=== PATIENT | female | born 1960 | race Caucasian/White ===

== ENCOUNTER 2017-10-11 13:55 | Emergency (ER) | payer MEDICAID ==
--- NOTE | 2017-10-11 15:45 | ER ---
Nurse's Notes [facility] Name: Deena Hdz Age: 57 yrs Sex: Female : 1960 Arrival Date: 10/11/2017 Time: 13:56 Bed 15 Private MD: Diagnosis: Acute sinusitis Presentation: 10/11 14:11 Presenting complaint: Patient states: "i have a sinus infection, i am coughing up green tw2 stuff and green stuff coming out of my nose for over a week now', PCP: Dr. Patino. Transition of care: patient was not received from another setting of care. Onset of symptoms was October 11, 2017. Initial Sepsis Screen: Does the patient meet any 2 criteria? No. Patient's initial sepsis screen is negative. Does the patient have a suspected source of infection? Yes: No. Patient's initial sepsis screen is negative. Care prior to arrival: None. 14:11 Method Of Arrival: Ambulatory tw2 14:11 Acuity: JAIRON 4 tw2 Triage Assessment: 14:15 General: Appears in no apparent distress. Behavior is calm, cooperative, appropriate tw2 for age. Pain: Complains of pain in sinuses. Historical: - Allergies: 14:15 PENICILLINS; tw2 - Home Meds: 14:15 Jen 180 mg Oral tab 1 tab once daily [Active]; alprazolam 0.5 mg Oral tab 1 tab tw2 twice a day [Active]; amikacin 500 mg/2 mL injection soln every 12 hours [Active]; aspirin 81 mg Oral chew 1 tab once daily [Active]; Cymbalta 60 mg Oral cpDR 1 cap once daily [Active]; Flonase 50 mcg/actuation Nasal spsn 2 sprays once daily [Active]; folic acid 1 mg Oral tab 1 tab once daily [Active]; gemfibrozil 600 mg Oral tab 1 tab 2 times per day [Active]; hydroxyzine HCl 25 mg Oral tab 1 tab 3 times per day [Active]; isosorbide mononitrate 30 mg Oral Tb24 1 tab once daily [Active]; Lipitor 20 mg Oral tab 1 tab once daily [Active]; lisinopril 20 mg Oral tab 1 tab once daily [Active]; magnesium oxide 500 mg Oral cap [Active]; metoprolol succinate-hydrochlorothiazide 50 mg Oral 1 tab once daily [Active]; oxybutynin chloride 5 mg Oral tr24 1 tab once daily [Active]; Prilosec 20 mg Oral cpDR 1 cap [Active]; Senna [Active]; Tylenol-Codeine #3 300-30 mg Oral tab 1 tab every 8 hours [Active]; Vitamin C Oral [Active]; - PMHx: 14:15 Anxiety; Depression; Diabetes - NIDDM; GERD; Hypertension; insomnia; Ventral Hernia tw2 w/Gangrene; - PSHx: 14:15 bladder sling; pelvic lift; reconstructive Sx to abdomen; Hysterectomy; big toe Sx; tw2 - Immunization history:: Adult Immunizations up to date. - Social history:: Smoking status: Patient/guardian denies using tobacco. Screenin:16 Abuse screen: Denies threats or abuse. Nutritional screening: No deficits noted. tw2 Tuberculosis screening: No symptoms or risk factors identified. Fall Risk None identified. Assessment: 15:00 General: Appears in no apparent distress. Behavior is calm, cooperative, appropriate jl7 for age. Pain: Complains of pain in sore throat. Neuro: Level of Consciousness is awake, alert, obeys commands, Oriented to person, place, time, situation. Cardiovascular: Heart tones S1 S2 present Patient's skin is warm and dry. Respiratory: Reports cough that is non-productive, Airway is patent Respiratory effort is even, unlabored, Respiratory pattern is regular, symmetrical, Breath sounds are clear bilaterally. GI: No signs and/or symptoms were reported involving the gastrointestinal system. : No signs and/or symptoms were reported regarding the genitourinary system. EENT: Throat is clear is reddened. Derm: Skin is pink, warm \\T\\ dry. Vital Signs: 14:12 BP 193 / 95; Pulse 68; Resp 17; Temp 97.5(TE); Pulse Ox 96% on R/A; Weight 116.57 kg tw2 (R); Height 5 ft. 5 in. (165.10 cm); Pain 6/10; 15:00 BP 160 / 85; Pulse 61; Resp 16; Pulse Ox 99% on R/A; jl7 15:41 BP 176 / 99; Pulse 68; Resp 18 S; Pulse Ox 99% on R/A; jl7 16:08 BP 170 / 89; Pulse 64; Resp 16; Pulse Ox 97% on R/A; jl7 14:12 Body Mass Index 42.77 (116.57 kg, 165.10 cm) tw2 ED Course: 13:56 Patient arrived in ED. tw3 14:12 Triage completed. tw2 14:12 Arm band placed on. tw2 14:21 Rodger Yip NP is PHCP. pm1 14:21 Jesse Toscano MD is Attending Physician. pm1 14:56 Jessica Chawla, LOVELY is Primary Nurse. jl7 15:00 Patient has correct armband on for positive identification. Bed in low position. Call jl7 light in reach. Side rails up X 1. Pulse ox on. NIBP on. 16:11 No provider procedures requiring assistance completed. Patient did not have IV access jl7 during this emergency room visit. Administered Medications: No medications were administered Outcome: 15:45 Discharge ordered by . pm1 16:11 Discharged to home ambulatory. jl7 16:11 Condition: stable 16:11 Discharge instructions given to patient, Instructed on discharge instructions, follow up and referral plans. medication usage, Demonstrated understanding of instructions, follow-up care, medications. 16:12 Patient left the ED. jl7 Signatures: Rodger Yip NP PLUMBER'S HELPER pm1 Deanna Perez RN RN tw2 Jessica Chawla, LOVELY RN jl7 Brea Iraheta tw3
--- NOTE | 2017-10-11 15:46 | EDPHYS ---
Physician Documentation [facility] Name: Deena Hdz Age: 57 yrs Sex: Female : 1960 Arrival Date: 10/11/2017 Time: 13:56 Bed 15 Private MD: ED Physician Jesse Toscano HPI: 10/11 15:40 This 57 yrs old Female presents to ER via Ambulatory with complaints of Sinus pm1 Congestion. 15:40 The patient or guardian reports Sinus congestion and pain. Onset: The symptoms/episode pm1 began/occurred 3 week(s) ago. Severity of symptoms: in the emergency department the symptoms are actually worse. Modifying factors: The symptoms are alleviated by nothing. Associated signs and symptoms: Pertinent positives: earache, fever, Pertinent negatives: chest pain, nausea, sore throat, vomiting. The patient has been recently seen by a physician: the patient's primary care provider, with similar presenting complaints, given prescriptions for Flonase and decongestants but patient unable to afford.. Historical: - Allergies: 14:15 PENICILLINS; tw2 - Home Meds: 14:15 Jen 180 mg Oral tab 1 tab once daily [Active]; alprazolam 0.5 mg Oral tab 1 tab tw2 twice a day [Active]; amikacin 500 mg/2 mL injection soln every 12 hours [Active]; aspirin 81 mg Oral chew 1 tab once daily [Active]; Cymbalta 60 mg Oral cpDR 1 cap once daily [Active]; Flonase 50 mcg/actuation Nasal spsn 2 sprays once daily [Active]; folic acid 1 mg Oral tab 1 tab once daily [Active]; gemfibrozil 600 mg Oral tab 1 tab 2 times per day [Active]; hydroxyzine HCl 25 mg Oral tab 1 tab 3 times per day [Active]; isosorbide mononitrate 30 mg Oral Tb24 1 tab once daily [Active]; Lipitor 20 mg Oral tab 1 tab once daily [Active]; lisinopril 20 mg Oral tab 1 tab once daily [Active]; magnesium oxide 500 mg Oral cap [Active]; metoprolol succinate-hydrochlorothiazide 50 mg Oral 1 tab once daily [Active]; oxybutynin chloride 5 mg Oral tr24 1 tab once daily [Active]; Prilosec 20 mg Oral cpDR 1 cap [Active]; Senna [Active]; Tylenol-Codeine #3 300-30 mg Oral tab 1 tab every 8 hours [Active]; Vitamin C Oral [Active]; - PMHx: 14:15 Anxiety; Depression; Diabetes - NIDDM; GERD; Hypertension; insomnia; Ventral Hernia tw2 w/Gangrene; - PSHx: 14:15 bladder sling; pelvic lift; reconstructive Sx to abdomen; Hysterectomy; big toe Sx; tw2 - Immunization history:: Adult Immunizations up to date. - Social history:: Smoking status: Patient/guardian denies using tobacco. ROS: 15:40 Eyes: Negative for injury, pain, redness, and discharge. pm1 15:40 Neck: Negative for injury, pain, and swelling, Cardiovascular: Negative for chest pain, palpitations, and edema, Respiratory: Negative for shortness of breath, cough, wheezing, and pleuritic chest pain, Abdomen/GI: Negative for abdominal pain, nausea, vomiting, diarrhea, and constipation, Back: Negative for injury and pain, : Negative for injury, bleeding, discharge, and swelling, MS/Extremity: Negative for injury and deformity, Skin: Negative for injury, rash, and discoloration, Neuro: Negative for headache, weakness, numbness, tingling, and seizure. 15:40 Constitutional: Positive for fever, Negative for body aches, poor PO intake. 15:40 ENT: Positive for sinus congestion, sinus pain, Negative for rhinorrhea, sore throat, difficulty swallowing, difficulty handling secretions, hoarseness. Exam: 15:40 Constitutional: This is a well developed, well nourished patient who is awake, alert, pm1 and in no acute distress. 15:40 Eyes: Pupils equal round and reactive to light, extra-ocular motions intact. Lids and lashes normal. Conjunctiva and sclera are non-icteric and not injected. Cornea within normal limits. Periorbital areas with no swelling, redness, or edema. ENT: Nares patent. No nasal discharge, no septal abnormalities noted. Tympanic membranes are normal and external auditory canals are clear. Oropharynx with no redness, swelling, or masses, exudates, or evidence of obstruction, uvula midline. Mucous membranes moist. Neck: Trachea midline, no thyromegaly or masses palpated, and no cervical lymphadenopathy. Supple, full range of motion without nuchal rigidity, or vertebral point tenderness. No Meningismus. Chest/axilla: Normal chest wall appearance and motion. Nontender with no deformity. No lesions are appreciated. Cardiovascular: Regular rate and rhythm with a normal S1 and S2. No gallops, murmurs, or rubs. No pulse deficits. Respiratory: Lungs have equal breath sounds bilaterally, clear to auscultation and percussion. No rales, rhonchi or wheezes noted. No increased work of breathing, no retractions or nasal flaring. Abdomen/GI: Soft, non-tender, with normal bowel sounds. No distension or tympany. No guarding or rebound. No evidence of tenderness throughout. Back: No spinal tenderness. No costovertebral tenderness. Full range of motion. Skin: Warm, dry with normal turgor. Normal color with no rashes, no lesions, and no evidence of cellulitis. MS/ Extremity: Pulses equal, no cyanosis. Neurovascular intact. Full, normal range of motion. 15:40 Head/face: Sinus tenderness, that is moderate, is located over the right frontal sinus, left frontal sinus, right maxillary sinus and left maxillary sinus. 15:40 Neuro: Orientation: is normal, Motor: moves all fours, Gait: is steady, at a normal pace, without difficulty. Vital Signs: 14:12 BP 193 / 95; Pulse 68; Resp 17; Temp 97.5(TE); Pulse Ox 96% on R/A; Weight 116.57 kg tw2 (R); Height 5 ft. 5 in. (165.10 cm); Pain 6/10; 15:00 BP 160 / 85; Pulse 61; Resp 16; Pulse Ox 99% on R/A; jl7 15:41 BP 176 / 99; Pulse 68; Resp 18 S; Pulse Ox 99% on R/A; jl7 16:08 BP 170 / 89; Pulse 64; Resp 16; Pulse Ox 97% on R/A; jl7 14:12 Body Mass Index 42.77 (116.57 kg, 165.10 cm) tw2 MDM: 14:21 Patient medically screened. pm1 15:45 Data reviewed: vital signs. Data interpreted: Pulse oximetry: on room air is 99 %. pm1 Interpretation: normal. Counseling: I had a detailed discussion with the patient and/or guardian regarding: the historical points, exam findings, and any diagnostic results supporting the discharge/admit diagnosis, the need for outpatient follow up, to return to the emergency department if symptoms worsen or persist or if there are any questions or concerns that arise at home. Administered Medications: No medications were administered Disposition: 17:15 Co-signature as Attending Physician, Jesse Toscano MD. rn Disposition: 10/11/17 15:45 Discharged to Home. Impression: Acute sinusitis. - Condition is Stable. - Discharge Instructions: Sinusitis, Adult. - Prescriptions for Zyrtec- D 5-120 mg Oral Tablet Sustained Release 12 hr - take 1 tablet by ORAL route every 12 hours As needed; 20 tablet. Zithromax 500 mg Oral Tablet - take 1 tablet by ORAL route once daily for 3 days; 3 tablet. - Medication Reconciliation Form, Thank You Letter, Antibiotic Education, Work release form, Family Work Release form. - Follow up: Emergency Department; When: As needed; Reason: Worsening of condition. Follow up: Private Physician; When: 2 - 3 days; Reason: Recheck today's complaints, Continuance of care, Re-evaluation by your physician. - Problem is new. - Symptoms have improved. Signatures: Jesse Toscano MD MD rn Marinas, Patrick, NP COMMERCIAL KITCHEN SERVICE TECHNICIAN pm1 Deanna Perez RN RN tw2 Jessica Chawla RN RN jl7
[2017-10-11 16:20] VITALS: TEMP 97.5
[2017-10-11 16:23] VITALS: BP 170/89; O2SAT 97
== END 2017-10-11 16:12 | disposition home or self-care (01) ==
LOC: ER 13:55
DX: J01.90 Acute sinusitis, unspecified (principal); I10 Essential (primary) hypertension; E11.9 Type 2 diabetes mellitus without complications; F41.9 Anxiety disorder, unspecified; F32.9 Major depressive disorder, single episode, unspecified; Z79.82 Long term (current) use of aspirin; Z88.0 Allergy status to penicillin
CPT/HCPCS: 99283

== ENCOUNTER 2018-04-07 11:51 | Emergency (ER) | payer MEDICAID ==
--- NOTE | 2018-04-07 12:25 | ER ---
Nurse's Notes [facility] Name: Deena Hdz Age: 57 yrs Sex: Female : 1960 Arrival Date: 04/07/2018 Time: 11:53 Bed 14 Private MD: Diagnosis: Cellulitis of anterior lower abdomen Presentation: 04/07 12:15 Presenting complaint: Patient states: has had multiple abd mesh surgeries by Dr. Cid, iw last surgery was in 2008, pt states her wound opened up last week and she has been trying to take care of it at home, states it has opened up in the past and usually she can treat it at home but now the pain has gotten worse. Transition of care: patient was not received from another setting of care. Onset of symptoms was March 31, 2018. Risk Assessment: Do you want to hurt yourself or someone else? Patient reports no desire to harm self or others. Initial Sepsis Screen: Does the patient meet any 2 criteria? No. Patient's initial sepsis screen is negative. Does the patient have a suspected source of infection? No. Patient's initial sepsis screen is negative. Care prior to arrival: None. 12:15 Method Of Arrival: Ambulatory iw 12:15 Acuity: JAIRON 3 iw Historical: - Allergies: 12:18 PENICILLINS; iw - Home Meds: 12:18 Jen 180 mg Oral tab 1 tab once daily [Active]; alprazolam 0.5 mg Oral tab 1 tab iw twice a day [Active]; amikacin 500 mg/2 mL injection soln every 12 hours [Active]; aspirin 81 mg Oral chew 1 tab once daily [Active]; Cymbalta 60 mg Oral cpDR 1 cap once daily [Active]; Flonase 50 mcg/actuation Nasal spsn 2 sprays once daily [Active]; folic acid 1 mg Oral tab 1 tab once daily [Active]; gemfibrozil 600 mg Oral tab 1 tab 2 times per day [Active]; hydroxyzine HCl 25 mg Oral tab 1 tab 3 times per day [Active]; isosorbide mononitrate 30 mg Oral Tb24 1 tab once daily [Active]; Lipitor 20 mg Oral tab 1 tab once daily [Active]; lisinopril 20 mg Oral tab 1 tab once daily [Active]; magnesium oxide 500 mg Oral cap [Active]; metoprolol succinate-hydrochlorothiazide 50 mg Oral 1 tab once daily [Active]; oxybutynin chloride 5 mg Oral tr24 1 tab once daily [Active]; Prilosec 20 mg Oral cpDR 1 cap [Active]; Tylenol-Codeine #3 300-30 mg Oral tab 1 tab every 8 hours [Active]; Vitamin C Oral [Active]; - PMHx: 12:18 Anxiety; Depression; Diabetes - NIDDM; GERD; Hypertension; insomnia; Ventral Hernia iw w/Gangrene; - PSHx: 12:18 bladder sling; pelvic lift; reconstructive Sx to abdomen; Hysterectomy; big toe Sx; iw - Ebola Screening: : Patient negative for fever greater than or equal to 101.5 degrees Fahrenheit, and additional compatible Ebola Virus Disease symptoms Patient denies exposure to infectious person Patient denies travel to an Ebola-affected area in the 21 days before illness onset No symptoms or risks identified at this time. Screenin:18 Abuse screen: Denies threats or abuse. Nutritional screening: No deficits noted. aa5 Tuberculosis screening: No symptoms or risk factors identified. Fall Risk None identified. Assessment: 12:18 General: Appears comfortable, Behavior is calm, cooperative. Pain: Complains of pain in aa5 abdomen Pain does not radiate. Pain currently is 9 out of 10 on a pain scale. Quality of pain is described as sharp, Pain began is chronic Is intermittent. Neuro: Level of Consciousness is awake, alert, obeys commands, Oriented to person, place, time, situation. Cardiovascular: Heart tones S1 S2 present Rhythm is regular. Respiratory: Airway is patent Respiratory effort is even, unlabored, Respiratory pattern is regular, symmetrical. GI: Abdomen is obese, appears as large hernia Abdomen appears as large hernia with incision site noted, redness noted to incision site noted, no drainage at this time noted, pt reports oozing. Pt states "I get this infection every once in a while and they have to give me antibiotics for it" Bowel sounds present X 4 quads. Abdomen is tender to palpation in right lower quadrant and left lower quadrant. : No signs and/or symptoms were reported regarding the genitourinary system. EENT: No signs and/or symptoms were reported regarding the EENT system. Derm: Skin is pink, warm \\T\\ dry. Musculoskeletal: Range of motion: intact in all extremities. 13:18 Reassessment: Patient and/or family updated on plan of care and expected duration. Pain aa5 level reassessed. Patient is alert, oriented x 3, equal unlabored respirations, skin warm/dry/pink. Pt states "can I please get some Tylenol for the pain?". BLANKET CUTTING MACHINE OPERATOR was notified of pt's request. . Pain: Pain currently is 10 out of 10 on a pain scale. 13:35 Reassessment: Wound care completed to abdomen, cleaned with Hibiclens, dressed with aa5 gauze, abd pads, and paper tape. Pt tolerated poorly, pt c/o pain. . 14:10 Reassessment: Patient is alert, oriented x 3, equal unlabored respirations, skin aa5 warm/dry/pink. Patient states feeling better. Vital Signs: 12:16 BP 177 / 89; Pulse 73; Resp 16; Pulse Ox 94% on R/A; iw 12:23 Temp 98.3(O); aa5 13:35 BP 190 / 86; Pulse 80; Resp 18 S; Pulse Ox 98% on R/A; Pain 10/10; aa5 14:00 BP 170 / 88; Pulse 74; Resp 18 S; Temp 98.4(O); Pulse Ox 97% on R/A; Pain 3/10; aa5 ED Course: 11:53 Patient arrived in ED. tw3 12:07 Irma Pace FNP-C is PSYCHIATRICP. snw 12:07 Jorge Lovelace MD is Attending Physician. snw 12:16 Triage completed. iw 12:18 Patient has correct armband on for positive identification. Bed in low position. Call aa5 light in reach. Side rails up X2. 12:18 Arm band placed on. aa5 12:20 Jayde Smith, RN is Primary Nurse. aa5 12:22 Edi Cid MD is Referral Physician. snw 13:24 No provider procedures requiring assistance completed. aa5 14:10 Patient did not have IV access during this emergency room visit. aa5 Administered Medications: 13:18 Drug: Cipro 500 mg Route: PO; aa5 14:10 Follow up: Response: No adverse reaction aa5 13:18 Drug: Doxycycline 100 mg Route: PO; aa5 14:10 Follow up: Response: No adverse reaction aa5 13:18 Drug: Hibiclens 4 % 1 application Route: Topical; Site: wound; aa5 13:19 Drug: Tylenol 500 mg Route: PO; aa5 14:10 Follow up: Response: No adverse reaction aa5 Outcome: 12:24 Discharge ordered by . nida 14:10 Discharged to home ambulatory, with family. aa5 14:10 Condition: stable 14:10 Discharge instructions given to patient, Instructed on discharge instructions, follow up and referral plans. medication usage, Demonstrated understanding of instructions, follow-up care, medications, Prescriptions given X 2. 14:17 Patient left the ED. aa5 Signatures: Irma Pace, FOREST LAW AND POLICY PROFESSOR-C FOREST LAW AND POLICY PROFESSOR-Csnw Kenyatta Banuelos RN RN iw Jayde Smith RN RN aa5 Brea Iraheta tw3 Corrections: (The following items were deleted from the chart) 14:36 14:00 BP 170 / 88; Pulse 74bpm; Resp 18bpm; Spontaneous; Pulse Ox 97% RA; Pain 08/27; [id number]
--- NOTE | 2018-04-07 12:25 | EDPHYS ---
Physician Documentation [facility] Name: Deena Hdz Age: 57 yrs Sex: Female : 1960 Arrival Date: 04/07/2018 Time: 11:53 Bed 14 Private MD: ED Physician Jorge Lovelace HPI: 04/07 12:21 This 57 yrs old Female presents to ER via Ambulatory with complaints of Wound snw Infection. 12:21 The patient represents for recheck after previously being evaluated for recurrent snw surgical wound/panus infection. Previous care: antibiotics, Cipro, doxy. Present symptoms: the infected skin generally heals with tx and then recurs. The patient has experienced similar episodes in the past. It is unknown whether or not the patient has recently seen a physician. Historical: - Allergies: 12:18 PENICILLINS; iw - Home Meds: 12:18 Jen 180 mg Oral tab 1 tab once daily [Active]; alprazolam 0.5 mg Oral tab 1 tab iw twice a day [Active]; amikacin 500 mg/2 mL injection soln every 12 hours [Active]; aspirin 81 mg Oral chew 1 tab once daily [Active]; Cymbalta 60 mg Oral cpDR 1 cap once daily [Active]; Flonase 50 mcg/actuation Nasal spsn 2 sprays once daily [Active]; folic acid 1 mg Oral tab 1 tab once daily [Active]; gemfibrozil 600 mg Oral tab 1 tab 2 times per day [Active]; hydroxyzine HCl 25 mg Oral tab 1 tab 3 times per day [Active]; isosorbide mononitrate 30 mg Oral Tb24 1 tab once daily [Active]; Lipitor 20 mg Oral tab 1 tab once daily [Active]; lisinopril 20 mg Oral tab 1 tab once daily [Active]; magnesium oxide 500 mg Oral cap [Active]; metoprolol succinate-hydrochlorothiazide 50 mg Oral 1 tab once daily [Active]; oxybutynin chloride 5 mg Oral tr24 1 tab once daily [Active]; Prilosec 20 mg Oral cpDR 1 cap [Active]; Tylenol-Codeine #3 300-30 mg Oral tab 1 tab every 8 hours [Active]; Vitamin C Oral [Active]; - PMHx: 12:18 Anxiety; Depression; Diabetes - NIDDM; GERD; Hypertension; insomnia; Ventral Hernia iw w/Gangrene; - PSHx: 12:18 bladder sling; pelvic lift; reconstructive Sx to abdomen; Hysterectomy; big toe Sx; iw - Ebola Screening: : Patient negative for fever greater than or equal to 101.5 degrees Fahrenheit, and additional compatible Ebola Virus Disease symptoms Patient denies exposure to infectious person Patient denies travel to an Ebola-affected area in the 21 days before illness onset No symptoms or risks identified at this time. ROS: 12:16 Constitutional: Negative for fever, chills, and weight loss, Eyes: Negative for injury, snw pain, redness, and discharge, ENT: Negative for injury, pain, and discharge, Neck: Negative for injury, pain, and swelling, Cardiovascular: Negative for chest pain, palpitations, and edema, Respiratory: Negative for shortness of breath, cough, wheezing, and pleuritic chest pain, Back: Negative for injury and pain, : Negative for injury, bleeding, discharge, and swelling, MS/Extremity: Negative for injury and deformity, Skin: Negative for injury, rash, and discoloration, Neuro: Negative for headache, weakness, numbness, tingling, and seizure. 12:16 Abdomen/GI: Positive for infected skin at lower abdomen. Pt states this happens regularly. States she usually gets Rx for doxycycline and cipro and the problem resolves. Sees Dr. Patino and Dr. Cid. Exam: 12:16 Constitutional: This is a well developed, well nourished patient who is awake, alert, snw and in no acute distress. Head/Face: Normocephalic, atraumatic. Eyes: Pupils equal round and reactive to light, extra-ocular motions intact. Lids and lashes normal. Conjunctiva and sclera are non-icteric and not injected. Cornea within normal limits. Periorbital areas with no swelling, redness, or edema. ENT: Nares patent. No nasal discharge, no septal abnormalities noted. Tympanic membranes are normal and external auditory canals are clear. Oropharynx with no redness, swelling, or masses, exudates, or evidence of obstruction, uvula midline. Mucous membranes moist. Neck: Trachea midline, no thyromegaly or masses palpated, and no cervical lymphadenopathy. Supple, full range of motion without nuchal rigidity, or vertebral point tenderness. No Meningismus. Chest/axilla: Normal chest wall appearance and motion. Nontender with no deformity. No lesions are appreciated. Cardiovascular: Regular rate and rhythm with a normal S1 and S2. No gallops, murmurs, or rubs. Normal PMI, no JVD. No pulse deficits. Respiratory: Lungs have equal breath sounds bilaterally, clear to auscultation and percussion. No rales, rhonchi or wheezes noted. No increased work of breathing, no retractions or nasal flaring. Back: No spinal tenderness. No costovertebral tenderness. Full range of motion. MS/ Extremity: Pulses equal, no cyanosis. Neurovascular intact. Full, normal range of motion. Neuro: Awake and alert, GCS 15, oriented to person, place, time, and situation. Cranial nerves II-XII grossly intact. Motor strength 5/5 in all extremities. Sensory grossly intact. Cerebellar exam normal. Normal gait. Psych: Awake, alert, with orientation to person, place and time. Behavior, mood, and affect are within normal limits. 12:16 Skin: Warm, dry with normal turgor. Normal color with no rashes, no lesions, and no evidence of cellulitis. except at areas discussed on abdomen 12:16 Abdomen/GI: Inspection: distension, that is mild, obese scar(s), are noted in the right lower quadrant and left lower quadrant, pt with surgical scars to panus area of bilateral lower abdomen, in creases of overhanging skin there is erythema, scabbing, and mild oozing. pt states the mesh over hernia is dissolving and it causes her some discomfort chronically, Bowel sounds: normal, in all quadrants, Palpation: soft, mild abdominal tenderness, in the right lower quadrant. Vital Signs: 12:16 BP 177 / 89; Pulse 73; Resp 16; Pulse Ox 94% on R/A; iw 12:23 Temp 98.3(O); aa5 13:35 BP 190 / 86; Pulse 80; Resp 18 S; Pulse Ox 98% on R/A; Pain 10/10; aa5 14:00 BP 170 / 88; Pulse 74; Resp 18 S; Temp 98.4(O); Pulse Ox 97% on R/A; Pain 3/10; aa5 MDM: 12:12 Patient medically screened. sn 12:25 Data reviewed: vital signs, nurses notes. Data interpreted: Pulse oximetry: on room air snw is 94 %. Interpretation: acceptable. Counseling: I had a detailed discussion with the patient and/or guardian regarding: the historical points, exam findings, and any diagnostic results supporting the discharge/admit diagnosis, the need for outpatient follow up, to return to the emergency department if symptoms worsen or persist or if there are any questions or concerns that arise at home. Special discussion: Based on the history and exam findings, there is no indication for further emergent testing or inpatient evaluation. I discussed with the patient/guardian the need to see the general surgeon for further evaluation of the symptoms. I discussed with the patient/guardian the need to see the primary care provider for further evaluation of the symptoms. 04/07 12:16 Order name: Wound Care; Complete Time: 13:33 snw 04/07 12:16 Order name: Wound dressing; Complete Time: 13:33 snw Administered Medications: 13:18 Drug: Cipro 500 mg Route: PO; aa5 14:10 Follow up: Response: No adverse reaction aa5 13:18 Drug: Doxycycline 100 mg Route: PO; aa5 14:10 Follow up: Response: No adverse reaction aa5 13:18 Drug: Hibiclens 4 % 1 application Route: Topical; Site: wound; aa5 13:19 Drug: Tylenol 500 mg Route: PO; aa5 14:10 Follow up: Response: No adverse reaction aa5 Disposition: 15:11 Co-signature as Attending Physician, Jorge Lovelace MD I agree with the assessment and kdr plan of care. Disposition: 04/07/18 12:24 Discharged to Home. Impression: Cellulitis of anterior lower abdomen. - Condition is Stable. - Discharge Instructions: Wound Infection, Wound Care. - Prescriptions for Doxycycline Hyclate 100 mg Oral Tablet - take 1 tablet by ORAL route every 12 hours; 20 tablet. Cipro 500 mg Oral Tablet - take 1 tablet by ORAL route every 12 hours for 10 days; 20 tablet. - Medication Reconciliation Form, Thank You Letter, Antibiotic Education, Prescription Opioid Use, Family Work Release form. - Follow up: Private Physician; When: 2 - 3 days; Reason: Recheck today's complaints, Continuance of care, Re-evaluation by your physician. Follow up: Emergency Department; When: As needed; Reason: Worsening of condition. Follow up: Edi Cid MD; When: 1 week; Reason: Recheck today's complaints, Continuance of care, Re-evaluation by your physician. - Problem is an acute exacerbation. - Symptoms have worsened. Signatures: Jorge Lovelace MD MD [facility] Irma Pace, [employer] Kenyatta Banuelos, RN RN iw Jayde Smith RN RN aa5 Corrections: (The following items were deleted from the chart) 14:17 12:24 04/07/2018 12:24 Discharged to Home. Impression: Cellulitis of anterior lower aa5 abdomen. Condition is Stable. Forms are Medication Reconciliation Form, Thank You Letter, Antibiotic Education, Prescription Opioid Use. Follow up: Private Physician; When: 2 - 3 days; Reason: Recheck today's complaints, Continuance of care, Re-evaluation by your physician. Follow up: Emergency Department; When: As needed; Reason: Worsening of condition. Follow up: Dr. Edi Cid; When: 1 week; Reason: Recheck today's complaints, Continuance of care, Re-evaluation by your physician. Problem is an acute exacerbation. Symptoms have worsened. snw
[2018-04-07] MEDS ORDERED: DOXYCYCLINE 100 MG CAP PO ONE (13:17)
[2018-04-07] MEDS ORDERED: CIPROFLOXACIN HCL 500 MG TAB ONE (13:17)
[2018-04-07] MEDS ORDERED: ACETAMINOPHEN 500 MG TAB ONE (13:23)
[2018-04-07 14:21] VITALS: BP 177/89; O2SAT 94
[2018-04-07 14:22] VITALS: TEMP 98.3
== END 2018-04-07 14:17 | disposition home or self-care (01) ==
LOC: ER 11:51
DX: L03.311 Cellulitis of abdominal wall (principal); Z88.0 Allergy status to penicillin; E11.9 Type 2 diabetes mellitus without complications; F41.8 Other specified anxiety disorders; I10 Essential (primary) hypertension; K21.9 Gastro-esophageal reflux disease without esophagitis
CPT/HCPCS: 99283

== ENCOUNTER 2019-12-04 09:51 | Emergency (ER) | payer MEDICAID ==
[2019-12-04 11:59] LABS: Urine Blood NEGATIVE (NEG); Urine Glucose NEGATIVE (NEG); Urine Protein NEGATIVE (NEG); Urine Specific Gravity 1.015 (1.005-1.030); Urine pH 5.5 (5.0-7.0)
--- OUTSIDE RECORDS SUMMARY | 2019-12-04 12:00 | XMS REPORT | Continuity of Care Document ---
:1960 Author Organization [facility] t Address [address] [place] [address] Care Team Providers Name Role Phone Doctor Unassigned, Taylor Attending Clinician Unavailable Khurram ALLISON Attending Clinician Problems This patient has no known problems. Allergies, Adverse Reactions, Alerts This patient has no known allergies or adverse reactions. Medications This patient has no known medications. Procedures This patient has no known procedures. Encounters Start End Encounter Admission Attending Care Care Encounter Source Date/Time Date/Time Type Type Clinicians Facility Department ID 2019-09-21 2019-09-21 Orders Doctor RETANA [id number] 00:00:00 00:00:00 Only UnassignedALBINA [id number] Taylor [facility] [id number] 2019-09-03 2019-09-03 Orders Doctor RETANA [id number] 00:00:00 00:00:00 Only UnassignedALBINA [id number] Taylor [facility] [id number] 2019-08-29 2019-08-29 Office NOHEMY Paulson [id number] 08:53:23 16:50:00 Visit Rochelle Wakefield [id number] [place] [id number] esscyndie [id number] nal 059 Building Results This patient has no known results.
--- NOTE | 2019-12-04 12:33 | RAD REPORT ---
EXAM DESCRIPTION: CT - Stone Protocol - 12/04/2019 12:03 pm CLINICAL HISTORY: right flank pain COMPARISON: Abdomen Pelvis W Contrast dated 12/14/2017 TECHNIQUE: Axial 5 mm thick images were obtained without oral or IV contrast. The npuvh-vs-city span s the entirety of the system including uppermost abdomen and lung bases. All CT scans are performed using dose optimization technique as appropriate and may include automated exposure control or mA/KV adjustment according to patient size. FINDINGS: No acute hydronephrosis is identified. Patient has moderate severity dilatation of the orville ices an extrarenal pelvis on the right. This is similar to comparison. No obstructing UPJ calculus. P atient may have a congenital UPJ obstruction or stricture. The ureter is not dilated. No ureteral orville culi seen. The patient has a 3 millimeter nonobstructing calculus mid left kidney. No suspicious mert l masses. Isodense masses and pyelonephritis are not excluded on a stone protocol CT scan. No signifi cant adrenal finding. Urinary bladder is only partially filled. No bladder calculi. Uterus is absent. Ovaries are absent or atrophic. Imaged portions of the liver, spleen and pancreas show no suspicious findings on non-contrast imaging . No gallbladder or biliary tree abnormality identified. No gastric dilatation or wall thickening. No dilated large or small bowel loops. Patient has a very large ventral hernia. The hernia is approximately 30 cm in transverse diameter wit h widely diastased rectus abdominis musculature. The neck of the hernia is approximately 20 cm in anne meter. The hernia contains the antrum of the stomach and most of the colon. Most of the small bowel l oops extend through the hernia defect. No acute bowel wall thickening or edema. No congestion or lyudmila a of the herniated fat. The hernia is not new but has enlarged since 2018. No free air, free fluid or inflammatory stranding. No significant bony abnormality. IMPRESSION: No new hydronephrosis. No obstructing calculus or other abnormality to explain right fla nk pain or hematuria. Patient has moderate severity dilatation of the right pelvis and calices unchanged from 2018. Patient has a very large 30 centimeter diameter ventral hernia that contains the antrum of the stomac h as well is most of the small bowel and colon. No acute bowel process seen. The hernia is not new but has enlarged since 2018. Isodense masses and pyelonephritis are not excluded on stone protocol technique.
[2019-12-04 12:48] LABS: Absolute Lymphocytes (CBC) 2.2 K/uL (0.7-4.9); Basophils % 0.5 % (0-1.3); Hematocrit 39.7 % (36.0-45.0); Lymphocytes % 20.8 % (15.3-44.8); RBC Red Blood Cell Count 4.44 M/uL (3.86-4.86)
[2019-12-04 13:06] LABS: ALT/SGPT 17 U/L (12-78); AST/SGOT 10 U/L (15-37); Albumin 3.3 g/dL (3.4-5.0); Alkaline Phosphatase 97 U/L (45-117); BUN Blood Urea Nitrogen 9 mg/dL (7-18); Bicarbonate 30 mmol/L (21-32); Bilirubin Direct < 0.1 mg/dL (0-0.2); Bilirubin Total 0.3 mg/dL (0.2-1.0); Glucose Level 110 mg/dL (74-106); Lipase 128 U/L (73-393); Potassium 3.6 mmol/L (3.5-5.1); Protein, Total 6.9 g/dL (6.4-8.2); Sodium Level 140 mmol/L (136-145)
--- NOTE | 2019-12-04 13:30 | EDPHYS ---
Physician Documentation [facility] Name: Deena Hdz Age: 59 yrs Sex: Female : 1960 Arrival Date: 12/04/2019 Time: 09:54 Bed 18 Private MD: Zev Feliz ED Physician Alvarez Alves HPI: 12/03 10:22 This 59 yrs old Female presents to ER via Ambulatory with complaints of Flank jmm Pain. 10:22 The patient complains of pain in the right flank. Onset: The symptoms/episode jmm began/occurred acutely. Modifying factors: The symptoms are alleviated by nothing. the symptoms are aggravated by nothing. This is a 59 year old female with a history of DM, that presents to the ED with complaints of right flank pain beginning approx 3 days ago after passing a kidney stone. Denies vomiting. Complains of chills and dysuria since. . Historical: - Allergies: 10:19 PENICILLINS; hb - PMHx: 10:19 Diabetes - NIDDM; Hypertension; Ventral Hernia w/Gangrene; GERD; Depression; Anxiety; hb insomnia; - PSHx: 10:19 bladder sling; pelvic lift; reconstructive Sx to abdomen; Hysterectomy; big toe Sx; hb - Immunization history:: Adult Immunizations up to date. - Social history:: Smoking status: Patient denies any tobacco usage or history of. ROS: 10:22 Constitutional: Negative for fever, chills, and weight loss, Cardiovascular: Negative jmm for chest pain, palpitations, and edema, Respiratory: Negative for shortness of breath, cough, wheezing, and pleuritic chest pain. 10:22 Abdomen/GI: Positive for abdominal pain. 10:22 : Positive for urinary symptoms. 10:22 All other systems are negative. Exam: 10:22 Constitutional: This is a well developed, well nourished patient who is awake, alert, jmm and in no acute distress. Head/Face: atraumatic. Eyes: EOMI, no conjunctival erythema appreciated ENT: Moist Mucus Membranes Neck: Trachea midline, Supple Chest/axilla: Normal chest wall appearance and motion. Cardiovascular: Regular rate and rhythm. No edema appreciated Respiratory: Normal respirations, no respiratory distress appreciated 10:22 Skin: General appearance color normal MS/ Extremity: Moves all extremities, no obvious deformities appreciated, no edema noted to the lower extremities Neuro: Awake and alert, normal gait Psych: Behavior is normal, Mood is normal, Patient is cooperative and pleasant 10:22 Abdomen/GI: Inspection: obese Bowel sounds: normal, Palpation: soft, mild abdominal tenderness, in the right upper quadrant and right lower quadrant. 10:22 Back: CVA tenderness, that is mild, is noted on the right. Vital Signs: 10:15 BP 170 / 102; Pulse 88; Resp 16; Temp 98.2; Pulse Ox 100% on R/A; Weight 122.02 kg; hb Height 5 ft. 5 in. (165.10 cm); Pain 9/10; 13:11 BP 112 / 57; Pulse 56; Resp 18; Pulse Ox 100% ; ah 13:30 BP 116 / 58; Pulse 56; Resp 16; Pulse Ox 100% ; ah 10:15 Body Mass Index 44.76 (122.02 kg, 165.10 cm) hb MDM: 10:22 Patient medically screened. [facility] 13:28 Data reviewed: vital signs, nurses notes. Counseling: I had a detailed discussion with ritika the patient and/or guardian regarding: the historical points, exam findings, and any diagnostic results supporting the discharge/admit diagnosis, lab results, radiology results, the need for outpatient follow up, to return to the emergency department if symptoms worsen or persist or if there are any questions or concerns that arise at home. ED course: Patient is alert and non toxic in appearance in the ED. Patient is advised to follow up with pcp and otherwise given strict return precautions. Patient understood and agrees with the plan of care. . 12/03 10:36 Order name: Basic Metabolic Panel; Complete Time: 13: [facility] 12/03 10:36 Order name: CBC with Diff; Complete Time: 13: [facility] 12/03 10:36 Order name: Hepatic Function; Complete Time: 13: [facility] 12/03 10:36 Order name: Lipase; Complete Time: 13: [facility] 12/03 10:36 Order name: Urine Culture [facility] 12/03 11:48 Order name: Urine Dipstick--Ancillary (enter results); Complete Time: 12:22 12/03 10:36 Order name: IV Saline Lock; Complete Time: 13: [facility] 12/03 10:36 Order name: Labs collected and sent; Complete Time: : [facility] 12/03 10:36 Order name: CT Stone Protocol; Complete Time: 12:37 [facility] 12/03 10:36 Order name: Urine Dipstick-Ancillary (obtain specimen); Complete Time: 13:16 [facility] Administered Medications: No medications were administered Disposition: 15:45 Co-signature as Attending Physician, Alvarez Alves MD I agree with the assessment and [facility] plan of care. Disposition: 12/04/19 13:29 Discharged to Home. Impression: Flank Pain. - Condition is Stable. - Discharge Instructions: Flank Pain, Adult. - Medication Reconciliation Form, Thank You Letter, Antibiotic Education, Prescription Opioid Use form. - Follow up: Zev Feliz DO; When: 2 - 3 days; Reason: Recheck today's complaints, Continuance of care, Re-evaluation by your physician. Signatures: Dispatcher [employer] [facility] Alvarez Alves MD MD cha Mickail, Joel, PA PA [facility] Romana Adam RN RN hb Harris, Amy, RN RN Corrections: (The following items were deleted from the chart) 11:24 11:14 Stone Protocol ordered. [facility] 13:59 13:29 12/04/2019 13:29 Discharged to Home. Impression: Flank Pain. Condition is Stable. ah Forms are Medication Reconciliation Form, Thank You Letter, Antibiotic Education, Prescription Opioid Use. Follow up: Zev Feliz; When: 2 - 3 days; Reason: Recheck today's complaints, Continuance of care, Re-evaluation by your physician. [facility]
--- NOTE | 2019-12-04 13:30 | ER ---
Nurse's Notes [facility] Name: Deena Hdz Age: 59 yrs Sex: Female : 1960 Arrival Date: 12/04/2019 Time: 09:54 Bed 18 Private MD: Zev Feliz Diagnosis: Flank Pain Presentation: 12/03 10:15 Chief complaint: Right flank pain that radiates to right groin x 3 weeks, blood in hb urine after passing a stone 4 days ago. Denies fever/N/V. Coronavirus screen: Surgical mask placed on patient. Patient moved to private room, placed in contact and droplet isolation with eye protection until further assessment. Ebola Screen: No symptoms or risks identified at this time. Initial Sepsis Screen: Does the patient meet any 2 criteria? No. Patient's initial sepsis screen is negative. Does the patient have a suspected source of infection? No. Patient's initial sepsis screen is negative. Risk Assessment: Do you want to hurt yourself or someone else? Patient reports no desire to harm self or others. Onset of symptoms was December 04, 2019. 10:15 Method Of Arrival: Ambulatory hb 10:15 Acuity: JAIRON 3 hb Historical: - Allergies: 10:19 PENICILLINS; hb - PMHx: 10:19 Diabetes - NIDDM; Hypertension; Ventral Hernia w/Gangrene; GERD; Depression; Anxiety; hb insomnia; - PSHx: 10:19 bladder sling; pelvic lift; reconstructive Sx to abdomen; Hysterectomy; big toe Sx; hb - Immunization history:: Adult Immunizations up to date. - Social history:: Smoking status: Patient denies any tobacco usage or history of. Screenin:56 Abuse screen: Denies threats or abuse. Nutritional screening: No deficits noted. Tuberculosis screening: No symptoms or risk factors identified. Fall Risk None identified. Assessment: 12:05 Reassessment: Pt to CT scan via . 13:00 General: Appears uncomfortable, Behavior is calm, cooperative. Pain: Complains of pain ah in posterior aspect of right lateral abdomen, right upper quadrant and right lower quadrant Pain radiates to right inner thigh. Neuro: Level of Consciousness is awake, alert, Oriented to person, place, time, situation. Cardiovascular: Capillary refill < 3 seconds Patient's skin is warm and dry. Respiratory: Airway is patent Respiratory effort is even, unlabored, Breath sounds are clear bilaterally. GI: Bowel sounds present X 4 quads. : Urine is cloudy, Reports blood after passing stone a few days ago but none today or yesterday. Derm: Skin is intact, is healthy with good turgor, Skin is dry. 13:55 Reassessment: Discharge instructions given to Pt. Advised to follow up with PCP if no ah improvement or return to ER. Pt voiced understanding. No prescriptions given. Vital Signs: 10:15 BP 170 / 102; Pulse 88; Resp 16; Temp 98.2; Pulse Ox 100% on R/A; Weight 122.02 kg; hb Height 5 ft. 5 in. (165.10 cm); Pain 9/10; 13:11 BP 112 / 57; Pulse 56; Resp 18; Pulse Ox 100% ; ah 13:30 BP 116 / 58; Pulse 56; Resp 16; Pulse Ox 100% ; ah 10:15 Body Mass Index 44.76 (122.02 kg, 165.10 cm) hb ED Course: 09:54 Patient arrived in ED. as 09:54 Zev Feliz DO is Private Physician. as 10:18 Triage completed. hb 10:19 Arm band placed on. hb 10:21 Fahad Marroquin PA is PHCP. [facility] 10:21 Alvarez Alves MD is Attending Physician. jmm 11:52 Lindsey Navarro, RN is Primary Nurse. ah 12:00 Patient has correct armband on for positive identification. Bed in low position. Call light in reach. Side rails up X2. Pulse ox on. NIBP on. 12:04 CT Stone Protocol In Process Unspecified. EDMS 12:15 Inserted saline lock: 20 gauge in right antecubital area, using aseptic technique. 13:29 Zev Feliz DO is Referral Physician. [facility] 13:45 IV discontinued, intact, bleeding controlled, No redness/swelling at site. Pressure dressing applied. 13:45 No provider procedures requiring assistance completed. Administered Medications: No medications were administered Outcome: 13:29 Discharge ordered by . [facility] 13:45 Discharged to home ambulatory. 13:45 Condition: good 13:45 Discharge instructions given to patient, Instructed on discharge instructions, follow up and referral plans. Demonstrated understanding of instructions, follow-up care. 13:59 Patient left the ED. Signatures: Dispatcher [employer] EDFahad Griffith PA PA jmm Martinez, Amelia as Baxter, Heather RN RN Lindsey Cortes RN RN
[2019-12-04 14:11] VITALS: TEMP 98.2; O2SAT 100
[2019-12-04 14:14] VITALS: BP 116/58
== END 2019-12-04 13:59 | disposition home or self-care (01) ==
LOC: ER 09:51
DX: R10.9 Unspecified abdominal pain (principal); I10 Essential (primary) hypertension; E11.9 Type 2 diabetes mellitus without complications; Z88.0 Allergy status to penicillin
CPT/HCPCS: 36415; 74176; 76377; 80048; 80076; 81003; 83690; 85025; 87086; 87088; 99283

== ENCOUNTER 2020-05-28 09:02 | Day surgery (SDC) | payer MEDICAID ==
[2020-05-27 15:08] LABS: Absolute Lymphocytes (CBC) 2.5 K/uL (0.7-4.9); Basophils % 0.5 % (0-1.3); Hematocrit 41.6 % (36.0-45.0); Lymphocytes % 30.2 % (15.3-44.8); MPV 9.6 fL (7.6-11.3); RBC Red Blood Cell Count 4.58 M/uL (3.86-4.86)
[2020-05-27 15:18] LABS: Potassium 3.9 mmol/L (3.5-5.1)
--- NOTE | 2020-05-27 15:37 | RAD REPORT ---
EXAM DESCRIPTION: RAD - Chest Pa And Lat (2 Views) - 05/27/2020 3:27 pm CLINICAL HISTORY: PRE-OP, pending soft tissue abscess incision and drainage COMPARISON: Portable October 2009 TECHNIQUE: Frontal and lateral views of the chest were obtained. FINDINGS: The lungs are clear of a peripheral mass or consolidation. A few calcified granulomas are seen. No hilar mass or lymphadenopathy identified. Chronic interstitial pattern present similar to c omparison. Heart size is normal and central vasculature is within normal limits. No pleural effusion or pneumothorax seen. No acute bony finding noted. No aortic abnormality. IMPRESSION: No acute cardiopulmonary process. No worrisome change from comparison.
[2020-05-28] MEDS ORDERED: Ringers Lactate 1,000 ML IV ONE (10:13)
[2020-05-28] MEDS: CIPROFLOXACIN 400mg IV 400 MG/200 ML BAG IV ONE ×2 (11:32→13:00)
[2020-05-28] MEDS ORDERED: FENTANYL CITR 100 MCG/2 ML ONE (12:12)
[2020-05-28] MEDS ORDERED: propofoL 200 MG/20 ML VIAL IV ONE (12:12)
[2020-05-28] MEDS ORDERED: MIDAZOLAM HCL 2 MG/2 ML INJ ONE (12:12)
[2020-05-28] MEDS ORDERED: LIDOCAINE 2% MPF 5 ML VIAL ONE (12:13)
[2020-05-28] MEDS ORDERED: EPHEDRINE SULF 50 MG/ML VIAL ONE (13:20)
[2020-05-28] MEDS ORDERED: KETOROLAC 30 MG/ML INJ ONE (13:34)
[2020-05-28] MEDS ORDERED: HYDROCODONE/APAP 7.5/325 MG TAB ONE (14:47)
--- OUTSIDE RECORDS SUMMARY | 2020-05-28 14:48 | XMS REPORT | Continuity of Care Document ---
:1960 Author Organization [facility] t Address [address] [place] [address] Dr. Brock [address] [place] [address] Care Team Providers Name Role Phone Khurram ALLISON Attending Clinician Trevon ALLISON, K.H. Attending Clinician Problems This patient has no known problems. Allergies, Adverse Reactions, Alerts This patient has no known allergies or adverse reactions. Medications This patient has no known medications. Procedures This patient has no known procedures. Encounters Start End Encounter Admission Attending Care Care Encounter Source Date/Time Date/Time Type Type Clinicians Facility Department ID 2020-05-07 2020-05-07 Refill Khurram NDOSMANI [id number] 00:00:00 00:00:00 Rochelle Lopez [id number] [place] [id number] Professio [phone] [address] 2020-05-06 2020-05-06 [facility] [id number] [facility] 00:00:00 00:00:00 [facility] 2019-12-06 2019-12-06 Telephone NOHEMY Lester [id number] 00:00:00 00:00:00 Christiano Lopez [id number] [place] [id number] [phone] Results This patient has no known results.
[2020-05-28 15:25] VITALS: BP 100/45; TEMP 98.2; O2SAT 99
--- NOTE | 2020-05-28 23:16 | OP ---
Date of Procedure: 05/28/2020 Surgeon: Edi Cid MD Psychiatric Technician Assistant: None. Preoperative Diagnosis: Left lower quadrant abdominal wall abscess. Postoperative Diagnosis: Left lower quadrant abdominal wall abscess. Procedure: Incision drainage and debridement of left lower quadrant abdominal abscess. Estimated Blood Loss: Minimal. Specimens: Pus. Findings: As above. Anesthesia: General. Complications: None. Condition/disposition: The patient tolerated the procedure in stable condition, taken to Recovery in good general condition. Procedure In Detail: The patient was brought to the OR and placed in supine position. General anest hesia begun. The patient was prepped and draped in the usual sterile fashion. Marcaine 0.5% was inf iltrated locally. A 15 blade was used to make a 4 cm incision over this 4 x 6 cm area of erythema, w armth, edema, and fluctuance. Pus under pressure evacuated. Loculation broken up. Necrotic tissue debrided. Wound irrigated. Bleeding controlled with cautery. Then, wet-to-dry normal saline dressi ng change applied. The patient tolerated the procedure in stable condition and taken to Recovery in good general condition. Discharge Note: The patient will go to Day Surgery and home when stable. Disposition: Home. Condition: Stable. Discharge Instructions: Resume home medications and diet. Activity as tolerated. No heavy lifting. Follow up in wound healing center in 2 weeks. Call for appointment. wet-to-dry normal s murali dressing changes daily. Tylenol No. 3 one tablet p.o. q.4 p.r.n. pain. /MODL Voice ID: [id number] Report ID: [id number]
== END 2020-05-28 15:50 | disposition home or self-care (01) ==
LOC: OR 09:02
PROVIDERS: ATTEND Surgery
PROC: 0JB80ZZ Excision of Abdomen Subcutaneous Tissue and Fascia, Open Approach (ICD-10-PCS; principal; 2020-05-28 11:45)
DX: L02.211 Cutaneous abscess of abdominal wall (principal); Z20.828 Contact with and (suspected) exposure to other viral communicable diseases; E66.01 Morbid (severe) obesity due to excess calories; F43.10 Post-traumatic stress disorder, unspecified; K21.9 Gastro-esophageal reflux disease without esophagitis; I25.10 Atherosclerotic heart disease of native coronary artery without angina pectoris; I11.0 Hypertensive heart disease with heart failure; I50.9 Heart failure, unspecified; G47.30 Sleep apnea, unspecified; R73.03 Prediabetes; L89.893 Pressure ulcer of other site, stage 3; M54.9 Dorsalgia, unspecified; G89.29 Other chronic pain; F32.9 Major depressive disorder, single episode, unspecified; E78.5 Hyperlipidemia, unspecified; Z68.41 Body mass index [BMI] 40.0-44.9, adult; K91.2 Postsurgical malabsorption, not elsewhere classified
CPT/HCPCS: 93005; 87070; 85025; 80048; 36415; 87205; 87077; 87186; 71046; 11042; 11045; U0002; J2704; J2250; J3010; J7120; J0744

== ENCOUNTER 2020-10-12 09:25 | Emergency (ER) | payer OTHER ==
--- OUTSIDE RECORDS SUMMARY | 2020-10-12 09:28 | XMS REPORT | Continuity of Care Document ---
:[address] [facility] t Address [address] [place] [address] Dr. Lockhart. [address] [place] [address] Care Team Providers Name Role Phone Khurram ALLISON Attending Clinician Mike Palomares DO Attending Clinician Problems This patient has no known problems. Allergies, Adverse Reactions, Alerts This patient has no known allergies or adverse reactions. Medications This patient has no known medications. Procedures This patient has no known procedures. Encounters Start End Encounter Admission Attending Care Care Encounter Source Date/Time Date/Time Type Type Clinicians Facility Department ID 2020-09-02 2020-09-02 RefNOHEMY Villegas [id number] 00:00:00 00:00:00 Rochelle Lopez [id number] [place] [id number] Professio [phone] [address] 2020-09-01 2020-09-01 RefNOHEMY Villegas [id number] 00:00:00 00:00:00 Rochelle Lopez [id number] [place] [id number] Professio [phone] [address] 2020-08-26 2020-08-26 Patient NOHEMY Palomares [id number] 00:00:00 00:00:00 Outreach [facility] [id number] [facility] [id number] PAVILLION [phone] [facility] 2020-08-21 2020-08-21 Outpatient [facility] [id number] [facility] 2020-08-19 2020-08-19 Out[facility] [id number] [facility] 2020-08-19 2020-08-19 [facility] [id number] 00:00:00 00:00:00 Rochelle Lopez [id number] [place] [id number] Professio [phone] [address] 2020-08-14 2020-08-14 Out[facility] [id number] [facility] 2020-07-29 2020-07-29 Out[facility] [id number] [facility] 2020-07-24 2020-07-24 Out[facility] [id number] [facility] 2020-06-16 2020-06-16 Out[facility] [id number] [facility] 2020-06-09 2020-06-09 Outpatient [facility] [id number] [facility] 2020-06-02 2020-06-02 Office [facility] [id number] 09:31:22 10:09:00 Visit Rochelle Lopez [id number] [place] [id number] Professio [phone] [address] 2020-05-07 2020-05-07 Outpatient [facility] [id number] [facility] St 00:00:00 00:00:00 [facility] 2020-05-06 2020-05-06 Outpatient [facility] [id number] [facility] 00:00:00 00:00:00 [facility] Results This patient has no known results.
[2020-10-12 12:21] LABS: Urine Blood 3+ (Negative); Urine Glucose Trace (Negative); Urine Protein 3+ (Negative); Urine Specific Gravity 1.015 (1.005-1.030)
[2020-10-12] MEDS ORDERED: MORPHINE 4 MG/ML SYR ONE (12:40)
[2020-10-12] MEDS ORDERED: ONDANSETRON 4 MG/2 ML VIAL ONE (12:40)
[2020-10-12] MEDS ORDERED: NA CHLORIDE 0.9% 1,000 ML ONE (12:40)
[2020-10-12 12:54] LABS: Absolute Lymphocytes (CBC) 2.4 K/uL (0.7-4.9); Basophils % 0.3 % (0-1.3); Hematocrit 39.5 % (36.0-45.0); Lymphocytes % 16.5 % (15.3-44.8); MPV 10.1 fL (7.6-11.3)
[2020-10-12 12:54] LABS: Urine Bacteria <20 /HPF (<20)
[2020-10-12] MEDS ORDERED: LORazepam 2 MG/ML VIAL ONE (13:00)
[2020-10-12 13:01] LABS: Albumin 3.3 g/dL (3.4-5.0); Bilirubin Direct 0.1 mg/dL (0-0.2); Bilirubin Total 0.7 mg/dL (0.2-1.0); Potassium 3.7 mmol/L (3.5-5.1); Protein, Total 7.4 g/dL (6.4-8.2)
--- NOTE | 2020-10-12 13:41 | RAD REPORT ---
EXAM DESCRIPTION: CT - Abdomen Pelvis W Contrast - 10/12/2020 1:13 pm CLINICAL HISTORY: Abdominal pain/dysuria COMPARISON: 2019 TECHNIQUE: Computed axial tomography of the abdomen pelvis was obtained. 100 cc Isovue-300 was admin istered intravenously. Oral contrast was not requested which limits evaluation of bowel. All CT scans are performed using dose optimization technique as appropriate and may include automated exposure control or mA/KV adjustment according to patient size. FINDINGS: Small bilateral nonobstructing renal calculi. Moderate right hydronephrosis. Enhancement of the wall of the right renal pelvis is seen. The right u reter is normal caliber. Liver, spleen, pancreas and adrenals appear unremarkable Very large ventral hernia is again demonstrated containing portion of the stomach, small and large cristina wel. Several loops of small bowel are borderline dilated perhaps an ileus. No evidence of diverticuli tis. Spondylolysis L5 IMPRESSION: Moderate right hydronephrosis perhaps secondary to a UPJ stricture. Enhancement of the w all of the renal pelvis probably indicating infection. Very large ventral hernia
--- NOTE | 2020-10-12 14:48 | EDPHYS ---
Physician Documentation [facility] Name: Deena Hdz Age: 60 yrs Sex: Female : 1960 Arrival Date: 10/12/2020 Time: 09:32 Bed 7 Private MD: Tray [facility] ED Physician Roberto Dale HPI: 10/12 12:16 This 60 yrs old Female presents to ER via Wheelchair with complaints of pm1 Urinary Problem. 12:16 The patient presents with urinary symptoms, dysuria. Onset: The symptoms/episode pm1 began/occurred yesterday. Modifying factors: The symptoms are alleviated by over the counter medications, Azo. Associated signs and symptoms: Pertinent negatives: fever, Abdominal pain. Severity of symptoms: in the emergency department the symptoms have improved. The patient has not recently seen a physician. Patient also complaining of chronic wound present to right lower abdomen. No discharge present. Historical: - Allergies: 09:48 PENICILLINS; ss - PMHx: 09:48 Anxiety; Depression; Ventral Hernia w/Gangrene; insomnia; Hypertension; GERD; Diabetes ss - NIDDM; - PSHx: 09:48 bladder sling; pelvic lift; reconstructive Sx to abdomen; Hysterectomy; big toe Sx; ss - Immunization history:: Adult Immunizations up to date. - Social history:: Smoking status: Patient denies any tobacco usage or history of. ROS: 12:16 Positive for urinary frequency, burning with urination, Negative for flank pain. pm1 12:16 Constitutional: Negative for fever, chills, and weight loss, Cardiovascular: Negative for chest pain, palpitations, and edema, Respiratory: Negative for shortness of breath, cough, wheezing, and pleuritic chest pain, Abdomen/GI: Negative for abdominal pain, nausea, vomiting, diarrhea, and constipation, Back: Negative for injury and pain, MS/Extremity: Negative for injury and deformity. 12:16 Neuro: Negative for headache, weakness, numbness, tingling, and seizure. 12:16 Skin: Positive for ulceration, of the right lower quadrant, Negative for cellulitis. Exam: 12:16 Constitutional: This is a well developed, well nourished patient who is awake, alert, pm1 and in no acute distress. Head/Face: Normocephalic, atraumatic. 12:16 Back: No spinal tenderness. No costovertebral tenderness. Full range of motion. 12:16 Cardiovascular: Exam negative for acute changes, Rate: normal, Rhythm: regular, Pulses: no pulse deficits are appreciated. 12:16 Respiratory: Exam negative for acute changes, respiratory distress, shortness of breath. 12:16 Abdomen/GI: Inspection: obese Palpation: abdomen is soft and non-tender, in all quadrants, Hernia: tenderness, is not appreciated. 12:16 Skin: Appearance: normal except for affected area, lesion(s), noted, and can be described as 2 cm x 2 cm ulceration present to right lower quadrant without any surrounding cellulitis, abscess, or drainage. 12:16 Neuro: Exam negative for acute changes, Orientation: is normal, Mentation: is normal, Motor: is normal, moves all fours. Vital Signs: 09:42 BP 112 / 88; Pulse 81; Resp 18; Temp 97.2(TE); Pulse Ox 98% on R/A; Weight 113.4 kg; ss Height 5 ft. 5 in. (165.10 cm); Pain 10/10; 11:15 BP 124 / 79; Pulse 70; Resp 15; Pulse Ox 97% on R/A; hb 12:30 BP 130 / 84; Pulse 65; Resp 15; Pulse Ox 99% on R/A; hb 13:52 BP 128 / 86; Pulse 71; Resp 17; Pulse Ox 98% on R/A; hb 15:00 BP 126 / 82; Pulse 70; Resp 16; Pulse Ox 100% on R/A; hb 09:42 Body Mass Index 41.60 (113.40 kg, 165.10 cm) MDM: 11:38 Patient medically screened. pm1 14:40 Data reviewed: I have discussed the patient's presentation/case with the attending pm1 Emergency Department Physician; and as a result, I will discharge patient, Recommended antibiotics and patient can follow up with urology. 14:44 ED course: Patient reports that she has been passing some stones so she is not pm1 surprised by the CT findings. Last time she had this was about 5 months ago and she was prescribed Cipro and doxycycline. She wants the same abx therapy. 14:44 Counseling: I had a detailed discussion with the patient and/or guardian regarding: the pm1 historical points, exam findings, and any diagnostic results supporting the discharge/admit diagnosis, lab results, radiology results, the need for outpatient follow up, a urologist, to return to the emergency department if symptoms worsen or persist or if there are any questions or concerns that arise at home. 10/12 12:13 Order name: Basic Metabolic Panel; Complete Time: 13:17 pm1 10/12 12:13 Order name: CBC with Diff; Complete Time: 13:17 pm1 10/12 12:13 Order name: Hepatic Function; Complete Time: 13:17 pm1 10/12 12:13 Order name: Lipase; Complete Time: 13:17 pm1 10/12 12:13 Order name: Urine Microscopic Only; Complete Time: 13:17 pm1 10/12 12:21 Order name: Urine Dipstick-Ancillary; Complete Time: 12:22 EDNJ 10/12 12:13 Order name: CT Abd/Pelvis - IV Contrast Only; Complete Time: 13:42 pm1 10/12 12:56 Order name: Urine Culture [facility] 10/12 12:59 Order name: CREATININE WHOLE BLOOD; Complete Time: 13:17 EDNJ 10/12 12:13 Order name: IV Saline Lock; Complete Time: 12:46 pm1 10/12 12:13 Order name: Labs collected and sent; Complete Time: 12:46 pm1 10/12 12:13 Order name: Urine Dipstick-Ancillary (obtain specimen); Complete Time: 12:46 pm1 Administered Medications: 12:36 Drug: morphine 4 mg Route: IVP; Site: left antecubital; hb 12:36 Drug: Zofran (Ondansetron) 4 mg Route: IVP; Site: left antecubital; hb 12:36 Drug: NS 0.9% 1000 ml Route: IV; Rate: 1000 ml; Site: left antecubital; hb 12:45 Drug: Ativan (LORazepam) 0.5 mg Route: IVP; Site: left antecubital; hb 15:02 Drug: [place] (HYDROcodone-acetaminophen) 10 mg-325 mg 1 tabs Route: PO; hb 15:03 Drug: Cipro (ciprofloxacin) 500 mg Route: PO; hb 15:03 Drug: Flomax 0.4 mg Route: PO; hb Disposition: : Co-signature as Attending Physician, Roberto Dale MD. pkl Disposition: 10/12/20 14:47 Discharged to Home. Impression: Unspecified hydronephrosis - Right. - Condition is Stable. - Discharge Instructions: Hydronephrosis. - Prescriptions for Tylenol- Codeine #3 300-30 mg Oral Tablet - take 2 tablets by ORAL route every 4-6 hours As needed; 20 tablet. Zofran 4 mg Oral Tablet - take 1 tablet by ORAL route every 8 hours As needed; 20 tablet. Doxycycline Hyclate 100 mg Oral Tablet - take 1 tablet by ORAL route every 12 hours; 20 tablet. Cipro 500 mg Oral Tablet - take 1 tablet by ORAL route every 12 hours for 10 days; 20 tablet. - Medication Reconciliation Form, Thank You Letter, Antibiotic Education, Prescription Opioid Use, Family Work Release form. - Follow up: Emergency Department; When: As needed; Reason: Worsening of condition. Follow up: Raj Gomez MD; When: 2 - 3 days; Reason: Recheck today's complaints, Continuance of care, Re-evaluation by your physician. - Problem is new. - Symptoms have improved. Signatures: Dispatcher [employer] EDMS Roberto Dale MD MD pkl Smirch, Shelby, RN RN ss Rodger Yip, MAX DENTAL HYGIENE INSTRUCTOR pm1 Romana Adam RN RN Corrections: (The following items were deleted from the chart) 16:25 14:47 10/12/2020 14:47 Discharged to Home. Impression: Unspecified hydronephrosis - ss Right. Condition is Stable. Forms are Medication Reconciliation Form, Thank You Letter, Antibiotic Education, Prescription Opioid Use. Follow up: Emergency Department; When: As needed; Reason: Worsening of condition. Follow up: Raj Gomez; When: 2 - 3 days; Reason: Recheck today's complaints, Continuance of care, Re-evaluation by your physician. Problem is new. Symptoms have improved. pm1
--- NOTE | 2020-10-12 14:48 | ER ---
Nurse's Notes [facility] Name: Deena Hdz Age: 60 yrs Sex: Female : 1960 Arrival Date: 10/12/2020 Time: 09:32 Bed 7 Private MD: Zev Felzi Diagnosis: Unspecified hydronephrosis-Right Presentation: 10/12 09:42 Chief complaint: Patient states: Chronic wound to abd since 2007. Pt lost her insurance ss the end of last year and has not been able to have her wound care and recently ran out of supplies. Wound has been getting worse after a fall 5 days ago. Pt also reports that she was unable to void yesterday, but after taking AZO reports that she was able to start urinating again this morning. Coronavirus screen: Client denies travel out of the [place] in the last 14 days. Ebola Screen: Patient denies exposure to infectious person. Patient denies travel to an Ebola-affected area in the 21 days before illness onset. Initial Sepsis Screen: Does the patient meet any 2 criteria? No. Patient's initial sepsis screen is negative. Does the patient have a suspected source of infection? No. Patient's initial sepsis screen is negative. Risk Assessment: Do you want to hurt yourself or someone else? Patient reports no desire to harm self or others. Onset of symptoms was October 08, 2020. 09:42 Method Of Arrival: Wheelchair 09:42 Acuity: JAIRON 3 ss Historical: - Allergies: 09:48 PENICILLINS; ss - PMHx: 09:48 Anxiety; Depression; Ventral Hernia w/Gangrene; insomnia; Hypertension; GERD; Diabetes ss - NIDDM; - PSHx: 09:48 bladder sling; pelvic lift; reconstructive Sx to abdomen; Hysterectomy; big toe Sx; ss - Immunization history:: Adult Immunizations up to date. - Social history:: Smoking status: Patient denies any tobacco usage or history of. Screenin:27 Abuse screen: Denies threats or abuse. Denies injuries from another. Nutritional sv screening: No deficits noted. Tuberculosis screening: No symptoms or risk factors identified. Fall Risk None identified. Assessment: 11:26 Reassessment: Daughter Carri Lr [phone]. 12:30 Reassessment: Patient appears in no apparent distress at this time. Patient and/or hb family updated on plan of care and expected duration. Pain level reassessed. Patient is alert, oriented x 3, equal unlabored respirations, skin warm/dry/pink. 13:51 Reassessment: Pt ambulated to bathroom with steady gait. Assisted back to bed and hb placed on monitor. NAD. 14:45 Reassessment: Patient appears in no apparent distress at this time. Patient and/or hb family updated on plan of care and expected duration. Pain level reassessed. Patient is alert, oriented x 3, equal unlabored respirations, skin warm/dry/pink. Patient states feeling better. 15:20 Reassessment: Discharge ordered, awaiting transportation at this time. hb Vital Signs: 09:42 BP 112 / 88; Pulse 81; Resp 18; Temp 97.2(TE); Pulse Ox 98% on R/A; Weight 113.4 kg; ss Height 5 ft. 5 in. (165.10 cm); Pain 10/10; 11:15 BP 124 / 79; Pulse 70; Resp 15; Pulse Ox 97% on R/A; hb 12:30 BP 130 / 84; Pulse 65; Resp 15; Pulse Ox 99% on R/A; hb 13:52 BP 128 / 86; Pulse 71; Resp 17; Pulse Ox 98% on R/A; hb 15:00 BP 126 / 82; Pulse 70; Resp 16; Pulse Ox 100% on R/A; hb 09:42 Body Mass Index 41.60 (113.40 kg, 165.10 cm) ED Course: 09:32 Patient arrived in ED. mr 09:32 Zev Feliz DO is Private Physician. mr 09:48 Triage completed. ss 09:48 Arm band placed on right wrist. ss 11:11 Romana Adam, LOVELY is Primary Nurse. hb 11:38 Rodger Yip NP is PHCP. pm1 11:38 Roberto Dale MD is Attending Physician. pm1 12:27 Patient has correct armband on for positive identification. Bed in low position. Call sv light in reach. Door closed. Head of bed elevated. 13:13 CT Abd/Pelvis - IV Contrast Only In Process Unspecified. EDMS 14:46 Raj Gomez MD is Referral Physician. pm1 15:21 No provider procedures requiring assistance completed. IV discontinued, intact, hb bleeding controlled, No redness/swelling at site. Administered Medications: 12:36 Drug: morphine 4 mg Route: IVP; Site: left antecubital; hb 12:36 Drug: Zofran (Ondansetron) 4 mg Route: IVP; Site: left antecubital; hb 12:36 Drug: NS 0.9% 1000 ml Route: IV; Rate: 1000 ml; Site: left antecubital; hb 12:45 Drug: Ativan (LORazepam) 0.5 mg Route: IVP; Site: left antecubital; hb 15:02 Drug: [place] (HYDROcodone-acetaminophen) 10 mg-325 mg 1 tabs Route: PO; hb 15:03 Drug: Cipro (ciprofloxacin) 500 mg Route: PO; hb 15:03 Drug: Flomax 0.4 mg Route: PO; hb Outcome: 14:47 Discharge ordered by MD. pm1 15:21 Discharged to home ambulatory, with family. hb 15:21 Condition: stable 15:21 Discharge instructions given to patient, Instructed on discharge instructions, follow up and referral plans. medication usage, Demonstrated understanding of instructions, follow-up care, medications, Prescriptions given X 4. 16:25 Patient left the ED. Addendum: 10/14/2020 09:56 Addendum: Culture Results: Positive urine culture. No further action required. Bacteria a a5 sensitive to prescribed antibiotic. Signatures: Dispatcher [employer] EDMS Carri Hastings RN RN sv Rivera, Mary mr CerdaJayde grace RN RN aa5 Carmelita Epps RN RN ss Marinas, Patrick, NP IRONING WORKER pm1 Romana Adam RN RN hb
[2020-10-12] MEDS ORDERED: CIPROFLOXACIN HCL 500 MG TAB ONE (15:16)
[2020-10-12] MEDS ORDERED: TAMSULOSIN 0.4 MG SR CAP ONE (15:17)
[2020-10-12] MEDS ORDERED: HYDROCODONE/APAP 10/325 TAB ONE (15:17)
[2020-10-12 16:30] VITALS: TEMP 97.2
[2020-10-12 16:36] VITALS: BP 126/82; O2SAT 100
== END 2020-10-12 16:25 | disposition home or self-care (01) ==
LOC: ER 09:25
DX: N13.30 Unspecified hydronephrosis (principal); L98.499 Non-pressure chronic ulcer of skin of other sites with unspecified severity; I10 Essential (primary) hypertension; Z88.0 Allergy status to penicillin
CPT/HCPCS: 87088; 85025; 87086; 80048; 36415; 82565; 80076; 83690; 74177; Q9967; J7030; J2405; 81003; 81015; 87077; 87186; 96374; 96375; 99283

== ENCOUNTER 2020-11-25 09:55 | Emergency (ER) | payer OTHER ==
--- OUTSIDE RECORDS SUMMARY | 2020-11-25 09:58 | XMS REPORT | Continuity of Care Document ---
:[address] [facility] t Address [address] [place] [address] Care Team Providers Name Role Phone Doctor Unassigned, Name Attending Clinician Unavailable Khurram ALLISON Attending Clinician Mike Palomares DO Attending Clinician Problems This patient has no known problems. Allergies, Adverse Reactions, Alerts This patient has no known allergies or adverse reactions. Medications This patient has no known medications. Procedures This patient has no known procedures. Encounters Start End Encounter Admission Attending Care Care Encounter Source Date/Time Date/Time Type Type Clinicians Facility Department ID 2020-11-24 2020-11-24 Orders Doctor RETANA [id number] 00:00:00 00:00:00 Only UnassignedALBINA [id number] [place] [facility] [phone] [id number] 2020-11-20 2020-11-20 Outpatient [facility] [id number] [facility] 2020-11-03 2020-11-03 Outpatient [facility] [id number] [facility] 2020-11-03 2020-11-03 Out[facility] [id number] [facility] 2020-10-31 2020-10-31 [facility] [id number] [facility] 2020-10-29 2020-10-29 [facility] [id number] [facility] 2020-10-24 2020-10-24 [facility] [id number] [facility] 2020-10-16 2020-10-16 [facility] [id number] [facility] 2020-10-15 2020-10-15 [facility] [id number] [facility] 2020-10-14 2020-10-14 [facility] [id number] [facility] 2020-09-02 2020-09-02 Refill Khurram, [facility] [id number] 00:00:00 00:00:00 Rochelle Lopez [id number] [place] [id number] Professio [phone] [address] 2020-09-01 2020-09-01 Refill Khurram, [facility] [id number] 00:00:00 00:00:00 Rochelle Lopez [id number] [place] [id number] Professio [phone] [address] 2020-08-26 2020-08-26 Patient Jelani, [facility] [id number] 00:00:00 00:00:00 Outreach [facility] [id number] [facility] [id number] PAVILLION [phone] [facility] 2020-08-21 2020-08-21 Outpatient [facility] [id number] [facility] 2020-08-19 2020-08-19 Outpatient [facility] [id number] [facility] 2020-08-19 2020-08-19 Refill [facility] [id number] 00:00:00 00:00:00 Rochelle [place] [id number] [place] [id number] Professio [phone] nal [address] [place] [address] 2020-08-14 2020-08-14 Outpatient [facility] [id number] [facility] 2020-07-29 2020-07-29 Outpatient [facility] [id number] [facility] 2020-07-24 2020-07-24 [facility] [id number] [facility] 2020-06-16 2020-06-16 Out[facility] [id number] [facility] 2020-06-09 2020-06-09 [facility] [id number] [facility] 2020-06-02 2020-06-02 Office [facility] [id number] 09:31:22 10:09:00 Visit Rochelle Lopez [id number] [place] [id number] Professio [phone] [facility] 2020-05-07 2020-05-07 Outpatient [facility] [id number] [facility] 2020-05-06 2020-05-[address] [facility] [id number] [facility] Results This patient has no known results.
--- NOTE | 2020-11-25 10:35 | EDPHYS ---
Physician Documentation [facility] Name: Deena Hdz Age: 60 yrs Sex: Female : 1960 Arrival Date: 11/25/2020 Time: 09:57 Bed 4 Private MD: Zev Feliz ED Physician Jesse Toscano HPI: 11/25 10:29 This 60 yrs old Female presents to ER via Ambulatory with complaints of flea rn bite on nose, Facial Swelling. 10:29 The patient presents with cellulitis of the face. Description: erythematous, swollen, rn warm. Onset: The symptoms/episode began/occurred 2 day(s) ago. Possible cause(s): flea bites. Associated signs and symptoms: Pertinent positives: erythema, swelling, Pertinent negatives: fever. Modifying factors: the symptoms are alleviated by nothing, the symptoms are aggravated by touching. Severity of symptoms: At their worst the symptoms were mild, in the emergency department the symptoms are unchanged. The patient has not experienced similar symptoms in the past. The patient has not recently seen a physician. Thinks had flea bites, then last couple of days noticed facial and nose swelling, redness, no pain of eyes proper, no fever, no trouble swallowing. No neck pain or swelling. . Historical: - Allergies: 10:09 PENICILLINS; ph - Home Meds: 10:18 Jen 180 mg Oral tab 1 tab once daily [Active]; alprazolam 0.5 mg Oral tab 1 tab tw2 twice a day [Active]; amikacin 500 mg/2 mL injection soln every 12 hours [Active]; aspirin 81 mg Oral chew 1 tab once daily [Active]; Cymbalta 60 mg Oral cpDR 1 cap once daily [Active]; Flonase 50 mcg/actuation Nasal spsn 2 sprays once daily [Active]; folic acid 1 mg Oral tab 1 tab once daily [Active]; gemfibrozil 600 mg Oral tab 1 tab 2 times per day [Active]; hydroxyzine HCl 25 mg Oral tab 1 tab 3 times per day [Active]; isosorbide mononitrate 30 mg Oral Tb24 1 tab once daily [Active]; Lipitor 20 mg Oral tab 1 tab once daily [Active]; lisinopril 20 mg Oral tab 1 tab once daily [Active]; magnesium oxide 500 mg Oral cap [Active]; metoprolol succinate-hydrochlorothiazide 50 mg Oral 1 tab once daily [Active]; oxybutynin chloride 5 mg Oral tr24 1 tab once daily [Active]; Prilosec 20 mg Oral cpDR 1 cap [Active]; Senna [Active]; Tylenol-Codeine #3 300-30 mg Oral tab 1 tab every 8 hours [Active]; Vitamin C Oral [Active]; - PMHx: 10:09 Anxiety; Depression; Diabetes - NIDDM; GERD; Hypertension; insomnia; Ventral Hernia ph w/Gangrene; - PSHx: 10:09 bladder sling; pelvic lift; reconstructive Sx to abdomen; Hysterectomy; big toe Sx; ph - Immunization history:: Adult Immunizations. - Social history:: Smoking status: . - Family history:: not pertinent. - Hospitalizations: : No recent hospitalization is reported. ROS: 10:29 Constitutional: Negative for fever, chills, and weight loss, Eyes: Negative for injury, rn pain, redness, and discharge, ENT: + nasal swelling and pain, + facial redness and warmth Neck: Negative for injury, pain, and swelling, Cardiovascular: Negative for chest pain, palpitations, and edema, Respiratory: Negative for shortness of breath, cough, wheezing, and pleuritic chest pain, Abdomen/GI: Negative for abdominal pain, nausea, vomiting, diarrhea, and constipation, Back: Negative for injury and pain, MS/Extremity: Negative for injury and deformity, Skin: + redness to face and nose Neuro: Negative for headache, weakness, numbness, tingling, and seizure. Exam: 10:29 Constitutional: This is a well developed, well nourished patient who is awake, alert, rn and in no acute distress. Head/Face: Normocephalic, atraumatic. Eyes: Pupils equal round and reactive to light, extra-ocular motions intact. ENT: + swelling and redness/warmth of left nare with extension to left infero-orbital region, no fluctuance, + honey-colored crusting left interior nare. Neck: Trachea midline, no masses palpated, and no cervical lymphadenopathy. Supple, full range of motion without nuchal rigidity, or vertebral point tenderness. No Meningismus. Cardiovascular: Regular rate and rhythm. No pulse deficits. Respiratory: No increased work of breathing, no retractions or nasal flaring. Neuro: Awake and alert, GCS 15 Vital Signs: 10:05 BP 147 / 103; Pulse 68; Resp 18; Temp 98.6; Pulse Ox 97% on R/A; ph 10:25 BP 143 / 64; Pulse 67; Resp 15; Pulse Ox 97% ; jl7 MDM: 10:09 Patient medically screened. rn 10:29 Differential diagnosis: cellulitis, insect bite. Data reviewed: vital signs, nurses rn notes, and as a result, I will discharge patient. Counseling: I had a detailed discussion with the patient and/or guardian regarding: the historical points, exam findings, and any diagnostic results supporting the discharge/admit diagnosis, the need for outpatient follow up, to return to the emergency department if symptoms worsen or persist or if there are any questions or concerns that arise at home. Special discussion: I discussed with the patient/guardian in detail that at this point there is no indication for admission to the hospital. It is understood, however, that if the symptoms persist or worsen the patient needs to return immediately for re-evaluation. Administered Medications: 10:25 Drug: Bactrim (trimethoprim-sulfamethoxazole) (160 mg-800 mg (DS) 1 tablet Route: PO; 7 10:47 Follow up: Response: Medication administered at discharge. jl7 10:25 Drug: Doxycycline 100 mg Route: PO; jl7 10:47 Follow up: Response: Medication administered at discharge. jl7 Disposition: 11/25/20 10:34 Discharged to Home. Impression: Cellulitis of face. - Condition is Stable. - Discharge Instructions: Cellulitis, Adult. - Prescriptions for Bactrim DS 800- 160 mg Oral Tablet - take 1 tablet by ORAL route every 12 hours for 10 days; 20 tablet. Doxycycline Monohydrate 100 mg Oral Tablet - take 1 tablet by ORAL route every 12 hours for 10 days; 20 tablet. - Medication Reconciliation Form, Thank You Letter, Antibiotic Education, Prescription Opioid Use, Family Work Release form. - Follow up: Private Physician; When: 2 - 3 days; Reason: Recheck today's complaints, Re-evaluation by your physician. - Problem is new. - Symptoms have improved. Signatures: Jesse Toscano MD MD rn Evelina Truong RN RN Deanna Perez RN RN tw2 Chawla, Jahala, RN RN jl7 Corrections: (The following items were deleted from the chart) 10:48 10:34 11/25/2020 10:34 Discharged to Home. Impression: Cellulitis of face. Condition is jl7 Stable. Forms are Medication Reconciliation Form, Thank You Letter, Antibiotic Education, Prescription Opioid Use. Follow up: Private Physician; When: 2 - 3 days; Reason: Recheck today's complaints, Re-evaluation by your physician. Problem is new. Symptoms have improved. rn
--- NOTE | 2020-11-25 10:35 | ER ---
Nurse's Notes [facility] Name: Deena Hdz Age: 60 yrs Sex: Female : 1960 Arrival Date: 11/25/2020 Time: 09:57 Bed 4 Private MD: Zev Feliz Diagnosis: Cellulitis of face Presentation: 11/25 10:05 Chief complaint: Patient states: " Flea bites" that were inside of the nose, swelling ph to L side of nose and cheek, blurred vision in L eye, R ear pain, fever TMAX 100.2, frequent urination, L leg pain radiating from hip, abdominal swelling, hx of large hernia, denies N/V. Coronavirus screen: Client denies travel out of the [place] in the last 14 days. At this time, the client does not indicate any symptoms associated with coronavirus-19. Ebola Screen: No symptoms or risks identified at this time. Initial Sepsis Screen: Does the patient meet any 2 criteria? No. Patient's initial sepsis screen is negative. Does the patient have a suspected source of infection? Yes: Dysuria/Frequency/Urgency/UTI Skin breakdown/wound. Risk Assessment: Do you want to hurt yourself or someone else? Patient reports no desire to harm self or others. Onset of symptoms was November 25, 2020. 10:05 Method Of Arrival: Ambulatory ph 10:05 Acuity: JAIRON 3 ph Historical: - Allergies: 10:09 PENICILLINS; ph - Home Meds: 10:18 Jen 180 mg Oral tab 1 tab once daily [Active]; alprazolam 0.5 mg Oral tab 1 tab tw2 twice a day [Active]; amikacin 500 mg/2 mL injection soln every 12 hours [Active]; aspirin 81 mg Oral chew 1 tab once daily [Active]; Cymbalta 60 mg Oral cpDR 1 cap once daily [Active]; Flonase 50 mcg/actuation Nasal spsn 2 sprays once daily [Active]; folic acid 1 mg Oral tab 1 tab once daily [Active]; gemfibrozil 600 mg Oral tab 1 tab 2 times per day [Active]; hydroxyzine HCl 25 mg Oral tab 1 tab 3 times per day [Active]; isosorbide mononitrate 30 mg Oral Tb24 1 tab once daily [Active]; Lipitor 20 mg Oral tab 1 tab once daily [Active]; lisinopril 20 mg Oral tab 1 tab once daily [Active]; magnesium oxide 500 mg Oral cap [Active]; metoprolol succinate-hydrochlorothiazide 50 mg Oral 1 tab once daily [Active]; oxybutynin chloride 5 mg Oral tr24 1 tab once daily [Active]; Prilosec 20 mg Oral cpDR 1 cap [Active]; Senna [Active]; Tylenol-Codeine #3 300-30 mg Oral tab 1 tab every 8 hours [Active]; Vitamin C Oral [Active]; - PMHx: 10:09 Anxiety; Depression; Diabetes - NIDDM; GERD; Hypertension; insomnia; Ventral Hernia ph w/Gangrene; - PSHx: 10:09 bladder sling; pelvic lift; reconstructive Sx to abdomen; Hysterectomy; big toe Sx; ph - Immunization history:: Adult Immunizations. - Social history:: Smoking status: . - Family history:: not pertinent. - Hospitalizations: : No recent hospitalization is reported. Screenin:12 Abuse screen: Denies threats or abuse. Nutritional screening: No deficits noted. tw2 Tuberculosis screening: No symptoms or risk factors identified. Fall Risk None identified. Assessment: 10:11 Reassessment: provider at bedside at this time. tw2 10:25 General: Appears in no apparent distress. uncomfortable, Behavior is calm, cooperative. jl7 Pain: Complains of pain in nose. Neuro: Level of Consciousness is awake, alert, obeys commands, Oriented to person, place, time, situation. Cardiovascular: Patient's skin is warm and dry. Respiratory: Airway is patent Respiratory effort is even, unlabored, Respiratory pattern is regular, symmetrical. EENT: left nares appears swollen and red. Derm: Skin is pink, warm \\T\\ dry. Vital Signs: 10:05 BP 147 / 103; Pulse 68; Resp 18; Temp 98.6; Pulse Ox 97% on R/A; ph 10:25 BP 143 / 64; Pulse 67; Resp 15; Pulse Ox 97% ; jl7 ED Course: 09:57 Patient arrived in ED. am2 09:58 Zev Feliz, is Private Physician. am2 10:08 Triage completed. ph 10:08 Arm band placed on Patient placed in an exam room. ph 10:09 Jesse Toscano MD is Attending Physician. rn 10:11 Jessica Chawla, RN is Primary Nurse. jl7 10:12 Bed in low position. Call light in reach. Pulse ox on. NIBP on. tw2 10:25 No provider procedures requiring assistance completed. Patient did not have IV access jl7 during this emergency room visit. Administered Medications: 10:25 Drug: Bactrim (trimethoprim-sulfamethoxazole) (160 mg-800 mg (DS) 1 tablet Route: PO; jl7 10:47 Follow up: Response: Medication administered at discharge. jl7 10:25 Drug: Doxycycline 100 mg Route: PO; jl7 10:47 Follow up: Response: Medication administered at discharge. jl7 Outcome: 10:34 Discharge ordered by MD. rn 10:46 Discharged to home via wheelchair, with family. jl7 10:46 Condition: stable 10:46 Discharge instructions given to patient, family, Instructed on discharge instructions, follow up and referral plans. medication usage, Demonstrated understanding of instructions, follow-up care, medications, Prescriptions given X 2. 10:48 Patient left the ED. jl7 Signatures: Jesse Toscano MD MD rn Hall, Patricia RN RN Deanna Perez, RN RN tw2 Jessica Chawla, LOVELY RN jl7 Colleen Alexander [facility]
[2020-11-25] MEDS ORDERED: SMZ./TMP. 800/160 MG TABLET ONE (10:42)
[2020-11-25] MEDS ORDERED: DOXYCYCLINE 100 MG CAP PO ONE (10:42)
[2020-11-25 10:53] VITALS: TEMP 98.6; O2SAT 97
[2020-11-25 10:55] VITALS: BP 143/64
== END 2020-11-25 10:48 | disposition home or self-care (01) ==
LOC: ER 09:55
DX: L03.211 Cellulitis of face (principal); I10 Essential (primary) hypertension; E11.9 Type 2 diabetes mellitus without complications; F41.8 Other specified anxiety disorders; Z79.82 Long term (current) use of aspirin; Z88.0 Allergy status to penicillin
CPT/HCPCS: 99283

== ENCOUNTER 2021-09-23 10:08 | Emergency (ER) | payer OTHER ==
--- OUTSIDE RECORDS SUMMARY | 2021-09-23 10:16 | XMS REPORT | Continuity of Care Document ---
:1960 Author Organization [facility] t Address [address] [place] [address] Care Team Providers Name Role Phone William FELIZ Primary Care Physician Unavailable William Feliz Attending Clinician Unavailable CANDELARIA Attending Clinician Unavailable Candelaria ALLISON Attending Clinician Doctor Unassigned, Name Attending Clinician Unavailable Mike Palomares DO Attending Clinician Trevon ALLISON, K.H. Attending Clinician Payers Payer Name Policy Type Policy Number Effective Date Expiration Date S rico [facility] [id number] 2020 00:00:00 [facility] [id number] 2014 MEDICAID 00:00:00 Problems Condition Condition Condition Status Onset Resolution Last Treating Co mments Source Name Details Category Date Date Treatment Clinician Date Atypical Atypical Disease Active Unive rs chest pain chest pain 2-09 it y of 00:00: [place] 00 Medical Branch Sleep Sleep Disease Active [facility] disorder disorder 9 [facility] [place] breathing breathing 00:[place] [facility] [place] Coronary Coronary Disease Active Unive rs atheroscle atheroscle 9-30 it y of rosis of rosis of 00:00: [place] 00 Medical coronary coronary Branch artery artery Coronary Coronary Disease Active Unive rs atheroscle atheroscle 9-30 it y of rosis of rosis of 00:00: [place] 00 Medical coronary coronary Branch artery artery Dyslipidem Dyslipidem Disease Active U nivers ia ia 30 ity of 00:00: [place] 00 Medical Branch Essential Essential Disease Active Uni vers hypertensi hypertensi 30 it y of on on 00:00: Medical Branch Sleep Sleep Disease Active [facility] disorder disorder 30 [place] of breathing breathing 00:[place] Obesity Obesity Disease Active Univers 9-10 ity of 00:00: [place] 00 Medical Branch Diastolic Diastolic Disease Active Uni vers HF (heart HF (heart 9-10 ity of failure) failure) 00:00: [place] 00 Medical Branch Chronic Chronic Disease Active Univers diastolic diastolic 10 ity of heart heart 00:00: [place] failure failure 00 Medical Branch Chest pain Chest pain Disease Active Overview : Univers 9-10 Formattin ity of 00:00: g of this note Medical might be Branch different from the original. 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 Allergies, Adverse Reactions, Alerts Allergy Allergy Status Severity Reaction(s) Onset Inactive Treating Comm ents Source Name Type Date Date Clinician Penicill Propensi Active Other - See convulsi o Univers ins ty to comments 5-24 ns ity of adverse 00:00: [place] reaction 00 Medical s Branch PENICILL Drug Active Other-Cmnt Univ ers INS Class 5-24 ity of 00:00: [place] 00 Medical Branch Social History Social Habit Start Date Stop Date Quantity Comments Source Exposure to Not sure [facility] SARS-CoV-2 (event) [facility] Cigarettes smoked 2020-12-01 2020-12-01 Univers ity of current (pack per 00:00:00 00:00:00 ) - Reported Branch Cigarette 2020-12-01 2020-12-01 University of pack-years 00:00:00 00:00:00 [facility] Alcohol intake 2020-12-01 2020-12-01 0 /d University of 00:00:00 00:00:00 [facility] Tobacco use and 2020-12-01 2020-12-01 Never used Universit y of exposure 00:00:00 00:00:00 [facility] History of tobacco 2011-05-20 Cigarette Smoker University of use 00:00:00 [facility] Sex Ass[birth year] At [birth year] Universit y of 00:00:00 00:00:00 [facility] Smoking Status Start Date Stop Date Source Former smoker 2020-12-01 00:00:00 2020-12-01 [facility]00 [facility] Medications Ordered Filled Start Stop Current Ordering Indication Dosage Frequency Signature Comments Components Source Medication Medication Date Date Medication? Clinician (SIG) Name Name metoprolol Yes [id number] TAKE 1/2 Univers succinate 2-22 TABLET BY ity o f XL 100 mg 00:00: MOUTH [place] 24 hr 00 TWICE Medical tablet DAILY Branch furosemide Yes [id number] 40mg Take 1 Univers (LASIX) 40 7-23 tablet by ity of mg tablet 00:00: [place] 00 needed Medical (Based on Branch the fluid). furosemide Yes [id number] 40mg Take 1 Univers (LASIX) 40 7-23 tablet by ity of mg tablet 00:00: mouth [place] 00 every Medical morning Branch and evening. furosemide Yes [id number] 40mg Take 1 Univers (LASIX) 40 7-23 tablet by ity of mg tablet 00:00: mouth [place] 00 every Medical morning Branch and evening. furosemide Yes [id number] 40mg Take 1 Univers (LASIX) 40 7-23 tablet by ity of mg tablet 00:00: mouth [place] 00 every Medical morning Branch and evening. furosemide Yes [id number] 40mg Take 1 Univers (LASIX) 40 7-23 tablet by ity of mg tablet 00:00: mouth [place] 00 every Medical morning Branch and evening. furosemide Yes [id number] 40mg Take 1 Univers (LASIX) 40 7-23 tablet by ity of mg tablet 00:00: mouth [place] 00 every Medical morning Branch and evening. furosemide 2020- No [id number] 40mg Take 1 Univers (LASIX) 40 7-23 07-23 tablet by ity of mg tablet 00:00: 00:00 mouth [place] 00 :00 needed Medical (Based on Branch the fluid). metoprolol Yes [id number] TAKE 1/2 Univers succinate 7-12 TABLET BY ity o f XL 100 mg 00:00: MOUTH [place] 24 hr 00 TWICE Medical tablet DAILY Branch metoprolol 0 Yes [id number] TAKE 1/2 Univers succinate 7-12 TABLET BY ity o f XL 100 mg 00:00: MOUTH [place] 24 hr 00 TWICE Medical tablet DAILY Branch metoprolol Yes [id number] TAKE 1/2 Univers succinate 7-12 TABLET BY ity o f XL 100 mg 00:00: MOUTH [place] 24 hr 00 TWICE Medical tablet DAILY Branch metoprolol Yes [id number] TAKE 1/2 Univers succinate 7-12 TABLET BY ity o f XL 100 mg 00:00: MOUTH [place] 24 hr 00 TWICE Medical tablet DAILY Branch metoprolol Yes [id number] TAKE 1/2 Univers succinate 7-12 TABLET BY ity o f XL 100 mg 00:00: MOUTH [place] 24 hr 00 TWICE Medical tablet DAILY Branch metoprolol 2021- No [id number] TAKE 1/2 Univers succinate 7-12 02-22 TABLET BY ity of XL 100 mg 00:00: 00:00 MOUTH [place] 24 hr 00 :00 TWICE Medical tablet DAILY Branch furosemide Yes [id number] 40mg Take 1 Univers (LASIX) 40 6-21 tablet by ity of mg tablet 00:00: [place] 00 needed Medical (Based on Branch the fluid). furosemide Yes [id number] 40mg Take 1 Univers (LASIX) 40 6-21 tablet by ity of mg tablet 00:00: [place] 00 needed Medical (Based on Branch the fluid). furosemide 2020- No [id number] 40mg Take 1 Univers (LASIX) 40 6-21 07-23 tablet by ity of mg tablet 00:00: 00:00 mouth [place] 00 :00 needed Medical (Based on Branch the fluid). furosemide 2020- No [id number] 40mg Take 1 Univers (LASIX) 40 6-21 07-23 tablet by ity of mg tablet 00:00: 00:00 mouth [place] 00 :00 needed Medical (Based on Branch the fluid). atorvastati 0 Yes [id number] 20mg Take 1 Univers n 20 mg 6-11 tablet by ity of tablet 00:00: mouth at [place] [address] bedtime. Medical Branch atorvastati 0 Yes [id number] 20mg Take 1 Univers n 20 mg 6-11 tablet by ity of tablet 00:00: mouth at [place] [address] bedtime. Medical Branch atorvastati 0 Yes [id number] 20mg Take 1 Univers n 20 mg 6-11 tablet by ity of tablet 00:00: mouth at [place] [address] bedtime. Medical Branch atorvastati 0 Yes [id number] 20mg Take 1 Univers n 20 mg 6-11 tablet by ity of tablet 00:00: mouth at [place] [address] bedtime. Medical Branch atorvastati 0 Yes [id number] 20mg Take 1 Univers n 20 mg 6-11 tablet by ity of tablet 00:00: mouth at [place] [address] bedtime. Medical Branch atorvastati 0 Yes [id number] 20mg Take 1 Univers n 20 mg 6-11 tablet by ity of tablet 00:00: mouth at [place] [address] bedtime. Medical Branch atorvastati 0 Yes [id number] 20mg Take 1 Univers n 20 mg 6-11 tablet by ity of tablet 00:00: mouth at [place] [address] bedtime. Medical Branch atorvastati 0 Yes [id number] 20mg Take 1 Univers n 20 mg 6-11 tablet by ity of tablet 00:00: mouth at [place] [address] bedtime. Medical Branch atorvastati 0 Yes [id number] 20mg Take 1 Univers n 20 mg 6-11 tablet by ity of tablet 00:00: mouth at [place] [address] bedtime. Medical Branch atorvastati 0 Yes [id number] 20mg Take 1 Univers n 20 mg 6-11 tablet by ity of tablet 00:00: mouth at [place] [address] bedtime. Medical Branch atorvastati 2021-0 Yes [id number] 20mg Take 1 Univers n 20 mg 6-11 tablet by ity of tablet 00:00: mouth at [place] [address] bedtime. Medical Branch atorvastati 0 Yes [id number] 20mg Take 1 Univers n 20 mg 6-11 tablet by ity of tablet 00:00: mouth at [place] [address] bedtime. Medical Branch atorvastati 0 Yes [id number] 20mg Take 1 Univers n 20 mg 6-11 tablet by ity of tablet 00:00: mouth at [place] [address] bedtime. Medical Branch atorvastati Yes [id number] 20mg Take 1 Univers n 20 mg 6-11 tablet by ity of tablet 00:00: mouth at [place] [address] bedtime. Medical Branch metoprolol 0 Yes [id number] TAKE 1/2 Univers succinate 3-17 TABLET BY ity o f XL 100 mg 00:00: MOUTH [place] 24 hr 00 TWICE Medical tablet DAILY Branch metoprolol Yes [id number] TAKE 1/2 Univers succinate 3-17 TABLET BY ity o f XL 100 mg 00:00: MOUTH [place] 24 hr 00 TWICE Medical tablet DAILY Branch metoprolol 0 Yes [id number] TAKE 1/2 Univers succinate 3-17 TABLET BY ity o f XL 100 mg 00:00: MOUTH [place] 24 hr 00 TWICE Medical tablet DAILY Branch metoprolol 0 Yes [id number] TAKE 1/2 Univers succinate 3-17 TABLET BY ity o f XL 100 mg 00:00: MOUTH [place] 24 hr 00 TWICE Medical tablet DAILY Branch metoprolol 0 Yes [id number] TAKE 1/2 Univers succinate 3-17 TABLET BY ity o f XL 100 mg 00:00: MOUTH [place] 24 hr 00 TWICE Medical tablet DAILY Branch metoprolol 0 Yes [id number] TAKE 1/2 Univers succinate 3-17 TABLET BY ity o f XL 100 mg 00:00: MOUTH [place] 24 hr 00 TWICE Medical tablet DAILY Branch metoprolol Yes [id number] TAKE 1/2 Univers succinate 3-17 TABLET BY ity o f XL 100 mg 00:00: MOUTH [place] 24 hr 00 TWICE Medical tablet DAILY Branch metoprolol 0 2020- No [id number] TAKE 1/2 Univers succinate 3-17 07-12 TABLET BY ity of XL 100 mg 00:00: 00:00 MOUTH [place] 24 hr 00 :00 TWICE Medical tablet DAILY Branch metoprolol 2020- No [id number] TAKE 1/2 Univers succinate 3-17 -12 TABLET BY ity of XL 100 mg 00:00: 00:00 MOUTH [place] 24 hr 00 :00 TWICE Medical tablet DAILY Branch metoprolol 2020- No [id number] TAKE 1/2 Univers succinate 3-17 -12 TABLET BY ity of XL 100 mg 00:00: 00:00 MOUTH [place] 24 hr 00 :00 TWICE Medical tablet DAILY Branch metoprolol 2020- No [id number] TAKE 1/2 Univers succinate 3-17 -12 TABLET BY ity of XL 100 mg 00:00: 00:00 MOUTH [place] 24 hr 00 :00 TWICE Medical tablet DAILY Branch furosemide Yes [id number] 40mg Take 1 Univers (LASIX) 40 3-15 tablet by ity of mg tablet 00:00: mouth [place] 00 needed Medical (Based on Branch the fluid). atorvastati Yes [id number] 20mg Take 1 Univers n 20 mg 3-15 tablet by ity of tablet 00:00: mouth at [place] 00 bedtime. Medical Branch furosemide Yes [id number] 40mg Take 1 Univers (LASIX) 40 3-15 tablet by ity of mg tablet 00:00: mouth [place] 00 needed Medical (Based on Branch the fluid). atorvastati Yes [id number] 20mg Take 1 Univers n 20 mg 3-15 tablet by ity of tablet 00:00: mouth at [place] 00 bedtime. Medical Branch furosemide Yes [id number] 40mg Take 1 Univers (LASIX) 40 3-15 tablet by ity of mg tablet 00:00: mouth [place] 00 needed Medical (Based on Branch the fluid). atorvastati Yes [id number] 20mg Take 1 Univers n 20 mg 3-15 tablet by ity of tablet 00:00: mouth at [place] 00 bedtime. Medical Branch furosemide Yes [id number] 40mg Take 1 Univers (LASIX) 40 3-15 tablet by ity of mg tablet 00:00: mouth [place] 00 needed Medical (Based on Branch the fluid). furosemide Yes [id number] 40mg Take 1 Univers (LASIX) 40 3-15 tablet by ity of mg tablet 00:00: mouth [place] 00 needed Medical (Based on Branch the fluid). furosemide Yes [id number] 40mg Take 1 Univers (LASIX) 40 3-15 tablet by ity of mg tablet 00:00: mouth [place] 00 needed Medical (Based on Branch the fluid). furosemide Yes [id number] 40mg Take 1 Univers (LASIX) 40 3-15 tablet by ity of mg tablet 00:00: mouth [place] 00 needed Medical (Based on Branch the fluid). furosemide 2020- No [id number] 40mg Take 1 Univers (LASIX) 40 3-15 06-21 tablet by ity of mg tablet 00:00: 00:00 mouth as [place] 00 :00 needed Medical (Based on Branch the fluid). furosemide 2020- No [id number] 40mg Take 1 Univers (LASIX) 40 3-15 06-21 tablet by ity of mg tablet 00:00: 00:00 mouth [place] 00 :00 needed Medical (Based on Branch the fluid). furosemide 2020- No [id number] 40mg Take 1 Univers (LASIX) 40 3-15 06-21 tablet by ity of mg tablet 00:00: 00:00 mouth as [place] 00 :00 needed Medical (Based on Branch the fluid). furosemide 2020- No [id number] 40mg Take 1 Univers (LASIX) 40 3-15 06-21 tablet by ity of mg tablet 00:00: 00:00 mouth [place] 00 :00 needed Medical (Based on Branch the fluid). atorvastati 2020- No [id number] 20mg Take 1 Univers n 20 mg 3-15 06-11 tablet by ity of tablet 00:00: 00:00 mouth at [place] 00 :00 bedtime. Medical Branch nitroglycer Yes [id number] .4mg Place 1 Univers in 0.4 mg 3-04 tablet ity of sublingual 00:00: under the [place] tablet 00 tongue Medical every 5 Branch (five) minutes as needed for Chest pain. nitroglycer 2021-[id number] 1 Univers in 0.4 mg 3-04 tablet ity of sublingual 00:00: under the [place] tablet 00 tongue Medical every 5 Branch (five) minutes as needed for Chest pain. nitroglycer 1-[id number] 1 Univers in 0.4 mg 3-04 tablet ity of sublingual 00:00: under the [place] tablet 00 tongue Medical every 5 Branch (five) minutes as needed for Chest pain. nitroglycer 2020-[id number] 1 Univers in 0.4 mg 3-04 tablet ity of sublingual 00:00: under the [place] tablet 00 tongue Medical every 5 Branch (five) minutes as needed for Chest pain. nitroglycer 2020-[id number] 1 Univers in 0.4 mg 3-04 tablet ity of sublingual 00:00: under the [place] tablet 00 tongue Medical every 5 Branch (five) minutes as needed for Chest pain. nitroglycer 2020-[id number] 1 Univers in 0.4 mg 3-04 tablet ity of sublingual 00:00: under the [place] tablet 00 tongue Medical every 5 Branch (five) minutes as needed for Chest pain. nitroglycer 2020-[id number] 1 Univers in 0.4 mg 3-04 tablet ity of sublingual 00:00: under the [place] tablet 00 tongue Medical every 5 Branch (five) minutes as needed for Chest pain. nitroglycer 2020-[id number] 1 Univers in 0.4 mg 3-04 tablet ity of sublingual 00:00: under the [place] tablet 00 tongue Medical every 5 Branch (five) minutes as needed for Chest pain. nitroglycer 2020-[id number] 1 Univers in 0.4 mg 3-04 tablet ity of sublingual 00:00: under the [place] tablet 00 tongue Medical every 5 Branch (five) minutes as needed for Chest pain. nitroglycer 2021-[id number] 1 Univers in 0.4 mg 3-04 tablet ity of sublingual 00:00: under the [place] tablet 00 tongue Medical every 5 Branch (five) minutes as needed for Chest pain. nitroglycer 2021-[id number] 1 Univers in 0.4 mg 3-04 tablet ity of sublingual 00:00: under the [place] tablet 00 tongue Medical every 5 Branch (five) minutes as needed for Chest pain. nitroglycer 1-[id number] 1 Univers in 0.4 mg 3-04 tablet ity of sublingual 00:00: under the [place] tablet 00 tongue Medical every 5 Branch (five) minutes as needed for Chest pain. nitroglycer 2021-[id number] 1 Univers in 0.4 mg 3-04 tablet ity of sublingual 00:00: under the [place] tablet 00 tongue Medical every 5 Branch (five) minutes as needed for Chest pain. nitroglycer 2021-[id number] 1 Univers in 0.4 mg 3-04 tablet ity of sublingual 00:00: under the [place] tablet 00 tongue Medical every 5 Branch (five) minutes as needed for Chest pain. nitroglycer 2020-[id number] 1 Univers in 0.4 mg 3-04 tablet ity of sublingual 00:00: under the [place] tablet 00 tongue Medical every 5 Branch (five) minutes as needed for Chest pain. nitroglycer 1-[id number] 1 Univers in 0.4 mg 3-04 tablet ity of sublingual 00:00: under the [place] tablet 00 tongue Medical every 5 Branch (five) minutes as needed for Chest pain. nitroglycer 1-[id number] 1 Univers in 0.4 mg 3-04 tablet ity of sublingual 00:00: under the [place] tablet 00 tongue Medical every 5 Branch (five) minutes as needed for Chest pain. nitroglycer 2021-[id number] 1 Univers in 0.4 mg 3-04 tablet ity of sublingual 00:00: under the [place] tablet 00 tongue Medical every 5 Branch (five) minutes as needed for Chest pain. nitroglycer 2021-[id number] 1 Univers in 0.4 mg 3-04 tablet ity of sublingual 00:00: under the [place] tablet 00 tongue Medical every 5 Branch (five) minutes as needed for Chest pain. MULTIVITS,T 2019-06 Yes 1{tbl} Take 1 Un sandy H 2-14 tablet by ity of W-CA,FE,OTH 15:50: mouth [place] MIN 31 daily. Medical (MULTIVITAM Branch IN AND MINERAL ORAL) Magnesium 2019-06 Yes 500mg Take 500 Uni vers Oxide 500 2-14 mg by ity of mg Cap 15:50: mouth [place] 31 daily. Medical Branch isosorbide 2019-06 Yes 60mg Take 60 mg U nivers mononitrate 2-14 by mouth ity of 60 mg 24 hr 15:50: daily. [place] tablet 31 Take with Medical isosorbide Branch 120 mg = 180mg daily MULTIVITS,T 2019-06 Yes 1{tbl} Take 1 [place] H 2-14 tablet by ity of W-CA,FE,OTH 15:50: mouth [place] MIN 31 daily. Medical (MULTIVITAM Branch IN AND MINERAL ORAL) Magnesium 2019-06 Yes 500mg Take 500 Uni vers Oxide 500 2-14 mg by ity of mg Cap 15:50: mouth [place] 31 daily. Medical Branch isosorbide 2019-06 Yes 60mg Take 60 mg U nivers mononitrate 2-14 by mouth ity of 60 mg 24 hr 15:50: daily. [place] tablet 31 Take with Medical isosorbide Branch 120 mg = 180mg daily MULTIVITS,T 2019-06 Yes 1{tbl} Take 1 [place] H 2-14 tablet by ity of W-CA,FE,OTH 15:50: mouth [place] MIN 31 daily. Medical (MULTIVITAM Branch IN AND MINERAL ORAL) Magnesium 2019-06 Yes 500mg Take 500 Uni vers Oxide 500 2-14 mg by ity of mg Cap 15:50: mouth [place] 31 daily. Medical Branch isosorbide 2019-06 Yes 60mg Take 60 mg U nivers mononitrate 2-14 by mouth ity of 60 mg 24 hr 15:50: daily. [place] tablet 31 Take with Medical isosorbide Branch 120 mg = 180mg daily MULTIVITS,T 2019-06 Yes 1{tbl} Take 1 [place] H 2-14 tablet by ity of W-CA,FE,OTH 15:50: mouth [place] MIN 31 daily. Medical (MULTIVITAM Branch IN AND MINERAL ORAL) Magnesium 2019-06 Yes 500mg Take 500 Uni vers Oxide 500 2-14 mg by ity of mg Cap 15:50: mouth [place] 31 daily. Medical Branch isosorbide 2019-06 Yes 60mg Take 60 mg U nivers mononitrate 2-14 by mouth ity of 60 mg 24 hr 15:50: daily. [place] tablet 31 Take with Medical isosorbide Branch 120 mg = 180mg daily MULTIVITS,T 2019-06 Yes 1{tbl} Take 1 [place] H 2-14 tablet by ity of W-CA,FE,OTH 15:50: mouth [place] MIN 31 daily. Medical (MULTIVITAM Branch IN AND MINERAL ORAL) Magnesium 2019-06 Yes 500mg Take 500 Uni vers Oxide 500 2-14 mg by ity of mg Cap 15:50: mouth [place] 31 daily. Medical Branch isosorbide 2019-06 Yes 60mg Take 60 mg U nivers mononitrate 2-14 by mouth ity of 60 mg 24 hr 15:50: daily. [place] tablet 31 Take with Medical isosorbide Branch 120 mg = 180mg daily MULTIVITS,T 2019-06 Yes 1{tbl} Take 1 [place] H 2-14 tablet by ity of W-CA,FE,OTH 15:50: mouth [place] MIN 31 daily. Medical (MULTIVITAM Branch IN AND MINERAL ORAL) Magnesium 2019-06 Yes 500mg Take 500 Uni vers Oxide 500 2-14 mg by ity of mg Cap 15:50: mouth [place] 31 daily. Medical Branch isosorbide 2019-06 Yes 60mg Take 60 mg U nivers mononitrate 2-14 by mouth ity of 60 mg 24 hr 15:50: daily. [place] tablet 31 Take with Medical isosorbide Branch 120 mg = 180mg daily MULTIVITS,T 2019-06 Yes 1{tbl} Take 1 [place] H 2-14 tablet by ity of W-CA,FE,OTH 15:50: mouth [place] MIN 31 daily. Medical (MULTIVITAM Branch IN AND MINERAL ORAL) Magnesium 2019-06 Yes 500mg Take 500 Uni vers Oxide 500 2-14 mg by ity of mg Cap 15:50: mouth [place] 31 daily. Medical Branch isosorbide 2019-06 Yes 60mg Take 60 mg U nivers mononitrate 2-14 by mouth ity of 60 mg 24 hr 15:50: daily. [place] tablet 31 Take with Medical isosorbide Branch 120 mg = 180mg daily MULTIVITS,T 2019-06 Yes 1{tbl} Take 1 [place] H 2-14 tablet by ity of W-CA,FE,OTH 15:50: mouth [place] MIN 31 daily. Medical (MULTIVITAM Branch IN AND MINERAL ORAL) Magnesium 2019-06 Yes 500mg Take 500 Uni vers Oxide 500 2-14 mg by ity of mg Cap 15:50: mouth [place] 31 daily. Medical Branch isosorbide 2019-06 Yes 60mg Take 60 mg U nivers mononitrate 2-14 by mouth ity of 60 mg 24 hr 15:50: daily. [place] tablet 31 Take with Medical isosorbide Branch 120 mg = 180mg daily MULTIVITS,T 2019-06 Yes 1{tbl} Take 1 [place] H 2-14 tablet by ity of W-CA,FE,OTH 15:50: mouth [place] MIN 31 daily. Medical (MULTIVITAM Branch IN AND MINERAL ORAL) Magnesium 2019-06 Yes 500mg Take 500 Uni vers Oxide 500 2-14 mg by ity of mg Cap 15:50: mouth [place] 31 daily. Medical Branch isosorbide 2019-06 Yes 60mg Take 60 mg U nivers mononitrate 2-14 by mouth ity of 60 mg 24 hr 15:50: daily. [place] tablet 31 Take with Medical isosorbide Branch 120 mg = 180mg daily MULTIVITS,T 2019-06 Yes 1{tbl} Take 1 [place] H 2-14 tablet by ity of W-CA,FE,OTH 15:50: mouth [place] MIN 31 daily. Medical (MULTIVITAM Branch IN AND MINERAL ORAL) Magnesium 2019-06 Yes 500mg Take 500 Uni vers Oxide 500 2-14 mg by ity of mg Cap 15:50: mouth [place] 31 daily. Medical Branch isosorbide 2019-06 Yes 60mg Take 60 mg U nivers mononitrate 2-14 by mouth ity of 60 mg 24 hr 15:50: daily. [place] tablet 31 Take with Medical isosorbide Branch 120 mg = 180mg daily MULTIVITS,T 2019-06 Yes 1{tbl} Take 1 [place] H 2-14 tablet by ity of W-CA,FE,OTH 15:50: mouth [place] MIN 31 daily. Medical (MULTIVITAM Branch IN AND MINERAL ORAL) Magnesium 2019-06 Yes 500mg Take 500 Uni vers Oxide 500 2-14 mg by ity of mg Cap 15:50: mouth [place] 31 daily. Medical Branch isosorbide 2019-06 Yes 60mg Take 60 mg U nivers mononitrate 2-14 by mouth ity of 60 mg 24 hr 15:50: daily. [place] tablet 31 Take with Medical isosorbide Branch 120 mg = 180mg daily MULTIVITS,T 2019-06 Yes 1{tbl} Take 1 [place] H 2-14 tablet by ity of W-CA,FE,OTH 15:50: mouth [place] MIN 31 daily. Medical (MULTIVITAM Branch IN AND MINERAL ORAL) Magnesium 2019-06 Yes 500mg Take 500 Uni vers Oxide 500 2-14 mg by ity of mg Cap 15:50: mouth [place] 31 daily. Medical Branch isosorbide 2019-06 Yes 60mg Take 60 mg U nivers mononitrate 2-14 by mouth ity of 60 mg 24 hr 15:50: daily. [place] tablet 31 Take with Medical isosorbide Branch 120 mg = 180mg daily MULTIVITS,T 2019-06 Yes 1{tbl} Take 1 [place] H 2-14 tablet by ity of W-CA,FE,OTH 15:50: mouth [place] MIN 31 daily. Medical (MULTIVITAM Branch IN AND MINERAL ORAL) Magnesium 2019-06 Yes 500mg Take 500 Uni vers Oxide 500 2-14 mg by ity of mg Cap 15:50: mouth [place] 31 daily. Medical Branch isosorbide 2019-06 Yes 60mg Take 60 mg U nivers mononitrate 2-14 by mouth ity of 60 mg 24 hr 15:50: daily. [place] tablet 31 Take with Medical isosorbide Branch 120 mg = 180mg daily MULTIVITS,T 2019-06 Yes 1{tbl} Take 1 [place] H 2-14 tablet by ity of W-CA,FE,OTH 15:50: mouth [place] MIN 31 daily. Medical (MULTIVITAM Branch IN AND MINERAL ORAL) Magnesium 2019-06 Yes 500mg Take 500 Uni vers Oxide 500 2-14 mg by ity of mg Cap 15:50: mouth [place] 31 daily. Medical Branch isosorbide 2019-06 Yes 60mg Take 60 mg U nivers mononitrate 2-14 by mouth ity of 60 mg 24 hr 15:50: daily. [place] tablet 31 Take with Medical isosorbide Branch 120 mg = 180mg daily MULTIVITS,T 2019-06 Yes 1{tbl} Take 1 [place] H 2-14 tablet by ity of W-CA,FE,OTH 15:50: mouth [place] MIN 31 daily. Medical (MULTIVITAM Branch IN AND MINERAL ORAL) Magnesium 2019-06 Yes 500mg Take 500 Uni vers Oxide 500 2-14 mg by ity of mg Cap 15:50: mouth [place] 31 daily. Medical Branch isosorbide 2019-06 Yes 60mg Take 60 mg U nivers mononitrate 2-14 by mouth ity of 60 mg 24 hr 15:50: daily. [place] tablet 31 Take with Medical isosorbide Branch 120 mg = 180mg daily MULTIVITS,T 2019-06 Yes 1{tbl} Take 1 Un sandy H 2-14 tablet by ity of W-CA,FE,OTH 15:50: mouth [place] MIN 31 daily. Medical (MULTIVITAM Branch IN AND MINERAL ORAL) Magnesium 2019-06 Yes 500mg Take 500 Uni vers Oxide 500 2-14 mg by ity of mg Cap 15:50: mouth [place] 31 daily. Medical Branch isosorbide 2019-06 Yes 60mg Take 60 mg U nivers mononitrate 2-14 by mouth ity of 60 mg 24 hr 15:50: [place]. [place] tablet 31 Take with Medical isosorbide Branch 120 mg = 180mg daily MULTIVITS,T 2019-06 Yes 1{tbl} Take 1 [place] sandy H 2-14 tablet by ity of W-CA,FE,OTH 15:50: mouth [place] MIN 31 daily. Medical (MULTIVITAM Branch IN AND MINERAL ORAL) Magnesium 2019-06 Yes 500mg Take 500 Uni vers Oxide 500 2-14 mg by ity of mg Cap 15:50: mouth [place] 31 daily. Medical Branch isosorbide 2019-06 Yes 60mg Take 60 mg U nivers mononitrate 2-14 by mouth ity of 60 mg 24 hr 15:50: [place]. [place] tablet 31 Take with Medical isosorbide Branch 120 mg = 180mg daily MULTIVITS,T 2019-06 Yes 1{tbl} Take 1 [place] H 2-14 tablet by ity of W-CA,FE,OTH 15:50: mouth [place] MIN 31 daily. Medical (MULTIVITAM Branch IN AND MINERAL ORAL) Magnesium 2019-06 Yes 500mg Take 500 Uni vers Oxide 500 2-14 mg by ity of mg Cap 15:50: mouth [place] 31 daily. Medical Branch isosorbide 2019-06 Yes 60mg Take 60 mg U nivers mononitrate 2-14 by mouth ity of 60 mg 24 hr 15:50: daily. [place] tablet 31 Take with Medical isosorbide Branch 120 mg = 180mg daily MULTIVITS,T 2019-06 Yes 1{tbl} Take 1 [place] H 2-14 tablet by ity of W-CA,FE,OTH 15:50: mouth [place] MIN 31 daily. Medical (MULTIVITAM Branch IN AND MINERAL ORAL) Magnesium 2019-06 Yes 500mg Take 500 Uni vers Oxide 500 2-14 mg by ity of mg Cap 15:50: mouth [place] 31 daily. Medical Branch isosorbide 2019-06 Yes 60mg Take 60 mg U nivers mononitrate 2-14 by mouth ity of 60 mg 24 hr 15:50: daily. [place] tablet 31 Take with Medical isosorbide Branch 120 mg = 180mg daily MULTIVITS,T 2019-06 Yes 1{tbl} Take 1 [place] H 2-14 tablet by ity of W-CA,FE,OTH 15:50: mouth [place] MIN 31 daily. Medical (MULTIVITAM Branch IN AND MINERAL ORAL) Magnesium 2019-06 Yes 500mg Take 500 Uni vers Oxide 500 2-14 mg by ity of mg Cap 15:50: mouth [place] 31 daily. Medical Branch isosorbide 2019-06 Yes 60mg Take 60 mg U nivers mononitrate 2-14 by mouth ity of 60 mg 24 hr 15:50: daily. [place] tablet 31 Take with Medical isosorbide Branch 120 mg = 180mg daily MULTIVITS,T 2019-06 Yes 1{tbl} Take 1 [place] H 2-14 tablet by ity of W-CA,FE,OTH 09:50: mouth [place] MIN 31 daily. Medical (MULTIVITAM Branch IN AND MINERAL ORAL) Magnesium 2019-06 Yes 500mg Take 500 Uni vers Oxide 500 2-14 mg by ity of mg Cap 09:50: mouth [place] 31 daily. Medical Branch isosorbide 2019-06 Yes 60mg Take 60 mg U nivers mononitrate 2-14 by mouth ity of 60 mg 24 hr 09:50: daily. [place] tablet 31 Take with Medical isosorbide Branch 120 mg = 180mg daily nitroglycer 2019-[id number] 1 [facility] in 0.4 mg 2-14 tablet ity of sublingual 00:00: under the [place] tablet 00 tongue Medical every 5 Branch (five) minutes as needed for Chest pain. nitroglycer 2019-[id number] 1 [facility] in 0.4 mg 2-14 tablet ity of sublingual 00:00: under the [place] tablet 00 tongue Medical every 5 Branch (five) minutes as needed for Chest pain. nitroglycer 2019-06- No [id number] .4mg Place 1 [facility] in 0.4 mg 2-14 03-04 tablet ity of sublingual 00:00: 00:00 under the [place] tablet 00 :00 tongue Medical every 5 Branch (five) minutes as needed for Chest pain. ciprofloxac 2019-06 Yes 500mg Take 500 U nivers in HCl 500 2-08 mg by ity of mg tablet 00:00: mouth 2 (two) Medical times Branch daily. doxycycline 2019-06 Yes Univer s monohydrate 2-08 ity of 100 mg 00:00: [place] capsule 00 Medical Branch ciprofloxac 2019- Yes 500mg Take 500 U nivers in HCl 500 2-08 mg by ity of mg tablet 00:00: mouth 2 [place] (two) Medical times Branch daily. doxycycline 2019-06 Yes Univer s monohydrate 2-08 ity of 100 mg 00:00: [place] capsule 00 Medical Branch ciprofloxac 2019- Yes 500mg Take 500 U nivers in HCl 500 2-08 mg by ity of mg tablet 00:00: mouth 2 [place] (two) Medical times Branch daily. doxycycline 2019-06 Yes Univer s monohydrate 2-08 ity of 100 mg 00:00: [place] capsule 00 Medical Branch ciprofloxac 2019- Yes 500mg Take 500 U nivers in HCl 500 2-08 mg by ity of mg tablet 00:00: mouth 2 (two) Medical times Branch daily. doxycycline 2019- Yes Univer s monohydrate 2-08 ity of 100 mg 00:00: [place] capsule Medical Branch ciprofloxac 2019- Yes 500mg Take 500 U nivers in HCl 500 2-08 mg by ity of mg tablet 00:00: mouth 2 (two) Medical times Branch daily. doxycycline 2019- Yes Univer s monohydrate 2-08 ity of 100 mg 00:00: [place] capsule Medical Branch ciprofloxac 2019- Yes 500mg Take 500 U nivers in HCl 500 2-08 mg by ity of mg tablet 00:00: mouth 2 (two) Medical times Branch daily. doxycycline 2019- Yes Univer s monohydrate 2-08 ity of 100 mg 00:00: [place] capsule Medical Branch ciprofloxac 2019- Yes 500mg Take 500 U nivers in HCl 500 2-08 mg by ity of mg tablet 00:00: mouth 2 (two) Medical times Branch daily. doxycycline 2019- Yes Univer s monohydrate 2-08 ity of 100 mg 00:00: [place] capsule Medical Branch ciprofloxac 2019- Yes 500mg Take 500 U nivers in HCl 500 2-08 mg by ity of mg tablet 00:00: mouth 2 (two) Medical times Branch daily. doxycycline 2019-06 Yes Univer s monohydrate 2-08 ity of 100 mg 00:00: [place] capsule Medical Branch ciprofloxac 2019- Yes 500mg Take 500 U nivers in HCl 500 2-08 mg by ity of mg tablet 00:00: mouth 2 (two) Medical times Branch daily. doxycycline 2019- Yes Univer s monohydrate 2-08 ity of 100 mg 00:00: [place] capsule Medical Branch ciprofloxac 2019- Yes 500mg Take 500 U nivers in HCl 500 2-08 mg by ity of mg tablet 00:00: mouth 2 (two) Medical times Branch daily. doxycycline 2019- Yes Univer s monohydrate 2-08 ity of 100 mg 00:00: [place] capsule Medical Branch ciprofloxac 2019- Yes 500mg Take 500 U nivers in HCl 500 2-08 mg by ity of mg tablet 00:00: mouth 2 (two) Medical times Branch daily. doxycycline 2020- Yes Univer s monohydrate 2-08 ity of 100 mg 00:00: [place] capsule Medical Branch ciprofloxac 2019- Yes 500mg Take 500 U nivers in HCl 500 2-08 mg by ity of mg tablet 00:00: mouth 2 (two) Medical times Branch daily. doxycycline 2019- Yes Univer s monohydrate 2-08 ity of 100 mg 00:00: [place] capsule Medical Branch ciprofloxac 2019- Yes 500mg Take 500 U nivers in HCl 500 2-08 mg by ity of mg tablet 00:00: mouth 2 (two) Medical times Branch daily. doxycycline 2019- Yes Univer s monohydrate 2-08 ity of 100 mg 00:00: [place] capsule Medical Branch ciprofloxac 2019- Yes 500mg Take 500 U nivers in HCl 500 2-08 mg by ity of mg tablet 00:00: mouth 2 (two) Medical times Branch daily. doxycycline 2019- Yes Univer s monohydrate 2-08 ity of 100 mg 00:00: [place] capsule Medical Branch ciprofloxac 2019- Yes 500mg Take 500 U nivers in HCl 500 2-08 mg by ity of mg tablet 00:00: mouth 2 (two) Medical times Branch daily. doxycycline 2019- Yes Univer s monohydrate 2-08 ity of 100 mg 00:00: [place] capsule Medical Branch ciprofloxac 2019- Yes 500mg Take 500 U nivers in HCl 500 2-08 mg by ity of mg tablet 00:00: mouth 2 (two) Medical times Branch daily. doxycycline 2019- Yes Univer s monohydrate 2-08 ity of 100 mg 00:00: [place] capsule Medical Branch ciprofloxac 2019- Yes 500mg Take 500 U nivers in HCl 500 2-08 mg by ity of mg tablet 00:00: mouth 2 (two) Medical times Branch daily. doxycycline 2019- Yes Univer s monohydrate 2-08 ity of 100 mg 00:00: [place] capsule Medical Branch ciprofloxac 2019-06 Yes 500mg Take 500 U nivers in HCl 500 2-08 mg by ity of mg tablet 00:00: mouth 2 (two) Medical times Branch daily. doxycycline 2019-06 Yes Univer s monohydrate 2-08 ity of 100 mg 00:00: [place] capsule 00 Medical Branch ciprofloxac 2019- Yes 500mg Take 500 U nivers in HCl 500 2-08 mg by ity of mg tablet 00:00: mouth 2 (two) Medical times Branch daily. doxycycline 2019-06 Yes Univer s monohydrate 2-08 ity of 100 mg 00:00: [place] capsule 00 Medical Branch ciprofloxac 2019-06 Yes 500mg Take 500 U nivers in HCl 500 2-08 mg by ity of mg tablet 00:00: mouth 2 (two) Medical times Branch daily. doxycycline 2019-06 Yes Univer s monohydrate 2-08 ity of 100 mg 00:00: [place] capsule Medical Branch ciprofloxac 2019-06 Yes 500mg Take 500 U nivers in HCl 500 2-08 mg by ity of mg tablet 00:00: mouth 2 (two) Medical times Branch daily. doxycycline 2019-06 Yes Univer s monohydrate 2-08 ity of 100 mg 00:00: [place] capsule 00 Medical Branch metoprolol 2019-06 Yes [id number] TAKE 1/2 [facility] succinate 1-19 TABLET BY ity o f XL 100 mg 00:00: MOUTH [place] 24 hr 00 TWICE Medical tablet DAILY Branch metoprolol 2019-06 Yes [id number] TAKE 1/2 [facility] succinate 1-19 TABLET BY ity o f XL 100 mg 00:00: MOUTH [place] 24 hr 00 TWICE Medical tablet DAILY Branch metoprolol 2019-06 Yes [id number] TAKE 1/2 [facility] succinate 1-19 TABLET BY ity o f XL 100 mg 00:00: MOUTH [place] 24 hr 00 TWICE Medical tablet DAILY Branch metoprolol 2019-06 Yes [id number] TAKE 1/2 [facility] succinate 1-19 TABLET BY ity o f XL 100 mg 00:00: MOUTH [place] 24 hr 00 TWICE Medical tablet DAILY Branch metoprolol 2019-06 Yes [id number] TAKE 1/2 [facility] succinate 1-19 TABLET BY ity o f XL 100 mg 00:00: MOUTH [place] 24 hr 00 TWICE Medical tablet DAILY Branch metoprolol 2019-06 Yes [id number] TAKE 1/2 [facility] succinate 1-19 TABLET BY ity o f XL 100 mg 00:00: MOUTH [place] 24 hr 00 TWICE Medical tablet DAILY Branch metoprolol 2019-06- No [id number] TAKE 1/2 [facility] succinate 1-19 03-17 TABLET BY ity of XL 100 mg 00:00: 00:00 MOUTH [place] 24 hr 00 :00 TWICE Medical tablet DAILY Branch metoprolol 2019-0 Yes [id number] TAKE 1/2 [facility] succinate 6-19 TABLET BY ity o f XL 100 mg 00:00: MOUTH [place] 24 hr 00 TWICE Medical tablet DAILY Branch metoprolol Yes [id number] TAKE 1/2 [facility] succinate 6-19 TABLET BY ity o f XL 100 mg 00:00: MOUTH [place] 24 hr 00 TWICE Medical tablet DAILY Branch metoprolol 2020- No [id number] TAKE 1/2 [facility] succinate 6-19 11-19 TABLET BY ity of XL 100 mg 00:00: 00:00 MOUTH [place] 24 hr 00 :00 TWICE Medical tablet DAILY [place] MULTIVITS,T 0 Yes 1{tbl} Take 1 Un sandy H 3-11 tablet by ity of W-CA,FE,OTH 14:10: mouth [place] MIN 32 daily. Medical (MULTIVITAM Branch IN AND MINERAL ORAL) Magnesium 2020-0 Yes 500mg Take 500 Uni vers Oxide 500 3-11 mg by ity of mg Cap 14:10: mouth [place] 32 daily. [facility] MULTIVITS,T 2019-0 Yes 1{tbl} Take 1 Un sandy H 3-11 tablet by ity of W-CA,FE,OTH 14:10: mouth [place] MIN 32 daily. Medical (MULTIVITAM Branch IN AND MINERAL ORAL) Magnesium 2020-0 Yes 500mg Take 500 Uni vers Oxide 500 3-11 mg by ity of mg Cap 14:10: mouth [place] 32 daily. [facility] MULTIVITS,T 2019-0 Yes 1{tbl} Take 1 Un sandy H 3-11 tablet by ity of W-CA,FE,OTH 14:10: mouth [place] MIN 32 daily. Medical (MULTIVITAM Branch IN AND MINERAL ORAL) Magnesium 2020-0 Yes 500mg Take 500 Uni vers Oxide 500 3-11 mg by ity of mg Cap 14:10: mouth [place] 32 daily. [facility] MULTIVITS,T 2020-0 Yes 1{tbl} Take 1 Un sandy H 3-11 tablet by ity of W-CA,FE,OTH 14:10: mouth [place] MIN 32 daily. Medical (MULTIVITAM Branch IN AND MINERAL ORAL) Magnesium 2020-0 Yes 500mg Take 500 Uni vers Oxide 500 3-11 mg by ity of mg Cap 14:10: mouth [place] 32 daily. Medical Branch MULTIVITS,T 0 Yes 1{tbl} Take 1 Un sandy H 3-11 tablet by ity of W-CA,FE,OTH 14:10: mouth [place] MIN 32 daily. Medical (MULTIVITAM Branch IN AND MINERAL ORAL) Magnesium 2020-0 Yes 500mg Take 500 Uni vers Oxide 500 3-11 mg by ity of mg Cap 14:10: mouth [place] 32 daily. Medical Branch MULTIVITS,T Yes 1{tbl} Take 1 Un sandy H 3-11 tablet by ity of W-CA,FE,OTH 14:10: mouth [place] MIN 32 daily. Medical (MULTIVITAM Branch IN AND MINERAL ORAL) Magnesium 2020-0 Yes 500mg Take 500 Uni vers Oxide 500 3-11 mg by ity of mg Cap 14:10: mouth [place] 32 daily. Medical Branch MULTIVITS,T Yes 1{tbl} Take 1 Un sandy H 3-11 tablet by ity of W-CA,FE,OTH 14:10: mouth [place] MIN 32 daily. Medical (MULTIVITAM Branch IN AND MINERAL ORAL) Magnesium 2020-0 Yes 500mg Take 500 Uni vers Oxide 500 3-11 mg by ity of mg Cap 14:10: mouth [place] 32 daily. Medical Branch MULTIVITS,T Yes 1{tbl} Take 1 Un sandy H 3-11 tablet by ity of W-CA,FE,OTH 14:10: mouth [place] MIN 32 daily. Medical (MULTIVITAM Branch IN AND MINERAL ORAL) Magnesium 2020-0 Yes 500mg Take 500 Uni vers Oxide 500 3-11 mg by ity of mg Cap 14:10: mouth [place] 32 daily. Medical Branch atorvastati 2019-0 Yes [id number] 20mg Take 1 [facility] n 20 mg 3-11 tablet by ity of tablet 00:00: mouth at [place] 00 bedtime. Medical Branch furosemide 2020-0 Yes [id number] 40mg Take 1 [facility] (LASIX) 40 3-11 tablet by ity of mg tablet 00:00: mouth [place] 00 needed Medical (Based on Branch the fluid). atorvastati 2020-0 Yes [id number] 20mg Take 1 [facility] n 20 mg 3-11 tablet by ity of tablet 00:00: mouth at [place] 00 bedtime. Medical Branch furosemide 2020-0 Yes [id number] 40mg Take 1 [facility] (LASIX) 40 3-11 tablet by ity of mg tablet 00:00: mouth as [place] 00 needed Medical (Based on Branch the fluid). atorvastati 2020-0 Yes [id number] 20mg Take 1 [facility] n 20 mg 3-11 tablet by ity of tablet 00:00: mouth at [place] 00 bedtime. Medical Branch furosemide 2020-0 Yes [id number] 40mg Take 1 [facility] (LASIX) 40 3-11 tablet by ity of mg tablet 00:00: mouth as [place] 00 needed Medical (Based on Branch the fluid). atorvastati 2020-0 Yes [id number] 20mg Take 1 [facility] n 20 mg 3-11 tablet by ity of tablet 00:00: mouth at [place] 00 bedtime. Medical Branch furosemide 2020-0 Yes [id number] 40mg Take 1 [facility] (LASIX) 40 3-11 tablet by ity of mg tablet 00:00: mouth as [place] 00 needed Medical (Based on Branch the fluid). atorvastati 2020-0 Yes [id number] 20mg Take 1 [facility] n 20 mg 3-11 tablet by ity of tablet 00:00: mouth at [place] 00 bedtime. Medical Branch furosemide 2020-0 Yes [id number] 40mg Take 1 [facility] (LASIX) 40 3-11 tablet by ity of mg tablet 00:00: mouth as [place] 00 needed Medical (Based on Branch the fluid). atorvastati 2020-0 Yes [id number] 20mg Take 1 [facility] n 20 mg 3-11 tablet by ity of tablet 00:00: mouth at [place] 00 bedtime. Medical Branch furosemide 2020-0 Yes [id number] 40mg Take 1 [facility] (LASIX) 40 3-11 tablet by ity of mg tablet 00:00: mouth as [place] 00 needed Medical (Based on Branch the fluid). atorvastati 2020-0 Yes [id number] 20mg Take 1 [facility] n 20 mg 3-11 tablet by ity of tablet 00:00: mouth at [place] 00 bedtime. Medical Branch furosemide 2020-0 Yes [id number] 40mg Take 1 [facility] (LASIX) 40 3-11 tablet by ity of mg tablet 00:00: mouth as [place] 00 needed Medical (Based on Branch the fluid). atorvastati 2020-0 Yes [id number] 20mg Take 1 [facility] n 20 mg 3-11 tablet by ity of tablet 00:00: mouth at [place] 00 bedtime. Medical Branch furosemide 2020-0 Yes [id number] 40mg Take 1 [facility] (LASIX) 40 3-11 tablet by ity of mg tablet 00:00: mouth as [place] 00 needed Medical (Based on Branch the fluid). atorvastati 2020-0 Yes [id number] 20mg Take 1 [facility] n 20 mg 3-11 tablet by ity of tablet 00:00: mouth at [place] 00 bedtime. Medical Branch furosemide 2020-0 Yes [id number] 40mg Take 1 [facility] (LASIX) 40 3-11 tablet by ity of mg tablet 00:00: mouth as [place] 00 needed Medical (Based on Branch the fluid). atorvastati 2019-0 Yes [id number] 20mg Take 1 [facility] n 20 mg 3-11 tablet by ity of tablet 00:00: mouth at [place] 00 bedtime. Medical Branch furosemide 2020-0 Yes [id number] 40mg Take 1 [facility] (LASIX) 40 3-11 tablet by ity of mg tablet 00:00: mouth as [place] 00 needed Medical (Based on Branch the fluid). atorvastati 2020-0 Yes [id number] 20mg Take 1 [facility] n 20 mg 3-11 tablet by ity of tablet 00:00: mouth at [place] 00 bedtime. Medical Branch furosemide 2020-0 Yes [id number] 40mg Take 1 [facility] (LASIX) 40 3-11 tablet by ity of mg tablet 00:00: mouth as [place] 00 needed Medical (Based on Branch the fluid). atorvastati 2020-0 Yes [id number] 20mg Take 1 [facility] n 20 mg 3-11 tablet by ity of tablet 00:00: mouth at [place] 00 bedtime. Medical Branch furosemide 2020-0 Yes [id number] 40mg Take 1 [facility] (LASIX) 40 3-11 tablet by ity of mg tablet 00:00: mouth as [place] 00 needed Medical (Based on Branch the fluid). atorvastati 2020- No [id number] 20mg Take 1 [facility] n 20 mg 3-04 22-15 tablet by ity of tablet 00:00: 00:00 mouth at [place] 00 :00 bedtime. Medical Branch furosemide No [id number] 40mg Take 1 [facility] (LASIX) 40 -04 22-15 tablet by ity of mg tablet 00:00: 00:00 mouth as [place] 00 :00 needed Medical (Based on Branch the fluid). METOPROLOL 2019- No [id number] TAKE 1/2 [facility] SUCCINATE 2-07 09- TABLET BY ity of XL 100 mg 00:00: 04:59 MOUTH [place] 24 hr 00 :00 TWICE Medical tablet DAILY Branch furosemide No [id number] 40mg Take 1 [facility] (LASIX) 40 -07 09- tablet by ity of mg tablet 00:00: 04:59 mouth as [place] 00 :00 needed Medical (Based on Branch the fluid) for up to 30 days. METOPROLOL 2019- No [id number] TAKE 1/2 [facility] SUCCINATE 2-07 09- TABLET BY ity of XL 100 mg 00:00: 04:59 MOUTH [place] 24 hr 00 :00 TWICE Medical tablet DAILY Branch METOPROLOL 2019- No [id number] TAKE 1/2 [facility] SUCCINATE 2-07 09- TABLET BY ity of XL 100 mg 00:00: 04:59 MOUTH [place] 24 hr 00 :00 TWICE Medical tablet DAILY Branch METOPROLOL No [id number] TAKE 1/2 [facility] SUCCINATE 2-07 09- TABLET BY ity of XL 100 mg 00:00: 04:59 MOUTH [place] 24 hr 00 :00 TWICE Medical tablet DAILY Branch METOPROLOL No [id number] TAKE 1/2 [facility] SUCCINATE 2-07 09- TABLET BY ity of XL 100 mg 00:00: 04:59 MOUTH [place] 24 hr 00 :00 TWICE Medical tablet DAILY Branch furosemide No [id number] 40mg Take 1 [facility] (LASIX) 40 2-21 - tablet by ity of mg tablet 00:00: 00:00 mouth as [place] 00 :00 needed Medical (Based on Branch the fluid) for up to 30 days. furosemide 2019- No [id number] 40mg Take 1 [facility] (LASIX) 40 2-07 09-11 tablet by ity of mg tablet 00:00: 00:00 mouth as [place] 00 :00 needed Medical (Based on Branch the fluid) for up to 30 days. furosemide 2019- No [id number] 40mg Take 1 [facility] (LASIX) 40 2-07 09-11 tablet by ity of mg tablet 00:00: 00:00 mouth [place] 00 :00 needed Medical (Based on Branch the fluid) for up to 30 days. furosemide 2018-06- No [id number] 40mg Take 1 [facility] (LASIX) 40 -16 08- tablet by ity of mg tablet 00:00: 00:00 mouth as [place] 00 :00 needed Medical (Based on Branch the fluid). METOPROLOL Yes [id number] TAKE 1/2 [facility] SUCCINATE 9-16 TABLET BY ity o f XL 100 mg 00:00: MOUTH [place] 24 hr 00 TWICE Medical tablet DAILY Branch METOPROLOL Yes [id number] TAKE 1/2 [facility] SUCCINATE 9-16 TABLET BY ity o f XL 100 mg 00:00: MOUTH [place] 24 hr 00 TWICE Medical tablet DAILY Branch METOPROLOL Yes [id number] TAKE 1/2 [facility] SUCCINATE 9-16 TABLET BY ity o f XL 100 mg 00:00: MOUTH [place] 24 hr 00 TWICE Medical tablet DAILY Branch METOPROLOL Yes [id number] TAKE 1/2 [facility] SUCCINATE 9-16 TABLET BY ity o f XL 100 mg 00:00: MOUTH [place] 24 hr 00 TWICE Medical tablet DAILY Branch METOPROLOL 2020- No [id number] TAKE 1/2 [facility] SUCCINATE 9-16 -21 TABLET BY ity of XL 100 mg 00:00: 00:00 MOUTH [place] 24 hr 00 :00 TWICE Medical tablet DAILY Branch ciprofloxac Yes TK 1 T PO U nivers in HCl 500 8-08 BID FOR 14 ity of mg tablet 00:00: DAYS 00 Medical Branch doxycycline Yes TK ONE C Un sandy 100 mg 8-08 PO BID FOR ity of capsule 00:00: 14 DAYS [place] 00 Medical Branch ciprofloxac 0 Yes TK 1 T PO U nivers in HCl 500 8-08 BID FOR 14 ity of mg tablet 00:00: DAYS 00 [facility] doxycycline 0 Yes TK ONE C Un sandy 100 mg 8-08 PO BID FOR ity of capsule 00:00: 14 DAYS [facility] ciprofloxac 0 Yes TK 1 T PO U nivers in HCl 500 8-08 BID FOR 14 ity of mg tablet 00:00: DAYS 00 [facility] doxycycline 2018-0 Yes TK ONE C Un sandy 100 mg 8-08 PO BID FOR ity of capsule 00:00: 14 DAYS 00 [facility] ciprofloxac 2018-0 2020- No TK 1 T PO Univers in HCl 500 8- 03-11 BID FOR 14 it y of mg tablet 00:00: 00:00 DAYS [place] 00 :00 [facility] doxycycline 2018-0 2020- No TK ONE C U nivers 100 mg 8-11 PO BID FOR ity of capsule 00:00: 00:00 14 DAYS [place] 00 :00 [facility] ciprofloxac 2018-0 2020- No TK 1 T PO Univers in HCl 500 8 03-11 BID FOR 14 it y of mg tablet 00:00: 00:00 DAYS [place] 00 :00 [facility] doxycycline 2018-0 2020- No TK ONE C U nivers 100 mg 01-25 03-11 PO BID FOR ity of capsule 00:00: 00:00 14 DAYS [place] 00 :00 [facility] ciprofloxac 2018-0 2020- No TK 1 T PO Univers in HCl 500 01-25 03-11 BID FOR 14 it y of mg tablet 00:00: 00:00 DAYS [place] 00 :00 [facility] doxycycline 2018-0 2020- No TK ONE C U nivers 100 mg 01-25 03-11 PO BID FOR ity of capsule 00:00: 00:00 14 DAYS [place] 00 :00 [facility] furosemide Yes [id number] 40mg Take 1 [facility] (LASIX) 40 7-31 tablet by ity of mg tablet 00:00: mouth as [place] 00 needed Medical (Based on Branch the fluid). furosemide Yes [id number] 40mg Take 1 [facility] (LASIX) 40 7-31 tablet by ity of mg tablet 00:00: mouth as [place] 00 needed Medical (Based on Branch the fluid). furosemide Yes [id number] 40mg Take 1 [facility] (LASIX) 40 7-31 tablet by ity of mg tablet 00:00: mouth as [place] 00 needed Medical (Based on Branch the fluid). furosemide Yes [id number] 40mg Take 1 [facility] (LASIX) 40 7-31 tablet by ity of mg tablet 00:00: mouth as [place] 00 needed Medical (Based on Branch the fluid). furosemide Yes [id number] 40mg Take 1 [facility] (LASIX) 40 7-31 tablet by ity of mg tablet 00:00: mouth as [place] 00 needed Medical (Based on Branch the fluid). METOPROLOL Yes [id number] TAKE 1/2 [facility] SUCCINATE 6-14 TABLET BY ity o f XL 100 mg 00:00: MOUTH [place] 24 hr 00 TWICE Medical tablet DAILY [place] METOPROLOL 2019- No [id number] TAKE 1/2 [facility] SUCCINATE 6-14 09-16 TABLET BY ity of XL 100 mg 00:00: 00:00 MOUTH [place] 24 hr 00 :00 TWICE Medical tablet DAILY [place] MULTIVITS,T Yes 1{tbl} Take 1 Un sandy H 5-13 tablet by ity of W-CA,FE,OTH 16:07: mouth [place] MIN 49 daily. Medical (MULTIVITAM Branch IN AND MINERAL ORAL) Magnesium 2018- Yes 500mg Take 500 Uni vers Oxide 500 5-13 mg by ity of mg Cap 16:07: mouth [place] 49 daily. [facility] MULTIVITS,T Yes 1{tbl} Take 1 [place] sandy H 5-13 tablet by ity of W-CA,FE,OTH 16:07: mouth [place] MIN 49 daily. Medical (MULTIVITAM Branch IN AND MINERAL ORAL) Magnesium 2019-0 Yes 500mg Take 500 Uni vers Oxide 500 5-13 mg by ity of mg Cap 16:07: mouth [place] 49 daily. [facility] MULTIVITS,T Yes 1{tbl} Take 1 [place] H 5-13 tablet by ity of W-CA,FE,OTH 16:07: mouth [place] MIN 49 daily. Medical (MULTIVITAM Branch IN AND MINERAL ORAL) Magnesium 2019-0 Yes 500mg Take 500 Uni vers Oxide 500 5-13 mg by ity of mg Cap 16:07: mouth [place] 49 daily. Medical Branch MULTIVITS,T Yes 1{tbl} Take 1 [place] H 5-13 tablet by ity of W-CA,FE,OTH 16:07: mouth [place] MIN 49 daily. Medical (MULTIVITAM Branch IN AND MINERAL ORAL) Magnesium 2019- Yes 500mg Take 500 Uni vers Oxide 500 5-13 mg by ity of mg Cap 16:07: mouth [place] 49 daily. [facility] Branch MULTIVITS,T Yes 1{tbl} Take 1 [place] H 5-13 tablet by ity of W-CA,FE,OTH 16:07: mouth [place] MIN 49 daily. Medical (MULTIVITAM Branch IN AND MINERAL ORAL) Magnesium 2018- Yes 500mg Take 500 Uni vers Oxide 500 5-13 mg by ity of mg Cap 16:07: mouth [place] 49 daily. [facility]{tbl} Take 1 [place] H 5-13 tablet by ity of W-CA,FE,OTH 16:07: mouth [place] MIN 49 daily. Medical (MULTIVITAM Branch IN AND MINERAL ORAL) Magnesium 2018- Yes 500mg Take 500 Uni vers Oxide 500 5-13 mg by ity of mg Cap 16:07: mouth [place] 49 daily. [facility] Branch furosemide 2019- No [id number] 40mg Take 1 [facility] (LASIX) 40 5-13 07-31 tablet by ity of mg tablet 00:00: 00:00 mouth as [place] 00 :00 needed Medical (Based on Branch the fluid). atorvastati Yes Univer s n 20 mg 3-14 ity of tablet 00:00: 00 [facility] Branch atorvastati 0 Yes Univer s n 20 mg 3-14 ity of tablet 00:00: [facility] atorvastati 0 Yes Univer s n 20 mg 3-14 ity of tablet 00:00: [facility] atorvastati Yes Univer s n 20 mg 3-14 ity of tablet 00:00: [facility] atorvastati 2018-0 Yes Univer s n 20 mg 3-14 ity of tablet 00:00: [facility] atorvastati 2018-0 Yes Univer s n 20 mg 3-14 ity of tablet 00:00: [place] 00 Medical Branch atorvastati 2018-0 2019- No [facility] n 20 mg 314 08-28 [facility] tablet 00:00: 00:00 [place] 00 :00 [facility] atorvastati 2018-0 2019- No [facility] 20 mg 14 08-28 [facility] tablet 00:00: 00:00 [place] 00 :00 [facility] atorvastati 2018-0 2019- No [facility] 20 mg 08-31 [facility] tablet 00:00: 00:00 [place] 00 :00 [facility] amLODIPine 2018-0 Yes [id number] 10mg Take 1 [facility] 10 mg 1-10 tablet by [facility] tablet 00:00: mouth [place] 00 daily. [facility] amLODIPine 0 Yes [id number] 10mg Take 1 [facility] 10 mg 1-10 tablet by [facility] tablet 00:00: mouth [place] 00 daily. [facility] amLODIPine 0 Yes [id number] 10mg Take 1 [facility] 10 mg 1-10 tablet by [facility] tablet 00:00: mouth [place] 00 daily. [facility] amLODIPine Yes [id number] 10mg Take 1 [facility] 10 mg 1-10 tablet by [facility] tablet 00:00: mouth [place] 00 daily. [facility] amLODIPine 0 Yes [id number] 10mg Take 1 [facility] 10 mg 1-10 tablet by [facility] tablet 00:00: mouth [place] 00 daily. [facility] amLODIPine 2019-0 Yes [id number] 10mg Take 1 [facility] 10 mg 1-10 tablet by [facility] tablet 00:00: mouth [place] 00 daily. [facility] amLODIPine 0 Yes [id number] 10mg Take 1 [facility] 10 mg 1-10 tablet by [facility] tablet 00:00: mouth [place] 00 daily. [facility] amLODIPine 2018-0 Yes [id number] 10mg Take 1 [facility] 10 mg 1-10 tablet by [facility] tablet 00:00: mouth [place] 00 daily. [facility] amLODIPine 2018-0 Yes [id number] 10mg Take 1 [facility] 10 mg 1-10 tablet by [facility] tablet 00:00: mouth [place] 00 daily. [facility] amLODIPine 0 Yes [id number] 10mg Take 1 [facility] 10 mg 1-10 tablet by [facility] tablet 00:00: mouth [place] 00 daily. [facility] amLODIPine Yes [id number] 10mg Take 1 [facility] 10 mg 1-10 tablet by [facility] tablet 00:00: mouth [place] 00 daily. [facility] amLODIPine Yes [id number] 10mg Take 1 [facility] 10 mg 1-10 tablet by [facility] tablet 00:00: mouth [place] 00 daily. [facility] amLODIPine Yes [id number] 10mg Take 1 [facility] 10 mg 1-10 tablet by [facility] tablet 00:00: mouth [place] 00 daily. [facility] amLODIPine Yes [id number] 10mg Take 1 [facility] 10 mg 1-10 tablet by [facility] tablet 00:00: mouth [place] 00 daily. [facility] amLODIPine Yes [id number] 10mg Take 1 [facility] 10 mg 1-10 tablet by [facility] tablet 00:00: mouth [place] 00 daily. [facility] amLODIPine Yes [id number] 10mg Take 1 [facility] 10 mg 1-10 tablet by [facility] tablet 00:00: mouth [place] 00 daily. [facility] amLODIPine Yes [id number] 10mg Take 1 [facility] 10 mg 1-10 tablet by [facility] tablet 00:00: mouth [place] 00 daily. [facility] amLODIPine Yes [id number] 10mg Take 1 [facility] 10 mg 1-10 tablet by [facility] tablet 00:00: mouth [place] 00 daily. [facility] amLODIPine Yes [id number] 10mg Take 1 [facility] 10 mg 1-10 tablet by [facility] tablet 00:00: mouth [place] 00 daily. [facility] amLODIPine Yes [id number] 10mg Take 1 [facility] 10 mg 1-10 tablet by [facility] tablet 00:00: mouth [place] 00 daily. [facility] amLODIPine Yes [id number] 10mg Take 1 [facility] 10 mg 1-10 tablet by [facility] tablet 00:00: mouth [place] 00 daily. [facility] amLODIPine 0 Yes [id number] 10mg Take 1 [facility] 10 mg 1-10 tablet by [facility] tablet 00:00: mouth [place] 00 daily. [facility] amLODIPine Yes [id number] 10mg Take 1 [facility] 10 mg 1-10 tablet by [facility] tablet 00:00: mouth [place] 00 daily. [facility] amLODIPine 0 Yes [id number] 10mg Take 1 [facility] 10 mg 1-10 tablet by [facility] tablet 00:00: mouth [place] 00 daily. [facility] amLODIPine Yes [id number] 10mg Take 1 [facility] 10 mg 1-10 tablet by [facility] tablet 00:00: mouth [place] 00 daily. [facility] amLODIPine Yes [id number] 10mg Take 1 [facility] 10 mg 1-10 tablet by [facility] tablet 00:00: mouth [place] 00 daily. [facility] amLODIPine Yes [id number] 10mg Take 1 [facility] 10 mg 1-10 tablet by [facility] of tablet 00:00: mouth [place] 00 daily. [facility] amLODIPine Yes [id number] 10mg Take 1 [facility] 10 mg 1-10 tablet by [facility] tablet 00:00: mouth [place] 00 daily. [facility] amLODIPine Yes [id number] 10mg Take 1 [facility] 10 mg 1-10 tablet by [facility] tablet 00:00: mouth [place] 00 daily. [facility] amLODIPine Yes [id number] 10mg Take 1 [facility] 10 mg 1-10 tablet by [facility] of tablet 00:00: mouth [place] 00 daily. [facility] amLODIPine Yes [id number] 10mg Take 1 [facility] 10 mg 1-10 tablet by [facility] of tablet 00:00: mouth [place] 00 daily. [facility] amLODIPine Yes [id number] 10mg Take 1 [facility] 10 mg 1-10 tablet by [facility] of tablet 00:00: mouth [place] 00 daily. [facility] amLODIPine Yes [id number] 10mg Take 1 [facility] 10 mg 1-10 tablet by [facility] tablet 00:00: mouth [place] 00 daily. [facility] amLODIPine Yes [id number] 10mg Take 1 [facility] 10 mg 1-10 tablet by [facility] of tablet 00:00: mouth [place] 00 daily. [facility] amLODIPine Yes [id number] 10mg Take 1 [facility] 10 mg 1-10 tablet by [facility] tablet 00:00: mouth [place] 00 daily. [facility] isosorbide 0 Yes [id number] 120mg Take 120 [facility] mononitrate 9-23 mg by [facility] of 120 mg 24 00:00: mouth [place] hr tablet 00 daily. [facility] isosorbide 0 Yes [id number] 120mg Take 120 [facility] mononitrate 9-23 mg by [facility] of 120 mg 24 00:00: mouth [place] hr tablet 00 daily. [facility] isosorbide 2018-0 Yes [id number] 120mg Take 120 [facility] mononitrate 9-23 mg by [facility] of 120 mg 24 00:00: mouth [place] hr tablet 00 daily. [facility] isosorbide 2017-0 Yes [id number] 120mg Take 120 [facility] mononitrate 9-23 mg by [facility] of 120 mg 24 00:00: mouth [place] hr tablet 00 daily. [facility] isosorbide 2017-0 Yes [id number] 120mg Take 120 [facility] mononitrate 9-23 mg by [facility] of 120 mg 24 00:00: mouth [place] hr tablet 00 daily. [facility] isosorbide 2017-0 Yes [id number] 120mg Take 120 [facility] mononitrate 9-23 mg by [facility] of 120 mg 24 00:00: mouth [place] hr tablet 00 daily. [facility] isosorbide 2017-0 Yes [id number] 120mg Take 120 [facility] mononitrate 9-23 mg by [facility] of 120 mg 24 00:00: mouth [place] hr tablet 00 daily. [facility] isosorbide 2017- Yes [id number] 120mg Take 120 [facility] mononitrate 9-23 mg by [facility] of 120 mg 24 00:00: mouth [place] hr tablet 00 daily. [facility] isosorbide 2017-0 Yes [id number] 120mg Take 120 [facility] mononitrate 9-23 mg by [facility] of 120 mg 24 00:00: mouth [place] hr tablet 00 daily. [facility] isosorbide 2017-0 Yes [id number] 120mg Take 120 [facility] mononitrate 9-23 mg by [facility] of 120 mg 24 00:00: mouth [place] hr tablet 00 daily. [facility] isosorbide 2017-0 Yes [id number] 120mg Take 120 [facility] mononitrate 9-23 mg by [facility] of 120 mg 24 00:00: mouth [place] hr tablet 00 daily. [facility] isosorbide 2017-0 Yes [id number] 120mg Take 120 [facility] mononitrate 9-23 mg by [facility] of 120 mg 24 00:00: mouth [place] hr tablet 00 daily. [facility] isosorbide 2017-0 Yes [id number] 120mg Take 120 [facility] mononitrate 9-23 mg by [facility] of 120 mg 24 00:00: mouth [place] hr tablet 00 daily. [facility] isosorbide 2017-0 Yes [id number] 120mg Take 120 [facility] mononitrate 9-23 mg by [facility] of 120 mg 24 00:00: mouth [place] hr tablet 00 daily. [facility] isosorbide 2017- Yes [id number] 120mg Take 120 [facility] mononitrate 9-23 mg by [facility] of 120 mg 24 00:00: mouth [place] hr tablet 00 daily. [facility] isosorbide 2017- Yes [id number] 120mg Take 120 [facility] mononitrate 9-23 mg by [facility] of 120 mg 24 00:00: mouth [place] hr tablet 00 daily. [facility] isosorbide 2017- Yes [id number] 120mg Take 120 [facility] mononitrate 9-23 mg by [facility] of 120 mg 24 00:00: mouth [place] hr tablet 00 daily. [facility] isosorbide 2017- Yes [id number] 120mg Take 120 [facility] mononitrate 9-23 mg by [facility] of 120 mg 24 00:00: mouth [place] hr tablet 00 daily. [facility] isosorbide 2017- Yes [id number] 120mg Take 120 [facility] mononitrate 9-23 mg by [facility] of 120 mg 24 00:00: mouth [place] hr tablet 00 daily. [facility] isosorbide 2017- Yes [id number] 120mg Take 120 [facility] mononitrate 9-23 mg by [facility] of 120 mg 24 00:00: mouth [place] hr tablet 00 daily. [facility] isosorbide 2017- Yes [id number] 120mg Take 120 [facility] mononitrate 9-23 mg by [facility] of 120 mg 24 00:00: mouth [place] hr tablet 00 daily. [facility] isosorbide 2017- Yes [id number] 120mg Take 120 [facility] mononitrate 9-23 mg by [facility] of 120 mg 24 00:00: mouth [place] hr tablet 00 daily. [facility] isosorbide 2017- Yes [id number] 120mg Take 120 [facility] mononitrate 9-23 mg by [facility] of 120 mg 24 00:00: mouth [place] hr tablet 00 daily. [facility] isosorbide 2017- Yes [id number] 120mg Take 120 [facility] mononitrate 9-23 mg by [facility] of 120 mg 24 00:00: mouth [place] hr tablet 00 daily. [facility] isosorbide 2017-0 Yes [id number] 120mg Take 120 [facility] mononitrate 9-23 mg by [facility] of 120 mg 24 00:00: mouth [place] hr tablet 00 daily. [facility] isosorbide 2017- Yes [id number] 120mg Take 120 [facility] mononitrate 9-23 mg by [facility] of 120 mg 24 00:00: mouth [place] hr tablet 00 daily. [facility] isosorbide 2017- Yes [id number] 120mg Take 120 [facility] mononitrate 9-23 mg by [facility] of 120 mg 24 00:00: mouth [place] hr tablet 00 daily. [facility] isosorbide 2017- Yes [id number] 120mg Take 120 [facility] mononitrate 9-23 mg by [facility]y of 120 mg 24 00:00: mouth [place] hr tablet 00 daily. [facility] isosorbide 2017- Yes [id number] 120mg Take 120 [facility] mononitrate 9-23 mg by [facility]y of 120 mg 24 00:00: mouth [place] hr tablet 00 daily. [facility] isosorbide 2017- Yes [id number] 120mg Take 120 [facility] mononitrate 9-23 mg by [facility]y of 120 mg 24 00:00: mouth [place] hr tablet 00 daily. [facility] isosorbide Yes [id number] 120mg Take 120 [facility] mononitrate 9-23 mg by ity of 120 mg 24 00:00: mouth [place] hr tablet 00 daily. [facility] isosorbide Yes [id number] 120mg Take 120 [facility] mononitrate 9-23 mg by ity of 120 mg 24 00:00: mouth [place] hr tablet 00 daily. [facility] isosorbide Yes [id number] 120mg Take 120 [facility] mononitrate 9-23 mg by ity of 120 mg 24 00:00: mouth [place] hr tablet 00 daily. [facility] isosorbide Yes [id number] 120mg Take 120 [facility] mononitrate 9-23 mg by ity of 120 mg 24 00:00: mouth [place] hr tablet 00 daily. [facility] isosorbide Yes [id number] 120mg Take 120 [facility] mononitrate 9-23 mg by ity of 120 mg 24 00:00: mouth [place] hr tablet 00 daily. [facility] lisinopril Yes [id number] 40mg Take 1 [facility] 40 mg 3-08 tablet by [facility] of tablet 00:00: mouth [place] 00 every day Medical at [address] [place] [address] (noon). lisinopril 2018-0 Yes [id number] 40mg Take 1 [facility] 40 mg 3-08 tablet by [facility] of tablet 00:00: mouth [place] 00 every day Medical at [address] [place] [address] (noon). lisinopril 2018-0 Yes [id number] 40mg Take 1 [facility] 40 mg 3-08 tablet by [facility] of tablet 00:00: mouth [place] 00 every day Medical at [address] [place] [address] (noon). lisinopril 2018-0 Yes [id number] 40mg Take 1 [facility] 40 mg 3-08 tablet by ity of tablet 00:00: mouth [place] 00 every day Medical at [address] [place] [address] (noon). lisinopril 2018-0 Yes [id number] 40mg Take 1 [facility] 40 mg 3-08 tablet by ity of tablet 00:00: mouth [place] 00 every day Medical at [address] [place] [address] (noon). lisinopril 2018-0 Yes [id number] 40mg Take 1 [facility] 40 mg 3-08 tablet by ity of tablet 00:00: mouth [place] 00 every day Medical at [address] [place] [address] (noon). lisinopril 2018-0 Yes [id number] 40mg Take 1 [facility] 40 mg 3-08 tablet by it[facility] of tablet 00:00: mouth [place] 00 every day Medical at [address] [place] [address] (noon). lisinopril 2018-0 Yes [id number] 40mg Take 1 [facility] 40 mg 3-08 tablet by [facility] of tablet 00:00: mouth [place] 00 every day Medical at [address] [place] [address] (noon). lisinopril 2018-0 Yes [id number] 40mg Take 1 [facility] 40 mg 3-08 tablet by [facility] of tablet 00:00: mouth [place] 00 every day Medical at [address] [place] [address] (noon). lisinopril 2018-0 Yes [id number] 40mg Take 1 [facility] 40 mg 3-08 tablet by [facility] of tablet 00:00: mouth [place] 00 every day Medical at [address] [place] [address] (noon). lisinopril 2018-0 Yes [id number] 40mg Take 1 [facility] 40 mg 3-08 tablet by it[facility] of tablet 00:00: mouth [place] 00 every day Medical at [address] [place] [address] (noon). lisinopril 2018-0 Yes [id number] 40mg Take 1 [facility] 40 mg 3-08 tablet by ity of tablet 00:00: mouth [place] 00 every day Medical at [address] [place] [address] (noon). lisinopril 2018-0 Yes [id number] 40mg Take 1 [facility] 40 mg 3-08 tablet by ity of tablet 00:00: mouth [place] 00 every day Medical at [address] [place] [address] (noon). lisinopril 2018-0 Yes [id number] 40mg Take 1 [facility] 40 mg 3-08 tablet by it[facility] of tablet 00:00: mouth [place] 00 every day Medical at [address] [place] [address] (noon). lisinopril 2018-0 Yes [id number] 40mg Take 1 [facility] 40 mg 3-08 tablet by ity of tablet 00:00: mouth [place] 00 every day Medical at [address] [place] [address] (noon). lisinopril 2018-0 Yes [id number] 40mg Take 1 [facility] 40 mg 3-08 tablet by [facility] of tablet 00:00: mouth [place] 00 every day Medical at [address] [place] [address] (noon). lisinopril 2018-0 Yes [id number] 40mg Take 1 [facility] 40 mg 3-08 tablet by [facility] of tablet 00:00: mouth [place] 00 every day Medical at [address] [place] [address] (noon). lisinopril 2018-0 Yes [id number] 40mg Take 1 [facility] 40 mg 3-08 tablet by it[facility] of tablet 00:00: mouth [place] 00 every day Medical at [address] [place] [address] (noon). lisinopril 2018-0 Yes [id number] 40mg Take 1 [facility] 40 mg 3-08 tablet by it[facility] of tablet 00:00: mouth [place] 00 every day Medical at [address] [place] [address] (noon). lisinopril 2018-0 Yes [id number] 40mg Take 1 [facility] 40 mg 3-08 tablet by ity of tablet 00:00: mouth [place] 00 every day Medical at [address] [place] [address] (noon). lisinopril 2018-0 Yes [id number] 40mg Take 1 [facility] 40 mg 3-08 tablet by ity of tablet 00:00: mouth [place] 00 every day Medical at [address] [place] [address] (noon). lisinopril 2018-0 Yes [id number] 40mg Take 1 [facility] 40 mg 3-08 tablet by ity of tablet 00:00: mouth [place] 00 every day Medical at [address] [place] [address] (noon). lisinopril 2018-0 Yes [id number] 40mg Take 1 [facility] 40 mg 3-08 tablet by ity of tablet 00:00: mouth [place] 00 every day Medical at [address] [place] [address] (noon). lisinopril 2018-0 Yes [id number] 40mg Take 1 [facility] 40 mg 3-08 tablet by it[facility] of tablet 00:00: mouth [place] 00 every day Medical at [address] [place] [address] (noon). lisinopril 2018-0 Yes [id number] 40mg Take 1 [facility] 40 mg 3-08 tablet by ity of tablet 00:00: mouth [place] 00 every day Medical at [address] [place] [address] (noon). lisinopril 2018-0 Yes [id number] 40mg Take 1 [facility] 40 mg 3-08 tablet by it[facility] of tablet 00:00: mouth [place] 00 every day Medical at [address] [place] [address] (noon). lisinopril 2018-0 Yes [id number] 40mg Take 1 [facility] 40 mg 3-08 tablet by ity of tablet 00:00: mouth [place] 00 every day Medical at [address] [place] [address] (noon). lisinopril 2018-0 Yes [id number] 40mg Take 1 [facility] 40 mg 3-08 tablet by ity of tablet 00:00: mouth [place] 00 every day Medical at [address] [place] [address] (noon). lisinopril 2018-0 Yes [id number] 40mg Take 1 [facility] 40 mg 3-08 tablet by ity of tablet 00:00: mouth [place] 00 every day Medical at [address] [place] [address] (noon). lisinopril 2018-0 Yes [id number] 40mg Take 1 [facility] 40 mg 3-08 tablet by ity of tablet 00:00: mouth [place] 00 every day Medical at [address] [place] [address] (noon). lisinopril 2018-0 Yes [id number] 40mg Take 1 [facility] 40 mg 3-08 tablet by ity of tablet 00:00: mouth [place] 00 every day Medical at [address] [place] [address] (noon). lisinopril 2018-0 Yes [id number] 40mg Take 1 [facility] 40 mg 3-08 tablet by ity of tablet 00:00: mouth [place] 00 every day Medical at [address] [place] [address] (noon). lisinopril 2018-0 Yes [id number] 40mg Take 1 [facility] 40 mg 3-08 tablet by ity of tablet 00:00: mouth [place] 00 every day Medical at [address] [place] [address] (noon). lisinopril 2018-0 Yes [id number] 40mg Take 1 [facility] 40 mg 3-08 tablet by ity of tablet 00:00: mouth [place] 00 every day Medical at [facility] [place] (noon). lisinopril 2018-0 Yes [id number] 40mg Take 1 [facility] 40 mg 3-08 tablet by ity of tablet 00:00: mouth [place] 00 every day Medical at [address] [place] (noon). KCL 20 mEq 2018-0 Yes [id number] 20meq Take 1 [facility] tablet 3-06 tablet by ity of 00:00: mouth as [place] 00 needed Medical (When Branch patient takes lasix) for up to 30 doses. KCL 20 mEq 2018-0 Yes [id number] 20meq Take 1 [facility] tablet 3-06 tablet by ity of 00:00: mouth as [place] 00 needed Medical (When Branch patient takes lasix) for up to 30 doses. KCL 20 mEq 2018-0 Yes [id number] 20meq Take 1 [facility] tablet 3-06 tablet by ity of 00:00: mouth as [place] 00 needed Medical (When Branch patient takes lasix) for up to 30 doses. KCL 20 mEq 2018-0 Yes [id number] 20meq Take 1 [facility] tablet 3-06 tablet by ity of 00:00: mouth as [place] 00 needed Medical (When Branch patient takes lasix) for up to 30 doses. KCL 20 mEq 2018-0 Yes [id number] 20meq Take 1 [facility] tablet 3-06 tablet by ity of 00:00: mouth as [place] 00 needed Medical (When Branch patient takes lasix) for up to 30 doses. KCL 20 mEq 2018-0 Yes [id number] 20meq Take 1 [facility] tablet 3-06 tablet by ity of 00:00: mouth as [place] 00 needed Medical (When Branch patient takes lasix) for up to 30 doses. KCL 20 mEq 2018-0 Yes [id number] 20meq Take 1 [facility] tablet 3-06 tablet by ity of 00:00: mouth as [place] 00 needed Medical (When Branch patient takes lasix) for up to 30 doses. KCL 20 mEq 2018-0 Yes [id number] 20meq Take 1 [facility] tablet 3-06 tablet by ity of 00:00: mouth as [place] 00 needed Medical (When Branch patient takes lasix) for up to 30 doses. KCL 20 mEq 2018-0 Yes [id number] 20meq Take 1 [facility] tablet 3-06 tablet by ity of 00:00: mouth as [place] 00 needed Medical (When Branch patient takes lasix) for up to 30 doses. KCL 20 mEq 2018-0 Yes [id number] 20meq Take 1 [facility] tablet 3-06 tablet by ity of 00:00: mouth as [place] 00 needed Medical (When Branch patient takes lasix) for up to 30 doses. KCL 20 mEq 2018-0 Yes [id number] 20meq Take 1 [facility] tablet 3-06 tablet by ity of 00:00: mouth as [place] 00 needed Medical (When Branch patient takes lasix) for up to 30 doses. KCL 20 mEq 2018-0 Yes [id number] 20meq Take 1 [facility] tablet 3-06 tablet by ity of 00:00: mouth as [place] 00 needed Medical (When Branch patient takes lasix) for up to 30 doses. KCL 20 mEq 2018-0 Yes [id number] 20meq Take 1 [facility] tablet 3-06 tablet by ity of 00:00: mouth as [place] 00 needed Medical (When Branch patient takes lasix) for up to 30 doses. KCL 20 mEq 2018-0 Yes [id number] 20meq Take 1 [facility] tablet 3-06 tablet by ity of 00:00: mouth as [place] 00 needed Medical (When Branch patient takes lasix) for up to 30 doses. KCL 20 mEq 2018-0 Yes [id number] 20meq Take 1 [facility] tablet 3-06 tablet by ity of 00:00: mouth as [place] 00 needed Medical (When Branch patient takes lasix) for up to 30 doses. KCL 20 mEq 2018-0 Yes [id number] 20meq Take 1 [facility] tablet 3-06 tablet by ity of 00:00: mouth as [place] 00 needed Medical (When Branch patient takes lasix) for up to 30 doses. KCL 20 mEq 2018-0 Yes [id number] 20meq Take 1 [facility] tablet 3-06 tablet by ity of 00:00: mouth as [place] 00 needed Medical (When Branch patient takes lasix) for up to 30 doses. KCL 20 mEq 2018-0 Yes [id number] 20meq Take 1 [facility] tablet 3-06 tablet by ity of 00:00: mouth as [place] 00 needed Medical (When Branch patient takes lasix) for up to 30 doses. KCL 20 mEq 2018-0 Yes [id number] 20meq Take 1 [facility] tablet 3-06 tablet by ity of 00:00: mouth as [place] 00 needed Medical (When Branch patient takes lasix) for up to 30 doses. KCL 20 mEq 2018-0 Yes [id number] 20meq Take 1 [facility] tablet 3-06 tablet by ity of 00:00: mouth as [place] 00 needed Medical (When Branch patient takes lasix) for up to 30 doses. KCL 20 mEq 2018-0 Yes [id number] 20meq Take 1 [facility] tablet 3-06 tablet by ity of 00:00: mouth as [place] 00 needed Medical (When Branch patient takes lasix) for up to 30 doses. KCL 20 mEq 2018-0 Yes [id number] 20meq Take 1 [facility] tablet 3-06 tablet by ity of 00:00: mouth as [place] 00 needed Medical (When Branch patient takes lasix) for up to 30 doses. KCL 20 mEq 2018-0 Yes [id number] 20meq Take 1 [facility] tablet 3-06 tablet by ity of 00:00: mouth as [place] 00 needed Medical (When Branch patient takes lasix) for up to 30 doses. KCL 20 mEq 2018-0 Yes [id number] 20meq Take 1 [facility] tablet 3-06 tablet by ity of 00:00: mouth as [place] 00 needed Medical (When Branch patient takes lasix) for up to 30 doses. KCL 20 mEq 2018-0 Yes [id number] 20meq Take 1 [facility] tablet 3-06 tablet by ity of 00:00: mouth as [place] 00 needed Medical (When Branch patient takes lasix) for up to 30 doses. KCL 20 mEq 2018-0 Yes [id number] 20meq Take 1 [facility] tablet 3-06 tablet by ity of 00:00: mouth as [place] 00 needed Medical (When Branch patient takes lasix) for up to 30 doses. KCL 20 mEq 2018-0 Yes [id number] 20meq Take 1 [facility] tablet 3-06 tablet by ity of 00:00: mouth as [place] 00 needed Medical (When Branch patient takes lasix) for up to 30 doses. KCL 20 mEq 2018-0 Yes [id number] 20meq Take 1 [facility] tablet 3-06 tablet by ity of 00:00: mouth as [place] 00 needed Medical (When Branch patient takes lasix) for up to 30 doses. KCL 20 mEq 2018-0 Yes [id number] 20meq Take 1 [facility] tablet 3-06 tablet by ity of 00:00: mouth as [place] 00 needed Medical (When Branch patient takes lasix) for up to 30 doses. KCL 20 mEq 2018-0 Yes [id number] 20meq Take 1 [facility] tablet 3-06 tablet by ity of 00:00: mouth as [place] 00 needed Medical (When Branch patient takes lasix) for up to 30 doses. KCL 20 mEq 2018-0 Yes [id number] 20meq Take 1 [facility] tablet 3-06 tablet by ity of 00:00: mouth as [place] 00 needed Medical (When Branch patient takes lasix) for up to 30 doses. KCL 20 mEq 2018-0 Yes [id number] 20meq Take 1 [facility] tablet 3-06 tablet by ity of 00:00: mouth as [place] 00 needed Medical (When Branch patient takes lasix) for up to 30 doses. KCL 20 mEq 2018-0 Yes [id number] 20meq Take 1 [facility] tablet 3-06 tablet by ity of 00:00: mouth as [place] 00 needed Medical (When Branch patient takes lasix) for up to 30 doses. KCL 20 mEq 2018-0 Yes [id number] 20meq Take 1 [facility] tablet 3-06 tablet by ity of 00:00: mouth as [place] 00 needed Medical (When Branch patient takes lasix) for up to 30 doses. KCL 20 mEq 2018-0 Yes [id number] 20meq Take 1 [facility] tablet 3-06 tablet by ity of 00:00: mouth as [place] 00 needed Medical (When Branch patient takes lasix) for up to 30 doses. nitroglycer 2018-[id number] 1 [facility] in 0.4 mg 1-11 tablet ity of sublingual 00:00: under the [place] tablet 00 tongue Medical every 5 Branch (five) minutes as needed for Chest pain. nitroglycer 2018-[id number] 1 [facility] in 0.4 mg 1-11 tablet ity of sublingual 00:00: under the [place] tablet 00 tongue Medical every 5 Branch (five) minutes as needed for Chest pain. nitroglycer 2018-[id number] 1 [facility] in 0.4 mg 1-11 tablet ity of sublingual 00:00: under the [place] tablet 00 tongue Medical every 5 Branch (five) minutes as needed for Chest pain. nitroglycer 2018-[id number] 1 [facility] in 0.4 mg 1-11 tablet ity of sublingual 00:00: under the [place] tablet 00 tongue Medical every 5 Branch (five) minutes as needed for Chest pain. nitroglycer 2018-[id number] 1 [facility] in 0.4 mg 1-11 tablet ity of sublingual 00:00: under the [place] tablet 00 tongue Medical every 5 Branch (five) minutes as needed for Chest pain. nitroglycer 2018-[id number] 1 [facility] in 0.4 mg 1-11 tablet ity of sublingual 00:00: under the [place] tablet 00 tongue Medical every 5 Branch (five) minutes as needed for Chest pain. nitroglycer 2018-[id number] 1 [facility] in 0.4 mg 1-11 tablet ity of sublingual 00:00: under the [place] tablet 00 tongue Medical every 5 Branch (five) minutes as needed for Chest pain. nitroglycer 2018-[id number] 1 [facility] in 0.4 mg 1-11 tablet ity of sublingual 00:00: under the [place] tablet 00 tongue Medical every 5 Branch (five) minutes as needed for Chest pain. nitroglycer 2018-[id number] 1 [facility] in 0.4 mg 1-11 tablet ity of sublingual 00:00: under the [place] tablet 00 tongue Medical every 5 Branch (five) minutes as needed for Chest pain. nitroglycer 2018-[id number] 1 [facility] in 0.4 mg 1-11 tablet ity of sublingual 00:00: under the [place] tablet 00 tongue Medical every 5 Branch (five) minutes as needed for Chest pain. nitroglycer 2018-[id number] 1 Univers in 0.4 mg 1-11 tablet ity of sublingual 00:00: [place] the [place] tablet 00 tongue Medical every 5 Branch (five) minutes as needed for Chest pain. nitroglycer 2018-[id number] 1 Univers in 0.4 mg 1-11 tablet ity of sublingual 00:00: [place] the [place] tablet 00 tongue Medical every 5 Branch (five) minutes as needed for Chest pain. nitroglycer 2018-[id number] 1 Univers in 0.4 mg 1-11 tablet ity of sublingual 00:00: [place] the [place] tablet 00 tongue Medical every 5 Branch (five) minutes as needed for Chest pain. nitroglycer 2018-[id number] 1 Univers in 0.4 mg 1-11 tablet ity of sublingual 00:00: [place] tablet 00 tongue Medical every 5 Branch (five) minutes as needed for Chest pain. nitroglycer 2019- No [id number] .4mg Place 1 Univers in 0.4 mg 1-11 12-14 tablet ity of sublingual 00:00: 00:00 under the [place] tablet 00 :00 tongue Medical every 5 Branch (five) minutes as needed for Chest pain. nitroglycer 2019- No [id number] .4mg Place 1 Univers in 0.4 mg 1-11 12-14 tablet ity of sublingual 00:00: 00:00 under the [place] tablet 00 :00 tongue Medical every 5 Branch (five) minutes as needed for Chest pain. HYDROcodone 2015-06 Yes 1{tbl} Take 1 Un sandy -acetaminop 0-25 tablet by ity of hen ([employer]) 00:00: mouth [place] 7.5-325 mg 00 every 6 Medica l per tablet (six) Branch hours as needed. HYDROcodone 2015-06 Yes 1{tbl} Take 1 Un sandy -acetaminop 0-25 tablet by ity of hen ([employer]) 00:00: mouth [place] 7.5-325 mg 00 every 6 Medica l per tablet (six) Branch hours as needed. HYDROcodone 2015-06 Yes 1{tbl} Take 1 Un sandy -acetaminop 0-25 tablet by ity of hen ([employer]) 00:00: mouth [place] 7.5-325 mg 00 every 6 Medica l per tablet (six) Branch hours as needed. HYDROcodone 2015-06 Yes 1{tbl} Take 1 Un sandy -acetaminop 0-25 tablet by ity of hen ([employer]) 00:00: mouth [place] 7.5-325 mg 00 every 6 Medica l per tablet (six) Branch hours as needed. HYDROcodone 2015-06 Yes 1{tbl} Take 1 Un sandy -acetaminop 0-25 tablet by ity of hen ([employer]) 00:00: mouth [place] 7.5-325 mg 00 every 6 Medica l per tablet (six) Branch hours as needed. HYDROcodone 2015-06 Yes 1{tbl} Take 1 Un sandy -acetaminop 0-25 tablet by ity of hen ([employer]) 00:00: mouth [place] 7.5-325 mg 00 every 6 Medica l per tablet (six) Branch hours as needed. HYDROcodone 2015-06 Yes 1{tbl} Take 1 Un sandy -acetaminop 0-25 tablet by ity of hen ([employer]) 00:00: mouth [place] 7.5-325 mg 00 every 6 Medica l per tablet (six) Branch hours as needed. HYDROcodone 2015-06 Yes 1{tbl} Take 1 Un sandy -acetaminop 0-25 tablet by ity of hen ([facility]) 00:00: mouth [place] 7.5-325 mg 00 every 6 Medica l per tablet (six) Branch hours as needed. HYDROcodone 2015-06 Yes 1{tbl} Take 1 Un sandy -acetaminop 0-25 tablet by ity of hen ([employer]) 00:00: mouth [place] 7.5-325 mg 00 every 6 Medica l per tablet (six) Branch hours as needed. HYDROcodone 2015-06 Yes 1{tbl} Take 1 Un sandy -acetaminop 0-25 tablet by ity of hen ([employer]) 00:00: mouth [place] 7.5-325 mg 00 every 6 Medica l per tablet (six) Branch hours as needed. HYDROcodone 2015-06 Yes 1{tbl} Take 1 Un sandy -acetaminop 0-25 tablet by ity of hen ([employer]) 00:00: mouth [place] 7.5-325 mg 00 every 6 Medica l per tablet (six) Branch hours as needed. HYDROcodone 2015-06 Yes 1{tbl} Take 1 Un sandy -acetaminop 0-25 tablet by ity of hen ([facility]) 00:00: mouth [place] 7.5-325 mg 00 every 6 Medica l per tablet (six) Branch hours as needed. HYDROcodone 2015-06 Yes 1{tbl} Take 1 Un sandy -acetaminop 0-25 tablet by ity of hen ([employer]) 00:00: mouth [place] 7.5-325 mg 00 every 6 Medica l per tablet (six) Branch hours as needed. HYDROcodone 2015-06 Yes 1{tbl} Take 1 Un sandy -acetaminop 0-25 tablet by ity of hen ([facility]) 00:00: mouth [place] 7.5-325 mg 00 every 6 Medica l per tablet (six) Branch hours as needed. HYDROcodone 2015-06 Yes 1{tbl} Take 1 Un sandy -acetaminop 0-25 tablet by ity of hen ([facility]) 00:00: mouth [place] 7.5-325 mg 00 every 6 Medica l per tablet (six) Branch hours as needed. HYDROcodone 2015-06 Yes 1{tbl} Take 1 Un sandy -acetaminop 0-25 tablet by ity of hen ([employer]) 00:00: mouth [place] 7.5-325 mg 00 every 6 Medica l per tablet (six) Branch hours as needed. HYDROcodone 2015-06 Yes 1{tbl} Take 1 Un sandy -acetaminop 0-25 tablet by ity of hen ([employer]) 00:00: mouth [place] 7.5-325 mg 00 every 6 Medica l per tablet (six) Branch hours as needed. HYDROcodone 2015-06 Yes 1{tbl} Take 1 Un sandy -acetaminop 0-25 tablet by ity of hen ([employer]) 00:00: mouth [place] 7.5-325 mg 00 every 6 Medica l per tablet (six) Branch hours as needed. HYDROcodone 2015-06 Yes 1{tbl} Take 1 Un sandy -acetaminop 0-25 tablet by ity of hen ([employer]) 00:00: mouth [place] 7.5-325 mg 00 every 6 Medica l per tablet (six) Branch hours as needed. HYDROcodone 2015-06 Yes 1{tbl} Take 1 Un sandy -acetaminop 0-25 tablet by ity of hen ([employer]) 00:00: mouth [place] 7.5-325 mg 00 every 6 Medica l per tablet (six) Branch hours as needed. HYDROcodone 2015-06 Yes 1{tbl} Take 1 Un sandy -acetaminop 0-25 tablet by ity of hen ([employer]) 00:00: mouth [place] 7.5-325 mg 00 every 6 Medica l per tablet (six) Branch hours as needed. HYDROcodone 2015-06 Yes 1{tbl} Take 1 Un sandy -acetaminop 0-25 tablet by ity of hen ([facility]) 00:00: mouth [place] 7.5-325 mg 00 every 6 Medica l per tablet (six) Branch hours as needed. HYDROcodone 2015-06 Yes 1{tbl} Take 1 Un sandy -acetaminop 0-25 tablet by ity of hen ([facility]) 00:00: mouth [place] 7.5-325 mg 00 every 6 Medica l per tablet (six) Branch hours as needed. HYDROcodone 2015-06 Yes 1{tbl} Take 1 Un sandy -acetaminop 0-25 tablet by ity of hen ([facility]) 00:00: mouth [place] 7.5-325 mg 00 every 6 Medica l per tablet (six) Branch hours as needed. HYDROcodone 2015-06 Yes 1{tbl} Take 1 Un sandy -acetaminop 0-25 tablet by ity of hen ([employer]) 00:00: mouth [place] 7.5-325 mg 00 every 6 Medica l per tablet (six) Branch hours as needed. HYDROcodone 2015-06 Yes 1{tbl} Take 1 Un sandy -acetaminop 0-25 tablet by ity of hen ([employer]) 00:00: mouth [place] 7.5-325 mg 00 every 6 Medica l per tablet (six) Branch hours as needed. HYDROcodone 2015-06 Yes 1{tbl} Take 1 Un sandy -acetaminop 0-25 tablet by ity of hen ([facility]) 00:00: mouth [place] 7.5-325 mg 00 every 6 Medica l per tablet (six) Branch hours as needed. HYDROcodone 2015-06 Yes 1{tbl} Take 1 Un sandy -acetaminop 0-25 tablet by ity of hen ([employer]) 00:00: mouth [place] 7.5-325 mg 00 every 6 Medica l per tablet (six) Branch hours as needed. HYDROcodone 2015-06 Yes 1{tbl} Take 1 Un sandy -acetaminop 0-25 tablet by ity of hen ([employer]) 00:00: mouth [place] 7.5-325 mg 00 every 6 Medica l per tablet (six) Branch hours as needed. HYDROcodone 2015-06 Yes 1{tbl} Take 1 Un sandy -acetaminop 0-25 tablet by ity of hen ([employer]) 00:00: mouth [place] 7.5-325 mg 00 every 6 Medica l per tablet (six) Branch hours as needed. HYDROcodone 2015-06 Yes 1{tbl} Take 1 Un sandy -acetaminop 0-25 tablet by ity of hen ([facility]) 00:00: mouth [place] 7.5-325 mg 00 every 6 Medica l per tablet (six) Branch hours as needed. HYDROcodone 2015-06 Yes 1{tbl} Take 1 Un sandy -acetaminop 0-25 tablet by ity of hen ([facility]) 00:00: mouth [place] 7.5-325 mg 00 every 6 Medica l per tablet (six) Branch hours as needed. HYDROcodone 2015-06 Yes 1{tbl} Take 1 Un sandy -acetaminop 0-25 tablet by ity of hen ([facility]) 00:00: mouth [place] 7.5-325 mg 00 every 6 Medica l per tablet (six) Branch hours as needed. HYDROcodone 2015-06 Yes 1{tbl} Take 1 Un sandy -acetaminop 0-25 tablet by ity of hen ([facility]) 00:00: mouth [place] 7.5-325 mg 00 every 6 Medica l per tablet (six) Branch hours as needed. HYDROcodone 2015-06 Yes 1{tbl} Take 1 Un sandy -acetaminop 0-25 tablet by ity of hen ([facility]) 00:00: mouth [place] 7.5-325 mg 00 every 6 Medica l per tablet (six) Branch hours as needed. aspirin 81 2014-0 Yes 81mg Take 1 Tab U nivers mg chewable 9-30 by mouth ity of tablet 00:00: daily. [place] [facility] aspirin 81 2015-0 Yes 81mg Take 1 Tab U nivers mg chewable 9-30 by mouth ity of tablet 00:00: daily. [place] [facility] Branch aspirin 81 2015-0 Yes 81mg Take 1 Tab U nivers mg chewable 9-30 by mouth ity of tablet 00:00: daily. [place] [facility] Branch aspirin 81 2015-0 Yes 81mg Take 1 Tab U nivers mg chewable 9-30 by mouth ity of tablet 00:00: daily. [place] [facility] aspirin 81 2015-0 Yes 81mg Take 1 Tab U nivers mg chewable 9-30 by mouth ity of tablet 00:00: daily. [place] [facility] aspirin 81 2015-0 Yes 81mg Take 1 Tab U nivers mg chewable 9-30 by mouth ity of tablet 00:00: daily. [place] [facility] aspirin 81 2014-0 Yes 81mg Take 1 Tab U nivers mg chewable 9-30 by mouth ity of tablet 00:00: daily. [place] [facility] aspirin 81 2014-0 Yes 81mg Take 1 Tab U nivers mg chewable 9-30 by mouth ity of tablet 00:00: daily. [place] [facility] aspirin 81 2014-0 Yes 81mg Take 1 Tab U nivers mg chewable 9-30 by mouth ity of tablet 00:00: daily. [place] [facility] aspirin 81 2014-0 Yes 81mg Take 1 Tab U nivers mg chewable 9-30 by mouth ity of tablet 00:00: daily. [place] [facility] aspirin 81 2014-0 Yes 81mg Take 1 Tab U nivers mg chewable 9-30 by mouth ity of tablet 00:00: daily. [place] [facility] Branch aspirin 81 2014-0 Yes 81mg Take 1 Tab U nivers mg chewable 9-30 by mouth ity of tablet 00:00: daily. [place] [facility] aspirin 81 2014-0 Yes 81mg Take 1 Tab U nivers mg chewable 9-30 by mouth ity of tablet 00:00: daily. [place] [facility] aspirin 81 2014-0 Yes 81mg Take 1 Tab U nivers mg chewable 9-30 by mouth ity of tablet 00:00: daily. [place] [facility] aspirin 81 2014-0 Yes 81mg Take 1 Tab U nivers mg chewable 9-30 by mouth ity of tablet 00:00: daily. [place] [facility] Branch aspirin 81 2014-0 Yes 81mg Take 1 Tab U nivers mg chewable 9-30 by mouth ity of tablet 00:00: daily. [place] [facility] aspirin 81 2014-0 Yes 81mg Take 1 Tab U nivers mg chewable 9-30 by mouth ity of tablet 00:00: daily. [place] [facility] aspirin 81 2014-0 Yes 81mg Take 1 Tab U nivers mg chewable 9-30 by mouth ity of tablet 00:00: daily. [place] [facility] aspirin 81 2014-0 Yes 81mg Take 1 Tab U nivers mg chewable 9-30 by mouth ity of tablet 00:00: daily. [place] [facility] aspirin 81 2014-0 Yes 81mg Take 1 Tab U nivers mg chewable 9-30 by mouth ity of tablet 00:00: daily. [place] [facility] aspirin 81 2014-0 Yes 81mg Take 1 Tab U nivers mg chewable 9-30 by mouth ity of tablet 00:00: daily. [place] [facility] aspirin 81 2014-0 Yes 81mg Take 1 Tab U nivers mg chewable 9-30 by mouth ity of tablet 00:00: daily. [place] [facility] aspirin 81 2014-0 Yes 81mg Take 1 Tab U nivers mg chewable 9-30 by mouth ity of tablet 00:00: daily. [place] [facility] aspirin 81 2014-0 Yes 81mg Take 1 Tab U nivers mg chewable 9-30 by mouth ity of tablet 00:00: daily. [place] [facility] aspirin 81 2014-0 Yes 81mg Take 1 Tab U nivers mg chewable 9-30 by mouth ity of tablet 00:00: daily. [place] [facility] aspirin 81 2014-0 Yes 81mg Take 1 Tab U nivers mg chewable 9-30 by mouth ity of tablet 00:00: daily. [place] [facility] aspirin 81 2014-0 Yes 81mg Take 1 Tab U nivers mg chewable 9-30 by mouth ity of tablet 00:00: daily. [place] [facility] aspirin 81 2014-0 Yes 81mg Take 1 Tab U nivers mg chewable 9-30 by mouth ity of tablet 00:00: daily. [place] [facility] aspirin 81 2014-0 Yes 81mg Take 1 Tab U nivers mg chewable 9-30 by mouth ity of tablet 00:00: daily. [place] [facility] aspirin 81 2014-0 Yes 81mg Take 1 Tab U nivers mg chewable 9-30 by mouth ity of tablet 00:00: daily. [place] [facility] aspirin 81 2014-0 Yes 81mg Take 1 Tab U nivers mg chewable 9-30 by mouth ity of tablet 00:00: daily. [place] [facility] aspirin 81 2015-0 Yes 81mg Take 1 Tab U nivers mg chewable 9-30 by mouth ity of tablet 00:00: daily. [place] [facility] aspirin 81 2014-0 Yes 81mg Take 1 Tab U nivers mg chewable 9-30 by mouth ity of tablet 00:00: daily. [place] [facility] aspirin 81 2015-0 Yes 81mg Take 1 Tab U nivers mg chewable 9-30 by mouth ity of tablet 00:00: daily. [address] aspirin 81 2015-0 Yes 81mg Take 1 Tab U nivers mg chewable 9-30 by mouth ity of tablet 00:00: daily. [address] Immunizations Ordered Filled Immunization Date Status Comments [facility]ly [facility] e Immunization Name Name Influenza Virus 2018-06-06 Completed Universit y of Vaccine [facility] 3+ 00:00:00 [facility] Influenza Virus 2018-06-06 Completed Universit y of Vaccine [facility] IM 3+ 00:00:00 [facility] Influenza Virus 2018-06-06 Completed Universit y of Vaccine [facility] IM 3+ 00:00:00 [facility] Influenza Virus 2018-06-06 Completed Universit y of Vaccine [facility] IM 3+ 00:00:00 [facility] Influenza Virus 2018-06-06 Completed Universit y of Vaccine [facility] IM 3+ 00:00:00 [facility] Influenza Virus 2018-06-06 Completed Universit y of Vaccine [facility] IM 3+ 00:00:00 [facility] Influenza Virus 2018-06-06 Completed Universit y of Vaccine [facility] IM 3+ 00:00:00 [facility] Influenza Virus 2018-06-06 Completed Universit y of Vaccine [facility] IM 3+ 00:00:00 [facility] Influenza Virus 2018-06-06 Completed Universit y of Vaccine [facility] IM 3+ 00:00:00 [facility] Influenza Virus 2018-06-06 Completed Universit y of Vaccine [facility] IM 3+ 00:00:00 [facility] Influenza Virus 2018-06-06 Completed Universit y of Vaccine [facility] IM 3+ 00:00:00 [facility] Influenza Virus 2018-06-06 Completed Universit y of Vaccine [facility] IM 3+ 00:00:00 [facility] Influenza Virus 2018-06-06 Completed Universit y of Vaccine [facility] IM 3+ 00:00:00 [facility] Influenza Virus 2018-06-06 Completed Universit y of Vaccine [facility] IM 3+ 00:00:00 [facility] Influenza Virus 2018-06-06 Completed Universit y of Vaccine [facility] IM 3+ 00:00:00 [facility] Influenza Virus 2018-06-06 Completed Universit y of Vaccine [facility] IM 3+ 00:00:00 [facility] Influenza Virus 2018-06-06 Completed Universit y of Vaccine [facility] IM 3+ 00:00:00 [facility] Influenza Virus 2018-06-06 Completed Universit y of Vaccine [facility] IM 3+ 00:00:00 [facility] Influenza Virus 2018-06-06 Completed Universit y of Vaccine [facility] IM 3+ 00:00:00 [facility] Influenza Virus 2018-06-06 Completed Universit y of Vaccine [facility] IM 3+ 00:00:00 [facility] Influenza Virus 2018-06-06 Completed Universit y of Vaccine [facility] IM 3+ 00:00:00 [facility] Influenza Virus 2018-06-06 Completed Universit y of Vaccine [facility] IM 3+ 00:00:00 [facility] Influenza Virus 2018-06-06 Completed Universit y of Vaccine [facility] IM 3+ 00:00:00 [facility] Influenza Virus 2018-06-06 Completed Universit y of Vaccine [facility] IM 3+ 00:00:00 [facility] Vital Signs Vital Name Observation Time Observation Value Comments Source Systolic blood 2020-12-01 16:19:00 155 mm[Hg] Univer sity of [facility] Diastolic blood 2020-12-01 16:19:00 81 mm[Hg] Unive rsity of pressure [facility] Heart rate 2020-12-01 16:16:00 68 /[facility] Body weight 2020-12-01 16:16:00 125.238 kg [facility] BMI 2020-12-01 16:16:00 45.95 kg/m2 [facility] Oxygen saturation in 2020-12-01 16:16:00 96 /min [facility] Arterial blood by [facility] Pulse oximetry Branch Systolic blood 2020-06-02 15:47:00 117 mm[Hg] Univer sity of pressure [facility] Diastolic blood 2020-06-02 15:47:00 73 mm[Hg] Unive rsity of pressure [facility] Heart rate 2020-06-02 15:47:00 73 /min [facility] Respiratory rate 2020-06-02 15:47:00 18 /min Univ ersity of [facility] Body height 2020-06-02 15:47:[address] [facility] Body weight 2020-06-02 15:47:00 124.603 kg Universi ty [facility] [place] [facility] BMI 2020-06-02 15:47:00 45.71 kg/m2 [facility] [place] [facility] Oxygen saturation in 2020-06-02 15:47:00 94 /min University of Arterial blood by [place] [facility] [place] Pulse oximetry Branch Systolic blood 2020-06-02 15:47:00 117 mm[Hg] Univer sity of pressure [place] [facility] Diastolic blood 2020-06-02 15:47:00 73 mm[Hg] Unive rsity of pressure [place] [facility] Heart rate 2020-06-02 15:47:00 73 /min Universi ty of [place] [facility] Respiratory rate 2020-06-02 15:47:00 18 /min Univ ersity of [place] [facility] Body height 2020-06-02 15:47:00 165.1 cm Universi ty of [place] [facility] Body weight 2020-06-02 15:47:00 124.603 kg [facility] [place] [facility] BMI 2020-06-02 15:47:00 45.71 kg/m2 Universi ty of [place] [facility] Oxygen saturation in 2020-06-02 15:47:00 94 /min University of Arterial blood by [facility] Pulse oximetry Branch Systolic blood 2019-08-29 14:24:00 116 mm[Hg] Univer sity of pressure [place] [facility] Diastolic blood 2019-08-29 14:24:00 69 mm[Hg] Unive rsity of pressure [place] [facility] Heart rate 2019-08-29 14:24:00 65 /min [facility] [place] [facility] Respiratory rate 2019-08-29 14:24:00 18 /min Univ ersity of [place] [facility] Body height 2019-08-29 14:24:00 165.1 cm [facility] [place] [facility] Body weight 2019-08-29 14:24:00 122.199 kg [facility] [place] [facility] BMI 2019-08-29 14:24:00 44.83 kg/m2 [facility] [place] [facility] Oxygen saturation in 2019-08-29 14:24:00 95 /min University of Arterial blood by [facility] [place] Pulse oximetry Branch Systolic blood 2019-03-05 15:18:00 153 mm[Hg] Univer sity of pressure [place] [facility] Diastolic blood 2019-03-05 15:18:00 89 mm[Hg] Unive rsity of pressure [facility] Heart rate 2019-03-05 15:15:00 65 /min [facility] Respiratory rate 2019-03-05 15:15:00 19 /min [facility] Body height 2019-03-05 15:15:00 165.1 cm [facility] Body weight 2019-03-05 15:15:00 123.197 kg [facility] BMI 2019-03-05 15:15:00 45.20 kg/m2 [facility] Oxygen saturation in 2019-03-05 15:15:00 95 /min [facility] Arterial blood by [facility] Pulse oximetry Branch Procedures Procedure Date / Time Performing Clinician Source Performed EXTERNAL PROVIDER RECORDS 2021-01-19 05:01:00 Doctor Cardona [facility] Name [facility] AUTHORIZATION TO RELEASE 2021-01-09 05:01:00 Doctor Cardona [facility] PHI TO [facility] SCANNED LAB RESULTS 2020-12-26 05:01:00 Doctor Cardona [facility] Name [facility] EKG-12 LEAD 2020-12-01 16:20:48 Candelaria [facility] o f [facility] CONSENT/REFUSAL FOR 2020-11-24 13:35:44 Doctor Cardona [facility] DIAGNOSIS AND TREATMENT [facility] MEDICATION CORRESPONDENCE 2019-09-21 05:01:00 Doctor Cardona [facility] Name [facility] EXTERNAL PROVIDER RECORDS 2019-09-03 05:01:00 Doctor Cardona [facility] Name [facility] NO SHOW OR MISSED 2019-03-05 15:04:46 Doctor Cardona [facility] APPOINTMENT POLICY [facility] h ACKNOWLEDGEMENT Encounters Start End Encounter Admission Attending Care Care Encounter Source Date/Time Date/Time Type Type Clinicians Facility Department ID 2021-09-02 Outpatient Feliz, [facility] [id number] 10:14:01 [facility] 2021-08-24 [facility] [id number] 10:17:01 Zev [facility] 2021-07-15 Outpatient Feliz, [facility] 14[facility]:09 Zev [id number] [facility] 2021-07-15 Outpatient Feliz, [facility] 13[facility]40:57 Zev [id number] [facility] 2021-07-15 Outpatient Feliz, [facility] 13[facility]36:07 Zev [id number] [facility] 2021-07-15 Outpatient Feliz, [facility] 13[facility]35:35 Zev [id number] [facility] 2021-07-15 Outpatient Feliz, [facility] 13:26:24 Zev [id number] [facility] 2021-07-15 Outpatient Feliz, [facility] 13:09:43 Zev [id number] [facility] 2021-07-15 Outpatient Feliz, [facility] 13:06:50 Zev [id number] [facility] 2021-07-15 Outpatient Feliz, [facility] 12[facility]46:33 Zev [id number] [facility] 2021-07-15 Outpatient Feliz, [facility] 12:46:13 Zev [id number] [facility] 2021-07-15 Outpatient Feliz, [facility] 12[facility]44:03 Zev [id number] [facility] 2021-07-15 Outpatient Feliz, [facility] 12:37:23 Zev [id number] [facility] 2021-07-15 Outpatient Feliz, [facility] 12:34:12 Zev [id number] [facility] 2021-07-15 Outpatient Feliz, [facility] 12:32:42 Zev [id number] [facility] 2021-07-15 Outpatient Feliz, [facility] 12:28:41 Zev [id number] [facility] 2021-07-15 Outpatient Feliz, [facility] 12:22:23 Zev [id number] [facility] 2021-07-15 Outpatient Feliz, [facility] 12:06:20 Zev [id number] [facility] 2021-07-15 Outpatient Feliz, [facility] 12:05:56 Zev [id number] [facility] 2021-09-28 2021-09-28 Outpatient R CANDELARIA, [facility] [id number] Univers 14:20:00 14:20:00 ROCHELLE [id number] [facility] 2021-09-28 2021-09-28 Outpatient R CANDELARIA, [facility] [id number] Univers 14:20:00 14:20:00 ROCHELLE [facility] 2021-09-02 2021-09-02 ambulatory [facility] [id number] [facility] 2021-09-01 2021-09-01 Outpatient R CANDELARIA, [facility] [id number] Univers 10:20:00 10:20:00 ROCHELLE [id number] [facility] 2021-09-01 2021-09-01 Outpatient R CANDELARIA, [facility] [id number] Univers 10:20:00 10:20:00 ROCHELLE [facility] 2021-08-24 2021-08-24 ambulatory [facility]MLC [facility] [id number] [facility] 2021-08-11 2021-08-11 Refill [facility] [id number] Univers 00:00:00 00:00:00 [place] [id number] ity of [facility] [id number] [id number] [facility] NAL 059 [facility] 2021-05-26 2021-05-26 ambulatory [facility]LMLC [facility] [id number] [facility] 2021-04-09 2021-04-09 Outpatient [facility] [id number] [facility] 2021-03-20 2021-03-20 Outpatient [facility] [id number] [facility] 2021-02-13 2021-02-13 [facility] [id number] [facility] 2021-01-26 2021-01-26 [facility] [employer] [facility] [id number] [facility] 2021-01-21 2021-01-21 [facility] [employer] [facility] [id number] [facility] 2021-01-19 2021-01-19 Orders Doctor RETANA 1.2.840.114 [id number] Univers 00:00:00 00:00:00 Only Unassigned, ALBINA [id number] [facility] [id number] Santy as [phone] [address] 2021-01-09 2021-01-09 Gena [facility] 1.2.233.729 [id number] Univers 00:00:00 00:00:00 Rochelle Austin [id number] [id number] [phone] Mt dical [address] 2021-01-09 2021-01-09 Orders Doctor LAINEY 1.2.840.114 [id number] Univers 00:00:00 00:00:00 Only Unassigned, ALBINA [id number] ity of [facility] [id number] [place]y as [phone] [address] 2021-01-02 2021-01-02 Outpatient [facility] [employer] [id number] [facility] St 00:00:00 00:00:00 [facility] 2020-12-26 2020-12-26 Orders Doctor LAINEY 1.2.840.114 [id number] Univers 00:00:00 00:00:00 Only Unassigned, ALBINA [id number] ity of [facility] [id number] [place]y as [phone] [address] 2020-12-25 2020-12-25 [facility] 1.2.840.114 [id number] Univers 00:00:00 00:00:00 Rochelle Lopez [id number] [id number] [phone] [address] 2020-12-08 2020-12-08 [facility] [place] 1.2.840.114 [id number] Univers 00:00:00 00:00:00 Rochelle Lopez [id number] [id number] [phone] [address] 2020-12-01 2020-12-01 Office [facility] [place] 1.2.840.114 [id number] Univers 11:02:35 11:33:00 Visit Rochelle Lopez [id number] [id number] [phone] [address] 2020-12-01 2020-12-01 Outpatient R CANDELARIA [facility] [id number] Univers 11:00:00 11:00:00 ROCHELLE [id number] janaey o [facility] 2020-12-01 2020-12-01 [facility] [id number] Univers 11:00:00 11:00:00 JESSICAJYOTSNA palmer [facility] 2020-11-27 2020-11-27 [facility] [place] 1.2.840.114 [id number] Univers 00:00:00 00:00:00 Rochelle Lopez [id number] ity [facility] [id number] [phone] Mt dical [address] 2020-11-24 2020-11-24 Outpatient R [facility] [id number] Univers 09:00:00 09:00:00 [id number] ity [facility] 2020-11-24 2020-11-24 [facility] [id number] Univers 09:00:00 09:00:00 ROCHELLE palmer [facility] 2020-11-24 2020-11-24 Orders Doctor LAINEY 1.2.840.114 [id number] Univers 00:00:00 00:00:00 Only Unassigned, ALBINA [id number] [facility] [id number] [place]y as [phone] [address] 2020-11-24 2020-11-24 Orders Doctor LAINEY 1.2.840.114 [id number] 00:00:00 00:00:00 Only Unassigned, ALBINA [id number] [facility] [id number] [phone] 009 2020-11-20 2020-11-20 Outpatient [facility] [id number] [facility] 2020-11-20 2020-11-20 Outpatient [facility] [id number] [facility] 2020-11-03 2020-11-03 Outpatient [facility] [id number] [facility] 2020-11-03 2020-11-03 Outpatient [facility] [employer] [id number] [facility] 2020-10-31 2020-10-31 Outpatient [facility] [id number] [facility] 2020-10-29 2020-10-29 Outpatient [facility] [id number] [facility] 2020-10-24 2020-10-24 [facility] [id number] [facility] 2020-10-16 2020-10-16 Outpatient [facility] [id number] [facility] 2020-10-15 2020-10-15 [facility] [id number] [facility] 2020-10-14 2020-10-14 [facility]patient [facility] [id number] [facility] St 00[facility]00:00 00:00:00 [facility] 2020-09-02 2020-09-02 Bianca Paulson [facility] 1.2.840.114 [id number] Univers 00:00:00 00:00:00 Rochelle Lopez [id number] [id number] [phone] [address] 2020-09-02 2020-09-02 Bianca Paulson [facility] 1.2.840.114 [id number] 00:00:00 00:00:00 Rochelle Lopez [id number] [place] [id number] Professio [phone] [address] 2020-09-01 2020-09-01 Bianca Paulson [facility] 1.2.840.114 [id number] Univers 00:00:00 00:00:00 Qiajyotsna [place] [id number] ity of [id number] [phone] [facility] 2020-09-01 2020-09-01 [facility] [place] 1.2.840.114 [id number] 00:00:00 00:00:00 Qiajyotsna [place] 350.1.13.10 [place] [id number] Professio [phone] [address] 2020-08-26 2020-08-26 Patient [facility] [place] 1.2.840.114 [id number] Univers 00:00:00 00:00:00 Outreach Hernandez PRIMARY [id number] i ty of [facility] [id number] [phone] Mt dical [address] [place] [address] 2020-08-26 2020-08-26 Patient [facility] [place] 1.2.840.114 [id number] 00:00:00 00:00:00 Outreach Hernandez PRIMARY [id number] Mike CARE [id number] PAVILLION [phone] [facility] 2020-08-21 2020-08-21 [facility]patient [facility] [id number] [facility] 00[facility]:00 [facility] ent [facility] 2020-08-19 2020-08-19 [facility] [place] 1.2.840.114 [id number] Univers 00:00:00 00:00:00 Qiajyotsna Austin 350.1.13.10 ity of [place] [phone] Mt dic[address] 2020-08-19 2020-08-19 [facility]patient [facility] [id number] [facility] 00:[facility]:00 [facility] ent [facility] 2020-08-19 2020-08-19 [facility] [place] 1.2.840.114 [id number] 00:00:00 00:00:00 Rochelle Lopez 350.1.13.10 [place] [id number] Professio [phone] [address] 2020-08-14 2020-08-14 Outpatient [facility] [id number] [facility] 2020-07-29 2020-07-29 Outpatient [facility] [id number] [facility] 2020-07-24 2020-07-24 Outpatient [facility] [id number] [facility] 2020-06-16 2020-06-16 Outpatient [facility] [id number] [facility] 2020-06-09 2020-06-09 Outpatient [facility] [id number] [facility] 2020-06-02 2020-06-02 Outpatient R CANDELARIA, [facility] [id number] Univers 10:40:00 10:40:00 ROCHELLE [id number] ity o [facility] 2020-06-02 2020-06-02 Outpatient R [facility], [facility] [id number] Univers 10:40:00 10:40:00 HERLINDAJAMIR janaey o [facility] 2020-06-02 2020-06-02 Office [facility] 1.2.840.114 [id number] Univers 09:31:22 10:09:00 Visit Rochelle [place] 350.1.13.10 ity of [place] 4.2.7.2.686 Flynn Castillo [phone] [address] 2020-06-02 2020-06-02 Office [facility] 1.2.840.114 [id number] 09:31:22 10:09:00 Visit Rochelle [place] 350.1.13.10 [place] [id number] Professio [phone] [address] 2020-05-07 2020-05-07 [facility] [place] 1.2.840.114 [id number] Univers 00:00:00 00:00:00 Rochelle Lopez [id number] ity of [place] [phone] Mt dic[address] 2020-05-07 2020-05-07 [facility] [id number] [facility]00 [facility] 2020-05-06 2020-05-06 [id number] 2019-12-06 2019-12-06 [facility] 1.2.226.122 [id number] Univers 00:00:00 00:00:00 Christiano Lopez 350.1.13.10 ity of [place] [phone] Mt dical nal [address] [place] [address] 2019-09-21 2019-09-21 Orders Doctor LAINEY 1.2.840.114 [id number] Univers 00:00:00 00:00:00 Only Unassigned, ALBINA 350.1.13.10 [place] [facility] [place] [facility] 4.2.7.2.686 Santy as [phone] [address] 2019-09-03 2019-09-03 Outpatient R [facility] [id number] Univers 08:40:00 08:40:00 ROCHELLE [id number] ity o f [facility] 2019-09-03 2019-09-03 Orders Doctor LAINEY 1.2.840.114 [id number] Univers 00:00:00 00:00:00 Only Unassigned, ALBINA 350.1.13.10 [place] [facility] 4.2.7.2.686 Santy as [phone] [address] 2019-08-29 2019-08-29 Office [facility] 1.2.840.114 [id number] Univers 08:53:23 16:50:00 Visit Rochelle Lopez [id number] ity of [id number] [phone] [address] 2019-08-29 2019-08-29 Outpatient R CANDELARIA [facility] [id number] Univers 09:40:00 09:40:00 ROCHELLE palmer o f [facility] 2019-08-08 2019-08-08 [facility] 1.2.840.114 [id number] Univers 00:00:00 00:00:00 Rochelle Lopez 350.1.13.10 ity of [place]2.[place] [phone] [address] 2019-03-05 2019-03-05 [facility] 1.2.840.114 [id number] Univers 10:05:13 10:36:47 Visit Rochelle Lopez [id number] ity of [place]2.[place] [phone] [address] 2019-03-05 2019-03-05 Refbhupinder Lester MNOSMANI 1.2.840.114 [id number] Univers 00:00:00 00:00:00 Christiano Lopez 350.1.13.10 ity of [place]2.[place] [phone] [address] 2019-03-05 2019-03-05 Orders Doctor LAINEY 1.2.840.114 [id number] Univers 00:00:00 00:00:00 Only Unassigned, ALBINA 350.1.13.10 [place]y of [place] [facility] 4.2.7.2.686 Santy as [phone] [address] 2019-01-16 2019-01-16 [facility] 1.2.840.114 [id number] Univers 00:00:00 00:00:00 [facility] [id number] i ty of [place] 4.2.7.2.686 [facility] [phone] [facility] & [facility] Results This patient has no known results.
[2021-09-23] MEDS ORDERED: DIAZEPAM 5 MG TABLET ONE (12:30)
[2021-09-23 12:46] LABS: Absolute Lymphocytes (CBC) 2.3 K/uL (0.7-4.9); Lymphocytes % 23.5 % (15.3-44.8); MPV 9.6 fL (7.6-11.3); RBC Red Blood Cell Count 4.19 M/uL (3.86-4.86)
[2021-09-23 13:09] LABS: Albumin 3.1 g/dL (3.4-5.0); Bilirubin Direct 0.2 mg/dL (0-0.2); Bilirubin Total 0.6 mg/dL (0.2-1.0); Potassium 3.8 mmol/L (3.5-5.1); Protein, Total 7.6 g/dL (6.4-8.2)
--- NOTE | 2021-09-23 13:56 | RAD REPORT ---
EXAM DESCRIPTION: CT - Chest Abdomen Pelvis W Cont - 09/23/2021 1:48 pm CLINICAL HISTORY: Chest and abdomen pain. Abdominal pain COMPARISON: Chest Pa And Lat (2 Views) dated 05/27/2020; Abdomen Pelvis W Contrast dated 10/12/2020 TECHNIQUE: Approximately 100 mL nonionic IV contrast was administered to the patient. All CT scans are performed using dose optimization technique as appropriate and may include automated exposure control or mA/KV adjustment according to patient size. FINDINGS: The lungs are clear.No pleural or pericardial effusion.No intrathoracic adenopathy. Mild diffuse fatty liver. The spleen, adrenal glands and pancreas are unremarkable. Normal appearance left kidney. Moderate right-sided hydronephrosis is present. The right ureter is not dilated. There is a very large complex ventral hernia containing the majority of bowel loops including a large portion of the stomach. This is incompletely included on the CT due to gantry size but no bowel obst ruction is evident. Nonvisualized appendix. Moderate stool is present throughout the colon. No pathol ogic lymphadenopathy in the abdomen or pelvis. Moderate thoracic spondylosis. IMPRESSION: Very large ventral hernia is present as described. Moderate right hydronephrosis probably due to right UPJ obstruction.
--- NOTE | 2021-09-23 15:44 | ER ---
Nurse's Notes [facility] Name: Deena Hdz Age: 61 yrs Sex: Female : 1960 Arrival Date: 09/23/2021 Time: 10:09 Bed 19 Private MD: Zev Feliz Diagnosis: skin wounds acute on chronic Presentation: 09/23 10:16 Chief complaint: Patient states: "I have an old incision back in 2007. I am having jd3 major swelling and pain in my stomach and I think it is infected. I can't see Dr. Cid that did a surgery because of insurance.". Coronavirus screen: At this time, the client does not indicate any symptoms associated with coronavirus-19. Ebola Screen: No symptoms or risks identified at this time. Initial Sepsis Screen: Does the patient meet any 2 criteria? No. Patient's initial sepsis screen is negative. Does the patient have a suspected source of infection? No. Patient's initial sepsis screen is negative. Risk Assessment: Do you want to hurt yourself or someone else? Patient reports no desire to harm self or others. Onset of symptoms was August 17, 2021. 10:16 Method Of Arrival: Ambulatory jd3 10:16 Acuity: JAIRON 3 jd3 Historical: - Allergies: 10:18 PENICILLINS; jd3 - PMHx: 10:18 Depression; Ventral Hernia w/Gangrene; Hypertension; Anxiety; Diabetes - NIDDM; jd3 insomnia; GERD; - Immunization history:: Adult Immunizations up to date, Client reports receiving the 2nd dose of the Covid vaccine, Pneumococcal vaccine is up to date, Flu vaccine is up to date. - Social history:: Smoking status: Patient/guardian denies using tobacco, the patient reports quitting approximately 1 years ago. Screenin:03 Abuse screen: Denies threats or abuse. Nutritional screening: No deficits noted. ap3 Tuberculosis screening: No symptoms or risk factors identified. Fall Risk None identified. No fall in past 12 months (0 pts). Assessment: 12:01 Reassessment: Patient and/or family updated on plan of care and expected duration. Pain ap3 level reassessed. Patient is alert, oriented x 3, equal unlabored respirations, skin warm/dry/pink. General: Appears uncomfortable, Behavior is calm, cooperative, appropriate for age. Pain: Complains of pain in suprapubic area and left lower quadrant Pain currently is 5 out of 10 on a pain scale. Neuro: Level of Consciousness is awake, alert, obeys commands, Oriented to person, place, time, situation, Gait is steady, Speech is normal. Cardiovascular: Patient's skin is warm and dry. Respiratory: Airway is patent Respiratory effort is even, unlabored. Derm: Wound noted suprapubic area and left lower quadrant Other: pt reports she has been trying to get it to heal appropriately since 2007. 15:21 Reassessment: Patient and/or family updated on plan of care and expected duration. Pain ap3 level reassessed. Patient is alert, oriented x 3, equal unlabored respirations, skin warm/dry/pink. Vital Signs: 10:19 BP 136 / 62; Pulse 80; Resp 19 S; Temp 97.9(TE); Pulse Ox 100% on R/A; Weight 132.9 kg jd3 (R); Height 5 ft. 5 in. (165.10 cm) (R); Pain 10/10; 12:06 BP 140 / 77; Pulse 66; Pulse Ox 99% on R/A; ap3 15:21 BP 113 / 59; Pulse Ox 98% on R/A; ap3 10:19 Body Mass Index 48.76 (132.90 kg, 165.10 cm) jd3 ED Course: 10:09 Patient arrived in ED. am2 10:10 Zev Feliz DO is Private Physician. am2 10:18 Triage completed. jd3 10:20 Arm band placed on. jd3 10:24 Jorge Lovelace MD is Attending Physician. kdr 11:54 Colleen Isaacs, LOVELY is Primary Nurse. ap3 12:03 Patient has correct armband on for positive identification. Placed in gown. Bed in low ap3 position. Call light in reach. Side rails up X 1. gambling monitor on. Pulse ox on. NIBP on. Door closed. Noise minimized. 12:10 Initial lab(s) drawn, by me, sent to lab. Inserted saline lock: 22 gauge in right vg1 wrist, using aseptic technique. Blood collected. 13:51 Chest Abdomen Pelvis W Cont In Process Unspecified. EDMS 15:41 Feliz, Zev, DO is Referral Physician. kdr 16:14 Blood Culture Adult (2) Sent. vg1 16:35 No provider procedures requiring assistance completed. IV discontinued, intact, ap3 bleeding controlled, No redness/swelling at site. Pressure dressing applied. Administered Medications: 12:37 Drug: Valium (diazepam) 5 mg Route: PO; ap3 Outcome: 15:43 Discharge ordered by . kdr 16:36 Discharged to home ambulatory. ap3 16:36 Condition: good 16:36 Discharge instructions given to patient, Instructed on discharge instructions, follow up and referral plans. medication usage, wound care, Demonstrated understanding of instructions, follow-up care, medications, Prescriptions given X 1. 16:36 Patient left the ED. ap3 Signatures: Dispatcher [employer] EDMS Jorge Lovelace MD MD kdr Colleen Alexander Jonathon RN RN jd3 Colleen Isaacs RN RN ap3 Sindhu Weber RN RN vg1 Corrections: (The following items were deleted from the chart) 10:19 10:16 Chief complaint: Patient states: "I have an old incision back in 2007. I am jd3 having major swelling and pain in my stomach and I think it is infected." jd3 10:21 10:19 Pulse 80bpm; Resp 19bpm; Spontaneous; Pulse Ox 100% RA; Temp 97.9F Temporal; jd3 132.9 kg Reported; Height 5 ft. 5 in. Reported; BMI: 48.7; Pain 03/29; jd3
--- NOTE | 2021-09-23 15:44 | EDPHYS ---
Physician Documentation [facility] Name: Deena Hdz Age: 61 yrs Sex: Female : 1960 Arrival Date: 09/23/2021 Time: 10:09 Bed 19 Private MD: [facility] ED Physician Jorge Lovelace HPI: 09/23 17:34 This 61 yrs old Female presents to ER via Ambulatory with complaints of Wound Infection.kdr 17:35 Patient has had multiple surgeries on her abdomen. As result of that she has had mesh kdr and placement in several areas. 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 Recently, she has had an change in her insurance and has no longer been able to see Dr. Cid. Currently she has diffuse discomfort in her abdomen and lower chest. She feels as if there is swelling in her abdomen and abdominal wall that radiates into her chest. She denies fever chills nausea vomiting she does not appear acutely ill in any way on initial presentation. She has no other complaints. None of her wounds appear to be new.. Onset: The symptoms/episode began/occurred at an unknown time. Severity of symptoms: At their worst the symptoms were mild in the emergency department the symptoms are unchanged. The patient has not experienced similar symptoms in the past, The patient has experienced similar episodes in the past. The patient has not recently seen a physician. Historical: - Allergies: 10:18 PENICILLINS; jd3 - PMHx: 10:18 Depression; Ventral Hernia w/Gangrene; Hypertension; Anxiety; Diabetes - NIDDM; jd3 insomnia; GERD; - Immunization history:: Adult Immunizations up to date, Client reports receiving the 2nd dose of the Covid vaccine, Pneumococcal vaccine is up to date, Flu vaccine is up to date. - Social history:: Smoking status: Patient/guardian denies using tobacco, the patient reports quitting approximately 1 years ago. ROS: 17:35 Constitutional: Negative for fever, chills, and weight loss, Eyes: Negative for injury, kdr pain, redness, and discharge, ENT: Negative for injury, pain, and discharge, Neck: Negative for injury, pain, and swelling, Cardiovascular: Negative for chest pain, palpitations, and edema, Respiratory: Negative for shortness of breath, cough, wheezing, and pleuritic chest pain, Back: Negative for injury and pain, : Negative for injury, bleeding, discharge, and swelling, MS/Extremity: Negative for injury and deformity, Skin: Negative for injury, rash, and discoloration. 17:35 Abdomen/GI: Positive for nausea, Patient has skin breakdown and multiple scars with severe disfigurement of her abdominal wall.. Exam: 17:35 Constitutional: This is a well developed, well nourished patient who is awake, alert, kdr and in no acute distress. Head/Face: Normocephalic, atraumatic. Eyes: Pupils equal round and reactive to light, extra-ocular motions intact. Lids and lashes normal. Conjunctiva and sclera are non-icteric and not injected. Cornea within normal limits. Periorbital areas with no swelling, redness, or edema. Neck: Trachea midline, no thyromegaly or masses palpated, and no cervical lymphadenopathy. Supple, full range of motion without nuchal rigidity, or vertebral point tenderness. No Meningismus. Chest/axilla: Normal chest wall appearance and motion. Nontender with no deformity. No lesions are appreciated. Cardiovascular: Regular rate and rhythm with a normal S1 and S2. No gallops, murmurs, or rubs. Normal PMI, no JVD. No pulse deficits. Respiratory: Lungs have equal breath sounds bilaterally, clear to auscultation and percussion. No rales, rhonchi or wheezes noted. No increased work of breathing, no retractions or nasal flaring. Back: No spinal tenderness. No costovertebral tenderness. Full range of motion. Skin: Warm, dry with normal turgor. Normal color with no rashes, no lesions, and no evidence of cellulitis. MS/ Extremity: Pulses equal, no cyanosis. Neurovascular intact. Full, normal range of motion. Neuro: Awake and alert, GCS 15, oriented to person, place, time, and situation. Cranial nerves II-XII grossly intact. Motor strength 5/5 in all extremities. Sensory grossly intact. Cerebellar exam normal. Normal gait. Psych: Awake, alert, with orientation to person, place and time. Behavior, mood, and affect are within normal limits. 17:35 Abdomen/GI: Inspection: obese scar(s), are noted in the left lower quadrant and abdomen diffusely, Bowel sounds: active, Palpation: soft, mild abdominal tenderness, in the abdomen diffusely, voluntary guarding, involuntary guarding. Vital Signs: 10:19 BP 136 / 62; Pulse 80; Resp 19 S; Temp 97.9(TE); Pulse Ox 100% on R/A; Weight 132.9 kg jd3 (R); Height 5 ft. 5 in. (165.10 cm) (R); Pain 10/10; 12:06 BP 140 / 77; Pulse 66; Pulse Ox 99% on R/A; ap3 15:21 BP 113 / 59; Pulse Ox 98% on R/A; ap3 10:19 Body Mass Index 48.76 (132.90 kg, 165.10 cm) jd3 MDM: 15:43 Patient medically screened. kdr 17:35 Data reviewed: vital signs, nurses notes, lab test result(s), radiologic studies. kdr Counseling: I had a detailed discussion with the patient and/or guardian regarding: the historical points, exam findings, and any diagnostic results supporting the discharge/admit diagnosis, lab results, radiology results, the need for outpatient follow up. 09/23 12:20 Order name: CBC with Diff; Complete Time: 14:51 kdr 09/23 12:20 Order name: CMP; Complete Time: 14:51 kdr 09/23 12:20 Order name: LFT's; Complete Time: 14:51 kdr 09/23 12:35 Order name: Blood Culture Adult (2) ap3 09/23 13:50 Order name: Chest Abdomen Pelvis W Cont; Complete Time: 14:51 EDMS 09/23 12:20 Order name: IV Saline Lock; Complete Time: 12:22 kdr 09/23 12:20 Order name: Labs collected and sent; Complete Time: 12:22 kdr 09/23 12:24 Order name: [facility] EDMS Administered Medications: 12:37 Drug: Valium (diazepam) 5 mg Route: PO; ap3 Disposition Summary: 09/23/21 15:43 Discharge Ordered Location: Home kdr Problem: new kdr Symptoms: have improved kdr Condition: Stable kdr Diagnosis - skin wounds acute on chronic kdr Followup: kdr - With: Zev Feliz, DO - When: 2 - 3 days - Reason: If symptoms return, Further diagnostic work-up, Recheck today's complaints, Continuance of care, Re-evaluation by your physician Discharge Instructions: - Discharge Summary Sheet kdr - Wound Care, Adult kdr - How to Change Your Wound Dressing, [id number] kdr Forms: - Medication Reconciliation Form kdr - Thank You Letter kdr - Antibiotic Education kdr Prescriptions: - Cipro 500 mg Oral Tablet - take 1 tablet by ORAL route every 12 hours for 7 days; 14 tablet; Refills: 0, kdr Product Selection Permitted Signatures: Dispatcher [employer] EDMS Jorge Lovelace MD MD kdr Mohit Worrell RN RN jd3 Colleen Isaacs RN RN ap3 Corrections: (The following items were deleted from the chart) 13:50 12:21 Chest Abdomen W/ Con+CT.RAD.BRZ ordered. EDKY EDMS
[2021-09-24 01:35] VITALS: TEMP 97.9
[2021-09-24 01:38] VITALS: BP 113/59; O2SAT 98
== END 2021-09-23 16:36 | disposition home or self-care (01) ==
LOC: ER 10:08
DX: L98.9 Disorder of the skin and subcutaneous tissue, unspecified (principal); R10.32 Left lower quadrant pain; I10 Essential (primary) hypertension; E11.9 Type 2 diabetes mellitus without complications; Z88.0 Allergy status to penicillin
CPT/HCPCS: 87040 ×2; 85025; 36415; 82248; 80053; 71260; 74177; 99251; Q9967

== ENCOUNTER 2023-01-26 20:16 | Emergency (ER) | payer OTHER ==
--- OUTSIDE RECORDS SUMMARY | 2023-01-26 20:26 | XMS REPORT | Continuity of Care Document ---
:1960 Author Organization [facility] t Address [address] [place] [address] Care Team Providers Name Role Phone Zev Feliz Primary Care Physician Zev Feliz Attending Clinician Unavailable ROCHELLE GAONA Attending Clinician Unavailable Rochelle Gaona MD Attending Clinician Doctor Unassigned, [place] Attending Clinician Unavailable Harmony Sanchez MA Attending Clinician Unavailable Hernandez Palomares DO Attending Clinician Trevon ALLISON, Christiano GutierrezHNathan Attending Clinician ROCHELLE GAONA Admitting Clinician Unavailable Payers Payer Name Policy Type Policy Number Effective Date Expiration Date S rico [facility] [place] [facility] [id number] 2020 PLUS 00:00:00 [place] [id number] 2021 Common HEALTHCARE 00:00:00 [facility] Problems Condition Condition Condition Status Onset Resolution Last Treating Co mments Source Name Details Category Date Date Treatment Clinician Date Palpitatio Palpitatio Disease Active Overview : Univers ns ns 4-29 Formattin ity of 00:00: g of this note Medical might be Branch different from the original. Added automatic ally from request for surgery [id number] Morbid Morbid Disease Active Univers obesity obesity 4-18 ity of 00:00: Medical Branch Atypical Atypical Disease Active Unive rs chest pain chest pain 2-09 it y of 00:00: Medical Branch Sleep Sleep Disease Active Univers disorder disorder 9-30 [place] breathing breathing [place] Coronary Coronary Disease Active Unive rs atheroscle atheroscle 9-30 it y of rosis of rosis of 00:00: [place] 00 Medical coronary coronary Branch artery artery Dyslipidem Dyslipidem Disease Active U nivers ia ia 9-30 ity of 00:00: Medical Branch Diastolic Diastolic Disease Active Uni vers HF (heart HF (heart 9-10 ity of failure) failure) 00:00: Medical Branch Chest pain Chest pain Disease Active Overview : Univers 9-10 Formattin ity of 00:00: g of this note Medical might be Branch different from the original. ICD10 Diagnosis Term Supervisor [employer] Head and Head and Disease Recurre Univ ers face pain face pain nce 5-24 ity of 00:00: Medical Branch Headache Headache Disease Recurre Overview: U nivers nce 5-24 Formattin ity of 00:00: g of this note Medical might be Branch different from the original. ICD10 Diagnosis Term Supervisor [employer] Obesity Obese body Problem Comm on habitus [facility] [id number] Morbid Problem Commo n 9104 (severe) Spirit obesity - [facility] due to [facility] Coronary Coronary Problem Commo n artery artery Spirit disease disease - [facility] [id number] Allergic Problem Com mon rhinitis Spirit due to - [facility] animal [facility] Gallstones Gallstones Problem C ommon [facility] Chronic Diastolic Problem Commo n diastolic CHF Spirit heart - [facility] failure [facility] [id number] Pain, Problem Common joint, Spirit knee, left - [facility] [id number] Arthritis Problem Co mmon [id number] of left Spirit knee - CHI [facility] SI - Stress Problem Common Stress incontinen Spirit incontinen ce - [facility]I ce [facility] Pressure Pressure Problem Commo n ulcer of ulcer of Spirit unspecifie unspecifie - CHI d site, d site, St unspecifie unspecifie Michaela kes d stage [facility] [place] Hip pain Hip Pain Problem Commo n in Spirit unspecifie - CHI d hip [facility] Hyperlipid Hyperlipid Problem C omrayna emia emia [facility] Essential Benign Problem Common hypertensi essential Spi rit on HTN - [facility]I [facility] [id number] 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 depressive disorder [facility] Esophagiti Esophagiti Problem C ommon s s, Spirit unspecifie - [facility]I d [facility] Functional Frequent Problem Com mon urinary urinary Spirit incontinen incontinen - CHI ce [facility] [id number] Other Problem Common chronic Spirit pain - [facility] [id number] Mild Problem Common intermitte Spirit nt - [facility]I reactive [facility] without Center complicati on [id number] DM type 2, Problem Com mon controlled Spirit , with - [facility]I complicati [facility] [id number] PTSD Problem Common (post-trau Spirit matic - CHI stress St disorder) [facility] [id number] Kidney Problem Common stones Spirit - [facility] [id number] Primary Problem Comm on osteoarthr Spirit itis of - CHI left knee [facility] [id number] Contusion Problem Co mmon [id number] of left Spirit knee, - [facility]I initial [facility] Allergies, Adverse Reactions, Alerts Allergy Allergy Status Severity Reaction(s) Onset Inactive Treating Comm ents Source Name Type Date Date Clinician Penicill Propensi Active Other - See convulsi o Univers ins ty to comments 5-24 ns ity of adverse 00:00: [place] reaction 00 Medical s Branch PENICILL Drug Active Other-Cmnt Univ ers INS Class 5-24 ity of 00:00: [place] 00 Medical Branch penicill penicill Active Unknown Commo n in V in V Spirit - [facility] Social History Social Habit Start Date Stop Date Quantity Comments Source History of Tobacco Common Spirit - Use [facility] Sex Assigned At Common Sp elizabeth - [facility] Gender identity Universit y [facility] Sexual orientation Univer sity [facility] Exposure to 2022-02-26 2022-03-08 Not sure University SARS-CoV-2 (event) 00:00:00 09:42:00 [facility] History of Social 2021-10-05 2021-10-05 Univers ity of function 00:00:00 00:00:00 [facility] Alcohol intake 2021-10-05 2021-10-05 0 /d University of 00:00:00 00:00:00 [facility] Cigarettes smoked 2016-06-16 2016-06-16 Univers ity of current (pack per 00:00:00 00:00:00 [facility] ) - Reported Branch Cigarette 2016-06-16 2016-06-16 University of pack-years 00:00:00 00:00:00 [facility] Tobacco use and 2016-06-16 2016-06-16 Smokeless Universit y of exposure 00:00:00 00:00:00 tobacco non-user [facility] Smoking Status Start Date Stop Date Source Former Smoker 2022-12-29 00:00:00 2022-12-29 00:00:00 [facility] pirit [facility] Medications Ordered Filled Start Stop Current Ordering Indication Dosage Frequency Signature Comments Components Source Medication Medication Date Date Medication? Clinician (SIG) Name Name furosemide Yes [id number] 40mg Take 1 Univers (LASIX) 40 7-25 tablet by ity of mg tablet 00:00: mouth [place] [address] every Medical morning Branch and evening. Macrobid Macrobid No BID Macrobid 100 MG 100 MG 7-12 100 MG 00:00: 00 atorvastati Yes [id number] 20mg Take 1 Univers n 20 mg 5-02 tablet by ity of tablet 00:00: mouth at [place] [address] bedtime. Medical Branch atorvastati Yes [id number] 20mg Take 1 Univers n 20 mg 5-02 tablet by ity of tablet 00:00: mouth at [place] [address] bedtime. Medical Branch atorvastati Yes [id number] 20mg Take 1 Univers n 20 mg 5-02 tablet by ity of tablet 00:00: mouth at [place] [address] bedtime. [facility] [id number] 20mg Take 1 Univers n 20 mg 5-02 tablet by ity of tablet 00:00: mouth at [place] [address] bedtime. [facility] Yes [id number] 20mg Take 1 Univers n 20 mg 5-02 tablet by ity of tablet 00:00: mouth at [place] [address] bedtime. [facility] Yes [id number] 20mg Take 1 Univers n 20 mg 5-02 tablet by ity of tablet 00:00: mouth at [place] [address] bedtime. [facility] Branch Azithromyci Azithromyci 2021-06- No QD Azithromyc n 250 MG n 250 MG 0- 11-05 in 250 MG 00:00: 00:00 00 :[address] [facility] 2021-06 Yes [id number] 20mg Take 1 Univers n 20 mg 0-24 tablet by ity of tablet 00:00: mouth at [place] [address] bedtime. [facility]06 Yes [id number] 20mg Take 1 Univers n 20 mg 0-24 tablet by ity of tablet 00:00: mouth at [place] [address] bedtime. [facility] 2021-06 Yes [id number] 20mg Take 1 Univers n 20 mg 0-24 tablet by ity of tablet 00:00: mouth at [place] [address] bedtime. [facility] 2021-06- No [id number] 20mg Take 1 Univers n 20 mg 0-24 05-02 tablet by ity of tablet 00:00: 00:00 mouth at [place] 00 :00 bedtime. Medical Branch Azithromyci Azithromyci 2021- No QD Azithromyc n 250 MG n 250 MG 03-10 in 250 MG 00:00: 00:00 00 :00 Azithromyci Azithromyci 2021- No QD Azithromyc n 250 MG n 250 MG 03-10 in 250 MG 00:00: 00:00 00 :00 Azithromyci Azithromyci 2022-0 2022- No QD Azithromyc n 250 MG n 250 MG 03-10 in 250 MG 00:00: 00:00 00 :00 Azithromyci Azithromyci 2022-0 2022- No QD Azithromyc n 250 MG n 250 MG 03-10 in 250 MG 00:00: 00:00 00 :00 carvediloL 2022-0 Yes 25mg Take 1 Unive rs 25 mg 9-19 tablet by ity of tablet 00:00: mouth in [address] morning [place] and 1 tablet in the evening. Take with meals. carvediloL 2022-0 Yes 25mg Take 1 Unive rs 25 mg 9-19 tablet by ity of tablet 00:00: mouth in [address] morning [place] and 1 tablet in the evening. Take with meals. carvediloL 2022-0 Yes 25mg Take 1 Unive rs 25 mg 9-19 tablet by ity of tablet 00:00: mouth in [address] and 1 tablet in the evening. Take with meals. carvediloL 2022-0 Yes 25mg Take 1 Unive rs 25 mg 9-19 tablet by ity of tablet 00:00: mouth in [address] morning [place] and 1 tablet in the evening. Take with meals. carvediloL 2022-0 Yes 25mg Take 1 Unive rs 25 mg 9-19 tablet by ity of tablet 00:00: mouth in [address] and 1 tablet in the evening. Take with meals. carvediloL 2022-0 Yes 25mg Take 1 Unive rs 25 mg 9-19 tablet by ity of tablet 00:00: mouth in [address] and 1 tablet in the evening. Take with meals. carvediloL 2022-0 Yes 25mg Take 1 Unive rs 25 mg 9-19 tablet by ity of tablet 00:00: mouth in [address] and 1 tablet in the evening. Take with meals. carvediloL 2022-0 Yes 25mg Take 1 Unive rs 25 mg 9-19 tablet by ity of tablet 00:00: mouth in [address] and 1 tablet in the evening. Take with meals. carvediloL 2022-0 Yes 25mg Take 1 Unive rs 25 mg 9-19 tablet by ity of tablet 00:00: mouth in [place] [address] the Medical morning Branch and 1 tablet in the evening. Take with meals. carvediloL 2022-0 Yes 25mg Take 1 Unive rs 25 mg 9-19 tablet by ity of tablet 00:00: mouth in [place] [address] the Medical morning Branch and 1 tablet in the evening. Take with meals. carvediloL 2022-0 Yes 25mg Take 1 Unive rs 25 mg 9-19 tablet by ity of tablet 00:00: mouth in [place] [address] the Medical morning Branch and 1 tablet in the evening. Take with meals. cloNIDine 2022-0 Yes .1mg Take 1 Univer s 0.1 mg 8-22 tablet by ity of tablet 00:00: mouth in [place] [address] the Medical morning Branch and 1 tablet in the evening. cloNIDine 2022-0 Yes .1mg Take 1 Univer s 0.1 mg 8-22 tablet by ity of tablet 00:00: mouth in [place] [address] the Medical morning Branch and 1 tablet in the evening. cloNIDine 2022-0 Yes .1mg Take 1 Univer s 0.1 mg 8-22 tablet by ity of tablet 00:00: mouth in [place] [address] the Medical morning Branch and 1 tablet in the evening. cloNIDine 2022-0 Yes .1mg Take 1 Univer s 0.1 mg 8-22 tablet by ity of tablet 00:00: mouth in [place] [address] the Medical morning Branch and 1 tablet in the evening. cloNIDine 2022-0 Yes .1mg Take 1 Univer s 0.1 mg 8-22 tablet by ity of tablet 00:00: mouth in [place] [address] the Medical morning Branch and 1 tablet in the evening. cloNIDine 2022-0 Yes .1mg Take 1 Univer s 0.1 mg 8-22 tablet by ity of tablet 00:00: mouth in [place] [address] the Medical morning Branch and 1 tablet in the evening. cloNIDine 2022-0 Yes .1mg Take 1 Univer s 0.1 mg 8-22 tablet by ity of tablet 00:00: mouth in [place] [address] the Medical morning Branch and 1 tablet in the evening. cloNIDine 2022-0 Yes .1mg Take 1 Univer s 0.1 mg 8-22 tablet by ity of tablet 00:00: mouth in [place] [address] the Medical morning Branch and 1 tablet in the evening. cloNIDine 2022-0 Yes .1mg Take 1 Univer s 0.1 mg 8-22 tablet by ity of tablet 00:00: mouth in [place] [address] the Medical morning Branch and 1 tablet in the evening. cloNIDine 2022-0 Yes .1mg Take 1 Univer s 0.1 mg 8-22 tablet by ity of tablet 00:00: mouth in [place] [address] the Medical morning Branch and 1 tablet in the evening. cloNIDine 2022-0 Yes .1mg Take 1 Univer s 0.1 mg 8-22 tablet by ity of tablet 00:00: mouth in [place] [address] the Medical morning Branch and 1 tablet in the evening. cloNIDine 2022-0 Yes .1mg Take 1 Univer s 0.1 mg 8-22 tablet by ity of tablet 00:00: mouth in [place] [address] the Medical morning Branch and 1 tablet in the evening. cloNIDine 2022-0 Yes .1mg Take 1 Univer s 0.1 mg 8-22 tablet by ity of tablet 00:00: mouth in [place] [address] the Medical morning Branch and 1 tablet in the evening. cloNIDine 2022-0 Yes .1mg Take 1 Univer s 0.1 mg 8-22 tablet by ity of tablet 00:00: mouth in [place] [address] the Medical morning Branch and 1 tablet in the evening. cloNIDine 2022-0 Yes .1mg Take 1 Univer s 0.1 mg 8-22 tablet by ity of tablet 00:00: mouth in [place] [address] the Medical morning Branch and 1 tablet in the evening. cloNIDine 2022-0 Yes .1mg Take 1 Univer s 0.1 mg 8-22 tablet by ity of tablet 00:00: mouth in [place] [address] the Medical morning Branch and 1 tablet in the evening. cloNIDine 2022-0 Yes .1mg Take 1 Univer s 0.1 mg 8-22 tablet by ity of tablet 00:00: mouth in [place] [address] the Medical morning Branch and 1 tablet in the evening. cloNIDine 2022-0 Yes .1mg Take 1 Univer s 0.1 mg 8-22 tablet by ity of tablet 00:00: mouth in [place] [address] the Medical morning Branch and 1 tablet in the evening. cloNIDine 2022-0 Yes .1mg Take 1 Univer s 0.1 mg 8-22 tablet by ity of tablet 00:00: mouth in [place] 00 the Medical morning Branch and 1 tablet in the evening. cloNIDine 2021- No [id number] .1mg Take 1 U nivers 0.1 mg -08 02- tablet by ity of tablet 00:00: 00:00 mouth in [place] 00 :00 the Medical morning Branch and 1 tablet at noon and 1 tablet in the evening. metoprolol Yes [id number] TAKE 1/2 Univers succinate 8-19 TABLET BY ity o f XL 100 mg 00:00: MOUTH [place] 24 hr 00 TWICE Medical tablet DAILY Branch metoprolol Yes [id number] TAKE 1/2 Univers succinate 8-19 TABLET BY ity o f XL 100 mg 00:00: MOUTH [place] 24 hr 00 TWICE Medical tablet DAILY Branch metoprolol Yes [id number] TAKE 1/2 Univers succinate 8-19 TABLET BY ity o f XL 100 mg 00:00: MOUTH [place] 24 hr 00 TWICE Medical tablet DAILY Branch metoprolol Yes [id number] TAKE 1/2 Univers succinate 8-19 TABLET BY ity o f XL 100 mg 00:00: MOUTH [place] 24 hr 00 TWICE Medical tablet DAILY Branch metoprolol Yes [id number] TAKE 1/2 Univers succinate 8-19 TABLET BY ity o f XL 100 mg 00:00: MOUTH [place] 24 hr 00 TWICE Medical tablet DAILY Branch metoprolol Yes [id number] TAKE 1/2 Univers succinate 8-19 TABLET BY ity o f XL 100 mg 00:00: MOUTH [place] 24 hr 00 TWICE Medical tablet DAILY Branch metoprolol 2021- No [id number] TAKE 1/2 Univers succinate 8-19 09-19 TABLET BY ity of XL 100 mg 00:00: 00:00 MOUTH [place] 24 hr 00 :00 TWICE Medical tablet DAILY Branch furosemide 2021-0 Yes [id number] 40mg Take 1 Univers (LASIX) 40 7-21 tablet by ity of mg tablet 00:00: mouth [place] 00 every Medical morning Branch and evening. furosemide 2021-0 Yes [id number] 40mg Take 1 Univers (LASIX) 40 7-21 tablet by ity of mg tablet 00:00: mouth [place] 00 every Medical morning Branch and evening. furosemide 2021- Yes [id number] 40mg Take 1 Univers (LASIX) 40 7-21 tablet by ity of mg tablet 00:00: mouth [place] 00 every Medical morning Branch and evening. furosemide 2022-0 Yes [id number] 40mg Take 1 Univers (LASIX) 40 7-21 tablet by ity of mg tablet 00:00: mouth [place] 00 every Medical morning Branch and evening. furosemide 2022-0 Yes [id number] 40mg Take 1 Univers (LASIX) 40 7-21 tablet by ity of mg tablet 00:00: mouth [place] 00 every Medical morning Branch and evening. furosemide 2022-0 Yes [id number] 40mg Take 1 Univers (LASIX) 40 7-21 tablet by ity of mg tablet 00:00: mouth [place] 00 every Medical morning Branch and evening. furosemide 2022-0 Yes [id number] 40mg Take 1 Univers (LASIX) 40 7-21 tablet by ity of mg tablet 00:00: mouth [place] 00 every Medical morning Branch and evening. furosemide 2022-0 Yes [id number] 40mg Take 1 Univers (LASIX) 40 7-21 tablet by ity of mg tablet 00:00: mouth [place] 00 every Medical morning Branch and evening. furosemide 2022-0 Yes [id number] 40mg Take 1 Univers (LASIX) 40 7-21 tablet by ity of mg tablet 00:00: mouth [place] 00 every Medical morning Branch and evening. furosemide 2022-0 Yes [id number] 40mg Take 1 Univers (LASIX) 40 7-21 tablet by ity of mg tablet 00:00: mouth [place] 00 every Medical morning Branch and evening. furosemide 2022-0 Yes [id number] 40mg Take 1 Univers (LASIX) 40 7-21 tablet by ity of mg tablet 00:00: mouth [place] 00 every Medical morning Branch and evening. furosemide 2022-0 Yes [id number] 40mg Take 1 Univers (LASIX) 40 7-21 tablet by ity of mg tablet 00:00: mouth [place] 00 every Medical morning Branch and evening. furosemide 2022-0 Yes [id number] 40mg Take 1 Univers (LASIX) 40 7-21 tablet by ity of mg tablet 00:00: mouth [place] 00 every Medical morning Branch and evening. furosemide 2022-0 Yes [id number] 40mg Take 1 Univers (LASIX) 40 7-21 tablet by ity of mg tablet 00:00: mouth [place] 00 every Medical morning Branch and evening. furosemide 2021-0 Yes [id number] 40mg Take 1 Univers (LASIX) 40 7-21 tablet by ity of mg tablet 00:00: mouth [place] 00 every Medical morning Branch and evening. furosemide 2021-0 Yes [id number] 40mg Take 1 Univers (LASIX) 40 7-21 tablet by ity of mg tablet 00:00: mouth [place] 00 every Medical morning Branch and evening. furosemide 2021-0 Yes [id number] 40mg Take 1 Univers (LASIX) 40 7-21 tablet by ity of mg tablet 00:00: mouth [place] 00 every Medical morning Branch and evening. furosemide 2021-0 Yes [id number] 40mg Take 1 Univers (LASIX) 40 7-21 tablet by ity of mg tablet 00:00: mouth [place] 00 every Medical morning Branch and evening. furosemide 3- No [id number] 40mg Take 1 Univers (LASIX) 40 7-21 07-25 tablet by ity of mg tablet 00:00: 00:00 mouth [place] 00 :00 every Medical morning Branch and evening. isosorbide 2021- No 60mg Take 60 mg Univers mononitrate 4-18 04-18 by mouth ity of 60 mg 24 hr 15:04: 00:00 daily. [place] tablet 14 :00 Take with Medical isosorbide Branch 120 mg = 180mg daily MULTIVITS,T Yes 1{tbl} Take 1 Un sandy H 4-18 tablet by ity of W-CA,FE,OTH 14:49: mouth [place] MIN 45 daily. Medical (MULTIVITAM Branch IN AND MINERAL ORAL) Magnesium 2021-0 Yes 500mg Take 500 Uni vers Oxide 500 4-18 mg by ity of mg Cap 14:49: mouth [place] 45 daily. Medical Branch MULTIVITS,T 0 Yes 1{tbl} Take 1 Un sandy H 4-18 tablet by ity of W-CA,FE,OTH 14:49: mouth [place] MIN 45 daily. Medical (MULTIVITAM Branch IN AND MINERAL ORAL) Magnesium 2021-0 Yes 500mg Take 500 Uni vers Oxide 500 4-18 mg by ity of mg Cap 14:49: mouth [place] 45 daily. Medical Branch MULTIVITS,T Yes 1{tbl} Take 1 Un sandy H 4-18 tablet by ity of W-CA,FE,OTH 14:49: mouth [place] MIN 45 daily. Medical (MULTIVITAM Branch IN AND MINERAL ORAL) Magnesium Yes 500mg Take 500 Uni vers Oxide 500 4-18 mg by ity of mg Cap 14:49: mouth [place] 45 daily. Medical Branch MULTIVITS,T Yes 1{tbl} Take 1 Un sandy H 4-18 tablet by ity of W-CA,FE,OTH 14:49: mouth [place] MIN 45 daily. Medical (MULTIVITAM Branch IN AND MINERAL ORAL) Magnesium Yes 500mg Take 500 Uni vers Oxide 500 4-18 mg by ity of mg Cap 14:49: mouth [place] 45 daily. Medical Branch MULTIVITS,T Yes 1{tbl} Take 1 Un sandy H 4-18 tablet by ity of W-CA,FE,OTH 14:49: mouth [place] MIN 45 daily. Medical (MULTIVITAM Branch IN AND MINERAL ORAL) Magnesium Yes 500mg Take 500 Uni vers Oxide 500 4-18 mg by ity of mg Cap 14:49: mouth [place] 45 daily. Medical Branch MULTIVITS,T Yes 1{tbl} Take 1 Un sandy H 4-18 tablet by ity of W-CA,FE,OTH 14:49: mouth [place] MIN 45 daily. Medical (MULTIVITAM Branch IN AND MINERAL ORAL) Magnesium Yes 500mg Take 500 Uni vers Oxide 500 4-18 mg by ity of mg Cap 14:49: mouth [place] 45 daily. Medical Branch MULTIVITS,T Yes 1{tbl} Take 1 Un sandy H 4-18 tablet by ity of W-CA,FE,OTH 14:49: mouth [place] MIN 45 daily. Medical (MULTIVITAM Branch IN AND MINERAL ORAL) Magnesium 0 Yes 500mg Take 500 Uni vers Oxide 500 4-18 mg by ity of mg Cap 14:49: mouth [place] 45 daily. Medical Branch MULTIVITS,T Yes 1{tbl} Take 1 Un sandy H 4-18 tablet by ity of W-CA,FE,OTH 14:49: mouth [place] MIN 45 daily. Medical (MULTIVITAM Branch IN AND MINERAL ORAL) Magnesium 0 Yes 500mg Take 500 Uni vers Oxide 500 4-18 mg by ity of mg Cap 14:49: mouth [place] 45 daily. Medical Branch MULTIVITS,T Yes 1{tbl} Take 1 Un sandy H 4-18 tablet by ity of W-CA,FE,OTH 14:49: mouth [place] MIN 45 daily. Medical (MULTIVITAM Branch IN AND MINERAL ORAL) Magnesium 2021-0 Yes 500mg Take 500 Uni vers Oxide 500 4-18 mg by ity of mg Cap 14:49: mouth [place] 45 daily. Medical Branch MULTIVITS,T Yes 1{tbl} Take 1 Un sandy H 4-18 tablet by ity of W-CA,FE,OTH 14:49: mouth [place] MIN 45 daily. Medical (MULTIVITAM Branch IN AND MINERAL ORAL) Magnesium 2021-0 Yes 500mg Take 500 Uni vers Oxide 500 4-18 mg by ity of mg Cap 14:49: mouth [place] 45 daily. Medical Branch MULTIVITS,T Yes 1{tbl} Take 1 Un sandy H 4-18 tablet by ity of W-CA,FE,OTH 14:49: mouth [place] MIN 45 daily. Medical (MULTIVITAM Branch IN AND MINERAL ORAL) Magnesium 2021-0 Yes 500mg Take 500 Uni vers Oxide 500 4-18 mg by ity of mg Cap 14:49: mouth [place] 45 daily. Medical Branch MULTIVITS,T Yes 1{tbl} Take 1 Un sandy H 4-18 tablet by ity of W-CA,FE,OTH 14:49: mouth [place] MIN 45 daily. Medical (MULTIVITAM Branch IN AND MINERAL ORAL) Magnesium 2021-0 Yes 500mg Take 500 Uni vers Oxide 500 4-18 mg by ity of mg Cap 14:49: mouth [place] 45 daily. [facility] Branch MULTIVITS,T Yes 1{tbl} Take 1 Un sandy H 4-18 tablet by ity of W-CA,FE,OTH 14:49: mouth [place] MIN 45 daily. Medical (MULTIVITAM Branch IN AND MINERAL ORAL) Magnesium 2021-0 Yes 500mg Take 500 Uni vers Oxide 500 4-18 mg by ity of mg Cap 14:49: mouth [place] 45 daily. Medical Branch MULTIVITS,T Yes 1{tbl} Take 1 Un sandy H 4-18 tablet by ity of W-CA,FE,OTH 14:49: mouth [place] MIN 45 daily. Medical (MULTIVITAM Branch IN AND MINERAL ORAL) Magnesium Yes 500mg Take 500 Uni vers Oxide 500 4-18 mg by ity of mg Cap 14:49: mouth [place] 45 daily. [facility] Branch MULTIVITS,T Yes 1{tbl} Take 1 Un sandy H 4-18 tablet by ity of W-CA,FE,OTH 14:49: mouth [place] MIN 45 daily. Medical (MULTIVITAM Branch IN AND MINERAL ORAL) Magnesium Yes 500mg Take 500 Uni vers Oxide 500 4-18 mg by ity of mg Cap 14:49: mouth [place] 45 daily. [facility] Branch MULTIVITS,T Yes 1{tbl} Take 1 Un sandy H 4-18 tablet by ity of W-CA,FE,OTH 14:49: mouth [place] MIN 45 daily. Medical (MULTIVITAM Branch IN AND MINERAL ORAL) Magnesium Yes 500mg Take 500 Uni vers Oxide 500 4-18 mg by ity of mg Cap 14:49: mouth [place] 45 daily. [facility] Branch MULTIVITS,T Yes 1{tbl} Take 1 Un sandy H 4-18 tablet by ity of W-CA,FE,OTH 14:49: mouth [place] MIN 45 daily. Medical (MULTIVITAM Branch IN AND MINERAL ORAL) Magnesium Yes 500mg Take 500 Uni vers Oxide 500 4-18 mg by ity of mg Cap 14:49: mouth [place] 45 daily. [facility] Branch MULTIVITS,T Yes 1{tbl} Take 1 Un sandy H 4-18 tablet by ity of W-CA,FE,OTH 14:49: mouth [place] MIN 45 daily. Medical (MULTIVITAM Branch IN AND MINERAL ORAL) Magnesium 0 Yes 500mg Take 500 Uni vers Oxide 500 4-18 mg by ity of mg Cap 14:49: mouth [place] 45 daily. [facility] Branch MULTIVITS,T Yes 1{tbl} Take 1 Un sandy H 4-18 tablet by ity of W-CA,FE,OTH 14:49: mouth [place] MIN 45 daily. Medical (MULTIVITAM Branch IN AND MINERAL ORAL) Magnesium Yes 500mg Take 500 Uni vers Oxide 500 4-18 mg by ity of mg Cap 14:49: mouth [place] 45 daily. Medical Branch MULTIVITS,T Yes 1{tbl} Take 1 Un sandy H 4-18 tablet by ity of W-CA,FE,OTH 14:49: mouth [place] MIN 45 daily. Medical (MULTIVITAM Branch IN AND MINERAL ORAL) Magnesium Yes 500mg Take 500 Uni vers Oxide 500 4-18 mg by ity of mg Cap 14:49: mouth [place] 45 daily. Medical Branch Cipro 500 Cipro 500 2021- No 1{table BID Cipro 500 MG MG 08-24 t} MG 00:00: 00:00 00 :00 Cipro 500 Cipro 500 2021- No 1{table BID Cipro 500 MG MG 08-24 t} MG 00:00: 00:00 00 :00 metoprolol 2021- No [id number] TAKE 1/2 Univers succinate 2- 08-19 TABLET BY ity of XL 100 mg 00:00: 00:00 MOUTH [place] 24 hr 00 :00 TWICE Medical tablet DAILY Branch Katie Wilson 2020-06 No 40mg Common (Triamcinol (Triamcinol 0-14 S pirit one) one) 00:00: - [facility] 00 [facility] Katie Wilson 2020-06 No 40mg Common (Triamcinol (Triamcinol 0-14 S pirit one) one) 00:00: - [facility]I 00 [facility] Katie Wilson 2020-06 No 40mg Common (Triamcinol (Triamcinol 0-14 S pirit one) one) 00:00: - [facility]I 00 [facility] Katie Wilson 2020-06 No 40mg Common (Triamcinol (Triamcinol 0-14 S pirit one) one) 00:00: [facility] Common (Triamcinol (Triamcinol 0-14 S pirit one) one) 00:00: - [facility] 00 [facility] 2020-06 No 40mg Common (Triamcinol (Triamcinol 0-14 S pirit one) one) 00:00: - [facility] 00 [facility] 2020-06 No 40mg Common (Triamcinol (Triamcinol 0-14 S pirit one) one) 00:00: - [facility] 00 [facility] 2020-06 No 40mg Common (Triamcinol (Triamcinol 0-14 S pirit one) one) 00:00: - CHI 00 [facility] 2020-06 No 40mg Common (Triamcinol (Triamcinol 0-14 S pirit one) one) 00:00: - [facility] 00 [facility] 2020-06 No 40mg Common (Triamcinol (Triamcinol 0-14 S pirit one) one) 00:00: - [facility] 00 [facility] 2020-06 No 40mg Common (Triamcinol (Triamcinol 0-14 S pirit one) one) 00:00: - [facility]I 00 [facility] 2020-06 No 40mg Common (Triamcinol (Triamcinol 0-14 S pirit one) one) 00:00: - [facility] 00 [facility] 2020-06 No 40mg Common (Triamcinol (Triamcinol 0-14 S pirit one) one) 00:00: - [facility]I 00 [facility] 2020-06 No 40mg Common (Triamcinol (Triamcinol 0-14 S pirit one) one) 00:00: - [facility]I 00 [facility] 2020-06 No 40mg Common (Triamcinol (Triamcinol 0-14 S pirit one) one) 00:00: - [facility]I 00 [facility] furosemide 2021- No [id number] 40mg Take 1 Univers (LASIX) 40 7- 07-21 tablet by ity of mg tablet 00:00: 00:00 mouth [place] 00 :00 every Medical morning Branch and evening. atorvastati 0 Yes [id number] 20mg Take 1 Univers n 20 mg 6-11 tablet by ity of tablet 00:00: mouth at [place] 00 bedtime. Medical Branch atorvastati 0 Yes [id number] 20mg Take 1 Univers n 20 mg 6-11 tablet by ity of tablet 00:00: mouth at [place] 00 bedtime. Medical Branch atorvastati 0 Yes [id number] 20mg Take 1 Univers n 20 mg 6-11 tablet by ity of tablet 00:00: mouth at [place] 00 bedtime. Medical Branch atorvastati 0 Yes [id number] 20mg Take 1 Univers n 20 mg 6-11 tablet by ity of tablet 00:00: mouth at [place] 00 bedtime. Medical Branch atorvastati 0 Yes [id number] 20mg Take 1 Univers n 20 mg 6-11 tablet by ity of tablet 00:00: mouth at [place] 00 bedtime. Medical Branch atorvastati 0 Yes [id number] 20mg Take 1 Univers n 20 mg 6-11 tablet by ity of tablet 00:00: mouth at [place] 00 bedtime. Medical Branch atorvastati 0 Yes [id number] 20mg Take 1 Univers n 20 mg 6-11 tablet by ity of tablet 00:00: mouth at [place] 00 bedtime. Medical Branch atorvastati 0 Yes [id number] 20mg Take 1 Univers n 20 mg 6-11 tablet by ity of tablet 00:00: mouth at [place] 00 bedtime. Medical Branch atorvastati 0 Yes [id number] 20mg Take 1 Univers n 20 mg 6-11 tablet by ity of tablet 00:00: mouth at [place] 00 bedtime. Medical Branch atorvastati 0 Yes [id number] 20mg Take 1 Univers n 20 mg 6-11 tablet by ity of tablet 00:00: mouth at [place] 00 bedtime. Medical Branch atorvastati 0 2021- No [id number] 20mg Take 1 Univers n 20 mg 6-11 10-24 tablet by ity of tablet 00:00: 00:00 mouth at [place] 00 :00 bedtime. Medical Branch atorvastati 2020-0 2021- No [id number] 20mg Take 1 Univers n 20 mg 11-28 10-24 tablet by ity of tablet 00:00: 00:00 mouth at [place] 00 :00 bedtime. Medical Branch Bupivicaine Bupivicaine 1-0 No 2.5mg Common [place] 11-20 Spirit 00:00: - CHI 00 [facility] Durolane Durolane 2020-0 No 6mg Commo n 6- Spirit 00:00: - CHI 00 [facility] Kenalog Kenalog 2020-0 No 40mg Common (Triamcinol (Triamcinol 6-03 S pirit one) one) 00:00: - CHI 00 [facility] Bupivicaine Bupivicaine 1-0 No 2.5mg Common [place] 11-20 Spirit 00:00: - CHI 00 [facility] Durolane Durolane 1-0 No 6mg Commo n - Spirit 00:00: - CHI 00 [facility] Kenalog Kenalog 2020-0 No 40mg Common (Triamcinol (Triamcinol 6-03 S pirit one) one) 00:00: - CHI 00 [facility] Bupivicaine Bupivicaine 2020-0 No 2.5mg Common [place] 11-20 Spirit 00:00: - CHI 00 [facility] Durolane Durolane 2020-0 No 6mg Commo n - Spirit 00:00: - CHI 00 [facility] Kenalog Kenalog 1-0 No 40mg Common (Triamcinol (Triamcinol 6-03 S pirit one) one) 00:00: - CHI 00 [facility] Bupivicaine Bupivicaine 1-0 No 2.5mg Common [place] 11-20 Spirit 00:00: - CHI 00 [facility] Durolane Durolane 1-0 No 6mg Commo n - Spirit 00:00: - CHI 00 [facility] Kenalog Kenalog 1-0 No 40mg Common (Triamcinol (Triamcinol 6-03 S pirit one) one) 00:00: - CHI 00 [facility] Bupivicaine Bupivicaine 1-0 No Common [place] 6- Spirit 00:00: - [facility]I 00 [facility] Durolane Durolane 2020-0 No 6mg Commo n 6- Spirit 00:00: - [facility]I 00 [facility] Kenalog Kenalog 2020-0 No 40mg Common (Triamcinol (Triamcinol 6-03 S pirit one) one) 00:00: - CHI 00 [facility] Bupivicaine Bupivicaine 1-0 No Common [place] - Spirit 00:00: - CHI 00 [facility] Durolane Durolane 2020-0 No 6mg Commo n 6- Spirit 00:00: - [facility]I 00 [facility] Kenalog Kenalog 2020-0 No 40mg Common (Triamcinol (Triamcinol 6-03 S pirit one) one) 00:00: - CHI 00 [facility] Bupivicaine Bupivicaine 2020-0 No 2.5mg Common [place] 11-20 Spirit 00:00: - CHI 00 [facility] Durolane Durolane 2020-0 No 6mg Commo n 6- Spirit 00:00: - CHI 00 [facility] Kenalog Kenalog 2020-0 No 40mg Common (Triamcinol (Triamcinol 6-03 S pirit one) one) 00:00: - CHI 00 [facility] Bupivicaine Bupivicaine 1-0 No 2.5mg Common [place] 11-20 Spirit 00:00: - CHI 00 [facility] Durolane Durolane 2020-0 No 6mg Commo n 6- Spirit 00:00: - CHI 00 [facility] Kenalog Kenalog 1-0 No 40mg Common (Triamcinol (Triamcinol 6-03 S pirit one) one) 00:00: - CHI 00 [facility] Bupivicaine Bupivicaine 1-0 No 2.5mg Common [place] 11-20 Spirit 00:00: - CHI 00 [facility] Durolane Durolane 1-0 No 6mg Commo n 6-03 Spirit 00:00: - CHI 00 [facility] Kenalog Kenalog 2021-0 No 40mg Common (Triamcinol (Triamcinol 6-03 S pirit one) one) 00:00: - CHI 00 [facility] Bupivicaine Bupivicaine 1-0 No 2.5mg Common [place] - Spirit 00:00: - CHI 00 [facility] Durolane Durolane 2020-0 No 6mg Commo n 6- Spirit 00:00: - CHI 00 [facility] Kenalog Kenalog 2020-0 No 40mg Common (Triamcinol (Triamcinol 6-03 S pirit one) one) 00:00: - CHI 00 [facility] Bupivicaine Bupivicaine 2020-0 No 2.5mg Common [place] 11-20 Spirit 00:00: - [facility]I 00 [facility] Durolane Durolane 2020-0 No 6mg Commo n 6 Spirit 00:00: - CHI 00 [facility] Kenalog Kenalog 2020-0 No 40mg Common (Triamcinol (Triamcinol 6-03 S pirit one) one) 00:00: - [facility]I 00 [facility] Bupivicaine Bupivicaine 2020-0 No 2.5mg Common [place] 11-20 Spirit 00:00: - CHI 00 [facility] Durolane Durolane 2020-0 No 6mg Commo n 6- Spirit 00:00: - CHI 00 [facility] Kenalog Kenalog 2020-0 No 40mg Common (Triamcinol (Triamcinol 6-03 S pirit one) one) 00:00: - CHI 00 [facility] Bupivicaine Bupivicaine 1-0 No 2.5mg Common [place] 6- Spirit 00:00: - [facility]I 00 [facility] Durolane Durolane 1-0 No 6mg Commo n 6- Spirit 00:00: - [facility]I 00 [facility] Kenalog Kenalog 1-0 No 40mg Common (Triamcinol (Triamcinol 6-03 S pirit one) one) 00:00: - [facility]I 00 [facility] Bupivicaine Bupivicaine 1-0 No 2.5mg Common [place] 6-03 Spirit 00:00: - [facility]I 00 [facility] Durolane Durolane 2020-0 No 6mg Commo n 6-03 Spirit 00:00: - CHI 00 [facility] Kenalog Kenalog 2020-0 No 40mg Common (Triamcinol (Triamcinol 6-03 S pirit one) one) 00:00: - CHI 00 [facility] Bupivicaine Bupivicaine 2020-0 No 2.5mg Common [place] 6-03 Spirit 00:00: - [facility]I 00 [facility] Durolane Durolane 2020-0 No 6mg Commo n 6-03 Spirit 00:00: - [facility]I 00 [facility] Kenalog Kenalog 2020-0 No 40mg Common (Triamcinol (Triamcinol 6-03 S pirit one) one) 00:00: - [facility]I 00 [facility] nitroglycer 2020-[id number] 1 Univers in 0.4 mg 3-04 tablet ity of sublingual 00:00: under the [place] tablet 00 tongue Medical every 5 Branch (five) minutes as needed for Chest pain. nitroglycer 2020-[id number] 1 Univers in 0.4 mg 3-04 tablet ity of sublingual 00:00: under the [place] tablet 00 tongue Medical every 5 Branch (five) minutes as needed for Chest pain. nitroglycer 2020-[id number] 1 Univers in 0.4 mg 3-04 tablet ity of sublingual 00:00: under the [place] tablet 00 tongue Medical every 5 Branch (five) minutes as needed for Chest pain. nitroglycer 2020-[id number] 1 Univers in 0.4 mg 3-04 tablet ity of sublingual 00:00: under the [place] tablet 00 tongue Medical every 5 Branch (five) minutes as needed for Chest pain. nitroglycer 2020-[id number] 1 Univers in 0.4 mg 3-04 tablet ity of sublingual 00:00: under the [place] tablet 00 tongue Medical every 5 Branch (five) minutes as needed for Chest pain. nitroglycer 2020-[id number] 1 Univers in 0.4 mg 3-04 tablet ity of sublingual 00:00: under the [place] tablet 00 tongue Medical every 5 Branch (five) minutes as needed for Chest pain. nitroglycer 1-[id number] 1 Univers in 0.4 mg 3-04 tablet ity of sublingual 00:00: under the [place] tablet 00 tongue Medical every 5 Branch (five) minutes as needed for Chest pain. nitroglycer 2020-[id number] 1 Univers in 0.4 mg 3-04 tablet ity of sublingual 00:00: under the [place] tablet 00 tongue Medical every 5 Branch (five) minutes as needed for Chest pain. nitroglycer 2020-[id number] 1 Univers in 0.4 mg 3-04 tablet ity of sublingual 00:00: under the [place] tablet 00 tongue Medical every 5 Branch (five) minutes as needed for Chest pain. nitroglycer 2020-[id number] 1 Univers in 0.4 mg 3-04 tablet ity of sublingual 00:00: under the [place] tablet 00 tongue Medical every 5 Branch (five) minutes as needed for Chest pain. nitroglycer 2020-[id number] 1 Univers in 0.4 mg 3-04 tablet ity of sublingual 00:00: under the [place] tablet 00 tongue Medical every 5 Branch (five) minutes as needed for Chest pain. nitroglycer 2020-[id number] 1 Univers in 0.4 mg 3-04 tablet ity of sublingual 00:00: under the [place] tablet 00 tongue Medical every 5 Branch (five) minutes as needed for Chest pain. nitroglycer 1-[id number] 1 Univers in 0.4 mg 3-04 tablet ity of sublingual 00:00: under the [place] tablet 00 tongue Medical every 5 Branch (five) minutes as needed for Chest pain. nitroglycer 1-[id number] 1 Univers in 0.4 mg 3-04 tablet ity of sublingual 00:00: under the [place] tablet 00 tongue Medical every 5 Branch (five) minutes as needed for Chest pain. nitroglycer 2020-[id number] 1 Univers in 0.4 mg 3-04 tablet ity of sublingual 00:00: under the [place] tablet 00 tongue Medical every 5 Branch (five) minutes as needed for Chest pain. nitroglycer 2020-[id number] 1 Univers in 0.4 mg 3-04 tablet ity of sublingual 00:00: under the [place] tablet 00 tongue Medical every 5 Branch (five) minutes as needed for Chest pain. nitroglycer 2020-[id number] 1 Univers in 0.4 mg 3-04 tablet ity of sublingual 00:00: under the [place] tablet 00 tongue Medical every 5 Branch (five) minutes as needed for Chest pain. nitroglycer 2020-[id number] 1 Univers in 0.4 mg 3-04 tablet ity of sublingual 00:00: under the [place] tablet 00 tongue Medical every 5 Branch (five) minutes as needed for Chest pain. nitroglycer 2020-[id number] 1 Univers in 0.4 mg 3-04 tablet ity of sublingual 00:00: under the [place] tablet 00 tongue Medical every 5 Branch (five) minutes as needed for Chest pain. nitroglycer 2020-[id number] 1 Univers in 0.4 mg 3-04 tablet ity of sublingual 00:00: under the [place] tablet 00 tongue Medical every 5 Branch (five) minutes as needed for Chest pain. Bupivicaine Bupivicaine 2020-0 No 2.5mg Common [place] 3-02 Spirit 00:00: [facility] No 40mg Common (Triamcinol (Triamcinol 3-02 S pirit one) one) 00:00: - CHI [facility] Bupivicaine Bupivicaine 2020-0 No 2.5mg Common [place] 3-02 Spirit 00:00: - [facility] 2020-0 No 40mg Common (Triamcinol (Triamcinol 3-02 S pirit one) one) 00:00: - CHI [facility] Bupivicaine Bupivicaine 2020-0 No 2.5mg Common [place] 3-02 Spirit 00:00: - CHI 00 [facility] Kenalog Kenalog 2020-0 No 40mg Common (Triamcinol (Triamcinol 3-02 S pirit one) one) 00:00: - CHI 00 [facility] Bupivicaine Bupivicaine 2020-0 No 2.5mg Common [place] 3-02 Spirit 00:00: - [facility]I 00 [facility] Kenalog Kenalog 2020-0 No 40mg Common (Triamcinol (Triamcinol 3-02 S pirit one) one) 00:00: - CHI 00 [facility] Bupivicaine Bupivicaine 2020-0 No Common [place] 3-02 Spirit 00:00: - CHI 00 [facility] Kenalog Kenalog 2020-0 No 40mg Common (Triamcinol (Triamcinol 3-02 S pirit one) one) 00:00: - CHI 00 [facility] Bupivicaine Bupivicaine 2020-0 No Common [place] 3-02 Spirit 00:00: - CHI 00 [facility] Kenalog Kenalog 2020-0 No 40mg Common (Triamcinol (Triamcinol 3-02 S pirit one) one) 00:00: - [facility]I 00 [facility] Bupivicaine Bupivicaine 2020-0 No 2.5mg Common [place] 3-02 Spirit 00:00: - CHI 00 [facility] Kenalog Kenalog 2020-0 No 40mg Common (Triamcinol (Triamcinol 3-02 S pirit one) one) 00:00: - CHI 00 [facility] Bupivicaine Bupivicaine 2020-0 No 2.5mg Common [place] 3-02 Spirit 00:00: - CHI 00 [facility] Kenalog Kenalog 2020-0 No 40mg Common (Triamcinol (Triamcinol 3-02 S pirit one) one) 00:00: - CHI 00 [facility] Bupivicaine Bupivicaine 2020-0 No 2.5mg Common [place] 3-02 Spirit 00:00: - CHI 00 [facility] Kenalog Kenalog 2020-0 No 40mg Common (Triamcinol (Triamcinol 3-02 S pirit one) one) 00:00: - CHI 00 [facility] Bupivicaine Bupivicaine 2020-0 No 2.5mg Common [place] 3-02 Spirit 00:00: - CHI 00 [facility] Kenalog Kenalog 2020-0 No 40mg Common (Triamcinol (Triamcinol 3-02 S pirit one) one) 00:00: - CHI 00 [facility] Bupivicaine Bupivicaine 2020-0 No 2.5mg Common [place] 3-02 Spirit 00:00: - [facility]I 00 [facility] Kenalog Kenalog 2020-0 No 40mg Common (Triamcinol (Triamcinol 3-02 S pirit one) one) 00:00: - [facility]I 00 [facility] Bupivicaine Bupivicaine 2020-0 No 2.5mg Common [place] 3-02 Spirit 00:00: - CHI 00 [facility] Kenalog Kenalog 2020-0 No 40mg Common (Triamcinol (Triamcinol 3-02 S pirit one) one) 00:00: - CHI 00 [facility] Bupivicaine Bupivicaine 2020-0 No 2.5mg Common [place] 3-02 Spirit 00:00: - [facility]I 00 [facility] Kenalog Kenalog 2020-0 No 40mg Common (Triamcinol (Triamcinol 3-02 S pirit one) one) 00:00: - [facility]I 00 [facility] Bupivicaine Bupivicaine 2020-0 No 2.5mg Common [place] 3-02 Spirit 00:00: - [facility]I 00 [facility] Kenalog Kenalog 2020-0 No 40mg Common (Triamcinol (Triamcinol 3-02 S pirit one) one) 00:00: - [facility]I 00 [facility] Bupivicaine Bupivicaine 2020-0 No 2.5mg Common [place] 3-02 Spirit 00:00: - [facility]I 00 [facility] Ken[place]og Kenalog 2020-0 No 40mg Common (Triamcinol (Triamcinol 3-02 S pirit one) one) 00:00: - [facility] 00 [facility] ciprofloxac 2020-1 Yes 500mg Take 500 U nivers in HCl 500 2-08 mg by ity of mg tablet 00:00: mouth 2 (two) Medical times Branch daily. doxycycline 2019- Yes Univer s monohydrate 2-08 ity of 100 mg 00:00: [place] capsule Medical Branch ciprofloxac 2020- Yes 500mg Take 500 U nivers in [...] mg 00:00: [place] capsule Medical Branch ciprofloxac 2020- Yes 500mg Take 500 U nivers in [...] ity of mg tablet 00:00: mouth 2 () Medical times Branch daily. doxycycline 2019- Yes [...] ity of mg tablet 00:00: mouth 2 () Medical times Branch daily. doxycycline 2019- Yes [...] 100 mg 00:00: [place] capsule Medical Branch amLODIPine 2019-0 Yes [id number] 10mg Take 1 Univers 10 mg 1-10 tablet by ity of tablet 00:00: mouth [place] 00 daily. Medical Branch amLODIPine Yes [id number] 10mg Take 1 Univers 10 mg 1-10 tablet by ity of tablet 00:00: mouth [place] 00 daily. Medical Branch amLODIPine Yes [id number] 10mg Take 1 Univers 10 mg 1-10 tablet by ity of tablet 00:00: mouth [place] 00 daily. Medical Branch amLODIPine Yes [id number] 10mg Take 1 Univers 10 mg 1-10 tablet by ity of tablet 00:00: mouth [place] 00 daily. Medical Branch amLODIPine Yes [id number] 10mg Take 1 Univers 10 mg 1-10 tablet by ity of tablet 00:00: mouth [place] 00 daily. Medical Branch amLODIPine Yes [id number] 10mg Take 1 Univers 10 mg 1-10 tablet by ity of tablet 00:00: mouth [place] 00 daily. Medical Branch amLODIPine Yes [id number] 10mg Take 1 Univers 10 mg 1-10 tablet by ity of tablet 00:00: mouth [place] 00 daily. Medical Branch amLODIPine Yes [id number] 10mg Take 1 Univers 10 mg 1-10 tablet by ity of tablet 00:00: mouth [place] 00 daily. Medical Branch amLODIPine Yes [id number] 10mg Take 1 Univers 10 mg 1-10 tablet by ity of tablet 00:00: mouth [place] 00 daily. Medical Branch amLODIPine Yes [id number] 10mg Take 1 Univers 10 mg 1-10 tablet by ity of tablet 00:00: mouth [place] 00 daily. Medical Branch amLODIPine Yes [id number] 10mg Take 1 Univers 10 mg 1-10 tablet by ity of tablet 00:00: mouth [place] 00 daily. Medical Branch amLODIPine Yes [id number] 10mg Take 1 Univers 10 mg 1-10 tablet by ity of tablet 00:00: mouth [place] 00 daily. Medical Branch amLODIPine Yes [id number] 10mg Take 1 Univers 10 mg 1-10 tablet by ity of tablet 00:00: mouth [place] 00 daily. Medical Branch amLODIPine Yes [id number] 10mg Take 1 Univers 10 mg 1-10 tablet by ity of tablet 00:00: mouth [place] 00 daily. Medical Branch amLODIPine Yes [id number] 10mg Take 1 Univers 10 mg 1-10 tablet by ity of tablet 00:00: mouth [place] 00 daily. Medical Branch amLODIPine Yes [id number] 10mg Take 1 Univers 10 mg 1-10 tablet by ity of tablet 00:00: mouth [place] 00 daily. Medical Branch amLODIPine Yes [id number] 10mg Take 1 Univers 10 mg 1-10 tablet by ity of tablet 00:00: mouth [place] 00 daily. Medical Branch amLODIPine Yes [id number] 10mg Take 1 Univers 10 mg 1-10 tablet by ity of tablet 00:00: mouth [place] 00 daily. Medical Branch amLODIPine Yes [id number] 10mg Take 1 Univers 10 mg 1-10 tablet by ity of tablet 00:00: mouth [place] 00 daily. Medical Branch amLODIPine Yes [id number] 10mg Take 1 Univers 10 mg 1-10 tablet by ity of tablet 00:00: mouth [place] 00 daily. Medical Branch isosorbide Yes [id number] 120mg Take 120 Univers mononitrate 9-23 mg by ity of 120 mg 24 00:00: mouth [place] hr tablet 00 daily. Medical Branch isosorbide Yes [id number] 120mg Take 120 Univers mononitrate 9-23 mg by ity of 120 mg 24 00:00: mouth [place] hr tablet 00 daily. Medical Branch isosorbide Yes [id number] 120mg Take 120 Univers mononitrate 9-23 mg by ity of 120 mg 24 00:00: mouth [place] hr tablet 00 daily. Medical Branch isosorbide Yes [id number] 120mg Take 120 Univers mononitrate 9-23 mg by ity of 120 mg 24 00:00: mouth [place] hr tablet 00 daily. Medical Branch isosorbide Yes [id number] 120mg Take 120 Univers mononitrate 9-23 mg by ity of 120 mg 24 00:00: mouth [place] hr tablet 00 daily. Medical Branch isosorbide Yes [id number] 120mg Take 120 Univers mononitrate 9-23 mg by ity of 120 mg 24 00:00: mouth [place] hr tablet 00 daily. Medical Branch isosorbide Yes [id number] 120mg Take 120 Univers mononitrate 9-23 mg by ity of 120 mg 24 00:00: mouth [place] hr tablet 00 daily. Medical Branch isosorbide 2018-0 Yes [id number] 120mg Take 120 Univers mononitrate 9-23 mg by ity of 120 mg 24 00:00: mouth [place] hr tablet 00 daily. Medical Branch isosorbide 2017-0 Yes [id number] 120mg Take 120 Univers mononitrate 9-23 mg by ity of 120 mg 24 00:00: mouth [place] hr tablet 00 daily. Medical Branch isosorbide 2017-0 Yes [id number] 120mg Take 120 Univers mononitrate 9-23 mg by ity of 120 mg 24 00:00: mouth [place] hr tablet 00 daily. Medical Branch isosorbide 2017-0 Yes [id number] 120mg Take 120 Univers mononitrate 9-23 mg by ity of 120 mg 24 00:00: mouth [place] hr tablet 00 daily. Medical Branch isosorbide 2017-0 Yes [id number] 120mg Take 120 Univers mononitrate 9-23 mg by ity of 120 mg 24 00:00: mouth [place] hr tablet 00 daily. Medical Branch isosorbide 2017- Yes [id number] 120mg Take 120 Univers mononitrate 9-23 mg by ity of 120 mg 24 00:00: mouth [place] hr tablet 00 daily. Medical Branch isosorbide 2017-0 Yes [id number] 120mg Take 120 Univers mononitrate 9-23 mg by ity of 120 mg 24 00:00: mouth [place] hr tablet 00 daily. Medical Branch isosorbide 2017-0 Yes [id number] 120mg Take 120 Univers mononitrate 9-23 mg by ity of 120 mg 24 00:00: mouth [place] hr tablet 00 daily. Medical Branch isosorbide 2017-0 Yes [id number] 120mg Take 120 [facility] mononitrate 9-23 mg by ity of 120 mg 24 00:00: mouth [place] hr tablet 00 daily. [facility] isosorbide 2017-0 Yes [id number] 120mg Take 120 [facility] mononitrate 9-23 mg by ity of 120 mg 24 00:00: mouth [place] hr tablet 00 daily. [facility] isosorbide 2017-0 Yes [id number] 120mg Take 120 [facility] mononitrate 9-23 mg by ity of 120 mg 24 00:00: mouth [place] hr tablet 00 daily. [facility] isosorbide 2018-0 Yes [id number] 120mg Take 120 [facility] mononitrate 9-23 mg by ity of 120 mg 24 00:00: mouth [place] hr tablet 00 daily. [facility] isosorbide 2018-0 Yes [id number] 120mg Take 120 [facility] mononitrate 9-23 mg by ity of 120 mg 24 00:00: mouth [place] hr tablet 00 daily. [facility] lisinopril 2018-0 Yes [id number] 40mg Take 1 [facility] 40 mg 3-08 tablet by ity of tablet 00:00: mouth [place] 00 every day Medical at [address] [place] [address] (noon). lisinopril 2018-0 Yes [id number] 40mg Take 1 [facility] 40 mg 3-08 tablet by ity of tablet 00:00: mouth [place] 00 every day Medical at [address] [place] [address] (noon). lisinopril 2018-0 Yes [id number] 40mg Take 1 [facility] 40 mg 3-08 tablet by ity of tablet 00:00: mouth [place] 00 every day Medical at [address] [place] [address] (noon). lisinopril 2018-0 Yes [id number] 40mg Take 1 [facility] 40 mg 3-08 tablet by ity of tablet 00:00: mouth [place] 00 every day Medical at [address] [place] [address] (noon). lisinopril 2018-0 Yes [id number] 40mg Take 1 [facility] 40 mg 3-08 tablet by ity of tablet 00:00: mouth [place] 00 every day Medical at [address] [place] [address] (noon). lisinopril 2018-0 Yes [id number] 40mg Take 1 [facility] 40 mg 3-08 tablet by ity of tablet 00:00: mouth [place] 00 every day Medical at [address] [place] [address] (noon). lisinopril 2018-0 Yes [id number] 40mg Take 1 [facility] 40 mg 3-08 tablet by ity of tablet 00:00: mouth [place] 00 every day Medical at [address] [place] [address] (noon). lisinopril 2018-0 Yes [id number] 40mg Take 1 [facility] 40 mg 3-08 tablet by ity of tablet 00:00: mouth [place] 00 every day Medical at [address] [place] [address] (noon). lisinopril 2018-0 Yes [id number] 40mg Take 1 [facility] 40 mg 3-08 tablet by ity of tablet 00:00: mouth [place] 00 every day Medical at [address] [place] [address] (noon). lisinopril 2018-0 Yes [id number] 40mg Take 1 [facility] 40 mg 3-08 tablet by ity of tablet 00:00: mouth [place] 00 every day Medical at [address] [place] [address] (noon). lisinopril 2018-0 Yes [id number] 40mg Take 1 [facility] 40 mg 3-08 tablet by ity of tablet 00:00: mouth [place] 00 every day Medical at [address] [place] [address] (noon). lisinopril 2018-0 Yes [id number] 40mg Take 1 [facility] 40 mg 3-08 tablet by ity of tablet 00:00: mouth [place] 00 every day Medical at [address] [place] [address] (noon). lisinopril 2018-0 Yes [id number] 40mg Take 1 [facility] 40 mg 3-08 tablet by ity of tablet 00:00: mouth [place] 00 every day Medical at [address] [place] [address] (noon). lisinopril 2018-0 Yes [id number] 40mg Take 1 [facility] 40 mg 3-08 tablet by ity of tablet 00:00: mouth [place] 00 every day Medical at [address] [place] [address] (noon). lisinopril 2018-0 Yes [id number] 40mg Take 1 [facility] 40 mg 3-08 tablet by ity of tablet 00:00: mouth [place] 00 every day Medical at [address] [place] [address] (noon). lisinopril 2018-0 Yes [id number] 40mg Take 1 [facility] 40 mg 3-08 tablet by ity of tablet 00:00: mouth [place] 00 every day Medical at [address] [place] [address] (noon). lisinopril 2018-0 Yes [id number] 40mg Take 1 [facility] 40 mg 3-08 tablet by ity of tablet 00:00: mouth [place] 00 every day Medical at [address] [place] [address] (noon). lisinopril 2018-0 Yes [id number] 40mg Take 1 [facility] 40 mg 3-08 tablet by ity of tablet 00:00: mouth [place] 00 every day Medical at [address] [place] [address] (noon). lisinopril 2018-0 Yes [id number] 40mg Take 1 [facility] 40 mg 3-08 tablet by ity of tablet 00:00: mouth [place] 00 every day Medical at [address] [place] [address] (noon). lisinopril 2018-0 Yes [id number] 40mg Take 1 [facility] 40 mg 3-08 tablet by ity of tablet 00:00: mouth [place] 00 every day Medical at [address] (noon). KCL 20 mEq 2018-0 Yes [id number] 20meq Take 1 [facility] tablet 3-06 tablet by ity of 00:00: mouth as [place] 00 needed Medical (When Branch patient takes lasix) for up to 30 doses. KCL 20 mEq 2018-0 Yes [id number] 20meq Take 1 [facility] tablet 3-06 tablet by ity of 00:00: mouth as [place] 00 needed Medical (When Branch patient takes lasix) for up to 30 doses. KCL 20 mEq 2018-0 Yes [id number] 20meq Take 1 [facility] tablet 3-06 tablet by ity of 00:00: mouth as [place] 00 needed Medical (When Branch patient takes lasix) for up to 30 doses. KCL 20 mEq 2018-0 Yes [id number] 20meq Take 1 [facility] tablet 3-06 tablet by ity of 00:00: mouth as [place] 00 needed Medical (When Branch patient takes lasix) for up to 30 doses. KCL 20 mEq 2018-0 Yes [id number] 20meq Take 1 [facility] tablet 3-06 tablet by ity of 00:00: mouth as [place] 00 needed Medical (When Branch patient takes lasix) for up to 30 doses. KCL 20 mEq 2018-0 Yes [id number] 20meq Take 1 [facility] tablet 3-06 tablet by ity of 00:00: mouth as [place] 00 needed Medical (When Branch patient takes lasix) for up to 30 doses. KCL 20 mEq 2018-0 Yes [id number] 20meq Take 1 [facility] tablet 3-06 tablet by ity of 00:00: mouth as [place] 00 needed Medical (When Branch patient takes lasix) for up to 30 doses. KCL 20 mEq 2018-0 Yes [id number] 20meq Take 1 [facility] tablet 3-06 tablet by ity of 00:00: mouth as [place] 00 needed Medical (When Branch patient takes lasix) for up to 30 doses. KCL 20 mEq 2018-0 Yes [id number] 20meq Take 1 [facility] tablet 3-06 tablet by ity of 00:00: mouth as [place] 00 needed Medical (When Branch patient takes lasix) for up to 30 doses. KCL 20 mEq 2018-0 Yes [id number] 20meq Take 1 [facility] tablet 3-06 tablet by ity of 00:00: mouth as [place] 00 needed Medical (When Branch patient takes lasix) for up to 30 doses. KCL 20 mEq 2018-0 Yes [id number] 20meq Take 1 [facility] tablet 3-06 tablet by ity of 00:00: mouth as [place] 00 needed Medical (When Branch patient takes lasix) for up to 30 doses. KCL 20 mEq 2018-0 Yes [id number] 20meq Take 1 [facility] tablet 3-06 tablet by ity of 00:00: mouth as [place] 00 needed Medical (When Branch patient takes lasix) for up to 30 doses. KCL 20 mEq 2018-0 Yes [id number] 20meq Take 1 [facility] tablet 3-06 tablet by ity of 00:00: mouth as [place] 00 needed Medical (When Branch patient takes lasix) for up to 30 doses. KCL 20 mEq 2018-0 Yes [id number] 20meq Take 1 [facility] tablet 3-06 tablet by ity of 00:00: mouth as [place] 00 needed Medical (When Branch patient takes lasix) for up to 30 doses. KCL 20 mEq 2018-0 Yes [id number] 20meq Take 1 [facility] tablet 3-06 tablet by ity of 00:00: mouth as [place] 00 needed Medical (When Branch patient takes lasix) for up to 30 doses. KCL 20 mEq 2018-0 Yes [id number] 20meq Take 1 [facility] tablet 3-06 tablet by ity of 00:00: mouth as [place] 00 needed Medical (When Branch patient takes lasix) for up to 30 doses. KCL 20 mEq 2018-0 Yes [id number] 20meq Take 1 [facility] tablet 3-06 tablet by ity of 00:00: mouth as [place] 00 needed Medical (When Branch patient takes lasix) for up to 30 doses. KCL 20 mEq 2018-0 Yes [id number] 20meq Take 1 [facility] tablet 3-06 tablet by ity of 00:00: mouth as [place] 00 needed Medical (When Branch patient takes lasix) for up to 30 doses. KCL 20 mEq 2018-0 Yes [id number] 20meq Take 1 [facility] tablet 3-06 tablet by ity of 00:00: mouth as [place] 00 needed Medical (When Branch patient takes lasix) for up to 30 doses. KCL 20 mEq 2018-0 Yes [id number] 20meq Take 1 [facility] tablet 3-06 tablet by ity of 00:00: mouth as [place] 00 needed Medical (When Branch patient takes lasix) for up to 30 doses. HYDROcodone 2015-06 Yes 1{tbl} Take 1 Un [...] -acetaminop 0-25 tablet by ity of hen ([facility]) 00:00: mouth [place] 7.5-325 mg 00 every 6 Medica l per tablet (six) Branch hours as needed. HYDROcodone 2015-06 Yes 1{tbl} Take 1 Un sandy -acetaminop 0-25 tablet by ity of hen (15Five) 00:00: mouth [place] 7.5-325 mg 00 every 6 Medica l per tablet (six) Branch hours as needed. HYDROcodone 2015-06 Yes 1{tbl} Take 1 Un sandy -acetaminop 0-25 tablet by ity of hen (15Five) 00:00: mouth [place] 7.5-325 mg 00 every 6 Medica l per tablet (six) Branch hours as needed. HYDROcodone 2015-06 Yes 1{tbl} Take 1 Un sandy -acetaminop 0-25 tablet by ity of hen (15Five) 00:00: mouth [place] 7.5-325 mg 00 every 6 Medica l per tablet (six) Branch hours as needed. HYDROcodone 2015-06 Yes 1{tbl} Take 1 Un sandy -acetaminop 0-25 tablet by ity of hen (15Five) 00:00: mouth [place] 7.5-325 mg 00 every 6 Medica l per tablet (six) Branch hours as needed. HYDROcodone 2015-06 Yes 1{tbl} Take 1 Un sandy -acetaminop 0-25 tablet by ity of hen (15Five) 00:00: mouth [place] 7.5-325 mg 00 every 6 Medica l per tablet (six) Branch hours as needed. HYDROcodone 2015-06 Yes 1{tbl} Take 1 Un sandy -acetaminop 0-25 tablet by ity of hen (15Five) 00:00: mouth [place] 7.5-325 mg 00 every 6 Medica l per tablet (six) Branch hours as needed. HYDROcodone 2015-06 Yes 1{tbl} Take 1 Un sandy -acetaminop 0-25 tablet by ity of hen (15Five) 00:00: mouth [place] 7.5-325 mg 00 every [...] mouth ity of tablet 00:00: daily. [place] [facility] aspirin 81 2014-0 Yes 81mg Take 1 Tab U nivers mg chewable 9-30 by mouth ity of tablet 00:00: daily. [place] [facility] aspirin 81 2014-0 Yes 81mg Take 1 Tab U nivers mg chewable 9-30 by mouth ity of tablet 00:00: daily. [place] [facility] aspirin 81 2014-0 Yes 81mg Take 1 Tab U nivers mg chewable 9-30 by mouth ity of tablet 00:00: daily. [place] [facility] aspirin 81 2014-0 Yes 81mg Take 1 Tab U nivers mg chewable 9-30 by mouth ity of tablet 00:00: daily. [place] [facility] aspirin 81 2015-0 Yes 81mg Take 1 Tab U nivers mg chewable 9-30 by mouth ity of tablet 00:00: daily. [place] [facility] Branch aspirin 81 2015-0 Yes 81mg Take 1 Tab U nivers mg chewable 9-30 by mouth ity of tablet 00:00: daily. [address] aspirin 81 2014-0 Yes 81mg Take 1 Tab U nivers mg chewable 9-30 by mouth ity of tablet 00:00: daily. [place] [facility] aspirin 81 2015-0 Yes 81mg Take 1 Tab U nivers mg chewable 9-30 by mouth ity of tablet 00:00: daily. [place] [facility] Branch aspirin 81 2014-0 Yes 81mg Take 1 Tab U nivers mg chewable 9-30 by mouth ity of tablet 00:00: daily. [place] [facility] aspirin 81 2014-0 Yes 81mg Take 1 Tab U nivers mg chewable 9-30 by mouth ity of tablet 00:00: daily. [place] [facility] Branch aspirin 81 2014-0 Yes 81mg Take 1 Tab U nivers mg chewable 9-30 by mouth ity of tablet 00:00: daily. [place] [facility] Branch aspirin 81 2014-0 Yes 81mg Take 1 Tab U nivers mg chewable 9-30 by mouth ity of tablet 00:00: daily. [place] [facility] Branch aspirin 81 2014-0 Yes 81mg Take 1 Tab U nivers mg chewable 9-30 by mouth ity of tablet 00:00: daily. [place] [facility] Branch aspirin 81 2014- Yes 81mg Take 1 Tab U nivers mg chewable 9-30 by mouth ity of tablet 00:00: daily. [place] [facility] aspirin 81 2014-0 Yes 81mg Take 1 Tab U nivers mg chewable 9-30 by mouth ity of tablet 00:00: daily. [place] [facility] aspirin 81 2014-0 Yes 81mg Take 1 Tab U nivers mg chewable 9-30 by mouth ity of tablet 00:00: daily. [place] [facility] Branch aspirin 81 2014-0 Yes 81mg Take 1 Tab U nivers mg chewable 9-30 by mouth ity of tablet 00:00: daily. [place] [facility] aspirin 81 2014-0 Yes 81mg Take 1 Tab U nivers mg chewable 9-30 by mouth ity of tablet 00:00: daily. [place] [facility] aspirin 81 2014-0 Yes 81mg Take 1 Tab U nivers mg chewable 9-30 by mouth ity of tablet 00:00: daily. [address] Isosorbide Isosorbide No Isosorbide Mononitrate Mononitrate Mononitrat ER 60 MG ER 60 MG e ER 60 MG OneTouch OneTouch No OneTouch Ultra Test Ultra Test Ultra Test 0 0 0 Singulair Singulair No 1{table QD Singulair 10 MG 10 MG t_in_th 10 MG e_eveni ng} Fluticasone Fluticasone No Fluticason Propionate Propionate e 50 MCG/ACT 50 MCG/ACT Propionate 50 MCG/ACT Cetirizine Cetirizine No 1{table QD Cetirizine HCl 10 MG HCl 10 MG t} HCl 10 MG Ciprofloxac Ciprofloxac No Ciprofloxa in HCl in HCl ellen HCl Vitamin C Vitamin C No Vitamin C Isosorbide Isosorbide No 1{table QD Isosorbide Mononitrate Mononitrate t_in_th Mononitrat ER 120 MG ER 120 MG e_morni e ER 120 ng} MG Cipro 500 Cipro 500 No 1{table BID Cipro 500 MG MG t} MG Aspir-81 81 Aspir-81 81 No 1{table QD Aspir-81 MG MG t} 81 MG Isosorbide Isosorbide No 1{table QD Isosorbide Mononitrate Mononitrate t_in_th Mononitrat ER 60 MG ER 60 MG e_morni e ER 60 MG ng} Metoprolol Metoprolol No BID Metoprolol Succinate Succinate Succinate 100 MG 100 MG 100 MG HYDROcodone HYDROcodone No 1{table TID HYDROcodon -Acetaminop -Acetaminop t_as_ne e-Acetamin hen 7.5-325 hen 7.5-325 eded} ophen MG MG 7.5-325 MG Atorvastati Atorvastati No 1{table QD Atorvastat n Calcium n Calcium t} in Calcium 40 MG 40 MG 40 MG Nitroglycer Nitroglycer No Nitroglyce in 0.4 MG in 0.4 MG rin 0.4 MG amLODIPine amLODIPine No 1{table QD amLODIPine Besylate 10 Besylate 10 t} Besylate MG MG 10 MG Ondansetron Ondansetron No Ondansetro HCl HCl n HCl Furosemide Furosemide No 1{table QD Furosemide 40 MG 40 MG t} 40 MG Lisinopril Lisinopril No QD Lisinopril 40 40 40 Metoprolol Metoprolol No 1{table BID Metoprolol Tartrate Tartrate t_with_ Tartrate 100 MG 100 MG food} 100 MG Isosorbide Isosorbide No Isosorbide Mononitrate Mononitrate Mononitrat ER 120 MG ER 120 MG e ER 120 MG metFORMIN metFORMIN No 1{table BID metFORMIN HCl 1000 MG HCl 1000 MG t_with_ HCl 1000 a_meal} MG Acetaminoph Acetaminoph No Acetaminop en-Codeine en-Codeine hen-Codein #3 300-30 #3 300-30 e #3 MG MG 300-30 MG Acetaminoph Acetaminoph No Acetaminop en-Codeine en-Codeine hen-Codein #3 300-30 #3 300-30 e #3 MG MG 300-30 MG Atorvastati Atorvastati No 1{table QD Atorvastat n Calcium n Calcium t} in Calcium 40 MG 40 MG 40 MG Aspirin 325 Aspirin 325 No 1{table QD Aspirin MG MG t} 325 MG True Metrix True Metrix No True Blood Blood Metrix Glucose Glucose Blood Test - Test - Glucose Test - Aspir-81 81 Aspir-81 81 No 1{table QD Aspir-81 MG MG t} 81 MG Vitamin B Vitamin B No Vitamin B Complex Complex Complex Metoprolol Metoprolol No BID Metoprolol Succinate Succinate Succinate 100 MG 100 MG 100 MG HYDROcodone HYDROcodone No 1{table TID HYDROcodon -Acetaminop -Acetaminop t_as_ne e-Acetamin hen 7.5-325 hen 7.5-325 eded} ophen MG MG 7.5-325 MG Nitroglycer Nitroglycer No Nitroglyce in 0.4 MG in 0.4 MG rin 0.4 MG Singulair Singulair No 1{table QD Singulair 10 MG 10 MG t_in_th 10 MG e_eveni ng} Montelukast Montelukast No Montelukas Sodium 10 Sodium 10 t Sodium MG MG 10 MG Furosemide Furosemide No 1{table QD Furosemide 40 MG 40 MG t} 40 MG Doxycycline Doxycycline No 1{capsu BID Doxycyclin Hyclate 100 Hyclate 100 le} e Hyclate MG MG 100 MG Flonase 50 Flonase 50 No 1{spray QD Flonase 50 MCG/ACT MCG/ACT _in_eac MCG/ACT h_nostr il} Vitamin C Vitamin C No Vitamin C Cetirizine Cetirizine No 1{table QD Cetirizine HCl 10 MG HCl 10 MG t} HCl 10 MG Fluticasone Fluticasone No Fluticason Propionate Propionate e 50 MCG/ACT 50 MCG/ACT Propionate 50 MCG/ACT metFORMIN metFORMIN No 1{table BID metFORMIN HCl 1000 MG HCl 1000 MG t_with_ HCl 1000 a_meal} MG Zofran 4 MG Zofran 4 MG No 1{table QD Zofran 4 t} MG Lisinopril Lisinopril No Lisinopril 40 MG 40 MG 40 MG ProAir HFA ProAir HFA No 2{puffs QID ProAir HFA 108 (90 108 (90 _as_nee 108 (90 Base) Base) ded} Base) MCG/ACT MCG/ACT MCG/ACT Ciprofloxac Ciprofloxac No Ciprofloxa in HCl in HCl ellen HCl Cipro 500 Cipro 500 No 1{table BID Cipro 500 MG MG t} MG Isosorbide Isosorbide No Isosorbide Mononitrate Mononitrate Mononitrat ER 60 MG ER 60 MG e ER 60 MG Isosorbide Isosorbide No Isosorbide Mononitrate Mononitrate Mononitrat ER 120 MG ER 120 MG e ER 120 MG Metoprolol Metoprolol No 1{table BID Metoprolol Tartrate Tartrate t_with_ Tartrate 100 MG 100 MG food} 100 MG Ondansetron Ondansetron No Ondansetro HCl HCl n HCl True Metrix True Metrix No BID True Meter Meter Metrix w/Device w/Device Meter w/Device Isosorbide Isosorbide No 1{table QD Isosorbide Mononitrate Mononitrate t_in_th Mononitrat ER 120 MG ER 120 MG e_morni e ER 120 ng} MG Isosorbide Isosorbide No 1{table QD Isosorbide Mononitrate Mononitrate t_in_th Mononitrat ER 60 MG ER 60 MG e_morni e ER 60 MG ng} Lisinopril Lisinopril No QD Lisinopril 40 40 40 amLODIPine amLODIPine No 1{table QD amLODIPine Besylate 10 Besylate 10 t} Besylate MG MG 10 MG OneTouch OneTouch No OneTouch Ultra Test Ultra Test Ultra Test 0 0 0 Fluticasone Fluticasone No Fluticason Propionate Propionate e 50 MCG/ACT 50 MCG/ACT Propionate 50 MCG/ACT Isosorbide Isosorbide No 1{table QD Isosorbide Mononitrate Mononitrate t_in_th Mononitrat ER 120 MG ER 120 MG e_morni e ER 120 ng} MG Atorvastati Atorvastati No Atorvastat n Calcium n Calcium in Calcium 40 MG 40 MG 40 MG Cipro 500 Cipro 500 No 1{table BID Cipro 500 MG MG t} MG Isosorbide Isosorbide No 1{table QD Isosorbide Mononitrate Mononitrate t_in_th Mononitrat ER 60 MG ER 60 MG e_morni e ER 60 MG ng} Atorvastati Atorvastati No 1{table QD Atorvastat n Calcium n Calcium t} in Calcium 40 MG 40 MG 40 MG Vitamin B Vitamin B No Vitamin B Complex Complex Complex Metoprolol Metoprolol No 1{table BID Metoprolol Tartrate Tartrate t_with_ Tartrate 100 MG 100 MG food} 100 MG Furosemide Furosemide No 1{table QD Furosemide 40 MG 40 MG t} 40 MG Montelukast Montelukast No Montelukas Sodium 10 Sodium 10 t Sodium MG MG 10 MG Lisinopril Lisinopril No QD Lisinopril 40 40 40 Lisinopril Lisinopril No Lisinopril 40 MG 40 MG 40 MG OneTouch OneTouch No OneTouch Ultra Test Ultra Test Ultra Test 0 0 0 True Metrix True Metrix No True Blood Blood Metrix Glucose Glucose Blood Test - Test - Glucose Test - metFORMIN metFORMIN No 1{table BID metFORMIN HCl 1000 MG HCl 1000 MG t_with_ HCl 1000 a_meal} MG amLODIPine amLODIPine No 1{table QD amLODIPine Besylate 10 Besylate 10 t} Besylate MG MG 10 MG True Metrix True Metrix No BID True Meter Meter Metrix w/Device w/Device Meter w/Device Vitamin C Vitamin C No Vitamin C Aspirin 325 Aspirin 325 No 1{table QD Aspirin MG MG t} 325 MG Nitroglycer Nitroglycer No Nitroglyce in 0.4 MG in 0.4 MG rin 0.4 MG Singulair Singulair No 1{table QD Singulair 10 MG 10 MG t_in_th 10 MG e_eveni ng} Cetirizine Cetirizine No 1{table QD Cetirizine HCl 10 MG HCl 10 MG t} HCl 10 MG Aspir-81 81 Aspir-81 81 No 1{table QD Aspir-81 MG MG t} 81 MG HYDROcodone HYDROcodone No 1{table TID HYDROcodon -Acetaminop -Acetaminop t_as_ne e-Acetamin hen 7.5-325 hen 7.5-325 eded} ophen MG MG 7.5-325 MG Isosorbide Isosorbide No Isosorbide Mononitrate Mononitrate Mononitrat ER 120 MG ER 120 MG e ER 120 MG ProAir HFA ProAir HFA No 2{puffs QID ProAir HFA 108 (90 108 (90 _as_nee 108 (90 Base) Base) ded} Base) MCG/ACT MCG/ACT MCG/ACT Acetaminoph Acetaminoph No Acetaminop en-Codeine en-Codeine hen-Codein #3 300-30 #3 300-30 e #3 MG MG 300-30 MG Isosorbide Isosorbide No Isosorbide Mononitrate Mononitrate Mononitrat ER 60 MG ER 60 MG e ER 60 MG Flonase 50 Flonase 50 No 1{spray QD Flonase 50 MCG/ACT MCG/ACT _in_eac MCG/ACT h_nostr il} Doxycycline Doxycycline No 1{capsu BID Doxycyclin Hyclate 100 Hyclate 100 le} e Hyclate MG MG 100 MG Ciprofloxac Ciprofloxac No Ciprofloxa in HCl in HCl ellen HCl Zofran 4 MG Zofran 4 MG No 1{table QD Zofran 4 t} MG Metoprolol Metoprolol No BID Metoprolol Succinate Succinate Succinate 100 MG 100 MG 100 MG Ondansetron Ondansetron No Ondansetro HCl HCl n HCl Isosorbide Isosorbide No Isosorbide Mononitrate Mononitrate Mononitrat ER 60 MG ER 60 MG e ER 60 MG Vitamin C Vitamin C No Vitamin C Acetaminoph Acetaminoph No Acetaminop en-Codeine en-Codeine hen-Codein #3 300-30 #3 300-30 e #3 MG MG 300-30 MG Fluticasone Fluticasone No Fluticason Propionate Propionate e 50 MCG/ACT 50 MCG/ACT Propionate 50 MCG/ACT Aspirin 325 Aspirin 325 No 1{table QD Aspirin MG MG t} 325 MG Ciprofloxac Ciprofloxac No Ciprofloxa in HCl in HCl ellen HCl OneTouch OneTouch No OneTouch Ultra Test Ultra Test Ultra Test 0 0 0 amLODIPine amLODIPine No 1{table QD amLODIPine Besylate 10 Besylate 10 t} Besylate MG MG 10 MG Cetirizine Cetirizine No 1{table QD Cetirizine HCl 10 MG HCl 10 MG t} HCl 10 MG Metoprolol Metoprolol No 1{table BID Metoprolol Tartrate Tartrate t_with_ Tartrate 100 MG 100 MG food} 100 MG Ondansetron Ondansetron No Ondansetro HCl HCl n HCl Lisinopril Lisinopril No QD Lisinopril 40 40 40 Nitroglycer Nitroglycer No Nitroglyce in 0.4 MG in 0.4 MG rin 0.4 MG Isosorbide Isosorbide No 1{table QD Isosorbide Mononitrate Mononitrate t_in_th Mononitrat ER 60 MG ER 60 MG e_morni e ER 60 MG ng} Isosorbide Isosorbide No Isosorbide Mononitrate Mononitrate Mononitrat ER 120 MG ER 120 MG e ER 120 MG Metoprolol Metoprolol No BID Metoprolol Succinate Succinate Succinate 100 MG 100 MG 100 MG HYDROcodone HYDROcodone No 1{table TID HYDROcodon -Acetaminop -Acetaminop t_as_ne e-Acetamin hen 7.5-325 hen 7.5-325 eded} ophen MG MG 7.5-325 MG Montelukast Montelukast No Montelukas Sodium 10 Sodium 10 t Sodium MG MG 10 MG Lisinopril Lisinopril No Lisinopril 40 MG 40 MG 40 MG Cipro 500 Cipro 500 No 1{table BID Cipro 500 MG MG t} MG Vitamin B Vitamin B No Vitamin B Complex Complex Complex Furosemide Furosemide No 1{table QD Furosemide 40 MG 40 MG t} 40 MG Atorvastati Atorvastati No Atorvastat n Calcium n Calcium in Calcium 40 MG 40 MG 40 MG metFORMIN metFORMIN No 1{table BID metFORMIN HCl 1000 MG HCl 1000 MG t_with_ HCl 1000 a_meal} MG True Metrix True Metrix No True Blood Blood Metrix Glucose Glucose Blood Test - Test - Glucose Test - Isosorbide Isosorbide No 1{table QD Isosorbide Mononitrate Mononitrate t_in_th Mononitrat ER 120 MG ER 120 MG e_morni e ER 120 ng} MG Atorvastati Atorvastati No 1{table QD Atorvastat n Calcium n Calcium t} in Calcium 40 MG 40 MG 40 MG Flonase 50 Flonase 50 No 1{spray QD Flonase 50 MCG/ACT MCG/ACT _in_eac MCG/ACT h_nostr il} Singulair Singulair No 1{table QD Singulair 10 MG 10 MG t_in_th 10 MG e_eveni ng} Aspir-81 81 Aspir-81 81 No 1{table QD Aspir-81 MG MG t} 81 MG True Metrix True Metrix No BID True Meter Meter Metrix w/Device w/Device Meter w/Device Doxycycline Doxycycline No 1{capsu BID Doxycyclin Hyclate 100 Hyclate 100 le} e Hyclate MG MG 100 MG Zofran 4 MG Zofran 4 MG No 1{table QD Zofran 4 t} MG ProAir HFA ProAir HFA No 2{puffs QID ProAir HFA 108 (90 108 (90 _as_nee 108 (90 Base) Base) ded} Base) MCG/ACT MCG/ACT MCG/ACT Nitroglycer Nitroglycer No Nitroglyce in 0.4 MG in 0.4 MG rin 0.4 MG Lisinopril Lisinopril No QD Lisinopril 40 40 40 Cetirizine Cetirizine No 1{table QD Cetirizine HCl 10 MG HCl 10 MG t} HCl 10 MG OneTouch OneTouch No OneTouch Ultra Test Ultra Test Ultra Test 0 0 0 Isosorbide Isosorbide No 1{table QD Isosorbide Mononitrate Mononitrate t_in_th Mononitrat ER 60 MG ER 60 MG e_morni e ER 60 MG ng} Atorvastati Atorvastati No Atorvastat n Calcium n Calcium in Calcium 40 MG 40 MG 40 MG Vitamin B Vitamin B No Vitamin B Complex Complex Complex Isosorbide Isosorbide No 1{table QD Isosorbide Mononitrate Mononitrate t_in_th Mononitrat ER 120 MG ER 120 MG e_morni e ER 120 ng} MG metFORMIN metFORMIN No 1{table BID metFORMIN HCl 1000 MG HCl 1000 MG t_with_ HCl 1000 a_meal} MG Metoprolol Metoprolol No BID Metoprolol Succinate Succinate Succinate 100 MG 100 MG 100 MG Isosorbide Isosorbide No Isosorbide Mononitrate Mononitrate Mononitrat ER 120 MG ER 120 MG e ER 120 MG Lisinopril Lisinopril No Lisinopril 40 MG 40 MG 40 MG True Metrix True Metrix No True Blood Blood Metrix Glucose Glucose Blood Test - Test - Glucose Test - Ciprofloxac Ciprofloxac No Ciprofloxa in HCl in HCl ellen HCl Acetaminoph Acetaminoph No Acetaminop en-Codeine en-Codeine hen-Codein #3 300-30 #3 300-30 e #3 MG MG 300-30 MG Flonase 50 Flonase 50 No 1{spray QD Flonase 50 MCG/ACT MCG/ACT _in_eac MCG/ACT h_nostr il} Cipro 500 Cipro 500 No 1{table BID Cipro 500 MG MG t} MG Furosemide Furosemide No 1{table QD Furosemide 40 MG 40 MG t} 40 MG Isosorbide Isosorbide No Isosorbide Mononitrate Mononitrate Mononitrat ER 60 MG ER 60 MG e ER 60 MG Vitamin C Vitamin C No Vitamin C Montelukast Montelukast No Montelukas Sodium 10 Sodium 10 t Sodium MG MG 10 MG Fluticasone Fluticasone No Fluticason Propionate Propionate e 50 MCG/ACT 50 MCG/ACT Propionate 50 MCG/ACT Aspirin 325 Aspirin 325 No 1{table QD Aspirin MG MG t} 325 MG amLODIPine amLODIPine No 1{table QD amLODIPine Besylate 10 Besylate 10 t} Besylate MG MG 10 MG Ondansetron Ondansetron No Ondansetro HCl HCl n HCl Singulair Singulair No 1{table QD Singulair 10 MG 10 MG t_in_th 10 MG e_eveni ng} Metoprolol Metoprolol No 1{table BID Metoprolol Tartrate Tartrate t_with_ Tartrate 100 MG 100 MG food} 100 MG HYDROcodone HYDROcodone No 1{table TID HYDROcodon -Acetaminop -Acetaminop t_as_ne e-Acetamin hen 7.5-325 hen 7.5-325 eded} ophen MG MG 7.5-325 MG Aspir-81 81 Aspir-81 81 No 1{table QD Aspir-81 MG MG t} 81 MG True Metrix True Metrix No BID True Meter Meter Metrix w/Device w/Device Meter w/Device Doxycycline Doxycycline No 1{capsu BID Doxycyclin Hyclate 100 Hyclate 100 le} e Hyclate MG MG 100 MG Zofran 4 MG Zofran 4 MG No 1{table QD Zofran 4 t} MG ProAir HFA ProAir HFA No 2{puffs QID ProAir HFA 108 (90 108 (90 _as_nee 108 (90 Base) Base) ded} Base) MCG/ACT MCG/ACT MCG/ACT Isosorbide Isosorbide No Isosorbide Mononitrate Mononitrate Mononitrat ER 60 MG ER 60 MG e ER 60 MG Ciprofloxac Ciprofloxac No 2.5{ml} BID Ciprofloxa in 500 in 500 ellen 500 MG/5ML MG/5ML MG/5ML (10%) (10%) (10%) Vitamin C Vitamin C No Vitamin C HYDROcodone HYDROcodone No 1{table TID HYDROcodon -Acetaminop -Acetaminop t_as_ne e-Acetamin hen 7.5-325 hen 7.5-325 eded} ophen MG MG 7.5-325 MG Montelukast Montelukast No Montelukas Sodium 10 Sodium 10 t Sodium MG MG 10 MG Aspirin 325 Aspirin 325 No 1{table QD Aspirin MG MG t} 325 MG Furosemide Furosemide No 1{table QD Furosemide 40 MG 40 MG t} 40 MG Flonase 50 Flonase 50 No 1{spray QD Flonase 50 MCG/ACT MCG/ACT _in_eac MCG/ACT h_nostr il} Aspir-81 81 Aspir-81 81 No 1{table QD Aspir-81 MG MG t} 81 MG Lisinopril Lisinopril No Lisinopril 40 MG 40 MG 40 MG Ciprofloxac Ciprofloxac No Ciprofloxa in HCl in HCl ellen HCl Isosorbide Isosorbide No Isosorbide Mononitrate Mononitrate Mononitrat ER 120 MG ER 120 MG e ER 120 MG Fluticasone Fluticasone No Fluticason Propionate Propionate e 50 MCG/ACT 50 MCG/ACT Propionate 50 MCG/ACT Cetirizine Cetirizine No Cetirizine HCl 10 MG HCl 10 MG HCl 10 MG Metoprolol Metoprolol No 1{table BID Metoprolol Tartrate Tartrate t_with_ Tartrate 100 MG 100 MG food} 100 MG amLODIPine amLODIPine No 1{table QD amLODIPine Besylate 10 Besylate 10 t} Besylate MG MG 10 MG ProAir HFA ProAir HFA No 2{puffs QID ProAir HFA 108 (90 108 (90 _as_nee 108 (90 Base) Base) ded} Base) MCG/ACT MCG/ACT MCG/ACT Lisinopril Lisinopril No QD Lisinopril 40 40 40 Vitamin B Vitamin B No Vitamin B Complex Complex Complex True Metrix True Metrix No BID True Meter Meter Metrix w/Device w/Device Meter w/Device Ondansetron Ondansetron No Ondansetro HCl HCl n HCl Cipro 500 Cipro 500 No 1{table BID Cipro 500 MG MG t} MG True Metrix True Metrix No True Blood Blood Metrix Glucose Glucose Blood Test - Test - Glucose Test - Atorvastati Atorvastati No Atorvastat n Calcium n Calcium in Calcium 40 MG 40 MG 40 MG Zofran 4 MG Zofran 4 MG No 1{table QD Zofran 4 t} MG Metoprolol Metoprolol No BID Metoprolol Succinate Succinate Succinate 100 MG 100 MG 100 MG Doxycycline Doxycycline No 1{capsu BID Doxycyclin Hyclate 100 Hyclate 100 le} e Hyclate MG MG 100 MG Acetaminoph Acetaminoph No Acetaminop en-Codeine en-Codeine hen-Codein #3 300-30 #3 300-30 e #3 MG MG 300-30 MG Nitroglycer Nitroglycer No Nitroglyce in 0.4 MG in 0.4 MG rin 0.4 MG metFORMIN metFORMIN No 1{table BID metFORMIN HCl 1000 MG HCl 1000 MG t_with_ HCl 1000 a_meal} MG OneTouch OneTouch No OneTouch Ultra Test Ultra Test Ultra Test 0 0 0 Singulair Singulair No 1{table QD Singulair 10 MG 10 MG t_in_th 10 MG e_eveni ng} ProAir HFA ProAir HFA No 2{puffs QID ProAir HFA 108 (90 108 (90 _as_nee 108 (90 Base) Base) ded} Base) MCG/ACT MCG/ACT MCG/ACT Isosorbide Isosorbide No 1{table QD Isosorbide Mononitrate Mononitrate t_in_th Mononitrat ER 120 MG ER 120 MG e_morni e ER 120 ng} MG Fluticasone Fluticasone No Fluticason Propionate Propionate e 50 MCG/ACT 50 MCG/ACT Propionate 50 MCG/ACT Ciprofloxac Ciprofloxac No 2.5{ml} BID Ciprofloxa in 500 in 500 ellen 500 MG/5ML MG/5ML MG/5ML (10%) (10%) (10%) Zofran 4 MG Zofran 4 MG No 1{table QD Zofran 4 t} MG Cetirizine Cetirizine No Cetirizine HCl 10 MG HCl 10 MG HCl 10 MG Ondansetron Ondansetron No Ondansetro HCl HCl n HCl amLODIPine amLODIPine No 1{table QD amLODIPine Besylate 10 Besylate 10 t} Besylate MG MG 10 MG Montelukast Montelukast No Montelukas Sodium 10 Sodium 10 t Sodium MG MG 10 MG Metoprolol Metoprolol No BID Metoprolol Succinate Succinate Succinate 100 MG 100 MG 100 MG Acetaminoph Acetaminoph No Acetaminop en-Codeine en-Codeine hen-Codein #3 300-30 #3 300-30 e #3 MG MG 300-30 MG Cipro 500 Cipro 500 No 1{table BID Cipro 500 MG MG t} MG Isosorbide Isosorbide No 1{table QD Isosorbide Mononitrate Mononitrate t_in_th Mononitrat ER 60 MG ER 60 MG e_morni e ER 60 MG ng} Isosorbide Isosorbide No Isosorbide Mononitrate Mononitrate Mononitrat ER 60 MG ER 60 MG e ER 60 MG Nitroglycer Nitroglycer No Nitroglyce in 0.4 MG in 0.4 MG rin 0.4 MG Atorvastati Atorvastati No Atorvastat n Calcium n Calcium in Calcium 40 MG 40 MG 40 MG Furosemide Furosemide No 1{table QD Furosemide 40 MG 40 MG t} 40 MG HYDROcodone HYDROcodone No 1{table TID HYDROcodon -Acetaminop -Acetaminop t_as_ne e-Acetamin hen 7.5-325 hen 7.5-325 eded} ophen MG MG 7.5-325 MG Vitamin B Vitamin B No Vitamin B Complex Complex Complex Vitamin C Vitamin C No Vitamin C Aspir-81 81 Aspir-81 81 No 1{table QD Aspir-81 MG MG t} 81 MG Flonase 50 Flonase 50 No 1{spray QD Flonase 50 MCG/ACT MCG/ACT _in_eac MCG/ACT h_nostr il} True Metrix True Metrix No True Blood Blood Metrix Glucose Glucose Blood Test - Test - Glucose Test - Isosorbide Isosorbide No Isosorbide Mononitrate Mononitrate Mononitrat ER 120 MG ER 120 MG e ER 120 MG Ciprofloxac Ciprofloxac No Ciprofloxa in HCl in HCl ellen HCl Doxycycline Doxycycline No 1{capsu BID Doxycyclin Hyclate 100 Hyclate 100 le} e Hyclate MG MG 100 MG Lisinopril Lisinopril No Lisinopril 40 MG 40 MG 40 MG Aspirin 325 Aspirin 325 No 1{table QD Aspirin MG MG t} 325 MG Atorvastati Atorvastati No 1{table QD Atorvastat n Calcium n Calcium t} in Calcium 40 MG 40 MG 40 MG Singulair Singulair No 1{table QD Singulair 10 MG 10 MG t_in_th 10 MG e_eveni ng} Lisinopril Lisinopril No QD Lisinopril 40 40 40 metFORMIN metFORMIN No 1{table BID metFORMIN HCl 1000 MG HCl 1000 MG t_with_ HCl 1000 a_meal} MG Metoprolol Metoprolol No 1{table BID Metoprolol Tartrate Tartrate t_with_ Tartrate 100 MG 100 MG food} 100 MG OneTouch OneTouch No OneTouch Ultra Test Ultra Test Ultra Test 0 0 0 True Metrix True Metrix No BID True Meter Meter Metrix w/Device w/Device Meter w/Device Ciprofloxac Ciprofloxac No 2.5{ml} BID Ciprofloxa in 500 in 500 ellen 500 MG/5ML MG/5ML MG/5ML (10%) (10%) (10%) Doxycycline Doxycycline No 1{capsu BID Doxycyclin Hyclate 100 Hyclate 100 le} e Hyclate MG MG 100 MG Lisinopril Lisinopril No Lisinopril 40 MG 40 MG 40 MG Atorvastati Atorvastati No 1{table QD Atorvastat n Calcium n Calcium t} in Calcium 40 MG 40 MG 40 MG Flonase 50 Flonase 50 No 1{spray QD Flonase 50 MCG/ACT MCG/ACT _in_eac MCG/ACT h_nostr il} Furosemide Furosemide No 1{table QD Furosemide 40 MG 40 MG t} 40 MG Metoprolol Metoprolol No BID Metoprolol Succinate Succinate Succinate 100 MG 100 MG 100 MG Isosorbide Isosorbide No 1{table QD Isosorbide Mononitrate Mononitrate t_in_th Mononitrat ER 120 MG ER 120 MG e_morni e ER 120 ng} MG Cipro 500 Cipro 500 No 1{table BID Cipro 500 MG MG t} MG ProAir HFA ProAir HFA No 2{puffs QID ProAir HFA 108 (90 108 (90 _as_nee 108 (90 Base) Base) ded} Base) MCG/ACT MCG/ACT MCG/ACT Zofran 4 MG Zofran 4 MG No 1{table QD Zofran 4 t} MG Fluticasone Fluticasone No Fluticason Propionate Propionate e 50 MCG/ACT 50 MCG/ACT Propionate 50 MCG/ACT amLODIPine amLODIPine No 1{table QD amLODIPine Besylate 10 Besylate 10 t} Besylate MG MG 10 MG Ondansetron Ondansetron No Ondansetro HCl HCl n HCl Acetaminoph Acetaminoph No Acetaminop en-Codeine en-Codeine hen-Codein #3 300-30 #3 300-30 e #3 MG MG 300-30 MG Atorvastati Atorvastati No Atorvastat n Calcium n Calcium in Calcium 40 MG 40 MG 40 MG Nitroglycer Nitroglycer No Nitroglyce in 0.4 MG in 0.4 MG rin 0.4 MG Vitamin B Vitamin B No Vitamin B Complex Complex Complex Singulair Singulair No 1{table QD Singulair 10 MG 10 MG t_in_th 10 MG e_eveni ng} Montelukast Montelukast No Montelukas Sodium 10 Sodium 10 t Sodium MG MG 10 MG Isosorbide Isosorbide No Isosorbide Mononitrate Mononitrate Mononitrat ER 120 MG ER 120 MG e ER 120 MG Ciprofloxac Ciprofloxac No Ciprofloxa in HCl in HCl ellen HCl Aspirin 325 Aspirin 325 No 1{table QD Aspirin MG MG t} 325 MG HYDROcodone HYDROcodone No 1{table TID HYDROcodon -Acetaminop -Acetaminop t_as_ne e-Acetamin hen 7.5-325 hen 7.5-325 eded} ophen MG MG 7.5-325 MG Isosorbide Isosorbide No Isosorbide Mononitrate Mononitrate Mononitrat ER 60 MG ER 60 MG e ER 60 MG Cetirizine Cetirizine No Cetirizine HCl 10 MG HCl 10 MG HCl 10 MG Isosorbide Isosorbide No 1{table QD Isosorbide Mononitrate Mononitrate t_in_th Mononitrat ER 60 MG ER 60 MG e_morni e ER 60 MG ng} Vitamin C Vitamin C No Vitamin C Aspir-81 81 Aspir-81 81 No 1{table QD Aspir-81 MG MG t} 81 MG True Metrix True Metrix No True Blood Blood Metrix Glucose Glucose Blood Test - Test - Glucose Test - Lisinopril Lisinopril No QD Lisinopril 40 40 40 metFORMIN metFORMIN No 1{table BID metFORMIN HCl 1000 MG HCl 1000 MG t_with_ HCl 1000 a_meal} MG Metoprolol Metoprolol No 1{table BID Metoprolol Tartrate Tartrate t_with_ Tartrate 100 MG 100 MG food} 100 MG OneTouch OneTouch No OneTouch Ultra Test Ultra Test Ultra Test 0 0 0 True Metrix True Metrix No BID True Meter Meter Metrix w/Device w/Device Meter w/Device Ciprofloxac Ciprofloxac No 2.5{ml} BID Ciprofloxa in 500 in 500 ellen 500 MG/5ML MG/5ML MG/5ML (10%) (10%) (10%) Doxycycline Doxycycline No 1{capsu BID Doxycyclin Hyclate 100 Hyclate 100 le} e Hyclate MG MG 100 MG Fluticasone Fluticasone No Fluticason Propionate Propionate e 50 MCG/ACT 50 MCG/ACT Propionate 50 MCG/ACT Atorvastati Atorvastati No 1{table QD Atorvastat n Calcium n Calcium t} in Calcium 40 MG 40 MG 40 MG Flonase 50 Flonase 50 No 1{spray QD Flonase 50 MCG/ACT MCG/ACT _in_eac MCG/ACT h_nostr il} Furosemide Furosemide No 1{table QD Furosemide 40 MG 40 MG t} 40 MG Metoprolol Metoprolol No BID Metoprolol Succinate Succinate Succinate 100 MG 100 MG 100 MG Isosorbide Isosorbide No 1{table QD Isosorbide Mononitrate Mononitrate t_in_th Mononitrat ER 120 MG ER 120 MG e_morni e ER 120 ng} MG Cipro 500 Cipro 500 No 1{table BID Cipro 500 MG MG t} MG ProAir HFA ProAir HFA No 2{puffs QID ProAir HFA 108 (90 108 (90 _as_nee 108 (90 Base) Base) ded} Base) MCG/ACT MCG/ACT MCG/ACT Zofran 4 MG Zofran 4 MG No 1{table QD Zofran 4 t} MG Lisinopril Lisinopril No Lisinopril 40 MG 40 MG 40 MG amLODIPine amLODIPine No 1{table QD amLODIPine Besylate 10 Besylate 10 t} Besylate MG MG 10 MG Ondansetron Ondansetron No Ondansetro HCl HCl n HCl Acetaminoph Acetaminoph No Acetaminop en-Codeine en-Codeine hen-Codein #3 300-30 #3 300-30 e #3 MG MG 300-30 MG Atorvastati Atorvastati No Atorvastat n Calcium n Calcium in Calcium 40 MG 40 MG 40 MG Nitroglycer Nitroglycer No Nitroglyce in 0.4 MG in 0.4 MG rin 0.4 MG Vitamin B Vitamin B No Vitamin B Complex Complex Complex Singulair Singulair No 1{table QD Singulair 10 MG 10 MG t_in_th 10 MG e_eveni ng} Montelukast Montelukast No Montelukas Sodium 10 Sodium 10 t Sodium MG MG 10 MG Isosorbide Isosorbide No Isosorbide Mononitrate Mononitrate Mononitrat ER 120 MG ER 120 MG e ER 120 MG Ciprofloxac Ciprofloxac No Ciprofloxa in HCl in HCl ellen HCl Aspirin 325 Aspirin 325 No 1{table QD Aspirin MG MG t} 325 MG HYDROcodone HYDROcodone No 1{table TID HYDROcodon -Acetaminop -Acetaminop t_as_ne e-Acetamin hen 7.5-325 hen 7.5-325 eded} ophen MG MG 7.5-325 MG Isosorbide Isosorbide No Isosorbide Mononitrate Mononitrate Mononitrat ER 60 MG ER 60 MG e ER 60 MG Cetirizine Cetirizine No Cetirizine HCl 10 MG HCl 10 MG HCl 10 MG Isosorbide Isosorbide No 1{table QD Isosorbide Mononitrate Mononitrate t_in_th Mononitrat ER 60 MG ER 60 MG e_morni e ER 60 MG ng} Vitamin C Vitamin C No Vitamin C Aspir-81 81 Aspir-81 81 No 1{table QD Aspir-81 MG MG t} 81 MG True Metrix True Metrix No True Blood Blood Metrix Glucose Glucose Blood Test - Test - Glucose Test - Lisinopril Lisinopril No QD Lisinopril 40 40 40 metFORMIN metFORMIN No 1{table BID metFORMIN HCl 1000 MG HCl 1000 MG t_with_ HCl 1000 a_meal} MG Metoprolol Metoprolol No 1{table BID Metoprolol Tartrate Tartrate t_with_ Tartrate 100 MG 100 MG food} 100 MG OneTouch OneTouch No OneTouch Ultra Test Ultra Test Ultra Test 0 0 0 True Metrix True Metrix No BID True Meter Meter Metrix w/Device w/Device Meter w/Device Lisinopril Lisinopril No QD Lisinopril 40 40 40 Metoprolol Metoprolol No BID Metoprolol Succinate Succinate Succinate 100 MG 100 MG 100 MG Flonase 50 Flonase 50 No 1{spray QD Flonase 50 MCG/ACT MCG/ACT _in_eac MCG/ACT h_nostr il} Isosorbide Isosorbide No Isosorbide Mononitrate Mononitrate Mononitrat ER 120 MG ER 120 MG e ER 120 MG True Metrix True Metrix No BID True Meter Meter Metrix w/Device w/Device Meter w/Device Nitroglycer Nitroglycer No Nitroglyce in 0.4 MG in 0.4 MG rin 0.4 MG OneTouch OneTouch No OneTouch Ultra Test Ultra Test Ultra Test 0 0 0 Singulair Singulair No 1{table QD Singulair 10 MG 10 MG t_in_th 10 MG e_eveni ng} Montelukast Montelukast No Montelukas Sodium 10 Sodium 10 t Sodium MG MG 10 MG Acetaminoph Acetaminoph No Acetaminop en-Codeine en-Codeine hen-Codein #3 300-30 #3 300-30 e #3 MG MG 300-30 MG Furosemide Furosemide No 1{table QD Furosemide 40 MG 40 MG t} 40 MG HYDROcodone HYDROcodone No 1{table TID HYDROcodon -Acetaminop -Acetaminop t_as_ne e-Acetamin hen 7.5-325 hen 7.5-325 eded} ophen MG MG 7.5-325 MG Ciprofloxac Ciprofloxac No Ciprofloxa in HCl in HCl ellen HCl ProAir HFA ProAir HFA No 2{puffs QID ProAir HFA 108 (90 108 (90 _as_nee 108 (90 Base) Base) ded} Base) MCG/ACT MCG/ACT MCG/ACT Zofran 4 MG Zofran 4 MG No 1{table QD Zofran 4 t} MG Doxycycline Doxycycline No 1{capsu BID Doxycyclin Hyclate 100 Hyclate 100 le} e Hyclate MG MG 100 MG Cetirizine Cetirizine No Cetirizine HCl 10 MG HCl 10 MG HCl 10 MG Isosorbide Isosorbide No 1{table QD Isosorbide Mononitrate Mononitrate t_in_th Mononitrat ER 120 MG ER 120 MG e_morni e ER 120 ng} MG Vitamin B Vitamin B No Vitamin B Complex Complex Complex Fluticasone Fluticasone No Fluticason Propionate Propionate e 50 MCG/ACT 50 MCG/ACT Propionate 50 MCG/ACT Isosorbide Isosorbide No Isosorbide Mononitrate Mononitrate Mononitrat ER 60 MG ER 60 MG e ER 60 MG Isosorbide Isosorbide No 1{table QD Isosorbide Mononitrate Mononitrate t_in_th Mononitrat ER 60 MG ER 60 MG e_morni e ER 60 MG ng} amLODIPine amLODIPine No 1{table QD amLODIPine Besylate 10 Besylate 10 t} Besylate MG MG 10 MG metFORMIN metFORMIN No 1{table BID metFORMIN HCl 1000 MG HCl 1000 MG t_with_ HCl 1000 a_meal} MG Ondansetron Ondansetron No Ondansetro HCl HCl n HCl Aspir-81 81 Aspir-81 81 No 1{table QD Aspir-81 MG MG t} 81 MG Aspirin 325 Aspirin 325 No 1{table QD Aspirin MG MG t} 325 MG Metoprolol Metoprolol No 1{table BID Metoprolol Tartrate Tartrate t_with_ Tartrate 100 MG 100 MG food} 100 MG Ciprofloxac Ciprofloxac No 2.5{ml} BID Ciprofloxa in 500 in 500 ellen 500 MG/5ML MG/5ML MG/5ML (10%) (10%) (10%) Vitamin C Vitamin C No Vitamin C True Metrix True Metrix No True Blood Blood Metrix Glucose Glucose Blood Test - Test - Glucose Test - Cipro 500 Cipro 500 No 1{table BID Cipro 500 MG MG t} MG Lisinopril Lisinopril No Lisinopril 40 MG 40 MG 40 MG Atorvastati Atorvastati No Atorvastat n Calcium n Calcium in Calcium 40 MG 40 MG 40 MG Lisinopril Lisinopril No QD Lisinopril 40 40 40 Metoprolol Metoprolol No BID Metoprolol Succinate Succinate Succinate 100 MG 100 MG 100 MG Flonase 50 Flonase 50 No 1{spray QD Flonase 50 MCG/ACT MCG/ACT _in_eac MCG/ACT h_nostr il} Isosorbide Isosorbide No Isosorbide Mononitrate Mononitrate Mononitrat ER 120 MG ER 120 MG e ER 120 MG True Metrix True Metrix No BID True Meter Meter Metrix w/Device w/Device Meter w/Device Nitroglycer Nitroglycer No Nitroglyce in 0.4 MG in 0.4 MG rin 0.4 MG OneTouch OneTouch No OneTouch Ultra Test Ultra Test Ultra Test 0 0 0 Singulair Singulair No 1{table QD Singulair 10 MG 10 MG t_in_th 10 MG e_eveni ng} Montelukast Montelukast No Montelukas Sodium 10 Sodium 10 t Sodium MG MG 10 MG Acetaminoph Acetaminoph No Acetaminop en-Codeine en-Codeine hen-Codein #3 300-30 #3 300-30 e #3 MG MG 300-30 MG Furosemide Furosemide No 1{table QD Furosemide 40 MG 40 MG t} 40 MG HYDROcodone HYDROcodone No 1{table TID HYDROcodon -Acetaminop -Acetaminop t_as_ne e-Acetamin hen 7.5-325 hen 7.5-325 eded} ophen MG MG 7.5-325 MG Ciprofloxac Ciprofloxac No Ciprofloxa in HCl in HCl ellen HCl ProAir HFA ProAir HFA No 2{puffs QID ProAir HFA 108 (90 108 (90 _as_nee 108 (90 Base) Base) ded} Base) MCG/ACT MCG/ACT MCG/ACT Zofran 4 MG Zofran 4 MG No 1{table QD Zofran 4 t} MG Doxycycline Doxycycline No 1{capsu BID Doxycyclin Hyclate 100 Hyclate 100 le} e Hyclate MG MG 100 MG Cetirizine Cetirizine No Cetirizine HCl 10 MG HCl 10 MG HCl 10 MG Isosorbide Isosorbide No 1{table QD Isosorbide Mononitrate Mononitrate t_in_th Mononitrat ER 120 MG ER 120 MG e_morni e ER 120 ng} MG Vitamin B Vitamin B No Vitamin B Complex Complex Complex Fluticasone Fluticasone No Fluticason Propionate Propionate e 50 MCG/ACT 50 MCG/ACT Propionate 50 MCG/ACT Isosorbide Isosorbide No Isosorbide Mononitrate Mononitrate Mononitrat ER 60 MG ER 60 MG e ER 60 MG Isosorbide Isosorbide No 1{table QD Isosorbide Mononitrate Mononitrate t_in_th Mononitrat ER 60 MG ER 60 MG e_morni e ER 60 MG ng} amLODIPine amLODIPine No 1{table QD amLODIPine Besylate 10 Besylate 10 t} Besylate MG MG 10 MG metFORMIN metFORMIN No 1{table BID metFORMIN HCl 1000 MG HCl 1000 MG t_with_ HCl 1000 a_meal} MG Ondansetron Ondansetron No Ondansetro HCl HCl n HCl Aspir-81 81 Aspir-81 81 No 1{table QD Aspir-81 MG MG t} 81 MG Aspirin 325 Aspirin 325 No 1{table QD Aspirin MG MG t} 325 MG Metoprolol Metoprolol No 1{table BID Metoprolol Tartrate Tartrate t_with_ Tartrate 100 MG 100 MG food} 100 MG Ciprofloxac Ciprofloxac No 2.5{ml} BID Ciprofloxa in 500 in 500 ellen 500 MG/5ML MG/5ML MG/5ML (10%) (10%) (10%) Vitamin C Vitamin C No Vitamin C True Metrix True Metrix No True Blood Blood Metrix Glucose Glucose Blood Test - Test - Glucose Test - Cipro 500 Cipro 500 No 1{table BID Cipro 500 MG MG t} MG Lisinopril Lisinopril No Lisinopril 40 MG 40 MG 40 MG Atorvastati Atorvastati No Atorvastat n Calcium n Calcium in Calcium 40 MG 40 MG 40 MG HYDROcodone HYDROcodone No 1{table TID HYDROcodon -Acetaminop -Acetaminop t_as_ne e-Acetamin hen 7.5-325 hen 7.5-325 eded} ophen MG MG 7.5-325 MG Fluticasone Fluticasone No Fluticason Propionate Propionate e 50 MCG/ACT 50 MCG/ACT Propionate 50 MCG/ACT amLODIPine amLODIPine No 1{table QD amLODIPine Besylate 10 Besylate 10 t} Besylate MG MG 10 MG Aspir-81 81 Aspir-81 81 No 1{table QD Aspir-81 MG MG t} 81 MG Vitamin C Vitamin C No Vitamin C Metoprolol Metoprolol No 1{table BID Metoprolol Tartrate Tartrate t_with_ Tartrate 100 MG 100 MG food} 100 MG Atorvastati Atorvastati No 1{table QD Atorvastat n Calcium n Calcium t} in Calcium 40 MG 40 MG 40 MG metFORMIN metFORMIN No 1{table BID metFORMIN HCl 1000 MG HCl 1000 MG t_with_ HCl 1000 a_meal} MG Cipro 500 Cipro 500 No 1{table BID Cipro 500 MG MG t} MG ProAir HFA ProAir HFA No 2{puffs QID ProAir HFA 108 (90 108 (90 _as_nee 108 (90 Base) Base) ded} Base) MCG/ACT MCG/ACT MCG/ACT Atorvastati Atorvastati No Atorvastat n Calcium n Calcium in Calcium 40 MG 40 MG 40 MG True Metrix True Metrix No True Blood Blood Metrix Glucose Glucose Blood Test - Test - Glucose Test - Cetirizine Cetirizine No Cetirizine HCl 10 MG HCl 10 MG HCl 10 MG OneTouch OneTouch No OneTouch Ultra Test Ultra Test Ultra Test 0 0 0 Montelukast Montelukast No Montelukas Sodium 10 Sodium 10 t Sodium MG MG 10 MG Lisinopril Lisinopril No QD Lisinopril 40 40 40 Flonase 50 Flonase 50 No 1{spray QD Flonase 50 MCG/ACT MCG/ACT _in_eac MCG/ACT h_nostr il} Doxycycline Doxycycline No 1{capsu BID Doxycyclin Hyclate 100 Hyclate 100 le} e Hyclate MG MG 100 MG Ciprofloxac Ciprofloxac No Ciprofloxa in HCl in HCl ellen HCl Zofran 4 MG Zofran 4 MG No 1{table QD Zofran 4 t} MG True Metrix True Metrix No BID True Meter Meter Metrix w/Device w/Device Meter w/Device Ondansetron Ondansetron No Ondansetro HCl HCl n HCl Nitroglycer Nitroglycer No Nitroglyce in 0.4 MG in 0.4 MG rin 0.4 MG Vitamin B Vitamin B No Vitamin B Complex Complex Complex Aspirin 325 Aspirin 325 No 1{table QD Aspirin MG MG t} 325 MG Isosorbide Isosorbide No Isosorbide Mononitrate Mononitrate Mononitrat ER 60 MG ER 60 MG e ER 60 MG Acetaminoph Acetaminoph No Acetaminop en-Codeine en-Codeine hen-Codein #3 300-30 #3 300-30 e #3 MG MG 300-30 MG Lisinopril Lisinopril No Lisinopril 40 MG 40 MG 40 MG Singulair Singulair No 1{table QD Singulair 10 MG 10 MG t_in_th 10 MG e_eveni ng} Metoprolol Metoprolol No BID Metoprolol Succinate Succinate Succinate 100 MG 100 MG 100 MG Furosemide Furosemide No 1{table QD Furosemide 40 MG 40 MG t} 40 MG Ciprofloxac Ciprofloxac No 2.5{ml} BID Ciprofloxa in 500 in 500 ellen 500 MG/5ML MG/5ML MG/5ML (10%) (10%) (10%) Isosorbide Isosorbide No Isosorbide Mononitrate Mononitrate Mononitrat ER 120 MG ER 120 MG e ER 120 MG Isosorbide Isosorbide No 1{table QD Isosorbide Mononitrate Mononitrate t_in_th Mononitrat ER 60 MG ER 60 MG e_morni e ER 60 MG ng} Ciprofloxac Ciprofloxac No Ciprofloxa in HCl in HCl ellen HCl Furosemide Furosemide No 1{table QD Furosemide 40 MG 40 MG t} 40 MG Zofran 4 MG Zofran 4 MG No 1{table QD Zofran 4 t} MG Vitamin B Vitamin B No Vitamin B Complex Complex Complex Isosorbide Isosorbide No 1{table QD Isosorbide Mononitrate Mononitrate t_in_th Mononitrat ER 120 MG ER 120 MG e_morni e ER 120 ng} MG Doxycycline Doxycycline No 1{capsu BID Doxycyclin Hyclate 100 Hyclate 100 le} e Hyclate MG MG 100 MG Metoprolol Metoprolol No BID Metoprolol Succinate Succinate Succinate 100 MG 100 MG 100 MG Lisinopril Lisinopril No Lisinopril 40 MG 40 MG 40 MG Fluticasone Fluticasone No Fluticason Propionate Propionate e 50 MCG/ACT 50 MCG/ACT Propionate 50 MCG/ACT Aspir-81 81 Aspir-81 81 No 1{table QD Aspir-81 MG MG t} 81 MG Flonase 50 Flonase 50 No 1{spray QD Flonase 50 MCG/ACT MCG/ACT _in_eac MCG/ACT h_nostr il} Singulair Singulair No 1{table QD Singulair 10 MG 10 MG t_in_th 10 MG e_eveni ng} Montelukast Montelukast No Montelukas Sodium 10 Sodium 10 t Sodium MG MG 10 MG Ondansetron Ondansetron No Ondansetro HCl HCl n HCl Isosorbide Isosorbide No Isosorbide Mononitrate Mononitrate Mononitrat ER 120 MG ER 120 MG e ER 120 MG Cetirizine Cetirizine No Cetirizine HCl 10 MG HCl 10 MG HCl 10 MG Atorvastati Atorvastati No Atorvastat n Calcium n Calcium in Calcium 40 MG 40 MG 40 MG Ciprofloxac Ciprofloxac No 2.5{ml} BID Ciprofloxa in 500 in 500 ellen 500 MG/5ML MG/5ML MG/5ML (10%) (10%) (10%) Aspirin 325 Aspirin 325 No 1{table QD Aspirin MG MG t} 325 MG True Metrix True Metrix No BID True Meter Meter Metrix w/Device w/Device Meter w/Device Cipro 500 Cipro 500 No 1{table BID Cipro 500 MG MG t} MG amLODIPine amLODIPine No 1{table QD amLODIPine Besylate 10 Besylate 10 t} Besylate MG MG 10 MG Atorvastati Atorvastati No 1{table QD Atorvastat n Calcium n Calcium t} in Calcium 40 MG 40 MG 40 MG Isosorbide Isosorbide No Isosorbide Mononitrate Mononitrate Mononitrat ER 60 MG ER 60 MG e ER 60 MG Acetaminoph Acetaminoph No Acetaminop en-Codeine en-Codeine hen-Codein #3 300-30 #3 300-30 e #3 MG MG 300-30 MG Isosorbide Isosorbide No 1{table QD Isosorbide Mononitrate Mononitrate t_in_th Mononitrat ER 60 MG ER 60 MG e_morni e ER 60 MG ng} Nitroglycer Nitroglycer No Nitroglyce in 0.4 MG in 0.4 MG rin 0.4 MG HYDROcodone HYDROcodone No 1{table TID HYDROcodon -Acetaminop -Acetaminop t_as_ne e-Acetamin hen 7.5-325 hen 7.5-325 eded} ophen MG MG 7.5-325 MG True Metrix True Metrix No True Blood Blood Metrix Glucose Glucose Blood Test - Test - Glucose Test - Vitamin C Vitamin C No Vitamin C ProAir HFA ProAir HFA No 2{puffs QID ProAir HFA 108 (90 108 (90 _as_nee 108 (90 Base) Base) ded} Base) MCG/ACT MCG/ACT MCG/ACT OneTouch OneTouch No OneTouch Ultra Test Ultra Test Ultra Test 0 0 0 metFORMIN metFORMIN No 1{table BID metFORMIN HCl 1000 MG HCl 1000 MG t_with_ HCl 1000 a_meal} MG Lisinopril Lisinopril No QD Lisinopril 40 40 40 Metoprolol Metoprolol No 1{table BID Metoprolol Tartrate Tartrate t_with_ Tartrate 100 MG 100 MG food} 100 MG Nitroglycer Nitroglycer No Nitroglyce in 0.4 MG in 0.4 MG rin 0.4 MG Fluticasone Fluticasone No Fluticason Propionate Propionate e 50 MCG/ACT 50 MCG/ACT Propionate 50 MCG/ACT Lisinopril Lisinopril No Lisinopril 40 MG 40 MG 40 MG HYDROcodone HYDROcodone No 1{table TID HYDROcodon -Acetaminop -Acetaminop t_as_ne e-Acetamin hen 7.5-325 hen 7.5-325 eded} ophen MG MG 7.5-325 MG Aspir-81 81 Aspir-81 81 No 1{table QD Aspir-81 MG MG t} 81 MG Ondansetron Ondansetron No Ondansetro HCl HCl n HCl Singulair Singulair No 1{table QD Singulair 10 MG 10 MG t_in_th 10 MG e_eveni ng} Acetaminoph Acetaminoph No Acetaminop en-Codeine en-Codeine hen-Codein #3 300-30 #3 300-30 e #3 MG MG 300-30 MG Flonase 50 Flonase 50 No 1{spray QD Flonase 50 MCG/ACT MCG/ACT _in_eac MCG/ACT h_nostr il} Aspirin 325 Aspirin 325 No 1{table QD Aspirin MG MG t} 325 MG Metoprolol Metoprolol No BID Metoprolol Succinate Succinate Succinate 100 MG 100 MG 100 MG Ciprofloxac Ciprofloxac No 2.5{ml} BID Ciprofloxa in 500 in 500 ellen 500 MG/5ML MG/5ML MG/5ML (10%) (10%) (10%) Cetirizine Cetirizine No Cetirizine HCl 10 MG HCl 10 MG HCl 10 MG amLODIPine amLODIPine No 1{table QD amLODIPine Besylate 10 Besylate 10 t} Besylate MG MG 10 MG Isosorbide Isosorbide No Isosorbide Mononitrate Mononitrate Mononitrat ER 120 MG ER 120 MG e ER 120 MG Doxycycline Doxycycline No 1{capsu BID Doxycyclin Hyclate 100 Hyclate 100 le} e Hyclate MG MG 100 MG OneTouch OneTouch No OneTouch Ultra Test Ultra Test Ultra Test 0 0 0 ProAir HFA ProAir HFA No 2{puffs QID ProAir HFA 108 (90 108 (90 _as_nee 108 (90 Base) Base) ded} Base) MCG/ACT MCG/ACT MCG/ACT Isosorbide Isosorbide No Isosorbide Mononitrate Mononitrate Mononitrat ER 60 MG ER 60 MG e ER 60 MG Metoprolol Metoprolol No 1{table BID Metoprolol Tartrate Tartrate t_with_ Tartrate 100 MG 100 MG food} 100 MG Ciprofloxac Ciprofloxac No Ciprofloxa in HCl in HCl ellen HCl Atorvastati Atorvastati No 1{table QD Atorvastat n Calcium n Calcium t} in Calcium 40 MG 40 MG 40 MG Vitamin C Vitamin C No Vitamin C Montelukast Montelukast No Montelukas Sodium 10 Sodium 10 t Sodium MG MG 10 MG True Metrix True Metrix No BID True Meter Meter Metrix w/Device w/Device Meter w/Device Atorvastati Atorvastati No Atorvastat n Calcium n Calcium in Calcium 40 MG 40 MG 40 MG Cipro 500 Cipro 500 No 1{table BID Cipro 500 MG MG t} MG True Metrix True Metrix No True Blood Blood Metrix Glucose Glucose Blood Test - Test - Glucose Test - Zofran 4 MG Zofran 4 MG No 1{table QD Zofran 4 t} MG Furosemide Furosemide No 1{table QD Furosemide 40 MG 40 MG t} 40 MG Vitamin B Vitamin B No Vitamin B Complex Complex Complex Lisinopril Lisinopril No QD Lisinopril 40 40 40 True Metrix True Metrix No BID True Meter Meter Metrix w/Device w/Device Meter w/Device Vitamin B Vitamin B No Vitamin B Complex Complex Complex Singulair Singulair No 1{table QD Singulair 10 MG 10 MG t_in_th 10 MG e_eveni ng} OneTouch OneTouch No OneTouch Ultra Test Ultra Test Ultra Test 0 0 0 Isosorbide Isosorbide No Isosorbide Mononitrate Mononitrate Mononitrat ER 60 MG ER 60 MG e ER 60 MG Aspirin 325 Aspirin 325 No 1{table QD Aspirin MG MG t} 325 MG Cetirizine Cetirizine No Cetirizine HCl 10 MG HCl 10 MG HCl 10 MG Cipro 500 Cipro 500 No 1{table BID Cipro 500 MG MG t} MG Metoprolol Metoprolol No BID Metoprolol Succinate Succinate Succinate 100 MG 100 MG 100 MG Acetaminoph Acetaminoph No Acetaminop en-Codeine en-Codeine hen-Codein #3 300-30 #3 300-30 e #3 MG MG 300-30 MG ProAir HFA ProAir HFA No 2{puffs QID ProAir HFA 108 (90 108 (90 _as_nee 108 (90 Base) Base) ded} Base) MCG/ACT MCG/ACT MCG/ACT Vitamin C Vitamin C No Vitamin C Ciprofloxac Ciprofloxac No Ciprofloxa in HCl in HCl ellen HCl Flonase 50 Flonase 50 No 1{spray QD Flonase 50 MCG/ACT MCG/ACT _in_eac MCG/ACT h_nostr il} Atorvastati Atorvastati No 1{table QD Atorvastat n Calcium n Calcium t} in Calcium 40 MG 40 MG 40 MG True Metrix True Metrix No True Blood Blood Metrix Glucose Glucose Blood Test - Test - Glucose Test - Metoprolol Metoprolol No BID Metoprolol Succinate Succinate Succinate 100 MG 100 MG 100 MG Fluticasone Fluticasone No Fluticason Propionate Propionate e 50 MCG/ACT 50 MCG/ACT Propionate 50 MCG/ACT Metoprolol Metoprolol No 1{table BID Metoprolol Tartrate Tartrate t_with_ Tartrate 100 MG 100 MG food} 100 MG Flonase 50 Flonase 50 No 1{spray QD Flonase 50 MCG/ACT MCG/ACT _in_eac MCG/ACT h_nostr il} amLODIPine amLODIPine No 1{table QD amLODIPine Besylate 10 Besylate 10 t} Besylate MG MG 10 MG Ciprofloxac Ciprofloxac No 2.5{ml} BID Ciprofloxa in 500 in 500 ellen 500 MG/5ML MG/5ML MG/5ML (10%) (10%) (10%) Montelukast Montelukast No Montelukas Sodium 10 Sodium 10 t Sodium MG MG 10 MG Isosorbide Isosorbide No 1{table QD Isosorbide Mononitrate Mononitrate t_in_th Mononitrat ER 120 MG ER 120 MG e_morni e ER 120 ng} MG Isosorbide Isosorbide No Isosorbide Mononitrate Mononitrate Mononitrat ER 120 MG ER 120 MG e ER 120 MG HYDROcodone HYDROcodone No 1{table TID HYDROcodon -Acetaminop -Acetaminop t_as_ne e-Acetamin hen 7.5-325 hen 7.5-325 eded} ophen MG MG 7.5-325 MG Ondansetron Ondansetron No Ondansetro HCl HCl n HCl Zofran 4 MG Zofran 4 MG No 1{table QD Zofran 4 t} MG Lisinopril Lisinopril No Lisinopril 40 MG 40 MG 40 MG Isosorbide Isosorbide No Isosorbide Mononitrate Mononitrate Mononitrat ER 120 MG ER 120 MG e ER 120 MG Furosemide Furosemide No 1{table QD Furosemide 40 MG 40 MG t} 40 MG Atorvastati Atorvastati No Atorvastat n Calcium n Calcium in Calcium 40 MG 40 MG 40 MG Aspir-81 81 Aspir-81 81 No 1{table QD Aspir-81 MG MG t} 81 MG Isosorbide Isosorbide No 1{table QD Isosorbide Mononitrate Mononitrate t_in_th Mononitrat ER 60 MG ER 60 MG e_morni e ER 60 MG ng} Doxycycline Doxycycline No 1{capsu BID Doxycyclin Hyclate 100 Hyclate 100 le} e Hyclate MG MG 100 MG Nitroglycer Nitroglycer No Nitroglyce in 0.4 MG in 0.4 MG rin 0.4 MG True Metrix True Metrix No BID True Meter Meter Metrix w/Device w/Device Meter w/Device Nitroglycer Nitroglycer No Nitroglyce in 0.4 MG in 0.4 MG rin 0.4 MG OneTouch OneTouch No OneTouch Ultra Test Ultra Test Ultra Test 0 0 0 Singulair Singulair No 1{table QD Singulair 10 MG 10 MG t_in_th 10 MG e_eveni ng} Montelukast Montelukast No Montelukas Sodium 10 Sodium 10 t Sodium MG MG 10 MG Acetaminoph Acetaminoph No Acetaminop en-Codeine en-Codeine hen-Codein #3 300-30 #3 300-30 e #3 MG MG 300-30 MG Furosemide Furosemide No 1{table QD Furosemide 40 MG 40 MG t} 40 MG HYDROcodone HYDROcodone No 1{table TID HYDROcodon -Acetaminop -Acetaminop t_as_ne e-Acetamin hen 7.5-325 hen 7.5-325 eded} ophen MG MG 7.5-325 MG Ciprofloxac Ciprofloxac No Ciprofloxa in HCl in HCl ellen HCl ProAir HFA ProAir HFA No 2{puffs QID ProAir HFA 108 (90 108 (90 _as_nee 108 (90 Base) Base) ded} Base) MCG/ACT MCG/ACT MCG/ACT Zofran 4 MG Zofran 4 MG No 1{table QD Zofran 4 t} MG Doxycycline Doxycycline No 1{capsu BID Doxycyclin Hyclate 100 Hyclate 100 le} e Hyclate MG MG 100 MG Cetirizine Cetirizine No Cetirizine HCl 10 MG HCl 10 MG HCl 10 MG Isosorbide Isosorbide No 1{table QD Isosorbide Mononitrate Mononitrate t_in_th Mononitrat ER 120 MG ER 120 MG e_morni e ER 120 ng} MG Vitamin B Vitamin B No Vitamin B Complex Complex Complex Fluticasone Fluticasone No Fluticason Propionate Propionate e 50 MCG/ACT 50 MCG/ACT Propionate 50 MCG/ACT Isosorbide Isosorbide No Isosorbide Mononitrate Mononitrate Mononitrat ER 60 MG ER 60 MG e ER 60 MG Isosorbide Isosorbide No 1{table QD Isosorbide Mononitrate Mononitrate t_in_th Mononitrat ER 60 MG ER 60 MG e_morni e ER 60 MG ng} amLODIPine amLODIPine No 1{table QD amLODIPine Besylate 10 Besylate 10 t} Besylate MG MG 10 MG metFORMIN metFORMIN No 1{table BID metFORMIN HCl 1000 MG HCl 1000 MG t_with_ HCl 1000 a_meal} MG Ondansetron Ondansetron No Ondansetro HCl HCl n HCl Aspir-81 81 Aspir-81 81 No 1{table QD Aspir-81 MG MG t} 81 MG Aspirin 325 Aspirin 325 No 1{table QD Aspirin MG MG t} 325 MG Metoprolol Metoprolol No 1{table BID Metoprolol Tartrate Tartrate t_with_ Tartrate 100 MG 100 MG food} 100 MG Ciprofloxac Ciprofloxac No 2.5{ml} BID Ciprofloxa in 500 in 500 ellen 500 MG/5ML MG/5ML MG/5ML (10%) (10%) (10%) Vitamin C Vitamin C No Vitamin C True Metrix True Metrix No True Blood Blood Metrix Glucose Glucose Blood Test - Test - Glucose Test - Cipro 500 Cipro 500 No 1{table BID Cipro 500 MG MG t} MG Lisinopril Lisinopril No Lisinopril 40 MG 40 MG 40 MG Atorvastati Atorvastati No Atorvastat n Calcium n Calcium in Calcium 40 MG 40 MG 40 MG Lisinopril Lisinopril No QD Lisinopril 40 40 40 Metoprolol Metoprolol No BID Metoprolol Succinate Succinate Succinate 100 MG 100 MG 100 MG Flonase 50 Flonase 50 No 1{spray QD Flonase 50 MCG/ACT MCG/ACT _in_eac MCG/ACT h_nostr il} Isosorbide Isosorbide No Isosorbide Mononitrate Mononitrate Mononitrat ER 120 MG ER 120 MG e ER 120 MG True Metrix True Metrix No BID True Meter Meter Metrix w/Device w/Device Meter w/Device Nitroglycer Nitroglycer No Nitroglyce in 0.4 MG in 0.4 MG rin 0.4 MG OneTouch OneTouch No OneTouch Ultra Test Ultra Test Ultra Test 0 0 0 Singulair Singulair No 1{table QD Singulair 10 MG 10 MG t_in_th 10 MG e_eveni ng} Montelukast Montelukast No Montelukas Sodium 10 Sodium 10 t Sodium MG MG 10 MG Acetaminoph Acetaminoph No Acetaminop en-Codeine en-Codeine hen-Codein #3 300-30 #3 300-30 e #3 MG MG 300-30 MG Furosemide Furosemide No 1{table QD Furosemide 40 MG 40 MG t} 40 MG HYDROcodone HYDROcodone No 1{table TID HYDROcodon -Acetaminop -Acetaminop t_as_ne e-Acetamin hen 7.5-325 hen 7.5-325 eded} ophen MG MG 7.5-325 MG Ciprofloxac Ciprofloxac No Ciprofloxa in HCl in HCl ellen HCl ProAir HFA ProAir HFA No 2{puffs QID ProAir HFA 108 (90 108 (90 _as_nee 108 (90 Base) Base) ded} Base) MCG/ACT MCG/ACT MCG/ACT Zofran 4 MG Zofran 4 MG No 1{table QD Zofran 4 t} MG Doxycycline Doxycycline No 1{capsu BID Doxycyclin Hyclate 100 Hyclate 100 le} e Hyclate MG MG 100 MG Cetirizine Cetirizine No Cetirizine HCl 10 MG HCl 10 MG HCl 10 MG Isosorbide Isosorbide No 1{table QD Isosorbide Mononitrate Mononitrate t_in_th Mononitrat ER 120 MG ER 120 MG e_morni e ER 120 ng} MG Vitamin B Vitamin B No Vitamin B Complex Complex Complex Fluticasone Fluticasone No Fluticason Propionate Propionate e 50 MCG/ACT 50 MCG/ACT Propionate 50 MCG/ACT Isosorbide Isosorbide No Isosorbide Mononitrate Mononitrate Mononitrat ER 60 MG ER 60 MG e ER 60 MG Isosorbide Isosorbide No 1{table QD Isosorbide Mononitrate Mononitrate t_in_th Mononitrat ER 60 MG ER 60 MG e_morni e ER 60 MG ng} amLODIPine amLODIPine No 1{table QD amLODIPine Besylate 10 Besylate 10 t} Besylate MG MG 10 MG metFORMIN metFORMIN No 1{table BID metFORMIN HCl 1000 MG HCl 1000 MG t_with_ HCl 1000 a_meal} MG Ondansetron Ondansetron No Ondansetro HCl HCl n HCl Aspir-81 81 Aspir-81 81 No 1{table QD Aspir-81 MG MG t} 81 MG Aspirin 325 Aspirin 325 No 1{table QD Aspirin MG MG t} 325 MG Metoprolol Metoprolol No 1{table BID Metoprolol Tartrate Tartrate t_with_ Tartrate 100 MG 100 MG food} 100 MG Ciprofloxac Ciprofloxac No 2.5{ml} BID Ciprofloxa in 500 in 500 ellen 500 MG/5ML MG/5ML MG/5ML (10%) (10%) (10%) Vitamin C Vitamin C No Vitamin C True Metrix True Metrix No True Blood Blood Metrix Glucose Glucose Blood Test - Test - Glucose Test - Cipro 500 Cipro 500 No 1{table BID Cipro 500 MG MG t} MG Lisinopril Lisinopril No Lisinopril 40 MG 40 MG 40 MG Atorvastati Atorvastati No Atorvastat n Calcium n Calcium in Calcium 40 MG 40 MG 40 MG True Metrix True Metrix No BID True Meter Meter Metrix w/Device w/Device Meter w/Device Cipro 500 Cipro 500 No 1{table BID Cipro 500 MG MG t} MG Isosorbide Isosorbide No Isosorbide Mononitrate Mononitrate Mononitrat ER 120 MG ER 120 MG e ER 120 MG Ondansetron Ondansetron No Ondansetro HCl HCl n HCl Singulair Singulair No 1{table QD Singulair 10 MG 10 MG t_in_th 10 MG e_eveni ng} Nitroglycer Nitroglycer No Nitroglyce in 0.4 MG in 0.4 MG rin 0.4 MG HYDROcodone HYDROcodone No 1{table TID HYDROcodon -Acetaminop -Acetaminop t_as_ne e-Acetamin hen 7.5-325 hen 7.5-325 eded} ophen MG MG 7.5-325 MG Doxycycline Doxycycline No 1{capsu BID Doxycyclin Hyclate 100 Hyclate 100 le} e Hyclate MG MG 100 MG ProAir HFA ProAir HFA No 2{puffs QID ProAir HFA 108 (90 108 (90 _as_nee 108 (90 Base) Base) ded} Base) MCG/ACT MCG/ACT MCG/ACT Aspir-81 81 Aspir-81 81 No 1{table QD Aspir-81 MG MG t} 81 MG Atorvastati Atorvastati No 1{table QD Atorvastat n Calcium n Calcium t} in Calcium 40 MG 40 MG 40 MG Cetirizine Cetirizine No 1{table QD Cetirizine HCl 10 MG HCl 10 MG t} HCl 10 MG metFORMIN metFORMIN No 1{table BID metFORMIN HCl 1000 MG HCl 1000 MG t_with_ HCl 1000 a_meal} MG Vitamin C Vitamin C No Vitamin C True Metrix True Metrix No True Blood Blood Metrix Glucose Glucose Blood Test - Test - Glucose Test - Metoprolol Metoprolol No BID Metoprolol Succinate Succinate Succinate 100 MG 100 MG 100 MG Lisinopril Lisinopril No QD Lisinopril 40 40 40 Fluticasone Fluticasone No Fluticason Propionate Propionate e 50 MCG/ACT 50 MCG/ACT Propionate 50 MCG/ACT Isosorbide Isosorbide No Isosorbide Mononitrate Mononitrate Mononitrat ER 60 MG ER 60 MG e ER 60 MG Ciprofloxac Ciprofloxac No Ciprofloxa in HCl in HCl ellen HCl Metoprolol Metoprolol No 1{table BID Metoprolol Tartrate Tartrate t_with_ Tartrate 100 MG 100 MG food} 100 MG Lisinopril Lisinopril No Lisinopril 40 MG 40 MG 40 MG OneTouch OneTouch No OneTouch Ultra Test Ultra Test Ultra Test 0 0 0 amLODIPine amLODIPine No 1{table QD amLODIPine Besylate 10 Besylate 10 t} Besylate MG MG 10 MG Furosemide Furosemide No 1{table QD Furosemide 40 MG 40 MG t} 40 MG Vitamin B Vitamin B No Vitamin B Complex Complex Complex Acetaminoph Acetaminoph No Acetaminop en-Codeine en-Codeine hen-Codein #3 300-30 #3 300-30 e #3 MG MG 300-30 MG Zofran 4 MG Zofran 4 MG No 1{table QD Zofran 4 t} MG True Metrix True Metrix No True Blood Blood Metrix Glucose Glucose Blood Test - Test - Glucose Test - ProAir HFA ProAir HFA No 2{puffs QID ProAir HFA 108 (90 108 (90 _as_nee 108 (90 Base) Base) ded} Base) MCG/ACT MCG/ACT MCG/ACT Zofran 4 MG Zofran 4 MG No 1{table QD Zofran 4 t} MG Lisinopril Lisinopril No Lisinopril 40 MG 40 MG 40 MG Doxycycline Doxycycline No 1{capsu BID Doxycyclin Hyclate 100 Hyclate 100 le} e Hyclate MG MG 100 MG Flonase 50 Flonase 50 No 1{spray QD Flonase 50 MCG/ACT MCG/ACT _in_eac MCG/ACT h_nostr il} True Metrix True Metrix No BID True Meter Meter Metrix w/Device w/Device Meter w/Device Vitamin B Vitamin B No Vitamin B Complex Complex Complex Immunizations Ordered Filled Immunization Date Status Comments [facility] e Immunization Name Name Boostrix (Tdap) Boostrix (Tdap) 2022-04-19 [facility]00 [facility] Boostrix (Tdap) Boostrix (Tdap) 2022-04-19 Completed [facility] - 08:45:00 [facility] Boostrix (Tdap) Boostrix (Tdap) 2022-04-19 Com[facility] - 08:45:00 [facility] FLUZONE HIGH DOSE FLUZONE HIGH DOSE 2022-04-19 Completed [facility] - OVER 65 OVER 65 08:44:00 [facility] FLUZONE HIGH DOSE FLUZONE HIGH DOSE 2022-04-19 Completed [facility] - OVER 65 OVER 65 08:44:00 [facility] FLUZONE HIGH DOSE FLUZONE HIGH DOSE 2022-04-19 Completed [facility] - OVER 65 OVER 65 08:44:00 [facility] Moderna COVID-19 Moderna COVID-19 2021-09-02 Completed [facility] - Vaccine (Low Dose Vaccine (Low Dose 10:15:00 [facility]oster) Booster) [address] [facility] - Vaccine (Low Dose Vaccine (Low Dose 10:15:[address] [facility] Booster) Booster) [address] [facility]-02 Com[facility] - Vaccine (Low Dose Vaccine (Low Dose 10:15:[address] [facility]oster) [facility] [facility]02 Com[facility] - Vaccine (Low Dose Vaccine (Low Dose 10:15:[address] [facility] Booster) Booster) [facility] [address] [facility] 2021[facility] - Vaccine (Low Dose Vaccine (Low Dose 10:15:[address] [facility] Booster) Booster) [address] 2021-09-02 Com[facility] - Vaccine (Low Dose Vaccine (Low Dose 10:15:[address] [facility] Booster) Booster) [address] [facility] 2021-09-02 Com[facility] - Vaccine (Low Dose Vaccine (Low Dose 10:15:[address] [facility] Booster) Booster) [address] [facility] 2021-09-02 Com[facility] - Vaccine (Low Dose Vaccine (Low Dose 10:15:[address] [facility] Booster) Booster) [facility] [facility] 2021-[facility]-02 Com[facility] - Vaccine (Low Dose Vaccine (Low Dose 10:15:[address] [facility] Booster) Booster) [address] [facility] 2021-09-02 Com[facility] - Vaccine (Low Dose Vaccine (Low Dose 10:15:[address] [facility] Booster) Booster) [facility] [facility] 2021-09-02 Com[facility] - Vaccine (Low Dose Vaccine (Low Dose 10:15:[address] [facility] Booster) Booster) [facility] [facility] 2021-09-02 Com[facility] - Vaccine (Low Dose Vaccine (Low Dose 10:15:[address] [facility] Booster) Booster) [facility] Moderna COVID-19 Moderna COVID-19 2021-09-02 Completed [facility] - Vaccine (Low Dose Vaccine (Low Dose 10:15:[address] [facility] Booster) Booster) [facility] Moderna COVID-19 Moderna COVID-19 2021-09-02 Completed [facility] - Vaccine (Low Dose Vaccine (Low Dose 10:15:[address] [facility] Booster) Booster) [facility] SARS-COV-2 COVID-19 2021-09-02 Completed [facility] 12+ YRS 00:00:00 [place] [facility] SARS-COV-2 COVID-19 2021-09-02 Completed [facility] 12+ YRS 00:00:00 [place] [facility] SARS-COV-2 COVID-19 2021-09-02 Completed [facility] VACCINE 00:00:00 [place] [facility] SARS-COV-2 COVID-19 2021-09-02 Completed [facility] VACCINE 00:00:00 [place] [facility] SARS-COV-2 COVID-19 2021-09-02 Completed [facility] VACCINE 00:00:00 [place] [facility] SARS-COV-2 COVID-19 2021-09-02 Completed [facility] VACCINE 00:00:00 [place] [facility] SARS-COV-2 COVID-19 2021-09-02 Completed [facility] 12+ YRS 00:00:00 [place] [facility] SARS-COV-2 COVID-19 2021-09-02 Completed [facility] 12+ YRS 00:00:00 [place] [facility] SARS-COV-2 COVID-19 2021-09-02 Completed [facility] 12+ YRS 00:00:00 [place] [facility] SARS-COV-2 COVID-19 2021-09-02 Completed [facility] 12+ YRS 00:00:00 [place] [facility] SARS-COV-2 COVID-19 2021-09-02 Completed [facility] 12+ YRS 00:00:00 [place] [facility] SARS-COV-2 COVID-19 2021-09-02 Completed [facility] 12+ YRS 00:00:00 [place] [facility] SARS-COV-2 COVID-19 2021-09-02 Completed [facility] 12+ YRS 00:00:00 [place] [facility] SARS-COV-2 COVID-19 2021-09-02 Completed [facility] 12+ YRS 00:00:00 [place] [facility] SARS-COV-2 COVID-19 2021-09-02 Completed [facility] 12+ YRS 00:00:00 [place] [facility] SARS-COV-2 COVID-19 2021-09-02 Completed [facility] 12+ YRS 00:00:00 [place] [facility] SARS-COV-2 COVID-19 2021-09-02 Completed [facility] 12+ YRS 00:00:00 [place] [facility] SARS-COV-2 COVID-19 2021-09-02 Completed [facility] 12+ YRS 00:00:00 [place] [facility] SARS-COV-2 COVID-19 2021-09-02 Completed [facility]ER[facility] 12+ YRS 00:00:00 [place] [facility] SARS-COV-2 COVID-19 2021-09-02 Completed [facility]ER[facility] 12+ YRS 00:00:[address] [place] [facility] ical VACCINE Branch Flucelvax - single Flucelvax - single 2021-05-26 Completed [facility] - dose syringe dose syringe 11:05:00 [facility] Flucelvax - single Flucelvax - single 2021-05-26 Completed [facility] - dose syringe dose syringe 11:05:00 [facility] Flucelvax - single Flucelvax - single 2021-05-26 Completed [facility] - dose syringe dose syringe 11:05:00 [facility] Flucelvax - single Flucelvax - single 2021-05-26 Completed [facility] - dose syringe dose syringe 11:05:00 [facility] Flucelvax - single Flucelvax - single 2021-05-26 Completed [facility] - dose syringe dose syringe 11:05:00 [facility] Flucelvax - single Flucelvax - single 2021-05-26 Completed [facility] - dose syringe dose syringe 11:05:00 [facility] Flucelvax - single Flucelvax - single 2021-05-26 Completed [facility] - dose syringe dose syringe 11:05:00 [facility] Flucelvax - single Flucelvax - single 2021-05-26 Completed [facility] - dose syringe dose syringe 11:05:00 [facility] Flucelvax - single Flucelvax - single 2021-05-26 Completed [facility] - dose syringe dose syringe 11:05:00 [facility] Flucelvax - single Flucelvax - single 2021-05-26 Completed [facility] - dose syringe dose syringe 11:05:00 [facility] Flucelvax - single Flucelvax - single 2021-05-26 Completed [facility] - dose syringe dose syringe 11:05:00 [facility] Flucelvax - single Flucelvax - single 2021-05-26 Completed [facility] - dose syringe dose syringe 11:05:00 [facility] Flucelvax - single Flucelvax - single 2021-05-26 Completed [facility] - dose syringe dose syringe 11:05:00 [facility] Flucelvax - single Flucelvax - single 2021-05-26 Completed [facility] - dose syringe dose syringe 11:05:00 [facility] Flucelvax - single Flucelvax - single 2021-05-26 Completed [facility] - dose syringe dose syringe 11:05:00 [facility] Flucelvax - single Flucelvax - single 2021-05-26 Completed [facility] - dose syringe dose syringe 11:05:00 [facility] Influenza Virus 2021-05-26 Completed [facility]00 [facility] Influenza Virus 2021-05-26 Completed [facility] Vaccine 00:00:00 [facility] Influenza Virus 2021-05-26 Completed [facility] Vaccine 00:00:00 [facility] Influenza Virus 2021-05-26 Completed [facility] Vaccine 00:00:00 [facility] Influenza Virus 2021-05-26 Completed [facility] Vaccine 00:00:00 [facility] Influenza Virus 2021-05-26 Completed [facility] Vaccine 00:00:00 [facility] Influenza Virus 2021-05-26 Completed [facility] Vaccine 00:00:00 [facility] Influenza Virus 2021-05-26 Completed [facility] Vaccine 00:00:00 [facility] Influenza Virus 2021-05-26 Completed [facility] Vaccine 00:00:00 [facility] Influenza Virus 2021-05-26 Completed [facility] Vaccine 00:00:00 [facility] Influenza Virus 2021-05-26 Completed [facility] Vaccine 00:00:00 [facility] Influenza Virus 2021-05-26 Completed [facility] Vaccine 00:00:00 [facility] Influenza Virus 2021-05-26 Completed [facility] Vaccine 00:00:00 [facility] Influenza Virus 2021-05-26 Completed [facility] Vaccine 00:00:00 [facility] Influenza Virus 2021-05-26 Completed [facility] Vaccine 00:00:00 [facility] Influenza Virus 2021-05-26 Completed [facility] Vaccine 00:00:00 [facility] Influenza Virus 2021-05-26 Completed [facility] Vaccine 00:00:00 [facility] Influenza Virus 2021-05-26 Completed [facility] Vaccine 00:00:00 [facility] Influenza Virus 2021-05-26 Completed [facility] Vaccine 00:00:00 [facility] Influenza Virus 2021-05-26 Completed [facility] Vaccine 00:00:00 [facility] Kenalog Kenalog 2021-04-02 Completed [facility] (Triamcinolone) (Triamcinolone) 11:16:00 [facility] Moderna COVID-19 Moderna COVID-19 2021-03-20 [facility] 09:05:00 [facility] Moderna COVID-19 Moderna COVID-19 2021-03-20 Completed [facility] Vaccine Vaccine 09:05:00 [facility] Moderna COVID-19 Moderna COVID-19 2021-03-20 Completed [facility] Vaccine Vaccine 09:05:00 [facility] Moderna COVID-19 Moderna COVID-19 2021-03-20 Completed [facility] Vaccine Vaccine 09:05:00 [facility] Moderna COVID-19 Moderna COVID-19 2021-03-20 Completed [facility] Vaccine Vaccine 09:05:00 [facility] Moderna COVID-19 Moderna COVID-19 2021-03-20 Completed [facility] Vaccine Vaccine 09:05:00 [facility] Moderna COVID-19 Moderna COVID-19 2021-03-20 Completed [facility] Vaccine Vaccine 09:05:00 [facility] Moderna COVID-19 Moderna COVID-19 2021-03-20 Completed [facility] Vaccine Vaccine 09:05:00 [facility] Moderna COVID-19 Moderna COVID-19 2021-03-20 Completed [facility] Vaccine Vaccine 09:05:00 [facility] Moderna COVID-19 Moderna COVID-19 2021-03-20 Completed [facility] Vaccine Vaccine 09:05:00 [facility] Moderna COVID-19 Moderna COVID-19 2021-03-20 Completed [facility] Vaccine Vaccine 09:05:00 [facility] Moderna COVID-19 Moderna COVID-19 2021-03-20 Completed [facility] Vaccine Vaccine 09:05:00 [facility] Moderna COVID-19 Moderna COVID-19 2021-03-20 Completed [facility] Vaccine Vaccine 09:05:00 [facility] Moderna COVID-19 Moderna COVID-19 2021-03-20 Completed [facility] Vaccine Vaccine 09:05:00 [facility] Moderna COVID-19 Moderna COVID-19 2021-03-20 Completed [facility] Vaccine Vaccine 09:05:00 [facility] Moderna COVID-19 Moderna COVID-19 2021-03-20 Completed [facility] Vaccine Vaccine 09:05:00 [facility] Moderna COVID-19 Moderna COVID-19 2021-03-20 Completed [facility] Vaccine Vaccine 09:05:00 [facility] Moderna COVID-19 Moderna COVID-19 2021-03-20 Completed [facility] Vaccine Vaccine 09:05:00 [facility] SARS-COV-2 COVID-19 2021-03-20 Completed [facility]ive rs[facility] of MODERNA VACCINE 00:00:00 [place] [facility] SARS-COV-2 COVID-19 2021-03-20 Completed [facility]ive rsity of MODERNA VACCINE 00:00:00 [place] [facility] SARS-COV-2 COVID-19 2021-03-20 Completed [facility]ive rsity of MODERNA VACCINE 00:00:00 [place] [facility] SARS-COV-2 COVID-19 2021-03-20 Completed [facility]ive rsity of MODERNA VACCINE 00:00:00 [place] [facility] SARS-COV-2 COVID-19 2021-03-20 Completed [facility]ive rsity of MODERNA 12+ YRS 00:00:00 [place] [facility] VACCINE [facility] SARS-COV-2 COVID-19 2021-03-20 Completed [facility]ive rsity of MODERNA 12+ YRS 00:00:00 [place] [facility] SARS-COV-2 COVID-19 2021-03-20 Completed [facility]ive rsity of MODERNA 12+ YRS 00:00:00 [place] [facility] SARS-COV-2 COVID-19 2021-03-20 Completed [facility]ive rsity of MODERNA 12+ YRS 00:00:00 [place] [facility] V[facility]INE [facility] SARS-COV-2 COVID-19 2021-03-20 Completed [facility]ive rsity of MODERNA 12+ YRS 00:00:00 [place] [facility] V[facility]INE [facility] SARS-COV-2 COVID-19 2021-03-20 Completed [facility]ive rsity of MODERNA 12+ YRS 00:00:00 [place] [facility] SARS-COV-2 COVID-19 2021-03-20 Completed [facility]ive rsity of MODERNA 12+ YRS 00:00:00 [place] [facility] SARS-COV-2 COVID-19 2021-03-20 Completed [facility]ive rsity of MODERNA 12+ YRS 00:00:00 [place] [facility] SARS-COV-2 COVID-19 2021-03-20 Completed [facility]ive rsity of MODERNA 12+ YRS 00:00:00 [place] [facility] SARS-COV-2 COVID-19 2021-03-20 Completed [facility]ive rsity of MODERNA 12+ YRS 00:00:[address] [place] [facility] ical VACCINE Branch SARS-COV-2 COVID-19 2021-03-20 Completed Unive rsity of MODERNA 12+ YRS 00:00:[address] [place] [facility] ical VACCINE Branch SARS-COV-2 COVID-19 2021-03-20 Completed Unive rsity of MODERNA 12+ YRS 00:00:[address] [place] [facility] ical VACCINE Branch SARS-COV-2 COVID-19 2021-03-20 Completed Unive rsity of MODERNA 12+ YRS 00:00:[address] [place] [facility] ical VACCINE Branch SARS-COV-2 COVID-19 2021-03-20 Completed Unive rsity of MODERNA 12+ YRS 00:00:[address] [place] [facility] ical VACCINE Branch SARS-COV-2 COVID-19 2021-03-20 Completed Unive rsity of MODERNA 12+ YRS 00:00:00 [facility] ical VACCINE Branch SARS-COV-2 COVID-19 2021-03-20 Completed Unive rsity of MODERNA 12+ YRS 00:00:[address] [place] [facility] ical VACCINE Branch Moderna COVID-19 Moderna COVID-19 2021-02-13 Completed [facility] Vaccine 09:10:00 [facility] Moderna COVID-19 Moderna COVID-19 2021-02-13 Completed [facility] Vaccine Vaccine 09:10:00 [facility] Moderna COVID-19 Moderna COVID-19 2021-02-13 Completed [facility] Vaccine Vaccine 09:10:00 [facility] Moderna COVID-19 Moderna COVID-19 2021-02-13 Completed [facility] Vaccine Vaccine 09:10:00 [facility] Moderna COVID-19 Moderna COVID-19 2021-02-13 Completed [facility] Vaccine Vaccine 09:10:00 [facility] Moderna COVID-19 Moderna COVID-19 2021-02-13 Completed [facility] Vaccine Vaccine 09:10:00 [facility] Moderna COVID-19 Moderna COVID-19 2021-02-13 Completed [facility] Vaccine Vaccine 09:10:00 [facility] Moderna COVID-19 Moderna COVID-19 2021-02-13 Completed [facility] Vaccine Vaccine 09:10:00 [facility] Moderna COVID-19 Moderna COVID-19 2021-02-13 Completed [facility] Vaccine Vaccine 09:10:00 [facility] Moderna COVID-19 Moderna COVID-19 2021-02-13 Completed [facility] Vaccine Vaccine 09:10:00 [facility] Moderna COVID-19 Moderna COVID-19 2021-02-13 Completed [facility] Vaccine Vaccine 09:10:00 [facility] Moderna COVID-19 Moderna COVID-19 2021-02-13 Completed [facility] Vaccine Vaccine 09:10:00 [facility] Moderna COVID-19 Moderna COVID-19 2021-02-13 Completed [facility] Vaccine Vaccine 09:10:00 [facility] Moderna COVID-19 Moderna COVID-19 2021-02-13 Completed [facility] Vaccine Vaccine 09:10:00 [facility] Moderna COVID-19 Moderna COVID-19 2021-02-13 Completed [facility] Vaccine Vaccine 09:10:00 [facility] Moderna COVID-19 Moderna COVID-19 2021-02-13 Completed [facility] Vaccine Vaccine 09:10:00 [facility] Moderna COVID-19 Moderna COVID-19 2021-02-13 Completed [facility] Vaccine Vaccine 09:10:00 [facility] Moderna COVID-19 Moderna COVID-19 2021-02-13 Completed [facility] Vaccine Vaccine 09:10:00 [facility] SARS-COV-2 COVID-19 2021-02-13 Completed [facility] rsity of MODERNA VACCINE 00:00:00 [place] [facility] SARS-COV-2 COVID-19 2021-02-13 Completed [facility] rsity of MODERNA VACCINE 00:00:00 [place] [facility] SARS-COV-2 COVID-19 2021-02-13 Completed [facility] rsity of MODERNA VACCINE 00:00:00 [place] [facility] SARS-COV-2 COVID-19 2021-02-13 Completed [facility] rsity of MODERNA VACCINE 00:00:00 [place] [facility] SARS-COV-2 COVID-19 2021-02-13 Completed Unive rsity of MODERNA 12+ YRS 00:00:00 [place] [facility] VACCINE [facility] SARS-COV-2 COVID-19 2021-02-13 Completed Unive rsity of MODERNA 12+ YRS 00:00:00 [place] [facility] VACCINE [facility] SARS-COV-2 COVID-19 2021-02-13 Completed Unive rsity of MODERNA 12+ YRS 00:00:00 [place] [facility] VACCINE [facility] SARS-COV-2 COVID-19 2021-02-13 Completed Unive rsity of MODERNA 12+ YRS 00:00:00 [place] [facility] VACCINE [facility] SARS-COV-2 COVID-19 2021-02-13 Completed [facility] rsity of MODERNA 12+ YRS 00:00:00 [place] [facility] VACCINE [facility] SARS-COV-2 COVID-19 2021-02-13 Completed Unive rsity of MODERNA 12+ YRS 00:00:00 [place] [facility] VACCINE [facility] SARS-COV-2 COVID-19 2021-02-13 Completed Unive rsity of MODERNA 12+ YRS 00:00:00 [place] [facility] VACCINE [facility] SARS-COV-2 COVID-19 2021-02-13 Completed Unive rsity of MODERNA 12+ YRS 00:00:00 [place] [facility] VACCINE [facility] SARS-COV-2 COVID-19 2021-02-13 Completed [facility] rsity of MODERNA 12+ YRS 00:00:00 [place] [facility] VACCINE [facility] SARS-COV-2 COVID-19 2021-02-13 Completed Unive rsity of MODERNA 12+ YRS 00:00:00 [place] [facility] VACCINE [facility] SARS-COV-2 COVID-19 2021-02-13 Completed Unive rsity of MODERNA 12+ YRS 00:00:00 [facility] ical VACCINE Branch SARS-COV-2 COVID-19 2021-02-13 Completed Unive rsity of MODERNA 12+ YRS 00:00:00 [facility] ical VACCINE Branch SARS-COV-2 COVID-19 2021-02-13 Completed Unive rsity of MODERNA 12+ YRS 00:00:00 [facility] ical VACCINE Branch SARS-COV-2 COVID-19 2021-02-13 Completed Unive rsity of MODERNA 12+ YRS 00:00:00 [facility] ical VACCINE Branch SARS-COV-2 COVID-19 2021-02-13 Completed Unive rsity of MODERNA 12+ YRS 00:00:00 [facility] VACCINE Branch SARS-COV-2 COVID-19 2021-02-13 Completed Unive rsity of MODERNA 12+ YRS 00:00:00 [facility] VACCINE Branch Durolane Durolane 2020-11-20 Completed [facility] - 13:22:00 [facility] Durolane Durolane 2020-11-20 Completed [facility] - 13:22:00 [facility] Bupivicaine [place] Bupivicaine [place] 2020-11-20 Completed [facility] - 13:21:00 [facility] Kenalog Kenalog 2020-11-20 Completed [facility] - (Triamcinolone) (Triamcinolone) 13:21:00 [facility] Bupivicaine [place] Bupivicaine [place] 2020-11-20 Completed [facility] - 13:21:00 [facility] Kenalog Kenalog 2020-11-20 Completed [facility] - (Triamcinolone) (Triamcinolone) 13:21:00 [facility] Bupivicaine [place] Bupivicaine [place] 2020-08-19 Completed [facility] - 09:06:00 [facility] Kenalog Kenalog 2020-08-19 Completed [facility] - (Triamcinolone) (Triamcinolone) 09:06:00 [facility] Bupivicaine [place] Bupivicaine [place] 2020-08-19 Completed [facility] - 09:06:00 [facility] Kenalog Kenalog 2020-08-19 Completed [facility] - (Triamcinolone) (Triamcinolone) 09:06:00 [facility] Pneumovax (PPSV23) Pneumovax (PPSV23) 2020-04-07 Completed [facility] - 09:42:00 [facility] Pneumovax (PPSV23) Pneumovax (PPSV23) 2020-04-07 Completed [facility] - 09:42:00 [facility] Pneumovax (PPSV23) Pneumovax (PPSV23) 2020-04-07 Completed [facility] - 09:42:00 [facility] Pneumovax (PPSV23) Pneumovax (PPSV23) 2020-04-07 Completed [facility] - 09:42:00 [facility] Pneumovax (PPSV23) Pneumovax (PPSV23) 2020-04-07 Completed [facility] - 09:42:00 [facility] Pneumovax (PPSV23) Pneumovax (PPSV23) 2020-04-07 Completed [facility] - 09:42:00 [facility] Pneumovax (PPSV23) Pneumovax (PPSV23) 2020-04-07 Completed [facility] - 09:42:00 [facility] Pneumovax (PPSV23) Pneumovax (PPSV23) 2020-04-07 Completed [facility] - 09:42:00 [facility] Pneumovax (PPSV23) Pneumovax (PPSV23) 2020-04-07 Completed [facility] - 09:42:00 [facility] Pneumovax (PPSV23) Pneumovax (PPSV23) 2020-04-07 Completed [facility] - 09:42:00 [facility] Pneumovax (PPSV23) Pneumovax (PPSV23) 2020-04-07 Completed [facility] - 09:42:00 [facility] Pneumovax (PPSV23) Pneumovax (PPSV23) 2020-04-07 Completed [facility] - 09:42:00 [facility] Pneumovax (PPSV23) Pneumovax (PPSV23) 2020-04-07 Completed [facility] - 09:42:00 [facility] Pneumovax (PPSV23) Pneumovax (PPSV23) 2020-04-07 Completed [facility] - 09:42:00 [facility] Pneumovax (PPSV23) Pneumovax (PPSV23) 2020-04-07 Completed [facility] - 09:42:00 [facility] Pneumovax (PPSV23) Pneumovax (PPSV23) 2020-04-07 Completed [facility] - 09:42:00 [facility] Pneumovax (PPSV23) Pneumovax (PPSV23) 2020-04-07 Completed [facility] - 09:42:00 [facility] Pneumovax (PPSV23) Pneumovax (PPSV23) 2020-04-07 Completed [facility] - 09:42:00 [facility] Pneumococcal 2020-04-07 Completed [facility] Polysaccharide, 00:00:00 [place] [facility] PPSV23 (PNEUMOVAX) Branch Pneumococcal 2020-04-07 Completed [facility] f Polysaccharide, 00:00:00 [place] [facility] PPSV23 (PNEUMOVAX) Branch Pneumococcal 2020-04-07 Completed [facility] f Polysaccharide, 00:00:00 [place] [facility] PPSV23 (PNEUMOVAX) Branch Pneumococcal 2020-04-07 Completed [facility] Polysaccharide, 00:00:00 [place] [facility] PPSV23 (PNEUMOVAX) Branch Pneumococcal 2020-04-07 Completed [facility] f Polysaccharide, 00:00:00 [place] [facility] PPSV23 (PNEUMOVAX) Branch Pneumococcal 2020-04-07 Completed [facility] f Polysaccharide, 00:00:00 [place] [facility] PPSV23 (PNEUMOVAX) Branch Pneumococcal 2020-04-07 Completed [facility] f Polysaccharide, 00:00:00 [place] [facility] PPSV23 (PNEUMOVAX) Branch Pneumococcal 2020-04-07 Completed [facility] f Polysaccharide, 00:00:00 [place] [facility] PPSV23 (PNEUMOVAX) Branch Pneumococcal 2020-04-07 Completed [facility] f Polysaccharide, 00:00:00 [place] [facility] PPSV23 (PNEUMOVAX) Branch Pneumococcal 2020-04-07 Completed [facility] Polysaccharide, 00:00:00 [place] [facility] PPSV23 (PNEUMOVAX) Branch Pneumococcal 2020-04-07 Completed [facility] Polysaccharide, 00:00:00 [place] [facility] PPSV23 (PNEUMOVAX) Branch Pneumococcal 2020-04-07 Completed [facility] f Polysaccharide, 00:00:00 [place] [facility] PPSV23 (PNEUMOVAX) Branch Pneumococcal 2020-04-07 Completed [facility] f Polysaccharide, 00:00:00 [place] [facility] PPSV23 (PNEUMOVAX) Branch Pneumococcal 2020-04-07 Completed [facility] f Polysaccharide, 00:00:00 [place] [facility] PPSV23 (PNEUMOVAX) Branch Pneumococcal 2020-04-07 Completed [facility] f Polysaccharide, 00:00:00 [place] [facility] PPSV23 (PNEUMOVAX) Branch Pneumococcal 2020-04-07 Completed [facility] Polysaccharide, 00:00:00 [place] [facility] PPSV23 (PNEUMOVAX) Branch Pneumococcal 2020-04-07 Completed [facility] Polysaccharide, 00:00:00 [place] [facility] PPSV23 (PNEUMOVAX) Branch Pneumococcal 2020-04-07 Completed [facility] Polysaccharide, 00:00:00 [place] [facility] PPSV23 (PNEUMOVAX) Branch Pneumococcal 2020-04-07 Completed [facility] Polysaccharide, 00:00:00 [place] [facility] PPSV23 (PNEUMOVAX) Branch Pneumococcal 2020-04-07 Completed [facility] Polysaccharide, 00:00:00 [place] [facility] PPSV23 (PNEUMOVAX) Branch Afluria single dose Afluria single dose 2020-04-03 Completed [facility] - 09:20:00 [facility] Afluria single dose Afluria single dose 2020-04-03 Completed [facility] - 09:20:00 [facility] Afluria single dose Afluria single dose 2020-04-03 Completed [facility] - 09:20:00 [facility] Afluria single dose Afluria single dose 2020-04-03 Completed [facility] - 09:20:00 [facility] Afluria single dose Afluria single dose 2020-04-03 Completed [facility] - 09:20:00 [facility] Afluria single dose Afluria single dose 2020-04-03 Completed [facility] - 09:20:00 [facility] Afluria single dose Afluria single dose 2020-04-03 Completed [facility] - 09:20:00 [facility] Afluria single dose Afluria single dose 2020-04-03 Completed [facility] - 09:20:00 [facility] Afluria single dose Afluria single dose 2020-04-03 Completed [facility] - 09:20:00 [facility] Afluria single dose Afluria single dose 2020-04-03 Completed [facility] - 09:20:00 [facility] Afluria single dose Afluria single dose 2020-04-03 Completed [facility] - 09:20:00 [facility] Afluria single dose Afluria single dose 2020-04-03 Completed [facility] - 09:20:00 [facility] Afluria single dose Afluria single dose 2020-04-03 Completed [facility] - 09:20:00 [facility] Afluria single dose Afluria single dose 2020-04-03 Completed [facility] - 09:20:00 [facility] Afluria single dose Afluria single dose 2020-04-03 Completed [facility] - 09:20:00 [facility] Afluria single dose Afluria single dose 2020-04-03 Completed [facility] - 09:20:00 [facility] Afluria single dose Afluria single dose 2020-04-03 Completed [facility] - 09:20:00 [facility] Afluria single dose Afluria single dose 2020-04-03 Completed [facility] - 09:20:00 [facility] Influenza Virus 2020-04-03 Completed [facility] of Vaccine Quad IM 3+ 00:00:00 [facility] Influenza Virus 2020-04-03 Completed [facility] of Vaccine Quad IM 3+ 00:00:00 [facility] Influenza Virus 2020-04-03 Completed [facility] of Vaccine Quad IM 3+ 00:00:00 [facility] Influenza Virus 2020-04-03 Completed [facility] of Vaccine Quad IM 3+ 00:00:00 [facility] Influenza Virus 2020-04-03 Completed [facility] of Vaccine Quad IM 3+ 00:00: [facility] Influenza Virus 2020-04-03 Completed [facility] of Vaccine Quad IM 3+ 00:00: [facility] Influenza Virus 2020-04-03 Completed [facility] of Vaccine Quad IM 3+ 00:00:00 [facility] Influenza Virus 2020-04-03 Completed [facility] of Vaccine Quad IM 3+ 00:00:00 [facility] Influenza Virus 2020-04-03 Completed [facility] of Vaccine Quad IM 3+ 00:00:00 [facility] Influenza Virus 2020-04-03 Completed [facility] of Vaccine Quad IM 3+ 00:00:00 [facility] Influenza Virus 2020-04-03 Completed [facility] of Vaccine Quad IM 3+ 00:00:00 [facility] Influenza Virus 2020-04-03 Completed [facility] of Vaccine Quad IM 3+ 00:00:00 [facility] Influenza Virus 2020-04-03 Completed [facility] of Vaccine Quad IM 3+ 00:00:00 [facility] Influenza Virus 2020-04-03 Completed [facility] of Vaccine Quad IM 3+ 00:00:00 [facility] Influenza Virus 2020-04-03 Completed [facility] of Vaccine Quad IM 3+ 00:00:00 [facility] Influenza Virus 2020-04-03 Completed [facility] of Vaccine Quad IM 3+ 00:00:00 [facility] Influenza Virus 2020-04-03 Completed [facility] of Vaccine Quad IM 3+ 00:00:00 [facility] Influenza Virus 2020-04-03 Completed [facility] of Vaccine Quad IM 3+ 00:00:00 [facility] Influenza Virus 2020-04-03 Completed [facility] of Vaccine Quad IM 3+ 00:00:00 [facility] Influenza Virus 2020-04-03 Completed [facility] of Vaccine Quad IM 3+ 00:00:00 [facility] Flucelvax - single Flucelvax - single 2019-05-31 Completed [facility] - dose syringe dose syringe 10:13:00 [facility] Flucelvax - single Flucelvax - single 2019-05-31 Completed [facility] - dose syringe dose syringe 10:13:00 [facility] Flucelvax - single Flucelvax - single 2019-05-31 Completed [facility] - dose syringe dose syringe 10:13:00 [facility] Flucelvax - single Flucelvax - single 2019-05-31 Completed [facility] - dose syringe dose syringe 10:13:00 [facility] Flucelvax - single Flucelvax - single 2019-05-31 Completed [facility] - dose syringe dose syringe 10:13:00 [facility] Flucelvax - single Flucelvax - single 2019-05-31 Completed [facility] - dose syringe dose syringe 10:13:00 [facility] Flucelvax - single Flucelvax - single 2019-05-31 Completed [facility] - dose syringe dose syringe 10:13:00 [facility] Flucelvax - single Flucelvax - single 2019-05-31 Completed [facility] - dose syringe dose syringe 10:13:00 [facility] Flucelvax - single Flucelvax - single 2019-05-31 Completed [facility] - dose syringe dose syringe 10:13:00 [facility] Flucelvax - single Flucelvax - single 2019-05-31 Completed [facility] - dose syringe dose syringe 10:13:00 [facility] Flucelvax - single Flucelvax - single 2019-05-31 Completed [facility] - dose syringe dose syringe 10:13:00 [facility] Flucelvax - single Flucelvax - single 2019-05-31 Completed [facility] - dose syringe dose syringe 10:13:00 [facility] Flucelvax - single Flucelvax - single 2019-05-31 Completed [facility] - dose syringe dose syringe 10:13:00 [facility] Flucelvax - single Flucelvax - single 2019-05-31 Completed [facility] - dose syringe dose syringe 10:13:00 [facility] Flucelvax - single Flucelvax - single 2019-05-31 Completed [facility] - dose syringe dose syringe 10:13:00 [facility] Flucelvax - single Flucelvax - single 2019-05-31 Completed [facility] - dose syringe dose syringe 10:13:00 [facility] Flucelvax - single Flucelvax - single 2019-05-31 Completed [facility] - dose syringe dose syringe 10:13:00 [facility] Flucelvax - single Flucelvax - single 2019-05-31 Completed [facility] - dose syringe dose syringe 10:13:00 [facility] Influenza Virus 2019-05-31 Completed [facility] Vaccine 00:00:00 [facility] Influenza Virus 2019-05-31 Completed [facility] of Vaccine 00:00:00 [facility] Influenza Virus 2019-05-31 Completed [facility] Vaccine 00:00:00 [facility] Influenza Virus 2019-05-31 Completed [facility] Vaccine 00:00:00 [facility] Influenza Virus 2019-05-31 Completed [facility] Vaccine 00:00:00 [facility] Influenza Virus 2019-05-31 Completed [facility] Vaccine 00:00:00 [facility] Influenza Virus 2019-05-31 Completed [facility] Vaccine 00:00:00 [facility] Influenza Virus 2019-05-31 Completed [facility] Vaccine 00:00:00 [facility] Influenza Virus 2019-05-31 Completed [facility] Vaccine 00:00:00 [facility] Influenza Virus 2019-05-31 Completed [facility] Vaccine 00:00:00 [facility] Influenza Virus 2019-05-31 Completed [facility] Vaccine 00:00:00 [facility] Influenza Virus 2019-05-31 Completed [facility] Vaccine 00:00:00 [facility] Influenza Virus 2019-05-31 Completed [facility] Vaccine 00:00:00 [facility] Influenza Virus 2019-05-31 Completed [facility] Vaccine 00:00:00 [facility] Influenza Virus 2019-05-31 Completed [facility] Vaccine 00:00:00 [facility] Influenza Virus 2019-05-31 Completed [facility] Vaccine 00:00:00 [facility] Influenza Virus 2019-05-31 Completed [facility] Vaccine 00:00:00 [facility] Influenza Virus 2019-05-31 Completed Universit y of Vaccine 00:00:00 [facility] Influenza Virus 2019-05-31 Completed Universit y of Vaccine 00:00:00 [facility] Influenza Virus 2019-05-31 Completed Universit y of Vaccine 00:00:00 [facility] Influenza Virus 2018-06-06 Completed Universit y of Vaccine Quad IM 3+ 00:00:00 [facility] Influenza Virus 2018-06-06 Completed Universit y of Vaccine Quad IM 3+ 00:00:00 [facility] Influenza Virus 2018-06-06 Completed Universit y of Vaccine Quad IM 3+ 00:00:00 [facility] Influenza Virus 2018-06-06 Completed Universit y of Vaccine Quad IM 3+ 00:00:00 [facility] Influenza Virus 2018-06-06 Completed Universit y of Vaccine Quad IM 3+ 00:00:00 [facility] Influenza Virus 2018-06-06 Completed Universit y of Vaccine Quad IM 3+ 00:00:00 [facility] Influenza Virus 2018-06-06 Completed Universit y of Vaccine Quad IM 3+ 00:00:00 [facility] Influenza Virus 2018-06-06 Completed Universit y of Vaccine Quad IM 3+ 00:00:00 [facility] Influenza Virus 2018-06-06 Completed Universit y of Vaccine Quad IM 3+ 00:00:00 [facility] Influenza Virus 2018-06-06 Completed Universit y of Vaccine Quad IM 3+ 00:00:00 [facility] Influenza Virus 2018-06-06 Completed Universit y of Vaccine Quad IM 3+ 00:00:00 [facility] Influenza Virus 2018-06-06 Completed Universit y of Vaccine Quad IM 3+ 00:00:00 [facility] Influenza Virus 2018-06-06 Completed Universit y of Vaccine Quad IM 3+ 00:00:00 [facility] Influenza Virus 2018-06-06 Completed Universit y of Vaccine Quad IM 3+ 00:00:00 [facility] Influenza Virus 2018-06-06 Completed Universit y of Vaccine Quad IM 3+ 00:00:00 [facility] Influenza Virus 2018-06-06 Completed Universit y of Vaccine Quad IM 3+ 00:00:00 [facility] Influenza Virus 2018-06-06 Completed Universit y of Vaccine Quad IM 3+ 00:00:00 [facility] Influenza Virus 2018-06-06 Completed Universit y of Vaccine Quad IM 3+ 00:00:00 [facility] Influenza Virus 2018-06-06 Completed Universit y of Vaccine Quad IM 3+ 00:00:00 [facility] Influenza Virus 2018-06-06 Completed Universit y of Vaccine Quad IM 3+ 00:00:00 [facility] Vital Signs Vital Name Observation Time Observation Value Comments Source height 2022-04-19 08:20:00 64.75 [in_i] Common S [facility] weight 2022-04-19 08:20:00 285.9 [lb_av] Common [facility] temperature 2022-04-19 08:20:00 96.7 [degF] [facility] bmi 2022-04-19 08:20:00 47.94 kg/m2 [facility] oximetry 2022-04-19 08:20:00 98 % [facility] respiratory rate 2022-04-19 08:20:00 18 /min Comm on [facility] blood pressure 2022-04-19 08:20:00 138 mm[Hg] Common [facility] - systolic [facility] blood pressure 2022-04-19 08:20:00 72 mm[Hg] Common [facility] diastolic [facility] height 2022-03-10 09:00:00 64.75 [in_i] [facility] weight 2022-03-10 09:00:00 265 [lb_av] [facility] bmi 2022-03-10 09:00:00 44.43 kg/m2 [facility] height 2021-11-24 11:30:00 64.75 [in_i] [facility] weight 2021-11-24 11:30:00 297.9 [lb_av] [facility] temperature 2021-11-24 11:30:00 97.0 [degF] [facility] bmi 2021-11-24 11:30:00 49.95 kg/m2 [facility] oximetry 2021-11-24 11:30:00 95 % [facility] respiratory rate 2021-11-24 11:30:00 16 /min Comm on [facility] blood pressure 2021-11-24 11:30:00 138 mm[Hg] Common [facility] - systolic [facility] blood pressure 2021-11-24 11:30:00 76 mm[Hg] [facility] diastolic [facility] Systolic blood 2021-10-05 19:55:00 122 mm[Hg] Univer sity of pressure [facility] Diastolic blood 2021-10-05 19:55:00 74 mm[Hg] Unive rsity of pressure [facility] Heart rate 2021-10-05 19:55:00 64 /min [facility] Respiratory rate 2021-10-05 19:55:00 22 /min Univ [facility] Body weight 2021-10-05 19:55:00 132.541 kg [facility] BMI 2021-10-05 19:55:00 48.62 kg/m2 [facility] Oxygen saturation in 2021-10-05 19:55:00 97 /min University of Arterial blood by [facility] Pulse oximetry Branch Systolic blood 2021-10-05 19:55:00 122 mm[Hg] Univer sity of pressure [facility] Diastolic blood 2021-10-05 19:55:00 74 mm[Hg] Unive rsity of pressure [facility] Heart rate 2021-10-05 19:55:00 64 /min [facility] Respiratory rate 2021-10-05 19:55:00 22 /min Univ [facility] Body weight 2021-10-05 19:55:00 132.541 kg [facility] BMI 2021-10-05 19:55:00 48.62 kg/m2 [facility] Oxygen saturation in 2021-10-05 19:55:00 97 /min University of Arterial blood by [facility] Pulse oximetry Branch height 2021-10-01 10:40:00 64.75 [in_i] Common [facility] weight 2021-10-01 10:40:00 290.6 [lb_av] Common [facility] temperature 2021-10-01 10:40:00 97.2 [degF] Common S [facility] bmi 2021-10-01 10:40:00 48.73 kg/m2 [facility] oximetry 2021-10-01 10:40:00 95 % [facility] S [facility] respiratory rate 2021-10-01 10:40:00 18 /min Comm on [facility] blood pressure 2021-10-01 10:40:00 135 mm[Hg] Common [facility] - systolic [facility] blood pressure 2021-10-01 10:40:00 66 mm[Hg] Common [facility] - diastolic [facility] height 2021-08-24 10:30:00 64.75 [in_i] [facility] weight 2021-08-24 10:30:00 295.6 [lb_av] Common [facility] temperature 2021-08-24 10:30:00 97.7 [degF] Common S [facility] bmi 2021-08-24 10:30:00 49.57 kg/m2 [facility] S [facility] oximetry 2021-08-24 10:30:00 96 % Common [facility] respiratory rate 2021-08-24 10:30:00 17 /min Comm on [facility] blood pressure 2021-08-24 10:30:00 114 mm[Hg] Common [facility] - systolic [facility] blood pressure 2021-08-24 10:30:00 66 mm[Hg] Common [facility] - diastolic [facility] height 2021-05-26 11:20:00 64.75 [in_i] Common [facility] weight 2021-05-26 11:20:00 294.6 [lb_av] Common [facility] temperature 2021-05-26 11:20:00 98.1 [degF] [facility] 2021-05-26 11:20:00 49.4 kg/m2 Common S [facility] oximetry 2021-05-26 11:20:00 93 % Common S [facility] respiratory rate 2021-05-26 11:20:00 17 /min Comm on [facility] blood pressure 2021-05-26 11:20:00 132 mm[Hg] Common [facility] - systolic [facility] blood pressure 2021-05-26 11:20:00 73 mm[Hg] Common [facility] - diastolic [facility] height 2021-04-02 10:40:00 64.75 [in_i] [facility] weight 2021-04-02 10:40:00 283.4 [lb_av] [facility] temperature 2021-04-02 10:40:00 97.1 [degF] Common S [facility] bmi 2021-04-02 10:40:00 47.52 kg/m2 [facility] S [facility] oximetry 2021-04-02 10:40:00 97 % [facility] respiratory rate 2021-04-02 10:40:00 19 /min Comm on [facility] blood pressure 2021-04-02 10:40:00 137 mm[Hg] Common [facility] - systolic [facility] blood pressure 2021-04-02 10:40:00 71 mm[Hg] Common [facility] diastolic [facility] Procedures Procedure Date / Time Performing Clinician Source Performed SCANNED LAB RESULTS 2022-11-04 05:01:00 [facility] 2022-04-19 05:01:00 Doctor Unassigned, No [facility] [place] RELEASE OF [facility] EXTERNAL PROVIDER - [facility] 2022-03-05 05:01:00 Doctor Unassigned, N o [facility] EXTERNAL PROVIDER - [facility] 2022-03-01 05:01:00 Doctor Unassigned, N o [facility] EXTERNAL PROVIDER - [facility] 2022-02-16 05:01:00 Doctor Unassigned, N o [facility] Encounters Start End Encounter Admission Attending Care Care Encounter Source Date/Time Date/Time Type Type Clinicians Facility Department ID 2022 Outpatient FelizMELANIE ibrahim [facility] [id number] Common 08:46:01 Zev [id number] [facility] 2022-04-15 Outpatient FelizMELANIE ibrahim [facility] [id number] Common 08:40:03 Zev [id number] [facility] 2022-03-09 Outpatient Feliz, STLMLC STLMLC [id number] Common 16:35:01 Zev [facility] 2021-11-25 Outpatient Fleiz, STLMLC STLMLC [id number] Common 14:46:02 Zev [facility] 2021-10-21 Outpatient R CANDELARIA, [facility] CCA [id number] Univers 09:07:32 ROCHELLE palmer [facility] 2021-09-29 Outpatient Feliz, STLMLC STLMLC [id number] Common 14:37:01 Zev [facility] 2021-09-02 Outpatient Feliz, STLMLC STLC [id number] Common 10:14:01 Zev [facility] 2021-08-24 Outpatient Feliz, STLMLC STLC [id number] Common 10:17:01 Zev [facility] 2021-07-15 Outpatient Feliz, STLMLC STLC [id number] Common 14:08:09 Zev [id number] [facility] 2021-07-15 Outpatient Feliz, STLMLC STLMLC [id number] Common 13:40:57 Zev [id number] [facility] 2021-07-15 Outpatient Feliz, STLMLC STLMLC [id number] Common 13:36:07 Zev [id number] [facility] 2021-07-15 Outpatient Feliz, STLMLC STLMLC [id number] Common 13:35:35 Zev [id number] [facility] 2021-07-15 Outpatient Feliz, STLMLC STLMLC [id number] Common 13:26:24 Zev [id number] [facility] 2021-07-15 Outpatient Feliz, STLMLC STLMLC [id number] Common 13:09:43 Zev [id number] [facility] 2021-07-15 Outpatient Feliz, STLMLC STLMLC [id number] Common 13:06:50 Zev [id number] [facility] 2021-07-15 Outpatient Feliz, STLMLC STLMLC [id number] Common 12:46:33 Zev [id number] [facility] 2021-07-15 Outpatient Feliz, STLMLC STLMLC [id number] Common 12:46:13 Zev [id number] [facility] 2021-07-15 Outpatient Feliz, STLMLC STLMLC [id number] Common 12:44:03 Zev [id number] [facility] 2021-07-15 Outpatient Feliz, STLMLC STLMLC [id number] Common 12:37:23 Zev [id number] [facility] 2021-07-15 Outpatient Feliz, STLMLC STLC [id number] Common 12:34:12 Zev [id number] [facility] 2021-07-15 Outpatient Feliz, STLMLC STLC [id number] Common 12:32:42 Zev [id number] [facility] 2021-07-15 Outpatient Feliz, STLMLC STLC [id number] Common 12:28:41 Zev [id number] [facility] 2021-07-15 Outpatient Feliz, STLMLC STLC [id number] Common 12:22:23 Zev [id number] [facility] 2021-07-15 Outpatient Feliz, STLMLC STLC [id number] Common 12:06:20 Zev [id number] [facility] 2021-07-15 Outpatient Feliz, STLMLC STLC [id number] Common 12:05:56 Zev [id number] [facility] 2023-01-11 2023-01-11 Refill NOHEMY Gaona 1.2.840.114 [id number] Univers 00:00:00 00:00:00 Rochelle URIBE [id number] [facility] [id number] Flynn s [facility] [phone] [address] 2022-11-15 2022-11-15 NOHEMY Wilson [id number] [id number] Univers 00:00:00 00:00:00 Qiangjun [place] [id number] [facility] [id number] [phone] [place] [id number] [facility] 2022-11-04 2022-11-04 Orders Doctor LAINEY 1.2.840.114 [id number] Univers 00:00:00 00:00:00 Only Unassigned, ALBINA [id number] ity of [facility] [id number] Santy as [phone] [address] 2022-10-19 2022-10-19 Telephone [facility] [id number] Univers 00:00:00 00:00:00 Qiangjun [place] [id number] ity [facility] [id number] [phone] [address] 2022-10-18 2022-10-18 Refill [facility] 1.2.840.114 [id number] Univers 00:00:00 00:00:00 Qiangjun [place] [id number] [id number] [phone] [address] 2022-04-19 2022-04-19 [facility]WELL[facility] [id number] Common 00:00:00 00:00:00 Wellness Spiri t Visit [facility] 2022-04-19 2022-04-19 Telephone [facility] [id number] Univers 00:00:00 00:00:00 Qiangjun [place] [id number] ity of [facility] 4.2.7.2.[place] [phone] [address] 2022-04-19 2022-04-19 Orders Doctor RETANA 1.2.840.114 [id number] Univers 00:00:00 00:00:00 Only Unassigned, ALBINA [id number] ity of [facility] [id number] Santy as [phone] [address] 2022-04-14 2022-04-14 (TEL) STLMLC STLMLC [id number] Co mmon 00:00:00 00:00:00 [facility] 2022-04-12 2022-04-12 [facility] 1.2.840.114 [id number] 20 00:00:00 00:00:00 Rochelle URIBE [id number] [id number] [phone] Ga dic[address] 2022-03-23 2022-03-23 Telephone [facility] [id number] [facility] 00:00:00 00:00:00 Rochelle URIBE [id number] [id number] [phone] Ga dic[address] 2022-03-10 2022-03-10 OL DIG E/M STLMLC STLC [id number] Common 00:00:00 00:00:00 [facility] 11-20 Spir it [facility] 2022-03-09 2022-03-09 (TEL) STLMLC STLMLC [id number] Co mmon 00:00:00 00:00:00 [facility] 2022-03-08 2022-03-08 Outpatient R CANDELARIA [facility] [id number] [facility] 09:43:35 23:59:00 ROCHELLE cardosoy o f [facility] 2022-03-08 2022-03-08 (TEL) STLMLC STLMLC [id number] Co mmon 00:00:00 00:00:00 [facility] 2022-03-08 2022-03-08 Bianca Gaona [facility] 1.2.840.114 [id number] Univers 00:00:00 00:00:00 Rochelle URIBE 350.1.13.10 [place].2.[place] [phone] Ga dicct NAL [address] [place] [address] 2022-03-05 2022-03-05 Orders Doctor LAINEY 1.2.840.114 [id number] Univers 00:00:00 00:00:00 Only Unassigned, ALBINA 350.1.13.10 ity of [facility] 4.2.7.2.686 Santy as [phone] [address] 2022-03-02 2022-03-02 Letter [facility] 1.2.840.114 [id number] Univers 00:00:00 00:00:00 (Out) Rochelle URIBE 350.1.13.10 ity of [facility] 4.2.7.2.[place] [phone] [address] 2022-03-01 2022-03-01 Orders Doctor LAINEY 1.2.840.114 [id number] Univers 00:00:00 00:00:00 Only Unassigned, ALBINA 350.1.13.10 ity of [facility] [id number] Santy as [phone] [address] 2022-02-23 2022-02-23 Telephone [facility] [id number] [id number] Univers 00:00:00 00:00:00 Rochelle URIBE 350.1.13.10 ity of [place].2.[place] [phone] [address] 2022-02-19 2022-02-19 Outpatient R [facility] [id number] Univers 09:30:00 09:30:00 ity of [facility] 2022-02-18 2022-02-18 (TEL) [facility] [id number] Co mmon 00:00:00 00:00:00 [facility] 2022-02-16 2022-02-16 Telephone [facility] [id number] Univers 00:00:00 00:00:00 Rochelle URIBE 350.1.13.10 ity of [facility] 4.2.7.2.[place] [phone] Ga dical NAL 9 [facility] 2022-02-16 2022-02-16 Orders Doctor LAINEY 1.2.840.114 [id number] Univers 00:00:00 00:00:00 Only Unassigned, ALBINA 350.1.13.10 ity of [facility] 4.2.7.2.686 Santy as [phone] [address] 2022-02-12 2022-02-12 Telephone [facility], [facility] 1.2.127.025 [id number] Univers 00:00:00 00:00:00 Qiangjun [place] 350.1.13.10 [place]2.[place] [phone] [address] 2022-02-12 2022-02-12 Telephone [facility], [facility] 1.2.167.574 [id number] Univers 00:00:00 00:00:00 Qiangjun [place] 350.1.13.10 ity of [facility] 4.2.7.2.[place] [phone] Ga dicct NAL [address] [place] [address] 2022-02-08 2022-02-08 Telephone [facility], [facility] 1.2.067.390 [id number] Univers 00:00:00 00:00:00 Qiangjun [place] 350.1.13.10 ity of [facility] 4.2.7.2.[place] [phone] Ga dicct NAL [address] [place] [address] 2022-02-08 2022-02-08 Orders Doctor LAINEY 1.2.840.114 [id number] Univers 00:00:00 00:00:00 Only Unassigned, ALBINA 350.1.13.10 ity of [facility] 4.2.7.2.686 Santy as [phone] [address] 2022-02-08 2022-02-08 Telephone [facility], [facility] 1.2.711.385 [id number] Univers 00:00:00 00:00:00 Qiangjun [place] 350.1.13.10 ity of [facility] 4.2.7.2.[place] [phone] Ga dicct NAL 9 [facility] 2022-02-04 2022-02-04 Refill [facility] 1.2.840.114 [id number] Univers 00:00:00 00:00:00 Qiajyotsna [place] 350.1.13.10 ity of [place] 4.2.7.2.[place] [phone] Ga dic[address] 2022-01-06 2022-01-06 [facility] 1.2.840.114 [id number] Univers 00:00:00 00:00:00 Rochelle [place] 350.1.13.10 ity of [facility] 4.2.7.2.[place] [phone] [address] 2021-12-10 2021-12-10 Outpatient R CANDELARIA, [facility] [id number] Univers 11:00:00 11:00:00 ROCHELLE cardosoy [facility] 2021-12-07 2021-12-07 Outpatient R CANDELARIA, [facility] [id number] Univers 13:00:00 13:00:00 [facility] 2021-12-07 2021-12-07 Outpatient R CANDELARIA, [facility] [id number] Univers 13:00:00 13:00:00 JESSICAJELANI cardosoy o [facility] 2021-12-03 2021-12-03 DOLORES Castro 1.2.840.114 [id number] Univers 00:00:00 00:00:00 Management Harmony MAY[place] 350.1.13.10 [place] [phone] [address] 2021-11-24 2021-11-24 [facility] [id number] Co mmon 00:00:00 00:00:00 VISIT Spirit ESTAB PT - CHI LEVEL 4 [facility] 2021-10-06 2021-10-06 (TEL) [facility] [id number] Co mmon 00:00:00 00:00:00 [facility] 2021-10-05 2021-10-05 Outpatient R CANDELARIA, [facility] [id number] Univers 14:40:00 15:21:45 ROCHELLE palmer o [facility] 2021-10-05 2021-10-05 Office Candelraia, [facility] 1.2.840.114 [id number] Univers 14:40:00 15:21:45 Visit Jessicamerijelani URIBE 350.1.13.10 [place].2.[place] [phone] Ga dical [address] 2021-10-05 2021-10-05 Outpatient R CANDELARIA, [facility] [id number] Univers 14:40:00 15:21:45 ROCHELLE palmer o [facility] 2021-10-05 2021-10-05 Office [facility] 1.2.840.114 [id number] Univers 14:40:00 15:21:45 Visit Dennyjelani RONY 350.1.13.10 [place] [phone] Ga dical NAL [address] [place] [address] 2021-10-05 2021-10-05 Orders Doctor LAINEY 1.2.840.114 [id number] Univers 00:00:00 00:00:00 Only Unassigned, ALBINA 350.1.13.10 [facility] 4.2.7.2.686 Santy as [phone] [address] 2021-10-01 2021-10-01 OFFICE STLMLC STLMLC [id number] Co mmon 00:00:00 00:00:00 VISIT EST Spir it PT LEVEL 3 - [facility] 2021-09-28 2021-09-28 Outpatient R CANDELARIA, [facility] [id number] Univers 14:20:00 14:20:00 ROCHELLE palmer o [facility] 2021-09-28 2021-09-28 (TEL) STLMLC STLMLC [id number] Co mmon 00:00:00 00:00:00 [facility] 2021-09-02 2021-09-02 (COVID STLMLC STLMLC [id number] Co mmon 00:00:00 00:00:00 Inj) COVID Spi rit Injection - [facility] 2021-09-01 2021-09-01 Outpatient R CANDELARIA [facility] [id number] Univers 10:20:00 10:20:00 ROCHELLE palmer o f [facility] 2021-08-24 2021-08-24 OFFICE STLMLC STLMLC [id number] Co mmon 00:00:00 00:00:00 VISIT Spirit ESTAB PT - CHI LEVEL 4 [facility] 2021-08-11 2021-08-11 [facility] 1.2.840.114 [id number] Univers 00:00:00 00:00:00 Rochelle [facility] 350.1.13.10 [facility] 4.2.7.2.686 Flynn STEARNS [phone] Ga dical NAL 9 [facility] 2021-05-26 2021-05-26 OFFICE STLMLC STLMLC [id number] Co mmon 00:00:00 00:00:00 VISIT Spirit ESTAB PT - CHI LEVEL 4 [facility] 2021-04-09 2021-04-09 (TEL) STLMLC STLMLC [id number] Co mmon 00:00:00 00:00:00 Spirit - [facility] 2021-04-02 2021-04-02 OFFICE STLMLC STLMLC [id number] Co mmon 00:00:00 00:00:00 VISIT Spirit ESTAB PT - CHI LEVEL 4 [facility] 2021-03-20 2021-03-20 (COVID STLMLC STLMLC [id number] Co mmon 00:00:00 00:00:00 Inj) COVID Spi rit Injection - [facility] 2021-02-13 2021-02-13 Outpatient STLMLC STLMLC [id number] Common 00:00:00 00:00:00 Spirit - [facility] 2021-01-26 2021-01-26 Outpatient STLMLC STLMLC [id number] Common 00:00:00 00:00:00 Spirit - [facility] 2021-01-21 2021-01-21 [facility]patient [facility] [id number] Common 00:00:00 00:00:00 [facility] 2021-01-19 2021-01-19 Orders Doctor LAINEY 1.2.840.114 [id number] Univers 00:00:00 00:00:00 Only Unassigned, ALBINA 350.1.13.10 ity of [facility] 4.2.7.2.686 Santy as [phone] [address] 2021-01-09 2021-01-09 [facility] 1.2.181.542 [id number] Univers 00:00:00 00:00:00 Qiangjun [place] 350.1.13.10 ity of [place] [phone] Ga dical nal 9 [facility] 2021-01-09 2021-01-09 Orders Doctor RETANA 1.2.840.114 [id number] Univers 00:00:00 00:00:00 Only Unassigned, ALBINA 350.1.13.10 ity of [facility] [id number] Santy as [phone] [address] 2021-01-02 2021-01-02 Outpatient [facility] [id number] Common 00:00:00 00:00:00 [facility] 2020-12-26 2020-12-26 Orders Doctor RETANA 1.2.840.114 [id number] Univers 00:00:00 00:00:00 Only Unassigned, ALBINA [id number] ity of [facility] [id number] Santy as [phone] [address] 2020-12-25 2020-12-25 Refill [facility] 1.2.840.114 [id number] Univers 00:00:00 00:00:00 Q[place]jun [place] [id number] [id number] [phone] [place] dical [place]al [address] [place] [address] 2020-12-08 2020-12-08 Refill [facility] 1.2.840.114 [id number] Univers 00:00:00 00:00:00 Rochelle Rony [id number] [id number] [phone] [address] 2020-12-01 2020-12-01 Office [facility] 1.2.840.114 [id number] Univers 11:02:35 11:33:00 Visit Jessicajyotsna Uribe [id number] [id number] [phone] [address] 2020-12-01 2020-12-01 Outpatient [facility] [id number] Univers 11:00:00 11:00:00 ROCHELLE palmer o f [facility] 2020-11-27 2020-11-27 Refill [facility] 1.2.840.114 [id number] Univers 00:00:00 00:00:00 Jessicamerijelani Rony [id number] [id number] [phone] [address] 2020-11-24 2020-11-24 Outpatient [facility] [id number] Univers 09:00:00 09:00:00 ROCHELLE stack [facility] 2020-11-24 2020-11-24 Orders Doctor RETANA 1.2.840.114 [id number] 00:00:00 00:00:00 Only Unassigned, ALBINA [id number] [facility] [id number] [phone] [facility] 2020-11-24 2020-11-24 Orders Doctor LAINEY 1.2.840.114 [id number] Univers 00:00:00 00:00:00 Only Unassigned, ALBINA [id number] ity of [facility] [id number] Santy as [phone] [address] 2020-11-20 2020-11-20 Outpatient [facility] [id number] Common 00:00:00 00:00:00 [facility] 2020-11-20 2020-11-20 Outpatient [facility] [id number] Common 00:00:00 00:00:00 [facility] 2020-11-03 2020-11-03 Outpatient [facility] [id number] Common 00:00:00 00:00:00 [facility] 2020-11-03 2020-11-03 Outpatient [facility] [id number] Common 00:00:00 00:00:00 [facility] 2020-10-31 2020-10-31 Outpatient [facility] [id number] Common 00:00:00 00:00:00 [facility] 2020-10-29 2020-10-29 Outpatient [facility] [id number] Common 00:00:00 00:00:00 [facility] 2020-10-24 2020-10-24 Outpatient [facility] [id number] Common 00:00:00 00:00:00 [facility] 2020-10-16 2020-10-16 Outpatient [facility] [id number] Common 00:00:00 00:00:00 [facility] 2020-10-15 2020-10-15 Outpatient [facility] [id number] Common 00:00:00 00:00:00 [facility] 2020-10-14 2020-10-14 Outpatient [facility] [id number] Common 00:00:00 00:00:00 [facility] 2020-09-02 2020-09-02 NOHEMY Albarran 1.2.840.114 [id number] 00:00:00 00:00:00 Rochelle Uribe [id number] [place] [id number] [facility] [phone] nal 059 [facility] 2020-09-02 2020-09-02 NOHEMY Albarran 1.2.840.114 [id number] Univers 00:00:00 00:00:00 Rochelle Uribe [id number] [id number] [phone] Ga dical nal 059 [facility] 2020-09-01 2020-09-01 Refill Candelaria, [facility] 1.2.840.114 [id number] 00 00:00:00 00:00:00 Qiajyotsna Uribe [id number] [place] [id number] Professio [phone] [address] 2020-09-01 2020-09-01 [facility] 1.2.840.114 [id number] Univers 00:00:00 00:00:00 Qiajyotsna Uribe [id number] it[id number] [phone] Ga dicct nal 9 [facility] 2020-08-26 2020-08-26 [facility] 1.2.840.114 [id number] 00:00:00 00:00:00 Outreach [facility] [id number] [facility] [id number] PAVILLION [phone] [facility] 2020-08-26 2020-08-26 [facility] 1.2.840.114 [id number] Univers 00:00:00 00:00:00 Outreach Hernandez PRIMARY [id number] i ty of [place] [id number] [phone] Ga dical [address] 2020-08-21 2020-08-21 Outpatient [facility] [id number] Common 00:00:00 00:00:00 [facility] 2020-08-19 2020-08-19 Outpatient [facility] [id number] Common 00:00:00 00:00:00 [facility] 2020-08-19 2020-08-19 [facility] 1.2.840.114 [id number] 00:00:00 00:00:00 Rochelle Uribe [id number] [place] [id number] Professio [phone] nal [address] [place] [address] 2020-08-19 2020-08-19 [facility] 1.2.840.114 [id number] Univers 00:00:00 00:00:00 Rochelle Uribe [id number] it[id number] [phone] Ga dical nal [address] [place] [address] 2020-08-14 2020-08-14 Outpatient [facility] [id number] Common 00:00:00 00:00:00 [facility] 2020-07-29 2020-07-29 Outpatient [facility] [id number] Common 00:00:00 00:00:00 [facility] 2020-07-24 2020-07-24 Outpatient [facility] [id number] Common 00:00:00 00:00:00 [facility] 2020-06-16 2020-06-16 Outpatient [facility] [id number] Common 00:00:00 00:00:00 [facility] 2020-06-09 2020-06-09 Outpatient [facility] [id number] Common 00:00:00 00:00:00 [facility] 2020-06-02 2020-06-02 [facility] [id number] Univers 10:40:00 10:40:00 DENNYJELANI estela o f [facility] 2020-06-02 2020-06-02 Office [facility] 1.2.840.114 [id number] Univers 09:31:22 10:09:00 Visit Rochelle Uribe [id number] it[place] of [id number] [phone] Ga dical nal [address] [place] [address] 2020-06-02 2020-06-02 Office [facility] 1.2.840.114 [id number] 09:31:22 10:09:00 Visit Rochelle Uribe [id number] [place] [id number] Professio [phone] [address] 2020-05-07 2020-05-07 Outpatient [facility] [id number] Common 00:00:00 00:00:00 [facility] 2020-05-07 2020-05-07 [facility] 1.2.840.114 [id number] Univers 00:00:00 00:00:00 [place]helle [place] [id number] ity [id number] [phone] Ga dicct nal [address] [place] [address] 2020-05-06 2020-05-06 Outpatient [facility] [id number] Common 00:00:00 00:00:00 [facility] 2019-12-06 2019-12-06 [facility]phone [facility] [id number] [facility] 00:00:00 00:00:00 Sendguillaume Uribe [id number] ity of [id number] [phone] [place] dic[address] 2019-09-21 2019-09-21 Orders Doctor RETANA 1.2.840.114 [id number] Univers 00:00:00 00:00:00 Only Unassigned, ALBINA [id number] ity of [facility] [id number] Santy as [phone] [address] 2019-09-03 2019-09-03 Orders Doctor LAINEY 1.2.840.114 [id number] Univers 00:00:00 00:00:00 Only Unassigned, ALBINA [id number] ity of [facility] [id number] [place]y as [phone] [address] 2019-08-29 2019-08-29 Office [facility] 1.2.840.114 [id number] Univers 08:53:23 16:50:00 Visit Rochelle Uribe [id number] it[place] of [id number] [phone] [address] 2019-08-29 2019-08-29 Outpatient R CANDELARIA [facility] [id number] Univers 09:40:00 09:40:00 ROCHELLE ity o f [facility] 2019-08-08 2019-08-08 [facility] 1.2.840.114 [id number] Univers 00:00:00 00:00:00 [place]helle [place] [id number] it[id number] [phone] [address] 2019-03-05 2019-03-05 Office [facility] 1.2.840.114 [id number] Univers 10:05:13 10:36:47 Visit Rochelle Uribe [id number] [id number] [phone] [address] 2019-03-05 2019-03-05 Refill Trevon [facility] 1.2.840.114 [id number] Univers 00:00:00 00:00:00 Christiano Uribe [id number] [id number] [phone] [address] 2019-03-05 2019-03-05 Orders Doctor RETANA 1.2.840.114 [id number] Univers 00:00:00 00:00:00 Only Unassigned, ALBINA 350.1.13.10 ity of [facility] [id number] Santy as [phone] [facility] [address] 2019-01-16 2019-01-16 [facility] 1.2.840.114 [id number] Univers 00:00:00 00:00:00 [facility] [id number] [id number] [phone] [facility] Results This patient has no known results. Notes Date/Time Note Provider Source 2023-01-11 08:14:40-00:00 Formatting of this note migh t be different from the original. [facility] - Health Labs done via external lab. Stable BUN/Cr. Refill ok'd as per [facility] refill protocol. Electronically signed by Santy Rivera MA a t 01/11/2023 8:15 AM CDT
[2023-01-26 21:57] LABS: Urine Bacteria <20 /HPF (<20); Urine RBC <5 /HPF (None Seen)
[2023-01-27] MEDS ORDERED: NA CHLORIDE 0.9% 500 ML ONE (01:10)
[2023-01-27 01:11] LABS: Absolute Lymphocytes (CBC) 2.6 K/uL (0.7-4.9); Hematocrit 36.3 % (36.0-45.0); MPV 9.4 fL (7.6-11.3); Platelets 198 thou/uL (152-406); RBC Red Blood Cell Count 4.08 M/uL (3.86-4.86)
[2023-01-27 01:22] LABS: Albumin 2.7 g/dL (3.4-5.0); Bilirubin Total 0.4 mg/dL (0.2-1.0); Potassium 3.1 mEq/L (3.5-5.1); Protein, Total 7.1 g/dL (6.4-8.2)
[2023-01-27] MEDS ORDERED: levoFLOXacin 750 MG TAB ONE (02:15)
[2023-01-27] MEDS ORDERED: POTASSIUM 25 MEQ EFFERV TAB ONE (02:16)
[2023-01-27] MEDS ORDERED: ACETAMINOPHEN 500 MG TAB ONE (02:16)
--- NOTE | 2023-01-27 02:38 | ER ---
Nurse's Notes [facility] Name: Deena Hdz Age: 62 yrs Sex: Female : 1960 Arrival Date: 01/26/2023 Time: 20:16 Bed 17 Private MD: Diagnosis: Cellulitis of abdominal wall;Dysuria Presentation: 01/26 20:31 Chief complaint: Patient states: burning with urination onset 3 months ago. Pt states cm10 that she feels like she is urinating glass right now. Pt states that she also has a hernia and a wound that she thinks is infected. Coronavirus screen: Vaccine status: Patient reports receiving the 2nd dose of the covid vaccine. Ebola Screen: Patient denies travel to an Ebola-affected area in the 21 days before illness onset. No symptoms or risks identified at this time. Initial Sepsis Screen: Does the patient meet any 2 criteria? No. Patient's initial sepsis screen is negative. Does the patient have a suspected source of infection? No. Patient's initial sepsis screen is negative. Risk Assessment: Do you want to hurt yourself or someone else? Patient reports no desire to harm self or others. Onset of symptoms is unknown. 20:31 Method Of Arrival: Ambulatory cm10 20:31 Acuity: JAIRON 3 cm10 Historical: - Allergies: 20:32 PENICILLINS; cm10 - PMHx: 20:32 Anxiety; GERD; Ventral Hernia w/Gangrene; Hypertension; Depression; insomnia; Diabetes cm10 - NIDDM; - Immunization history:: Adult Immunizations unknown. - Social history:: Smoking status: Patient/guardian denies using tobacco. Screenin/10 02:53 [facility] ED Fall Risk Assessment (Adult) History of falling in the last 3 months, cm10 including since admission No falls in past 3 months (0 pts) Confusion or Disorientation No (0 pts) Intoxicated or Sedated No (0 pts) Impaired Gait Yes (1 pt) Mobility Assist Device Used Yes (1 pt) Altered Elimination No (0 pt) Score/Fall Risk Level 0 - 2 = Low Risk Oriented to surroundings, Maintained a safe environment, Hourly rounding (assess needs \T\ fall precautionary measures) done. Abuse screen: Denies threats or abuse. Denies injuries from another. Nutritional screening: No deficits noted. Tuberculosis screening: No symptoms or risk factors identified. Assessment: 02:53 General: Appears in no apparent distress. comfortable, Behavior is calm, cooperative. cm10 Pain: Complains of pain in back and abdomen. Neuro: No deficits noted. Level of Consciousness is awake, alert, obeys commands, Oriented to person, place, time, situation. Respiratory: No deficits noted. Airway is patent Respiratory effort is even, unlabored, Respiratory pattern is regular, symmetrical. Vital Signs: 01/26 20:31 BP 165 / 97; Pulse 70; Resp 18; Temp 98.3; Pulse Ox 98% ; Weight 120.2 kg; Height 5 ft. cm10 5 in. ; Pain 03/29; 01/27 01:59 BP 146 / 69; Pulse 59; Resp 17; Pulse Ox 98% on R/A; ll3 02:52 BP 163 / 80; Pulse 63; Resp 18; Pulse Ox 97% on R/A; cm10 01/26 20:31 Body Mass Index 44.10 (120.20 kg, 165.1 cm) cm10 01/26 20:31 Pain Scale: Adult cm10 ED Course: 01/26 20:17 Patient arrived in ED. ag3 20:22 Alvarez Logan PA is PHCP. cp 20:22 Alvarez Alves MD is Attending Physician. cp 20:32 Triage completed. cm10 20:33 Arm band placed on Patient placed in waiting room. cm10 01/27 00:46 Initial lab(s) drawn, by sd, sent to lab. Inserted saline lock: 20 gauge in left cm10 antecubital area, using aseptic technique. Blood collected. Missed attempt(s): 20 gauge in left forearm. Bleeding controlled, band aid applied, catheter tip intact. 00:47 CBC with Diff Sent. cm10 00:47 CMP Sent. cm10 00:47 Lipase Sent. cm10 01:07 Lactate w/ 2H reflex if indic. Sent. ll3 02:36 Augustine Guerra MD is Referral Physician. cp 02:53 Patient has correct armband on for positive identification. Provided Education on: N/A. cm10 02:54 No provider procedures requiring assistance completed. IV discontinued, intact, cm10 bleeding controlled, No redness/swelling at site. Pressure dressing applied. Administered Medications: 01:07 Drug: NS 0.9% IV 500 ml Route: IV; Rate: bolus; Site: left antecubital; ll3 01:46 Follow up: Response: No adverse reaction; IV Status: Completed infusion; IV Intake: ll3 500ml 02:42 Drug: Acetaminophen PO 1000 mg Route: PO; ll3 02:42 Drug: LevOfloxacin PO 750 mg Route: PO; ll3 02:42 Drug: Potassium PO Effervescent Tablet 50 mEq Route: PO; ll3 Medication: 02:54 VIS not applicable for this client. cm10 Intake: 01:46 IV: 500ml; Total: 500ml. ll3 Outcome: 02:38 Discharge ordered by MD. cp 02:54 Discharged to home ambulatory, with family. cm10 02:54 Condition: good 02:54 Discharge instructions given to patient, Instructed on discharge instructions, follow up and referral plans. medication usage, Demonstrated understanding of instructions, follow-up care, medications, wound care, Prescriptions given X 2. 02:54 Patient left the ED. cm10 Addendum: 01/30/2023 07:55 Addendum: Culture Results: Positive urine culture. No further action required. Bacteria s s sensitive to prescribed antibiotic. Signatures: Carmelita Grissom, RN RN ss Alvarez Logan PA PA cp Gomez, Alice 3 Lexii Fox RN RN ll3 Nia Black RN RN 10
--- NOTE | 2023-01-27 02:39 | EDPHYS ---
Physician Documentation [facility] Name: Deena Hdz Age: 62 yrs Sex: Female : 1960 Arrival Date: 01/26/2023 Time: 20:16 Bed 17 Private MD: DAGMAR Physician Alvarez Alves HPI: 01/26 22:00 This 62 yrs old Female presents to ER via Ambulatory with complaints of Wound cp Infection, Flank Pain, Pain With Urination. 22:00 The patient presents with urinary symptoms, dysuria. cp 22:00 Onset: The symptoms/episode began/occurred 3 month(s) ago. Associated signs and cp symptoms: Pertinent negatives: constipation, diarrhea, fever, hematuria, vomiting. Patient is a 62-year-old female who presents to the emergency department with complaints of dysuria and flank pain. Patient reports symptoms for the past 3 months that have worsened recently. She is also concerned about a chronic abdominal wound that she has noticed some drainage and redness. Denies fevers, denies any chest pain. Patient reports history of multiple abdominal surgeries to include a hernia repair with subsequent development of complications that required removal of the mesh due to infection. Patient reports she sees Dr. Guerra in the wound care but has not been able to see him recently due to her moving apartments. Historical: - Allergies: 20:32 PENICILLINS; cm10 - PMHx: 20:32 Anxiety; GERD; Ventral Hernia w/Gangrene; Hypertension; Depression; insomnia; Diabetes cm10 - NIDDM; - Immunization history:: Adult Immunizations unknown. - Social history:: Smoking status: Patient/guardian denies using tobacco. ROS: 22:05 Constitutional: Negative for body aches, chills, fever, poor PO intake. cp 22:05 Eyes: Negative for injury, pain, redness, and discharge. cp 22:05 ENT: Negative for drainage from ear(s), ear pain, sore throat, difficulty swallowing, difficulty handling secretions. 22:05 Cardiovascular: Negative for chest pain, edema, palpitations. 22:05 Respiratory: Negative for cough, shortness of breath, wheezing. 22:05 Abdomen/GI: Positive for chronic wound, Negative for vomiting, diarrhea, constipation. 22:05 : Positive for burning with urination, Negative for hematuria. 22:05 Neuro: Negative for altered mental status, dizziness, headache, weakness. 22:05 All other systems are negative. Exam: 22:10 Constitutional: The patient appears in no acute distress, alert, awake, cp non-diaphoretic, non-toxic, well developed, well nourished, obese. 22:10 Head/Face: Normocephalic, atraumatic. cp 22:10 Eyes: Periorbital structures: appear normal, Conjunctiva: normal, no exudate, no injection, Sclera: no appreciated abnormality, Lids and lashes: appear normal, bilaterally. 22:10 ENT: External ear(s): are unremarkable, Nose: is normal, Mouth: Lips: moist, Oral mucosa: moist, Posterior pharynx: is normal, airway is patent, no erythema, no exudate. 22:10 Chest/axilla: Inspection: normal. 22:10 Cardiovascular: Rate: normal, Rhythm: regular. 22:10 Respiratory: the patient does not display signs of respiratory distress, Respirations: normal, no use of accessory muscles, no retractions, labored breathing, is not present, Breath sounds: are clear throughout, no decreased breath sounds, no stridor, no wheezing. 22:10 Abdomen/GI: Inspection: obese Multiple superficial wounds noted with mild purulent drainage, moderate erythema of the abdominal wall, mild tenderness to palpation, Bowel sounds: active, all quadrants, Palpation: soft, in all quadrants, mild abdominal tenderness, in all quadrants, Hernia: noted in the left mid abdomen. 22:10 Back: pain, is absent, ROM is normal. 22:10 Neuro: Orientation: to person, place \T\ time. Mentation: is normal, Motor: moves all fours, strength is normal, Gait: is steady. Vital Signs: 20:31 BP 165 / 97; Pulse 70; Resp 18; Temp 98.3; Pulse Ox 98% ; Weight 120.2 kg; Height 5 ft. cm10 5 in. ; Pain 03/29; 01/27 01:59 BP 146 / 69; Pulse 59; Resp 17; Pulse Ox 98% on R/A; ll3 02:52 BP 163 / 80; Pulse 63; Resp 18; Pulse Ox 97% on R/A; cm10 01/26 20:31 Body Mass Index 44.10 (120.20 kg, 165.1 cm) cm10 01/26 20:31 Pain Scale: Adult cm10 MDM: 01/26 20:42 Patient medically screened. [facility] 01/27 02:37 Data reviewed: vital signs, nurses notes, lab test result(s). 02:37 Differential diagnosis: urinary tract infection, sepsis, pyelonephritis. Consideration cp of Admission/Observation Escalation of care including admission/observation considered. Test considered but Not performed: CT: abdomen/pelvis. Counseling: I had a detailed discussion with the patient and/or guardian regarding: the historical points, exam findings, and any diagnostic results supporting the discharge/admit diagnosis, lab results, the need for outpatient follow up, for definitive care, a general surgeon, to return to the emergency department if symptoms worsen or persist or if there are any questions or concerns that arise at home. Response to treatment: the patient's symptoms have mildly improved after treatment, and as a result, I will discharge patient. 01/26 20:57 Order name: Urine Microscopic Only; Complete Time: 23:01 01/26 23:01 Interpretation: Normal except: UWBC 20-50. 01/26 20:57 Order name: CBC with Diff; Complete Time: 01:49 cp 01/26 20:57 Order name: CMP; Complete Time: 01:49 cp 01/27 02:01 Interpretation: Normal except: K 3.1; GFR 70; AST 7; ALK 119; CA 8.3; ALB 2.7; GLOB cp 4.4; A/G 0.6. 01/26 20:57 Order name: Lipase; Complete Time: 01:49 01/26 22:00 Order name: Urine Culture EDNV 01/27 00:48 Order name: Lactate w/ 2H reflex if indic.; Complete Time: 02:01 01/27 02:01 Interpretation: Reviewed. 01/26 20:57 Order name: IV Saline Lock; Complete Time: 00:47 01/26 20:57 Order name: Labs collected and sent; Complete Time: 00:47 cp 01/27 00:51 Order name: Wound dressing; Complete Time: 01:42 cp Administered Medications: 01:07 Drug: NS 0.9% IV 500 ml Route: IV; Rate: bolus; Site: left antecubital; ll3 01:46 Follow up: Response: No adverse reaction; IV Status: Completed infusion; IV Intake: ll3 500ml 02:42 Drug: Acetaminophen PO 1000 mg Route: PO; ll3 02:42 Drug: LevOfloxacin PO 750 mg Route: PO; ll3 02:42 Drug: Potassium PO Effervescent Tablet 50 mEq Route: PO; ll3 Disposition Summary: 01/27/23 02:38 Discharge Ordered Location: Home cp Problem: new cp Symptoms: have improved cp Condition: Stable cp Diagnosis - Cellulitis of abdominal wall cp - Dysuria cp Followup: cp - With: Augustine Guerra MD - When: 2 - 3 days - Reason: Wound Recheck Discharge Instructions: - Discharge Summary Sheet cp - Cellulitis, Adult cp - Dysuria cp Forms: - Medication Reconciliation Form cp - Thank You Letter cp - Antibiotic Education cp - Prescription Opioid Use cp - Patient Portal Instructions cp Prescriptions: - nystatin 100,000 unit/gram Topical ointment - apply 1 application by TOPICAL route 3 times per day; 60 gram tube; Refills: 0, cp Product Selection Permitted - levofloxacin 750 mg Oral Tablet - take 1 tablet by ORAL route once daily for 10 days continue morning of cp 01/28/2023; 9 tablet; Refills: 0, Product Selection Permitted Signatures: Dispatcher [employer] EDAlvarez Serrano MD MD cha Page, Corey, PA PA cp Lexii Fox RN RN ll3 Nia Black RN RN cm10 Corrections: (The following items were deleted from the chart) 02:01 01:49 Normal except: K 3.1; GFR 70. cp cp
[2023-01-27 03:08] VITALS: TEMP 98.3
[2023-01-27 03:19] VITALS: BP 163/80; O2SAT 97
== END 2023-01-27 02:54 | disposition home or self-care (01) ==
LOC: ER 20:16
DX: L03.311 Cellulitis of abdominal wall (principal); R30.0 Dysuria; E11.9 Type 2 diabetes mellitus without complications; I10 Essential (primary) hypertension; Z88.0 Allergy status to penicillin
CPT/HCPCS: 87088; 85025; 87086; 36415; 83605; 87077; 87186; 81015; 83690; 80053; 96360; 99284; J7040